=== PATIENT | male | born 1950 | race Caucasian/White ===

== ENCOUNTER 2020-01-25 18:42 | Emergency (ER) | payer OTHER, SELFPAY ==
[2020-01-25 19:36] VITALS: BP 157/83; PULSE 98; RESP 16; TEMP 36.7; O2SAT 99; BMI 30.3
[2020-01-25 19:56] VITALS: BP 164/88; PULSE 90; RESP 16; O2SAT 99
--- NOTE | 2020-01-25 19:59 | ECG_ITS ---
Test Reason : HYPERTENSION Blood Pressure : / mmHG Vent. Rate : 088 BPM Atrial Rate : 088 BPM P-R Int : 170 ms QRS Dur : 088 ms QT Int : 344 ms P-R-T Axes : 039 -18 039 degrees QTc Int : 416 ms Normal sinus rhythm Moderate voltage criteria for LVH, may be normal variant Borderline ECG When compared with ECG of 29-AUG-2017 18:04, No significant change was found Referred By: Kaitlin Anthony Electronically Signed By:ADDIS MADRIGAL MD
--- NOTE | 2020-01-25 20:15 | ED_ITS ---
HPI - General Adult General Chief complaint: General Medical Stated complaint: high BP Time Seen by Provider: 01/25/20 19:54 Source: patient Mode of arrival: ambulatory Limitations: no limitations History of Present Illness HPI narrative: patient comes to emergency room complaining of high blood pressure. Patient states he initially had a headache, neck pain and bilateral chest pain, all symptoms started approximately 3 hours ago. Patient states by the time he got to the emergency room, all his symptoms were still present but very mild. At this moment patient denies chest pain. Related Data Allergies Allergy/AdvReac Type Severity Reaction Status Date / Time Penicillins Allergy Mild RASH Verified 01/25/20 19:35 penicillin V Allergy Unknown rash Verified 09/11/19 00:00 Review of Systems Review of Systems: Yes all other systems are reviewed and are negative Cardiovascular: Comments: mild chest pressure Neurologic: Comments: mild headache PMFSH Past Medical History Medical History Hypertension Social History Social History Advance Directives: No Physical Exam Vital Signs: Vital Signs: Vital Signs Temp Pulse Resp BP Pulse Ox 01/25/20 20:21 98.2 F 89 20 156/91 H 97 01/25/20 19:56 90 16 164/88 H 99 01/25/20 19:36 98.0 F 98 16 157/83 H 99 Body Mass Index 30.3 Const: General: cooperative, healthy appearing and comfortable Orientation/consciousness: patient oriented x3 HENMT: Head: Yes normal to inspection Ears: external ears normal General nose exam: Normal external nose present Eyes: General: appearance normal, both eyes and all related structures Neck: Other: no pain to palpation bilaterally Neck: Yes normal visual insp ection Chest: Chest palpation & inspection: normal inspection of the chest Resp: Effort & Inspection: normal respiratory effort Cardio: Jugular venous distension: no JVD Rhythm: regular rhythm Heart sounds: S1 normal heart sound present and S2 normal heart sound present GI: Inspection: Yes normal to inspection : General: Yes no CVA tenderness Back/Spine/Pelvis: Back: no CVA tenderness Skin: General skin exam: no rashes or lesions noted Neuro: General: patient oriented x3 Extrem: General: Yes normal to inspection Psych: Appearance: grossly normal and well kempt Course Reevaluation(s) Reevaluation #1: patient no longer having neck pain or chest pressure, only having mild headache Medical Decision Making MDM Narrative Medical decision making narrative: I discussed the labs and EKG with the patient, troponin and EKG within normal limits. Patient will follow-up with his primary care physician. EKG: Normal sinus rhythm, heart rate 88, QTC 416, no ST segment depression or elevations, normal T-waves Lab Data Result diagrams: 01/25/20 20:31 01/25/20 21:09 Labs: Lab Results 01/25/20 01/25/20 01/25/20 Range/Units 20:31 20:31 20:31 WBC 5.8 (4.8-10.8) X10*3/uL RBC 4.91 (4.60-5.80) X10*6/uL Hgb 15.2 (14.0-18.0) g/dl Hct 43.6 (42-52) % MCV 88.8 (80-98) fL MCH 31.0 (27.0-33.0) pg MCHC 34.9 (31.0-36.0) g/dl RDW 13.1 (11.0-16.0) % Plt Count 237 (160-400) X10*3/uL MPV 9.8 (9.4-12.4) fL Immature Gran % (Auto) 0.2 (0.0-0.4) % Neut % (Auto) 62.9 (45-73) % Lymph % (Auto) 23.7 (20-40) % [place] % (Auto) 10.3 (2-11) % Eos % (Auto) 2.6 (0-4) % Baso % (Auto) 0.3 (0-2) % Lymph # (Auto) 1.4 (1.2-4.9) X10*3/uL [place] # (Auto) 0.6 (0.1-1.2) X10*3/uL Eos # (Auto) 0.2 (0.0-0.4) X10*3/uL Baso # (Auto) 0.0 (0.0-0.2) X10*3/uL Abs Immat Gran (auto) 0.01 (0.00-0.03) X10*3/uL Absolute Neuts (auto) 3.6 (2.0-8.3) X10*3/uL Absolute Nucleated RBC 0.000 (0.0-0.012) X10*3/uL Nucleated RBC % (auto) 0.0 (0.0-0.2) /100WBC Sodium Cancelled Potassium Cancelled Chloride Cancelled Carbon Dioxide Cancelled Anion Gap Cancelled BUN Cancelled Creatinine Cancelled Estim Creat Clear Calc Cancelled Estimated GFR Cancelled Random Glucose Cancelled Calcium Cancelled Troponin I High Sens < 3.5 (<3.5-35.0) ng/L 01/25/20 Range/Units 21:09 WBC (4.8-10.8) X10*3/uL RBC (4.60-5.80) X10*6/uL Hgb (14.0-18.0) g/dl Hct (42-52) % MCV (80-98) fL MCH (27.0-33.0) pg MCHC (31.0-36.0) g/dl RDW (11.0-16.0) % Plt Count (160-400) X10*3/uL MPV (9.4-12.4) fL Immature Gran % (Auto) (0.0-0.4) % Neut % (Auto) (45-73) % Lymph % (Auto) (20-40) % [place] % (Auto) (2-11) % Eos % (Auto) (0-4) % Baso % (Auto) (0-2) % Lymph # (Auto) (1.2-4.9) X10*3/uL [place] # (Auto) (0.1-1.2) X10*3/uL Eos # (Auto) (0.0-0.4) X10*3/uL Baso # (Auto) (0.0-0.2) X10*3/uL Abs Immat Gran (auto) (0.00-0.03) X10*3/uL Absolute Neuts (auto) (2.0-8.3) X10*3/uL Absolute Nucleated RBC (0.0-0.012) X10*3/uL Nucleated RBC % (auto) (0.0-0.2) /100WBC Sodium 140 Potassium 3.5 Chloride 104 Carbon Dioxide 27 Anion Gap 13 BUN 5 L Creatinine 0.81 Estim Creat Clear Calc 88.1 Estimated GFR > 60 Random Glucose 153 H Calcium 9.2 Troponin I High Sens (<3.5-35.0) ng/L Discharge Plan Discharge Clinical Impression: Hypertension, Chest pressure, Headache Patient Disposition: Home, Self-Care Instructions: Chest Pain (ED) Additional Instructions: if you have any recurrent symptoms or any new chest pain shortness of breath or new symptoms, please return to the emergency room or call 911 Interventions: ED Discharge Assessment Last Done: 01/25/20 21:55 Discharge Date/Time: 01/25/20 21:55
[2020-01-25 20:21] VITALS: BP 156/91; PULSE 89; RESP 20; TEMP 36.8; O2SAT 97
[2020-01-25] MEDS: Aspirin Enteric Coated 325 MG TABLET.DR PO (20:30)
[2020-01-25 20:35] LABS: MANUAL DIFF FLAG NO
[2020-01-25 20:37] LABS: Basophils Percent Auto 0.3 % (0-2); Eosinophils Absolute Auto 0.2 X10*3/uL (0.0-0.4); Eosinophils Percent Auto 2.6 % (0-4); Hematocrit 43.6 % (42-52); Hemoglobin 15.2 g/dl (14.0-18.0); Imm Gran Abs Auto 0.01 X10*3/uL (0.00-0.03); Imm Gran Pct Auto 0.2 % (0.0-0.4); Lymphocytes Absolute Auto 1.4 X10*3/uL (1.2-4.9); Lymphocytes Percent Auto 23.7 % (20-40); Mean Corpuscular HGB Conc 34.9 g/dl (31.0-36.0); Mean Corpuscular Volume 88.8 fL (80-98); Mean Platelet Volume 9.8 fL (9.4-12.4); Monocytes Absolute Auto 0.6 X10*3/uL (0.1-1.2); Monocytes Percent Auto 10.3 % (2-11); Neutrophils Absolute Auto 3.6 X10*3/uL (2.0-8.3); Neutrophils Percent Auto 62.9 % (45-73); Platelet Count 237 X10*3/uL (160-400); Red Blood Count 4.91 X10*6/uL (4.60-5.80); Red Cell Distribution Width 13.1 % (11.0-16.0); White Blood Count 5.8 X10*3/uL (4.8-10.8)
[2020-01-25 21:04] LABS: Troponin-I High Sensitivity < 3.5 ng/L (<3.5-35.0)
[2020-01-25 21:35] LABS: Anion Gap 13 (12-20); Blood Urea Nitrogen 5 mg/dL (9-16); Calcium 9.2 mg/dL (8.4-10.2); Carbon Dioxide 27 mmol/L (22-29); Chloride 104 mmol/L (96-108); Creatinine Clr Calc Pharmacy 88.1; Estimated Glomerular Filt Rate > 60; Glucose Random 153 mg/dL (60-115); Potassium 3.5 mmol/l (3.3-5.1); Sodium 140 mmol/L (135-145)
[2020-01-25] MEDS: Acetaminophen 325 MG TABLET 650 MG PO (21:52)
== END 2020-01-25 21:55 | disposition home or self-care (01) ==
PROVIDERS: Emergency Provider Emergency Medicine; PCP Family Medicine
DX: R07.9 Chest pain, unspecified (principal); I10 Essential (primary) hypertension; R51.9 Headache, unspecified
CPT/HCPCS: 36415; 80048; 84484; 85025; 93005; 99283; 99284

== ENCOUNTER 2020-01-30 09:37 | Outpatient (REF) | payer OTHER, SELFPAY | END 2020-01-30 09:38 | disposition home or self-care (01) | LOC: HO.LAB 09:37 | PROVIDERS: Visit Provider Internal Medicine | DX: Z20.828 Contact with and (suspected) exposure to other viral communicable diseases (principal) | CPT/HCPCS: 87635 ==

== ENCOUNTER 2020-02-14 02:21 | Emergency (ER) | payer OTHER, SELFPAY ==
[2020-02-14 03:43] VITALS: BP 157/90; PULSE 81; RESP 16; TEMP 36.6; O2SAT 98; BMI 26.2
--- NOTE | 2020-02-14 04:16 | XR_ITS ---
EXAMINATION: CHEST 1 VIEW CLINICAL INFORMATION: Shortness of breath. COMPARISON: 01/04/2020. TECHNIQUE: An AP view of the chest is provided. FINDINGS: The cardiac silhouette is not enlarged. The mediastinal and hilar contours are unremarkable. There are neither pleural effusions nor pneumothoraces. There are no consolidations. The osseous structures are stable. XR/XR chest 1V IMPRESSION: No evidence for acute disease.
[2020-02-14 04:17] VITALS: BP 165/81; PULSE 80; RESP 17; TEMP 37.1; O2SAT 97
--- NOTE | 2020-02-14 04:22 | ED.URI ---
HPI - URI/Sore Throat General Chief Complaint: Upper Respiratory Symptoms Stated Complaint: SOB/COUGH Time Seen by Provider: 02/14/20 04:16 Related Data Allergies Allergy/AdvReac Type Severity Reaction Status Date / Time Penicillins Allergy Mild RASH Verified 01/25/20 19:35 penicillin V Allergy Unknown rash Verified 09/11/19 00:00 PMFSH Past Medical History Medical History Hypertension Social History Social History Advance Directives: No Advance Directives Information Provided: No Physical Exam Vital Signs: Vital Signs: Last Vital Signs Temp 98.7 F 02/14/20 04:17 Pulse 80 02/14/20 04:17 Resp 17 02/14/20 04:17 BP 165/81 H 02/14/20 04:17 Pulse Ox 97 02/14/20 04:17 Body Mass Index 26.2 MDM - URI/Sore Throat MDM Narrative Medical decision making narrative: Chest x-ray negative for infiltrate. Lungs clear. Patient said O2 sat greater than 95% on room air. Will discharge patient home. Coronavirus test was sent. Patient told to follow strict home quarantine. Differential Diagnosis Differential diagnosis: Likely upper respiratory infection Discharge Plan Discharge Clinical Impression: Upper respiratory infection, COVID-19 Instructions: Upper Respiratory Infection (ED), COVID-19 (Coronavirus Disease 2019) (ED) Referrals: Lidia Mendoza MD [Primary Care Provider] - 2 days
== END 2020-02-14 06:27 | disposition home or self-care (01) ==
PROVIDERS: Emergency Provider Emergency Medicine Emergency Medical Services; PCP Family Medicine
DX: U07.1 COVID-19 (principal); J06.9 Acute upper respiratory infection, unspecified; R05 Cough; I10 Essential (primary) hypertension; Z79.899 Other long term (current) drug therapy
CPT/HCPCS: 71045; 99283; U0003

== ENCOUNTER 2020-02-28 15:43 | Inpatient (IN) | payer OTHER, SELFPAY ==
[2020-02-28] VITALS (7 sets, daily range): BP systolic 124–171; BP diastolic 70–88; PULSE 77–90; RESP 14–18; TEMP 37.3–37.9; O2SAT 96–100; BMI 28.1
--- NOTE | 2020-02-28 16:32 | ED_ITS ---
HPI - General Adult General Chief complaint: General Medical Stated complaint: covid + w/symptoms Time Seen by Provider: 02/28/20 16:32 Source: patient Mode of arrival: ambulatory Limitations: no limitations History of Present Illness HPI narrative: Primarily Romansh speaking with past medical history significant for type 2 diabetes, hypertension, hyperlipidemia who presents today with chest pain and worsening shortness of breath for the past 2 days he had a COVID test that was positive and since then he reports that he has had some shortness of breath, GI symptoms of nausea and diarrhea since yesterday. Onset (ago): day(s) Radiation: non-radiation Severity: moderate Pain Consistency: constant Exacerbating factors: none Associated symptoms: chest pain, cough and other (Diarrhea) Treatments prior to arrival: none Related Data Home Medications Medication Instructions Recorded Confirmed amlodipine 5 mg tablet 5 mg PO DAILY 02/19/20 02/28/20 aspirin 81 mg tablet,delayed 81 mg PO DAILY 02/19/20 02/28/20 release atorvastatin 40 mg tablet 40 mg PO DAILY 02/19/20 02/28/20 cholecalciferol (vitamin D3) 50 50 mcg PO DAILY 02/19/20 02/28/20 mcg (2,000 unit) capsule empagliflozin 25 mg tablet 25 mg PO QAM 02/19/20 02/28/20 hydrochlorothiazide 25 mg tablet 25 mg PO DAILY 02/19/20 02/28/20 ibuprofen 600 mg tablet 600 mg PO TID PRN 02/19/20 02/28/20 loratadine 10 mg tablet 10 mg PO DAILY 02/19/20 02/28/20 losartan 100 mg tablet 100 mg PO DAILY 02/19/20 02/28/20 metformin 500 mg tablet 0 mg PO BID 02/19/20 02/28/20 mirtazapine 15 mg disintegrating 15 mg PO BEDTIME 02/19/20 02/28/20 tablet potassium chloride 1 cap PO DAILY 02/28/20 02/28/20 Allergies Allergy/AdvReac Type Severity Reaction Status Date / Time Penicillins Allergy Mild RASH Verified 02/28/20 16:14 penicillin V Allergy Unknown rash Verified 02/28/20 16:14 acetaminophen [From Percocet] Allergy Anxiety Verified 02/28/20 16:14 oxycodone [From Percocet] Allergy Anxiety Verified 02/28/20 16:14 Review of Systems Review of Systems: Constitutional: No Weight loss, No Fever, No Chills, No Night Sweats, No Fatigue, No Malaise ENT/Mouth: No Hearing loss, No Ear Pain, + Nasal Congestion, No Sinus Pain, No Hoarseness, No sore throat, + Rhinorrhea, No Swallowing Difficulty Eyes: No Eye Pain, No Swelling, No Redness, No Foreign Body, No Discharge, No Vision Changes Cardiovascular: + Chest Pain, + SOB, No Dyspnea on Exertion, No Orthopnea, No E roland, No Palpitations Respiratory: + Cough, No Sputum, No Wheezing, No Smoke Exposure, No Dyspnea Gastrointestinal: + Nausea, No Vomiting, + Diarrhea, No Constipation, no abdominal Pain, No Hematochezia, No Melena Genitourinary: no irregular bleeding, No Dysuria, No Urinary Frequency, No Hematuria, No Urinary Incontinence, No Urgency, No Flank Pain, No Urinary Flow Changes, No Hesitancy Musculoskeletal: No joint pain, No Myalgias, No Joint Swelling Skin: No Skin Lesions, No rash Neuro: No Weakness, No Numbness, No Paresthesias, No Loss of Consciousness Psych: No Anxiety/Panic, No Depression, No SI/HI/AH/VH, No Social Issues Heme/Lymph: No Bruising, No Bleeding,No Lymphadenopathy Endocrine: No Polyuria, No Polydipsia, No Temperature Intolerance Yes all other systems are reviewed and are negative FOR[facility]LY [facility] Past Medical History Attestation statement: The following information was validated with the patient. Medical History HLD (hyperlipidemia) HTN (hypertension) Hypertension T2DM (type 2 diabetes mellitus) Surgical History History of prostate surgery Hx of removal of cyst Family History Family History Father Cancer Mother Cancer Diabetes Social History Social History Housing: Apartment Alcohol intake: never Smoking Status: Never smoker Tobacco Type: Cigarette Packs Per Day: 1 Cigarettes Per Day: 20.0 Years Smoked: 20 Advance Directives: No Advance Directives Information Provided: Yes service: No Current occupational status: retired Physical Exam Vital Signs: Vital Signs: Last Vital Signs Temp 97.2 F 03/01/20 07:18 Pulse 78 03/01/20 09:24 Resp 18 03/01/20 07:18 BP 128/76 03/01/20 09:24 Pulse Ox 95 03/01/20 07:18 Body Mass Index 28.1 Reviewed Const: General: cooperative and healthy appearing; No acute distress or intoxicated appearing Nutritional Appearance: average body habitus Orientation/consciousness: patient oriented x3 HENMT: Head: Yes normal to inspection Ears: hearing grossly normal bilaterally Eyes: General: appearance normal, both eyes and all related structures Visual Conroy: normal visual conroy by confrontation Neck: Neck: Yes normal visual inspection, No positive Brudzinski's sign, No positive Kernig's sign and No tender Thyroid: Thyroid normal Chest: Chest palpation & inspection: normal inspection of the chest Resp: Other: Slight dry bronchial cough Effort & Inspection: normal respiratory effort Auscultation: clear to auscultation bilaterally Cardio: Jugular venous distension: no JVD Rate: regular rate Rhythm: regular rhythm GI: Inspection: Yes normal to inspection Percussion: Yes normal to percussion Auscultation: normal bowel sounds : General: Yes no CVA tenderness Back/Spine/Pelvis: Back: no CVA tenderness Skin: General skin exam: no rashes or lesions noted Neuro: General: patient oriented x3 Extrem: General: Yes normal to inspection Course Course Course Narrative: Nontoxic appearing. Will need labs, EKG chest x-ray. Will treat with gradual IV fluids nebs/steroids p.r.n.. Abdominal exam benign. He has not had any episodes here in emergency room he is made aware to inform us if he does have diarrhea here. He denies any abdominal pain. Abdominal exam is benign. Reevaluation(s) Reevaluation #1: Labs shows hyponatremia when compared to previous with the 140s this time is 01:20 a given IV fluids and also slight hyper K given IV potassium with repeat labs no improvement. Case discussed with hospitalist for admission. Patient resting comfortably no acute distress. Medical Decision Making Lab Data Result diagrams: 02/29/20 05:31 02/29/20 05:31 Labs: Lab Results 02/28/20 02/28/20 02/28/20 Range/Units 17:26 17:32 17:32 WBC 4.7 L (4.8-10.8) X10*3/uL RBC 4.45 L (4.60-5.80) X10*6/uL Hgb 13.6 L (14.0-18.0) g/dl Hct 38.5 L (42-52) % MCV 86.5 (80-98) fL MCH 30.6 (27.0-33.0) pg MCHC 35.3 (31.0-36.0) g/dl RDW 12.7 (11.0-16.0) % Plt Count 370 D (160-400) X10*3/uL MPV 8.8 L (9.4-12.4) fL Immature Gran % (Auto) 0.2 (0.0-0.4) % Neut % (Auto) 70.1 (45-73) % Lymph % (Auto) 18.6 L (20-40) % [place] % (Auto) 9.0 (2-11) % Eos % (Auto) 2.1 (0-4) % Baso % (Auto) 0.0 (0-2) % Lymph # (Auto) 0.9 L (1.2-4.9) X10*3/uL [place] # (Auto) 0.4 (0.1-1.2) X10*3/uL Eos # (Auto) 0.1 (0.0-0.4) X10*3/uL Baso # (Auto) 0.0 (0.0-0.2) X10*3/uL Abs Immat Gran (auto) 0.01 (0.00-0.03) X10*3/uL Absolute Neuts (auto) 3.3 (2.0-8.3) X10*3/uL Absolute Nucleated RBC 0.000 (0.0-0.012) X10*3/uL Nucleated RBC % (auto) 0.0 (0.0-0.2) /100WBC PT 11.6 (10.8-13.0) SEC INR 1.0 (0.9-1.1) APTT 28.0 (24.1-38.0) SEC D-Dimer < 200 NG/ML Sodium (135-145) mmol/L Potassium (3.3-5.1) mmol/l Chloride (96-108) mmol/L Carbon Dioxide (22-29) mmol/L Anion Gap (12-20) BUN (9-16) mg/dL Creatinine (0.5-1.4) mg/dL Estim Creat Clear Calc Estimated GFR Random Glucose (60-115) mg/dL Lactic Acid (0.5-2.0) mmol/L Calcium (8.4-10.2) mg/dL Total Bilirubin (0.0-1.0) mg/dL AST (5-37) U/L ALT (0-40) U/L Alkaline Phosphatase (39-117) U/L Troponin I High Sens (<3.5-35.0) ng/L Total Protein (6.5-8.0) g/dL Albumin (3.5-5.0) g/dL Urine Color STRAW Urine Appearance CLEAR Urine pH 7.0 (5.0-8.0) Ur Specific [place] <= 1.005 (1.005-1.025) Urine Protein NEG (NEG-TRACE) MG/DL Urine Glucose (UA) >=1000 H (NEG) MG/DL Urine Ketones NEG (NEG) MG/DL Urine Blood NEG (NEG) Urine Nitrite NEG (NEG) Ur Leukocyte Esterase NEG (NEG) Urine RBC 0 (0) /HPF Urine WBC 0 (0-4) /HPF Ur Squamous Epith Cells TRACE /LPF Urine Bacteria NONE /LPF 02/28/20 02/28/20 02/28/20 Range/Units 17:32 17:32 17:32 WBC (4.8-10.8) X10*3/uL RBC (4.60-5.80) X10*6/uL Hgb (14.0-18.0) g/dl Hct (42-52) % MCV (80-98) fL MCH (27.0-33.0) pg MCHC (31.0-36.0) g/dl RDW (11.0-16.0) % Plt Count (160-400) X10*3/uL MPV (9.4-12.4) fL Immature Gran % (Auto) (0.0-0.4) % Neut % (Auto) (45-73) % Lymph % (Auto) (20-40) % [place] % (Auto) (2-11) % Eos % (Auto) (0-4) % Baso % (Auto) (0-2) % Lymph # (Auto) (1.2-4.9) X10*3/uL [place] # (Auto) (0.1-1.2) X10*3/uL Eos # (Auto) (0.0-0.4) X10*3/uL Baso # (Auto) (0.0-0.2) X10*3/uL Abs Immat Gran (auto) (0.00-0.03) X10*3/uL Absolute Neuts (auto) (2.0-8.3) X10*3/uL Absolute Nucleated RBC (0.0-0.012) X10*3/uL Nucleated RBC % (auto) (0.0-0.2) /100WBC PT (10.8-13.0) SEC INR (0.9-1.1) APTT (24.1-38.0) SEC D-Dimer NG/ML Sodium 128 L (135-145) mmol/L Potassium 3.2 L (3.3-5.1) mmol/l Chloride 89 L (96-108) mmol/L Carbon Dioxide 27 (22-29) mmol/L Anion Gap 15 (12-20) BUN 7 L (9-16) mg/dL Creatinine 0.79 (0.5-1.4) mg/dL Estim Creat Clear Calc 93.1 Estimated GFR > 60 Random Glucose 223 H D (60-115) mg/dL Lactic Acid 1.2 (0.5-2.0) mmol/L Calcium 8.8 (8.4-10.2) mg/dL Total Bilirubin 0.4 (0.0-1.0) mg/dL AST 24 (5-37) U/L ALT 28 (0-40) U/L Alkaline Phosphatase 79 (39-117) U/L Troponin I High Sens 5.4 D (<3.5-35.0) ng/L Total Protein 7.2 (6.5-8.0) g/dL Albumin 4.3 (3.5-5.0) g/dL Urine Color Urine Appearance Urine pH (5.0-8.0) Ur Specific [place] (1.005-1.025) Urine Protein (NEG-TRACE) MG/DL Urine Glucose (UA) (NEG) MG/DL Urine Ketones (NEG) MG/DL Urine Blood (NEG) Urine Nitrite (NEG) Ur Leukocyte Esterase (NEG) Urine RBC (0) /HPF Urine WBC (0-4) /HPF Ur Squamous Epith Cells /LPF Urine Bacteria /LPF 02/28/20 Range/Units 20:05 WBC (4.8-10.8) X10*3/uL RBC (4.60-5.80) X10*6/uL Hgb (14.0-18.0) g/dl Hct (42-52) % MCV (80-98) fL MCH (27.0-33.0) pg MCHC (31.0-36.0) g/dl RDW (11.0-16.0) % Plt Count (160-400) X10*3/uL MPV (9.4-12.4) fL Immature Gran % (Auto) (0.0-0.4) % Neut % (Auto) (45-73) % Lymph % (Auto) (20-40) % [place] % (Auto) (2-11) % Eos % (Auto) (0-4) % Baso % (Auto) (0-2) % Lymph # (Auto) (1.2-4.9) X10*3/uL [place] # (Auto) (0.1-1.2) X10*3/uL Eos # (Auto) (0.0-0.4) X10*3/uL Baso # (Auto) (0.0-0.2) X10*3/uL Abs Immat Gran (auto) (0.00-0.03) X10*3/uL Absolute Neuts (auto) (2.0-8.3) X10*3/uL Absolute Nucleated RBC (0.0-0.012) X10*3/uL Nucleated RBC % (auto) (0.0-0.2) /100WBC PT (10.8-13.0) SEC INR (0.9-1.1) APTT (24.1-38.0) SEC D-Dimer NG/ML Sodium 129 L (135-145) mmol/L Potassium 2.7 L (3.3-5.1) mmol/l Chloride 95 L (96-108) mmol/L Carbon Dioxide 26 (22-29) mmol/L Anion Gap 11 L (12-20) BUN 6 L (9-16) mg/dL Creatinine 0.68 (0.5-1.4) mg/dL Estim Creat Clear Calc 108.1 Estimated GFR > 60 Random Glucose 159 H (60-115) mg/dL Lactic Acid (0.5-2.0) mmol/L Calcium 7.5 L D (8.4-10.2) mg/dL Total Bilirubin 0.4 (0.0-1.0) mg/dL AST 17 (5-37) U/L ALT 23 (0-40) U/L Alkaline Phosphatase 62 D (39-117) U/L Troponin I High Sens (<3.5-35.0) ng/L Total Protein 5.8 L (6.5-8.0) g/dL Albumin 3.6 (3.5-5.0) g/dL Urine Color Urine Appearance Urine pH (5.0-8.0) Ur Specific [place] (1.005-1.025) Urine Protein (NEG-TRACE) MG/DL Urine Glucose (UA) (NEG) MG/DL Urine Ketones (NEG) MG/DL Urine Blood (NEG) Urine Nitrite (NEG) Ur Leukocyte Esterase (NEG) Urine RBC (0) /HPF Urine WBC (0-4) /HPF Ur Squamous Epith Cells /LPF Urine Bacteria /LPF Discharge Plan Discharge Clinical Impression: COVID-19, Acute hyponatremia, Acute hypokalemia Patient Disposition: Admitted As Inpatient Interventions: Admission Worksheet (ED) Last Done: 02/29/20 05:44 Discharge Date/Time: 02/28/20 23:10
--- NOTE | 2020-02-28 16:41 | ECG_ITS ---
Test Reason : FLU LIKE SYMPTOMS Blood Pressure : / mmHG Vent. Rate : 082 BPM Atrial Rate : 082 BPM P-R Int : 166 ms QRS Dur : 084 ms QT Int : 378 ms P-R-T Axes : 033 -17 005 degrees QTc Int : 441 ms Normal sinus rhythm Moderate voltage criteria for LVH, may be normal variant Borderline ECG When compared with ECG of 25-JAN-2020 20:20, No significant change was found Referred By: Elver Ayers Electronically Signed By:ADDIS MADRIGAL MD
--- NOTE | 2020-02-28 17:02 | XR_ITS ---
EXAMINATION: XR CHEST CLINICAL INFORMATION: Shortness of breath COMPARISON: 02/14/2020 TECHNIQUE: Frontal view of the chest was obtained. FINDINGS: The cardiomediastinal silhouette is within normal limits. Hilar is stable in appearance. Slightly low lung volumes.. There is no focal consolidation, edema, or effusion. No pneumothorax. No acute osseous abnormality. XR/XR chest 1V IMPRESSION: No significant interval change. No evidence of acute pulmonary process.
[2020-02-28] MEDS: 0.9 % Sodium Chloride 500 ML 1000 ML IV ×2 (17:38→21:23)
[2020-02-28 17:42] LABS: Eosinophils Absolute Auto 0.1 X10*3/uL (0.0-0.4); Eosinophils Percent Auto 2.1 % (0-4); Hematocrit 38.5 % (42-52); Hemoglobin 13.6 g/dl (14.0-18.0); Imm Gran Abs Auto 0.01 X10*3/uL (0.00-0.03); Imm Gran Pct Auto 0.2 % (0.0-0.4); Lymphocytes Absolute Auto 0.9 X10*3/uL (1.2-4.9); Lymphocytes Percent Auto 18.6 % (20-40); Mean Corpuscular HGB Conc 35.3 g/dl (31.0-36.0); Mean Corpuscular Hemoglobin 30.6 pg (27.0-33.0); Mean Corpuscular Volume 86.5 fL (80-98); Mean Platelet Volume 8.8 fL (9.4-12.4); Monocytes Absolute Auto 0.4 X10*3/uL (0.1-1.2); Neutrophils Absolute Auto 3.3 X10*3/uL (2.0-8.3); Neutrophils Percent Auto 70.1 % (45-73); Platelet Count 370 X10*3/uL (160-400); Red Blood Count 4.45 X10*6/uL (4.60-5.80); Red Cell Distribution Width 12.7 % (11.0-16.0); White Blood Count 4.7 X10*3/uL (4.8-10.8)
[2020-02-28 17:44] LABS: MANUAL DIFF FLAG NO
[2020-02-28 17:50] LABS: Prothrombin Time 11.6 SEC (10.8-13.0)
--- NOTE | 2020-02-28 17:59 | CT_ITS ---
EXAMINATION: CT ANGIOGRAM OF THE CHEST WITH AND WITHOUT CONTRAST (CT PULMONARY ANGIOGRAM FOR PE) CLINICAL INFORMATION: Reason for Exam sob COMPARISON: CT chest 02/08/2011 TECHNIQUE: Prior to contrast administration, noncontrast localization images were obtained. Subsequently, multidetector volumetric imaging was performed from the thoracic inlet to below the diaphragms following the administration of 65 mL Omnipaque 350 intravenous contrast. No contrast reaction reported Sagittal, coronal, and MIP oblique sagittal reformatted images were obtained on the CT workstation, uploaded to PACS, and reviewed. This CT examination was performed using dose optimization techniques as appropriate, variously including the following: *Automated exposure control *Adjustment of mA and/or kV according to patient size (this includes techniques or standardized protocols for targeted exams where dose is matched to indication/reason for exam; i.e. extremities or head) *Use of iterative reconstruction technique Total exam dose-length product 308 mGy-cm FINDINGS: QUALITY OF STUDY/CONTRAST BOLUS: Satisfactory. PULMONARY ARTERIES: No central or segmental pulmonary emboli. THORACIC AORTA: No aneurysm or dissection. LUNG: Again seen is a stable 5 mm pulmonary nodule in the right middle lobe with a few other scattered tiny micronodules. There are some small scattered ill-defined areas of increased opacity present (see berg imaging) some with [id number]-type formation indicative of inflammatory disease. PLEURA: No pleural effusion or pneumothorax. MEDIASTINUM: Normal heart size. No pericardial effusion. No hilar or mediastinal lymphadenopathy. No evidence of septal bowing or right heart strain. CHEST WALL/AXILLA: No axillary or internal mammary lymphadenopathy. OSSEOUS STRUCTURES: No acute or suspicious osseous abnormality. UPPER ABDOMEN: The liver is enlarged. The entire liver is not included on this scan. No focal mass or bile duct dilatation is seen. No reflux of contrast into the hepatic veins to suggest elevated right heart pressures. CT/CT angio chest PE protocol IMPRESSION: 1. No evidence of pulmonary emboli. 2. Multiple ill-defined small patchy areas in the lower lung zones indicative of inflammatory disease. VTE: negative
[2020-02-28 18:00] LABS: D Dimer < 200 NG/ML
[2020-02-28 18:01] LABS: Lactic Acid 1.2 mmol/L (0.5-2.0)
[2020-02-28 18:06] LABS: Alanine Aminotransferase 28 U/L (0-40); Albumin Level 4.3 g/dL (3.5-5.0); Alkaline Phosphatase 79 U/L (39-117); Anion Gap 15 (12-20); Aspartate Amino Transferase 24 U/L (5-37); Bilirubin Total 0.4 mg/dL (0.0-1.0); Blood Urea Nitrogen 7 mg/dL (9-16); Calcium 8.8 mg/dL (8.4-10.2); Carbon Dioxide 27 mmol/L (22-29); Chloride 89 mmol/L (96-108); Creatinine Clr Calc Pharmacy 93.1; Estimated Glomerular Filt Rate > 60; Glucose Random 223 mg/dL (60-115); Potassium 3.2 mmol/l (3.3-5.1); Sodium 128 mmol/L (135-145); Total Protein 7.2 g/dL (6.5-8.0)
[2020-02-28 18:07] LABS: Glucose Urine UA >=1000 MG/DL (NEG); Leukocyte Esterase Urine NEG (NEG); Nitrite Urine NEG (NEG); Specific Gravity - Urine <= 1.005 (1.005-1.025); Urine Blood NEG (NEG); Urine Ketones NEG (NEG); Urine Protein NEG (NEG-TRACE)
[2020-02-28 18:09] LABS: Appearance Urine CLEAR; Color Urine STRAW
--- NOTE | 2020-02-28 18:11 | ECG_ITS ---
Test Reason : SOB Blood Pressure : / mmHG Vent. Rate : 085 BPM Atrial Rate : 085 BPM P-R Int : 166 ms QRS Dur : 086 ms QT Int : 374 ms P-R-T Axes : 058 -13 027 degrees QTc Int : 445 ms Normal sinus rhythm Normal ECG When compared with ECG of 28-FEB-2020 17:21, No significant change was found Referred By: Elver Ayers Electronically Signed By:ADDIS MADRIGAL MD
[2020-02-28 18:12] LABS: Troponin-I High Sensitivity 5.4 ng/L (<3.5-35.0)
--- NOTE | 2020-02-28 18:12 | PC.NURSE ---
this rn responded to call bridges aprox 1850. pt complained of sob and cp repeating i can't get enough air skin was pwd, pt alert, holding mask away from face, nsr in 90's on monitor. ls cta. pt improved after attention from this rn and provider. additional iv was started and patient aware of new order for cta. family was on the phone with patient during interventions.
[2020-02-28 18:24] LABS: RBC Urine 0 /HPF (0); Squamous Epithelial Cell Urine TRACE /LPF; WBC Urine 0 /HPF (0-4)
[2020-02-28] MEDS: iohexoL 350 MG/ML 100 ML INFUS..BTL IV (19:23)
[2020-02-28] MEDS: Potassium Chloride ER 20 MEQ TAB.ER.PRT PO (19:35)
[2020-02-28 20:57] LABS: Alanine Aminotransferase 23 U/L (0-40); Albumin Level 3.6 g/dL (3.5-5.0); Alkaline Phosphatase 62 U/L (39-117); Anion Gap 11 (12-20); Aspartate Amino Transferase 17 U/L (5-37); Bilirubin Total 0.4 mg/dL (0.0-1.0); Blood Urea Nitrogen 6 mg/dL (9-16); Calcium 7.5 mg/dL (8.4-10.2); Carbon Dioxide 26 mmol/L (22-29); Chloride 95 mmol/L (96-108); Creatinine Clr Calc Pharmacy 108.1; Estimated Glomerular Filt Rate > 60; Glucose Random 159 mg/dL (60-115); Potassium 2.7 mmol/l (3.3-5.1); Sodium 129 mmol/L (135-145); Total Protein 5.8 g/dL (6.5-8.0)
[2020-02-28] MEDS: Potassium Chloride/H20 10 MEQ/100 ML PIGGYBACK 100 MEQ IV (21:23)
--- NOTE | 2020-02-28 21:25 | PC.NURSE ---
patient medicated per order -float nurse
--- NOTE | 2020-02-28 22:01 | PC.NURSE ---
PTS HAS BEEN UPDATED RE: PLAN OF CARE. IV POTASSIUM NOW- RECHECK LABS. DEPENDING ON LABS PT WILL EITHER BE ADMITTED OR D/C HOME.
[2020-02-28] MEDS: 0.9 % Sodium Chloride 1,000 ML 100 ML IVCONT (23:54)
[2020-02-28] MEDS: Enoxaparin Sodium 40 MG/0.4 ML SYRINGE SUBCUT (23:54)
[2020-02-28] MEDS: Potassium Chloride Packet 20 MEQ PACKET 40 MEQ PO (23:54)
[2020-02-29] VITALS (9 sets, daily range): BP systolic 132–165; BP diastolic 75–90; PULSE 69–91; RESP 18–20; TEMP 35.7–36.8; O2SAT 95–99; BMI 28.0; BMI 28.1
--- NOTE | 2020-02-29 04:03 | P.HPHOSP_ITS ---
History of Present Illness Date of Service: 02/28/20 Chief Complaint: Diarrhea and chest pain This is a 69-year-old male with positive COVID results from outpatient setting, with past medical history of diabetes, hyperlipidemia, hypertension who presents to the hospital with complaints of diarrhea and chest pain. Diarrhea side yesterday, he has had nonbloody 1-3 episodes of watery diarrhea, he is also complaining of diffuse abdominal pain, 5/10, nonradiating, describing it as discomfort, he has nausea with no vomiting, no appetite, loss of smell and taste, he also describing the abdominal pain when he is moving his bowels. The chest pain started yesterday , localized on the right chest, radiating to the back, mild , intermittent, feels like tightness, does not change with breathing, he has no cough shortness of breath. He once again has no shortness of breath, No cough,and no palpitations. he otherwise denies any headache, change in vision, no urinary symptoms and no lower extremity edema. No numbness or tingling. patient also reports that he has been trying to stay hydrated has been drinking a lot of water more than usual for himself. On arrival to the ED hemodynamically stable with no significant abnormal vitals. labs are significant for WBC count of 4.7, sodium of 128 ( 140 on 01/25/2020 ), troponin of 5.4 EKG shows normal sinus rhythm with no acute changes CT angiogram shows no evidence of pulmonary emboli, multiple ill-defined small patchy areas in the lower lung zones indicative of inflammatory disease past medical history: Hypertension, diabetes, hyperlipidemia, BPH Surgical history: Prostatectomy Family history colon cancer patient is not sure what type Social history: Comes from home, ambulates independently, denies tobacco alcohol or illicit drugs Review of Systems Review of Systems: Yes all other systems are reviewed and are negative [facility] Medical History HLD (hyperlipidemia) HTN (hypertension) Hypertension T2DM (type 2 diabetes mellitus) Family History Father Cancer Mother Cancer Diabetes Surgical History History of prostate surgery Hx of removal of cyst Social History (Updated 02/19/20 @ 15:55 by Rosaline Tucker DO) Housing: Apartment Alcohol intake: never Smoking Status: Never smoker Tobacco Type: Cigarette Packs Per Day: 1 Cigarettes Per Day: 20.0 Years Smoked: 20 Smoked in Last 30 Days: No Use of substances other than those prescribed or required for medical reasons: No Have you been hit, kicked, punched, or otherwise hurt by someone within the past year? If so, by whom?: No Do you feel safe in your current relationship?: Yes Is there a partner from a previous relationship who is making you feel unsafe now?: No Are you made to feel afraid or neglected: No Advance Directives: No Advance Directives Information Provided: Yes Do you have thoughts of harming others: None Do you have a plan to hurt others: No Plan Recently lost weight without trying: No Meds Allergies Allergy/AdvReac Type Severity Reaction Status Date / Time Penicillins Allergy Mild RASH Verified 02/28/20 16:14 penicillin V Allergy Unknown rash Verified 02/28/20 16:14 acetaminophen [From Percocet] Allergy Anxiety Verified 02/28/20 16:14 oxycodone [From Percocet] Allergy Anxiety Verified 02/28/20 16:14 Home Medications Medication Instructions Recorded Confirmed Type amlodipine 5 mg tablet 5 mg PO DAILY 02/19/20 02/28/20 History aspirin 81 mg tablet,delayed 81 mg PO DAILY 02/19/20 02/28/20 History release atorvastatin 40 mg tablet 40 mg PO DAILY 02/19/20 02/28/20 History cholecalciferol (vitamin D3) 50 50 mcg PO DAILY 02/19/20 02/28/20 History mcg (2,000 unit) capsule empagliflozin 25 mg tablet 25 mg PO QAM 02/19/20 02/28/20 History hydrochlorothiazide 25 mg tablet 25 mg PO DAILY 02/19/20 02/28/20 History ibuprofen 600 mg tablet 600 mg PO TID PRN 02/19/20 02/28/20 History loratadine 10 mg tablet 10 mg PO DAILY 02/19/20 02/28/20 History losartan 100 mg tablet 100 mg PO DAILY 02/19/20 02/28/20 History metformin 500 mg tablet 0 mg PO BID 02/19/20 02/28/20 History mirtazapine 15 mg disintegrating 15 mg PO BEDTIME 02/19/20 02/28/20 History tablet potassium chloride 1 cap PO DAILY 02/28/20 02/28/20 History Physical Exam Vital Signs and Narrative: Vital Signs: Last Vital Signs Temp 96.8 F 02/29/20 03:10 Pulse 69 02/29/20 03:10 Resp 19 02/29/20 03:10 BP 165/75 H 02/29/20 03:10 Pulse Ox 95 02/29/20 03:10 Body Mass Index 28.0 Const: General: cooperative and no acute distress Orientation/consciousness: patient oriented x3 Eyes: General: appearance normal, both eyes and all related structures Pupils: Equal, round and reactive pupils present Chest: Other: reproducible chest tenderness on the right side Resp: Effort & Inspection: normal respiratory effort and able to speak in complete sentences Auscultation: clear to auscultation bilaterally Cardio: Rate: regular rate Rhythm: regular rhythm GI: Other: Diffuse abdominal tenderness on deep palpation, no guarding, no rebound Palpation (GI): Soft to palpation Auscultation: normal bowel sounds Skin: General skin exam: no rashes or lesions noted Neuro: General: patient oriented x3 Cranial nerves: Yes Equal, round and reactive pupils present Cognition (Neuro): normal cognition Extrem: General: Yes normal to inspection and Yes no pedal edema Results Labs CBC and Chem 7: 02/28/20 17:32 02/28/20 20:05 Labs: Laboratory Results - last 24 hr 02/28/20 02/28/20 02/28/20 17:26 17:32 17:32 MCV 86.5 MCH 30.6 MCHC 35.3 RDW 12.7 Plt Count 370 D MPV 8.8 L Immature Gran % (Auto) 0.2 Neut % (Auto) 70.1 Lymph % (Auto) 18.6 L [place] % (Auto) 9.0 Eos % (Auto) 2.1 Baso % (Auto) 0.0 Lymph # (Auto) 0.9 L [place] # (Auto) 0.4 Eos # (Auto) 0.1 Baso # (Auto) 0.0 Abs Immat Gran (auto) 0.01 Absolute Neuts (auto) 3.3 Absolute Nucleated RBC 0.000 Nucleated RBC % (auto) 0.0 PT 11.6 INR 1.0 APTT 28.0 D-Dimer < 200 Anion Gap Estim Creat Clear Calc Estimated GFR Random Glucose Lactic Acid Calcium Total Bilirubin AST ALT Alkaline Phosphatase Troponin I High Sens Total Protein Albumin Urine Color STRAW Urine Appearance CLEAR Urine pH 7.0 Ur Specific [place] <= 1.005 Urine Protein NEG Urine Glucose (UA) >=1000 H Urine Ketones NEG Urine Blood NEG Urine Nitrite NEG Ur Leukocyte Esterase NEG Urine RBC 0 Urine WBC 0 Ur Squamous Epith Cells TRACE Urine Bacteria NONE 02/28/20 02/28/20 02/28/20 17:32 17:32 17:32 MCV MCH MCHC RDW Plt Count MPV Immature Gran % (Auto) Neut % (Auto) Lymph % (Auto) [place] % (Auto) Eos % (Auto) Baso % (Auto) Lymph # (Auto) [place] # (Auto) Eos # (Auto) Baso # (Auto) Abs Immat Gran (auto) Absolute Neuts (auto) Absolute Nucleated RBC Nucleated RBC % (auto) PT INR APTT D-Dimer Anion Gap 15 Estim Creat Clear Calc 93.1 Estimated GFR > 60 Random Glucose 223 H D Lactic Acid 1.2 Calcium 8.8 Total Bilirubin 0.4 AST 24 ALT 28 Alkaline Phosphatase 79 Troponin I High Sens 5.4 D Total Protein 7.2 Albumin 4.3 Urine Color Urine Appearance Urine pH Ur Specific [place] Urine Protein Urine Glucose (UA) Urine Ketones Urine Blood Urine Nitrite Ur Leukocyte Esterase Urine RBC Urine WBC Ur Squamous Epith Cells Urine Bacteria 02/28/20 20:05 MCV MCH MCHC RDW Plt Count MPV Immature Gran % (Auto) Neut % (Auto) Lymph % (Auto) [place] % (Auto) Eos % (Auto) Baso % (Auto) Lymph # (Auto) [place] # (Auto) Eos # (Auto) Baso # (Auto) Abs Immat Gran (auto) Absolute Neuts (auto) Absolute Nucleated RBC Nucleated RBC % (auto) PT INR APTT D-Dimer Anion Gap 11 L Estim Creat Clear Calc 108.1 Estimated GFR > 60 Random Glucose 159 H Lactic Acid Calcium 7.5 L D Total Bilirubin 0.4 AST 17 ALT 23 Alkaline Phosphatase 62 D Troponin I High Sens Total Protein 5.8 L Albumin 3.6 Urine Color Urine Appearance Urine pH Ur Specific [place] Urine Protein Urine Glucose (UA) Urine Ketones Urine Blood Urine Nitrite Ur Leukocyte Esterase Urine RBC Urine WBC Ur Squamous Epith Cells Urine Bacteria Imaging Radiologist's Impressions: Impressions Chest X-Ray 02/28/20 17:02 IMPRESSION: No significant interval change. No evidence of acute pulmonary process. Chest CTA 02/28/20 17:59 IMPRESSION: 1. No evidence of pulmonary emboli. 2. Multiple ill-defined small patchy areas in the lower lung zones indicative of inflammatory disease. 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 Patient is COVID-19 positive prior to presentation to the ED # Diarrhea/abdominal pain - most likely in the setting of COVID-19 infection - patient has 1-3 episodes of diarrhea for the past 2 days along with diffuse abdominal pain which is most likely related to the diarrhea itself Plan: -supportive measures with IV fluids, - patient has no hypoxia, and has no respiratory distress therefore will not benefit from dexamethasone or any other COVID-19 medications at this time line # hyponatremia - most likely secondary to the diarrhea and increased water intake in combination with hydrochlorothiazide - 140 in January, presents with a sodium of 129, with no symptoms Plan: - Will start him on NS - BMP q.6 hours - nephrology consult - will hold hydrochlorothiazide at this time # hypokalemia - secondary to diarrhea as well as chronically hypokalemic as patient is on potassium supplement - repleted - recheck BMP # COVID-19 pneumonia - has no hypoxia, no cough, no respiratory distress - will monitor at this time # Chest pain - noncardiac, most likely musculoskeletal - troponin of 5.4, no EKG changes Plan: - Tylenol - monitor on telemetry # hypertension - elevated - will continue amlodipine and losartan, hold hydrochlorothiazide in the setting of hypokalemia and hyponatremia # diabetes type 2 - hold gemfibrozil as well as metformin - low-dose sliding scale insulin DVT prophylaxis: Lovenox
[2020-02-29 05:46] LABS: MANUAL DIFF FLAG NO
[2020-02-29 05:50] LABS: Basophils Percent Auto 0.2 % (0-2); Eosinophils Absolute Auto 0.1 X10*3/uL (0.0-0.4); Eosinophils Percent Auto 2.4 % (0-4); Hematocrit 35.8 % (42-52); Hemoglobin 12.8 g/dl (14.0-18.0); Imm Gran Abs Auto 0.01 X10*3/uL (0.00-0.03); Imm Gran Pct Auto 0.2 % (0.0-0.4); Lymphocytes Absolute Auto 1.6 X10*3/uL (1.2-4.9); Lymphocytes Percent Auto 27.4 % (20-40); Mean Corpuscular HGB Conc 35.8 g/dl (31.0-36.0); Mean Corpuscular Hemoglobin 30.9 pg (27.0-33.0); Mean Corpuscular Volume 86.5 fL (80-98); Mean Platelet Volume 8.8 fL (9.4-12.4); Monocytes Absolute Auto 0.5 X10*3/uL (0.1-1.2); Monocytes Percent Auto 9.4 % (2-11); Neutrophils Absolute Auto 3.5 X10*3/uL (2.0-8.3); Neutrophils Percent Auto 60.4 % (45-73); Platelet Count 393 X10*3/uL (160-400); Red Blood Count 4.14 X10*6/uL (4.60-5.80); Red Cell Distribution Width 12.8 % (11.0-16.0); White Blood Count 5.8 X10*3/uL (4.8-10.8)
[2020-02-29 06:14] LABS: Blood Urea Nitrogen 6 mg/dL (9-16); Calcium 8.2 mg/dL (8.4-10.2); Creatinine Clr Calc Pharmacy 108.1; Estimated Glomerular Filt Rate > 60; Glucose Random 142 mg/dL (60-115)
[2020-02-29 06:19] LABS: Troponin-I High Sensitivity 7.4 ng/L (<3.5-35.0)
[2020-02-29 06:24] LABS: Anion Gap 17 (12-20); Carbon Dioxide 22 mmol/L (22-29); Chloride 99 mmol/L (96-108); Potassium 3.7 mmol/l (3.3-5.1); Sodium 134 mmol/L (135-145)
[2020-02-29] MEDS: Insulin Lispro 100 UNIT/ML 3 ML VIAL SUBCUT ×4 (08:32→20:54)
[2020-02-29] MEDS: Cholecalciferol (Vitamin D3) 25 MCG TABLET 50 MCG PO (08:32)
[2020-02-29] MEDS: 0.9 % Sodium Chloride Flush 3 ML SYRINGE IVFLUSH ×2 (08:32→16:27)
[2020-02-29] MEDS: Loratadine 10 MG TABLET PO (08:33)
[2020-02-29] MEDS: amLODIPine Besylate 5 MG TABLET PO (08:33)
[2020-02-29] MEDS: Atorvastatin Calcium 40 MG TABLET PO (08:34)
[2020-02-29] MEDS: Aspirin Enteric Coated 81 MG TABLET.DR PO (08:34)
[2020-02-29] MEDS: Losartan Potassium 50 MG TABLET 100 MG PO (08:34)
[2020-02-29] MEDS: 0.9 % Sodium Chloride 1,000 ML 100 ML IVCONT (08:36)
[2020-02-29 10:39] LABS: COVID-19 Test Positive (Negative)
[2020-02-29 11:41] LABS: Glucose, Whole Blood 174 mg/dL (60-115)
[2020-02-29 11:41] LABS: Glucose, Whole Blood 151 mg/dL (60-115)
--- NOTE | 2020-02-29 14:34 | PM.CNNEP ---
History of Present Illness Reason for Consult Consult date: 02/29/20 Reason for consult: Hyponatremia, hypokalemia Requesting physician: Robson Aragon Chief Complaint Chief complaint: covid +, Hyponatremia History of Present Illness Narrative: Most of the history is obtained by reviewing H and P This eduardo 69 yo man with a history of DM and HTN for which he has been taking losartan and hctz. He presents now with diarrhea for several days and abdominal pain with a positive COVID 19 test as an outpatient. His sodium is 129 and K is 2.9; Creat remains normal. He has not been taking NSAIDS. His appetite has been down due to his GI issues and he has had poor po intake. Review of Systems Review of Systems fever, malaise, dyspnea, abdominal pain, diarrhea, nausea , anoroxia Yes all other systems are reviewed and are negative PMFSH Past Medical History Medical History HLD (hyperlipidemia) HTN (hypertension) Hypertension T2DM (type 2 diabetes mellitus) Family History Family History Father Cancer Mother Cancer Diabetes Surgical History Surgical History History of prostate surgery Hx of removal of cyst Social History Social History Housing: Apartment Alcohol intake: never Smoking Status: Never smoker Tobacco Type: Cigarette Packs Per Day: 1 Cigarettes Per Day: 20.0 Years Smoked: 20 Smoked in Last 30 Days: No Use of substances other than those prescribed or required for medical reasons: No Currently Displaying Signs/Symptoms of Drug Intoxication Withdrawal: No Have you been hit, kicked, punched, or otherwise hurt by someone within the past year? If so, by whom?: No Do you feel safe in your current relationship?: Yes Is there a partner from a previous relationship who is making you feel unsafe now?: No Are you made to feel afraid or neglected: No Advance Directives: No Advance Directives Information Provided: Yes Do you have thoughts of harming others: None Do you have a plan to hurt others: No Plan Recently lost weight without trying: No Meds Allergies Allergy/AdvReac Type Severity Reaction Status Date / Time Penicillins Allergy Mild RASH Verified 02/28/20 16:14 penicillin V Allergy Unknown rash Verified 02/28/20 16:14 acetaminophen [From Percocet] Allergy Anxiety Verified 02/28/20 16:14 oxycodone [From Percocet] Allergy Anxiety Verified 02/28/20 16:14 Home Medications Medication Instructions Recorded Confirmed Type amlodipine 5 mg tablet 5 mg PO DAILY 02/19/20 02/28/20 History aspirin 81 mg tablet,delayed 81 mg PO DAILY 02/19/20 02/28/20 History release atorvastatin 40 mg tablet 40 mg PO DAILY 02/19/20 02/28/20 History cholecalciferol (vitamin D3) 50 50 mcg PO DAILY 02/19/20 02/28/20 History mcg (2,000 unit) capsule empagliflozin 25 mg tablet 25 mg PO QAM 02/19/20 02/28/20 History hydrochlorothiazide 25 mg tablet 25 mg PO DAILY 02/19/20 02/28/20 History ibuprofen 600 mg tablet 600 mg PO TID PRN 02/19/20 02/28/20 History loratadine 10 mg tablet 10 mg PO DAILY 02/19/20 02/28/20 History losartan 100 mg tablet 100 mg PO DAILY 02/19/20 02/28/20 History metformin 500 mg tablet 0 mg PO BID 02/19/20 02/28/20 History mirtazapine 15 mg disintegrating 15 mg PO BEDTIME 02/19/20 02/28/20 History tablet potassium chloride 1 cap PO DAILY 02/28/20 02/28/20 History Physical Exam Vital Signs: Last Vital Signs Temp 98.0 F 02/29/20 12:00 Pulse 82 02/29/20 12:00 Resp 18 02/29/20 12:00 BP 151/83 H 02/29/20 12:00 Pulse Ox 98 02/29/20 12:00 Body Mass Index 28.1 Const Other: I reviewed the exam performed by hospital medicine Results Lab Results Result Diagrams: 02/29/20 05:31 02/29/20 05:31 Lab results: Chemistry 02/28/20 02/28/20 02/29/20 17:32 20:05 05:31 Sodium 128 L 129 L 134 L Potassium 3.2 L 2.7 L 3.7 D Carbon Dioxide 27 26 22 BUN 7 L 6 L 6 L Creatinine 0.79 0.68 0.68 Calcium 8.8 7.5 L D 8.2 L D Hematology 02/28/20 02/29/20 17:32 05:31 WBC 4.7 L 5.8 Hgb 13.6 L 12.8 L Plt Count 370 D 393 Urinalysis 02/28/20 17:26 Urine Color STRAW Urine Appearance CLEAR Urine pH 7.0 Ur Specific [place] <= 1.005 Urine Protein NEG Urine Glucose (UA) >=1000 H Urine Ketones NEG Urine Blood NEG Urine Nitrite NEG Ur Leukocyte Esterase NEG Urine RBC 0 Urine WBC 0 Ur Squamous Epith Cells TRACE Assessment and Plan (1) COVID-19: Status: Acute (2) Acute hyponatremia: Status: Acute (3) HTN (hypertension): Qualifiers: Hypertension type: unspecified Qualified Code(s): I10 - Essential (primary) hypertension Status: Acute this 69 yo man presented with GI symptoms including diarrhea and poor po intake; he has been on HCTZ as part of his hypertensive regimen. He had hypovolemic hyponatremia which is already normalizing and hypokalemia due to both GI and renal losses (hctz). His K is better with repletion. His BP is elevated. I would continue his ARB and consider adding amlodipine but hold off for now on HCTZ Procedures Abscess I/D Date of Service: 02/29/20
--- NOTE | 2020-02-29 14:52 | P.PNIM_ITS ---
Subjective Subjective Date of Service: 02/29/20 Interval History: patient seen and examined at bedside patient denies any shortness of breath reported weakness Review of Systems fever, malaise, dyspnea, abdominal pain, diarrhea, nausea , anoroxia Physical Exam Vital Signs: Vital Signs: Last Vital Signs Temp 98.0 F 02/29/20 12:00 Pulse 82 02/29/20 12:00 Resp 18 02/29/20 12:00 BP 151/83 H 02/29/20 12:00 Pulse Ox 98 02/29/20 12:00 Body Mass Index 28.1 Const: General: cooperative and no acute distress Orientation/consciousness: patient oriented x3 Eyes: General: appearance normal, both eyes and all related structures Pupils: Equal, round and reactive pupils present Chest: Other: reproducible chest tenderness on the right side Resp: Effort & Inspection: normal respiratory effort and able to speak in complete sentences Auscultation: clear to auscultation bilaterally Cardio: Rate: regular rate Rhythm: regular rhythm GI: Other: Diffuse abdominal tenderness on deep palpation, no guarding, no rebound Palpation (GI): Soft to palpation Auscultation: normal bowel sounds Skin: General skin exam: no rashes or lesions noted Neuro: General: patient oriented x3 Cranial nerves: Yes Equal, round and reactive pupils present Cognition (Neuro): normal cognition Extrem: General: Yes normal to inspection and Yes no pedal edema Objective Data Current Medications Generic Name Dose Route Start Last Admin Trade Name Freq PRN Reason Stop Dose Admin Acetaminophen 650 mg 02/28/20 23:18 Acetaminophen 325 Mg Tablet PO Q6H PRN Pain, Mild (Pain Scale 1-3) Amlodipine Besylate 5 mg 02/29/20 09:00 02/29/20 08:33 Amlodipine Besylate 5 Mg Tablet PO 5 mg DAILY ALONZO Administration Protocol Aspirin 81 mg 02/29/20 09:00 02/29/20 08:34 Aspirin Enteric Coated 81 Mg Tablet.Dr PO 81 mg DAILY ALONZO Administration Atorvastatin Calcium 40 mg 02/29/20 09:00 02/29/20 08:34 Atorvastatin Calcium 40 Mg Tablet PO 40 mg DAILY ALONZO Administration Enoxaparin Sodium 40 mg 02/28/20 23:30 02/28/20 23:54 Enoxaparin Sodium 40 Mg/0.4 Ml Syringe SUBCUT 40 mg Q24H ALONZO Administration Sodium Chloride 1,000 mls @ 100 mls/hr 02/28/20 23:18 02/29/20 08:36 Ns IVCONT 100 mls/hr .Q10H ALONZO Administration Insulin Human Lispro 0 unit 02/29/20 07:30 02/29/20 12:43 Insulin Lispro 100 Unit/Ml 3 Ml Vial SUBCUT 2 unit QIDACHS ALONZO Administration Protocol Loratadine 10 mg 02/29/20 09:00 02/29/20 08:33 Loratadine 10 Mg Tablet PO 10 mg DAILY ALONZO Administration Losartan Potassium 100 mg 02/29/20 09:00 02/29/20 08:34 Losartan Potassium 50 Mg Tablet PO 100 mg DAILY ALONZO Administration Protocol Mirtazapine 15 mg 02/29/20 21:00 Mirtazapine 15 Mg Tablet PO BEDTIME [facility] Consult 1 each 02/28/20 21:06 Consult Rx Perform Med Rec MISCELLANE ONCE PRN Consult order Sodium Chloride 3 ml 02/29/20 00:00 02/29/20 08:32 0.9 % Sodium Chloride Flush 3 Ml Syringe IVFLUSH 3 ml QSHIFT ALONZO Administration Vitamin D 50 mcg 02/29/20 09:00 02/29/20 08:32 Cholecalciferol (Vitamin D3) 25 Mcg Tablet PO 50 mcg DAILY ALONZO Administration Labs CBC & Chem 7: 02/29/20 05:31 02/29/20 05:31 Assessment and Plan (1) Acute hyponatremia: Status: Acute (2) Acute hypokalemia: Status: Acute (3) HTN (hypertension): Status: Acute (4) T2DM (type 2 diabetes mellitus): Status: Acute (5) Pneumonia due to COVID-19 virus: Status: Acute (6) Abdominal pain: Status: Acute (7) Chest pain: Status: Acute Assessment and Plan: this is a 69-year-old male with past medical history as above who presents to the hospital with complaints of chest pain and diarrhea. Patient is COVID-19 positive prior to presentation to the ED Diarrhea/abdominal pain most likely in the setting of COVID-19 infection continue supportive management Hyponatremia improving monitor sodium level Hypokalemia replaced monitor potassium hold hydrochlorothiazide COVID-19 pneumonia no hypoxia, no cough, no respiratory distress - will monitor at this time Chest pain likely musculoskeletal or likely from COVID pneumonia high sensitivity troponin negative, EKG shows no change ACS less likely Hypertension continue amlodipine and losartan Hold hydrochlorothiazide in the setting of hypokalemia and hyponatremia Diabetes type 2 continue sliding scale insulin monitor blood glucose DVT prophylaxis: Lovenox can be discharged tomorrow if no hypoxia
[2020-02-29 15:52] LABS: Glucose, Whole Blood 216 mg/dL (60-115)
[2020-02-29 20:33] LABS: Glucose, Whole Blood 169 mg/dL (60-115)
[2020-02-29] MEDS: Mirtazapine 15 MG TABLET PO (20:55)
[2020-03-01] MEDS: 0.9 % Sodium Chloride Flush 3 ML SYRINGE IVFLUSH ×2 (00:01→09:23)
[2020-03-01] MEDS: Enoxaparin Sodium 40 MG/0.4 ML SYRINGE SUBCUT (00:01)
[2020-03-01] MEDS: diphenhydrAMINE HCL 50 MG/ML VIAL 25 MG IVPUSH (00:41)
[2020-03-01] MEDS: Acetaminophen 325 MG TABLET 650 MG PO (02:32)
[2020-03-01 03:51] VITALS: BP 139/83; PULSE 72; RESP 16; TEMP 35.8; O2SAT 97
[2020-03-01 06:00] VITALS: BMI 28.4
[2020-03-01 07:18] VITALS: BP 128/76; PULSE 78; RESP 18; TEMP 36.2; O2SAT 95
[2020-03-01 07:32] LABS: Glucose, Whole Blood 157 mg/dL (60-115)
[2020-03-01 09:23] VITALS: BP 128/76; PULSE 78
[2020-03-01] MEDS: Insulin Lispro 100 UNIT/ML 3 ML VIAL SUBCUT (09:23)
[2020-03-01] MEDS: Aspirin Enteric Coated 81 MG TABLET.DR PO (09:23)
[2020-03-01] MEDS: Losartan Potassium 50 MG TABLET 100 MG PO (09:23)
[2020-03-01 09:24] VITALS: BP 128/76; PULSE 78
[2020-03-01] MEDS: amLODIPine Besylate 5 MG TABLET PO (09:24)
[2020-03-01] MEDS: Loratadine 10 MG TABLET PO (09:24)
[2020-03-01] MEDS: Atorvastatin Calcium 40 MG TABLET PO (09:24)
[2020-03-01] MEDS: Cholecalciferol (Vitamin D3) 25 MCG TABLET 50 MCG PO (09:24)
--- NOTE | 2020-03-01 09:42 | MHC.CM.PN ---
IMM 03/01/20 Male 69DX COVID+, Hyponatremia. He is Maltese speaking. Lives with Family. Independent all functional mobility. DP Home with [facility], family transport. CM will follow.
--- NOTE | 2020-03-01 11:17 | PM.DS ---
DS: Providers Provider Date of admission: 02/28/20 22:38 Primary care physician: Lidia Mendoza MD Consults: 02/28/20 23:18 Consult to Nephrology Routine Consulting Provider: [facility] Reason for consultation: Hyponatremia Has provider been notified: No DS: Diagnosis Discharge Diagnosis (1) Acute hyponatremia: Status: Acute (2) Acute hypokalemia: Status: Acute (3) HTN (hypertension): Status: Acute (4) T2DM (type 2 diabetes mellitus): Status: Acute (5) Abdominal pain: Status: Acute (6) Chest pain: Status: Acute (7) COVID-19: Status: Acute DS: Medications Discharge Medications Home Medications: Home Medications Medication Instructions Recorded Confirmed amlodipine 5 mg tablet 5 mg PO DAILY 02/19/20 02/28/20 aspirin 81 mg tablet,delayed 81 mg PO DAILY 02/19/20 02/28/20 release atorvastatin 40 mg tablet 40 mg PO DAILY 02/19/20 02/28/20 cholecalciferol (vitamin D3) 50 50 mcg PO DAILY 02/19/20 02/28/20 mcg (2,000 unit) capsule empagliflozin 25 mg tablet 25 mg PO QAM 02/19/20 02/28/20 hydrochlorothiazide 25 mg tablet 25 mg PO DAILY 02/19/20 02/28/20 ibuprofen 600 mg tablet 600 mg PO TID PRN 02/19/20 02/28/20 loratadine 10 mg tablet 10 mg PO DAILY 02/19/20 02/28/20 losartan 100 mg tablet 100 mg PO DAILY 02/19/20 02/28/20 metformin 500 mg tablet 0 mg PO BID 02/19/20 02/28/20 mirtazapine 15 mg disintegrating 15 mg PO BEDTIME 02/19/20 02/28/20 tablet potassium chloride 1 cap PO DAILY 02/28/20 02/28/20 DS: Summary Hospital Course Hospital Course: Admission note HPI This is a 69-year-old male with positive COVID results from outpatient setting, with past medical history of diabetes, hyperlipidemia, hypertension who presents to the hospital with complaints of diarrhea and chest pain. Diarrhea side yesterday, he has had nonbloody 1-3 episodes of watery diarrhea, he is also complaining of diffuse abdominal pain, 5/10, nonradiating, describing it as discomfort, he has nausea with no vomiting, no appetite, loss of smell and taste, he also describing the abdominal pain when he is moving his bowels. The chest pain started yesterday , localized on the right chest, radiating to the back, mild , intermittent, feels like tightness, does not change with breathing, he has no cough shortness of breath. He once again has no shortness of breath, No cough,and no palpitations. he otherwise denies any headache, change in vision, no urinary symptoms and no lower extremity edema. No numbness or tingling. patient also reports that he has been trying to stay hydrated has been drinking a lot of water more than usual for himself. On arrival to the ED hemodynamically stable with no significant abnormal vitals. labs are significant for WBC count of 4.7, sodium of 128 ( 140 on 01/25/2020 ), troponin of 5.4 EKG shows normal sinus rhythm with no acute changes CT angiogram shows no evidence of pulmonary emboli, multiple ill-defined small patchy areas in the lower lung zones indicative of inflammatory disease Hospital course The patient presented to the hospital complaining of diarrhea and associated abdominal and chest pain. He was tested COVID positive before the admission and was admitted for symptomatic measures as his blood work and evaluation did not show any signs of acute infection or sepsis. He was treated with IV fluid, sodium and potassium replacement with good response as his diarrhea resolved and his potassium and sodium level improved back to baseline. His chest pain is likely musculoskeletal in origin as no EKG changes, troponin remained negative and telemetry did not show any abnormal rhythm. He was discharged home to continue his current medications. To repeat chemistry after discharge next [place] to follow-up with PCP To keep himself isolated at home. Time Spent with Patient Time attestation: Total time spent providing and/or coordinating discharge services: Physical Exam Vital Signs: Vital Signs: Last Vital Signs Temp 97.2 F 03/01/20 07:18 Pulse 78 03/01/20 09:24 Resp 18 03/01/20 07:18 BP 128/76 03/01/20 09:24 Pulse Ox 95 03/01/20 07:18 Body Mass Index 28.4 Constitutional : Alert, oriented, not in distress Neck : Normal inspection, Supple Cardiovascular : RRR, S1 S2, no lower extremity edema Respiratory : Fair bilateral air entry, no crackles, wheezes or rhonchi Gastrointestinal: soft, lax, Normal bowel sounds, Non tender Skin : Warm/Dry, No rash Neurological : Alert & oriented x3, No focal deficit DS: Data Data Completed and Pending Labs on day of discharge: 02/28/20 16:41 ECG 12 lead EKG Stat EKG Documentation DIRECTED 0.9 % Sodium Chloride [Ns] 500 ml IV 1,000 mls/hr 02/28/20 17:02 XR chest 1V Stat 02/28/20 17:32 Complete Blood Count Auto Diff Stat Comprehensive Met. Panel Stat D Dimer Stat Lactic Acid Stat Partial Thromboplastin Time Stat Prothrombin Time INR Stat Troponin-I High Sensitivity Stat 02/28/20 17:59 CT angio chest PE protocol Stat 02/28/20 18:11 ECG 12 lead EKG Stat EKG Documentation DIRECTED 02/28/20 18:17 Potassium Chloride ER [Klor-con] 20 meq PO ONCE ONE 02/28/20 19:23 iohexoL 350 MG/ML [Omnipaque 350 MG/ML] 100 ml IV ONCE ONE 02/28/20 20:05 Comprehensive Met. Panel Stat 02/28/20 21:06 0.9 % Sodium Chloride [Ns] 500 ml IV 1,000 mls/hr Potassium Chloride/H20 10 meq in 100 ml IV Q1H 02/28/20 22:29 Transfer Order Routine 02/28/20 23:18 0.9 % Sodium Chloride [Ns] 1,000 ml IVCONT 100 mls/hr Potassium Chloride Packet [Klor-Con Packet] 40 meq PO ONCE ONE 02/28/20 23:18 IV insert/maintain Q4HR Intake and Output Q8HR Vital Signs Q4HR 02/29/20 05:31 Basic Metabolic Panel Stat Complete Blood Count Auto Diff Routine Troponin-I High Sensitivity Stat 02/29/20 07:59 Glucose, Whole Blood Routine 02/29/20 09:50 COVID-19 ID NOW ([place]) Stat 02/29/20 11:29 Glucose, Whole Blood Routine 02/29/20 15:47 Glucose, Whole Blood Routine 02/29/20 20:25 Glucose, Whole Blood Routine 03/01/20 00:20 diphenhydrAMINE HCL [Benadryl] 25 mg IVPUSH ONCE ONE 03/01/20 07:26 Glucose, Whole Blood Routine Laboratory Last Values WBC 5.8 X10*3/uL (4.8-10.8) 02/29/20 05:31 RBC 4.14 X10*6/uL (4.60-5.80) L 02/29/20 05:31 Hgb 12.8 g/dl (14.0-18.0) L 02/29/20 05:31 Hct 35.8 % (42-52) L 02/29/20 05:31 MCV 86.5 fL (80-98) 02/29/20 05:31 MCH 30.9 pg (27.0-33.0) 02/29/20 05:31 MCHC 35.8 g/dl (31.0-36.0) 02/29/20 05:31 RDW 12.8 % (11.0-16.0) 02/29/20 05:31 Plt Count 393 X10*3/uL (160-400) 02/29/20 05:31 MPV 8.8 fL (9.4-12.4) L 02/29/20 05:31 Immature Gran % (Auto) 0.2 % (0.0-0.4) 02/29/20 05:31 Neut % (Auto) 60.4 % (45-73) 02/29/20 05:31 Lymph % (Auto) 27.4 % (20-40) 02/29/20 05:31 [place] % (Auto) 9.4 % (2-11) 02/29/20 05:31 Eos % (Auto) 2.4 % (0-4) 02/29/20 05:31 Baso % (Auto) 0.2 % (0-2) 02/29/20 05:31 Lymph # (Auto) 1.6 X10*3/uL (1.2-4.9) 02/29/20 05:31 [place] # (Auto) 0.5 X10*3/uL (0.1-1.2) 02/29/20 05:31 Eos # (Auto) 0.1 X10*3/uL (0.0-0.4) 02/29/20 05:31 Baso # (Auto) 0.0 X10*3/uL (0.0-0.2) 02/29/20 05:31 Abs Immat Gran (auto) 0.01 X10*3/uL (0.00-0.03) 02/29/20 05:31 Absolute Neuts (auto) 3.5 X10*3/uL (2.0-8.3) 02/29/20 05:31 Absolute Nucleated RBC 0.000 X10*3/uL (0.0-0.012) 02/29/20 05:31 Nucleated RBC % (auto) 0.0 /100WBC (0.0-0.2) 02/29/20 05:31 PT 11.6 SEC (10.8-13.0) 02/28/20 17:32 INR 1.0 (0.9-1.1) 02/28/20 17:32 APTT 28.0 SEC (24.1-38.0) 02/28/20 17:32 D-Dimer < 200 NG/ML 02/28/20 17:32 Sodium 134 mmol/L (135-145) L 02/29/20 05:31 Potassium 3.7 mmol/l (3.3-5.1) D 02/29/20 05:31 Chloride 99 mmol/L (96-108) 02/29/20 05:31 Carbon Dioxide 22 mmol/L (22-29) 02/29/20 05:31 Anion Gap 17 (12-20) 02/29/20 05:31 BUN 6 mg/dL (9-16) L 02/29/20 05:31 Creatinine 0.68 mg/dL (0.5-1.4) 02/29/20 05:31 Estim Creat Clear Calc 108.1 02/29/20 05:31 Estimated GFR > 60 02/29/20 05:31 POC Glucose 157 mg/dL (60-115) H 03/01/20 07:26 Random Glucose 142 mg/dL (60-115) H 02/29/20 05:31 Lactic Acid 1.2 mmol/L (0.5-2.0) 02/28/20 17:32 Calcium 8.2 mg/dL (8.4-10.2) L D 02/29/20 05:31 Total Bilirubin 0.4 mg/dL (0.0-1.0) 02/28/20 20:05 AST 17 U/L (5-37) 02/28/20 20:05 ALT 23 U/L (0-40) 02/28/20 20:05 Alkaline Phosphatase 62 U/L (39-117) D 02/28/20 20:05 Troponin I High Sens 7.4 ng/L (<3.5-35.0) 02/29/20 05:31 Total Protein 5.8 g/dL (6.5-8.0) L 02/28/20 20:05 Albumin 3.6 g/dL (3.5-5.0) 02/28/20 20:05 Urine Color STRAW 02/28/20 17:26 Urine Appearance CLEAR 02/28/20 17:26 Urine pH 7.0 (5.0-8.0) 02/28/20 17:26 Ur Specific [place] <= 1.005 (1.005-1.025) 02/28/20 17:26 Urine Protein NEG MG/DL (NEG-TRACE) 02/28/20 17:26 Urine Glucose (UA) >=1000 MG/DL (NEG) H 02/28/20 17:26 Urine Ketones NEG MG/DL (NEG) 02/28/20 17:26 Urine Blood NEG (NEG) 02/28/20 17:26 Urine Nitrite NEG (NEG) 02/28/20 17:26 Ur Leukocyte Esterase NEG (NEG) 02/28/20 17:26 Urine RBC 0 /HPF (0) 02/28/20 17:26 Urine WBC 0 /HPF (0-4) 02/28/20 17:26 Ur Squamous Epith Cells TRACE /LPF 02/28/20 17:26 Urine Bacteria NONE /LPF 02/28/20 17:26 COVID-19 ([facility]) Positive (Negative) A 02/29/20 09:50 COVID-19 Clin Com See Note 02/29/20 09:50 Preliminary micro results at discharge 02/28/20 17:40 Blood Culture - Preliminary Blood - Venous No growth after 24 hours. 02/28/20 17:32 Blood Culture - Preliminary Blood - Venous No growth after 24 hours. Discharge Plan Discharge Patient Disposition: Home, Self-Care Referrals: Lidia Mendoza MD [Primary Care Provider] - Discharge Medications: Continued potassium chloride 10 mEq capsule, extended release 1 cap PO DAILY RF: 0 amlodipine 5 mg tablet 5 mg PO DAILY RF: 0 aspirin 81 mg tablet,delayed release (DR/EC) 81 mg PO DAILY RF: 0 mirtazapine 15 mg tablet,disintegrating 15 mg PO BEDTIME RF: 0 metformin 500 mg tablet 0 mg PO BID RF: 0 hydrochlorothiazide 25 mg tablet 25 mg PO DAILY RF: 0 losartan 100 mg tablet 100 mg PO DAILY RF: 0 ibuprofen 600 mg tablet 600 mg PO TID PRN (Reason: moderate pain) RF: 0 loratadine 10 mg tablet 10 mg PO DAILY RF: 0 cholecalciferol (vitamin D3) 50 mcg (2,000 unit) capsule 50 mcg PO DAILY RF: 0 atorvastatin 40 mg tablet 40 mg PO DAILY RF: 0 empagliflozin 25 mg tablet 25 mg PO QAM RF: 0 Discharge Orders: Discharge Order (Routine); Ordered 03/01/20 Ordered By: Su Klein Activity on Discharge: As tolerated Other Ambulatory Orders: Basic Metabolic Panel (Routine) Timeframe: 1 Week Facility: [facility] - Location: Laboratory Ordered By: Su Klein Visit Report Forms: Patient Portal Discharge page Care Plan Goals: read below Health Concerns: read below Plan of Treatment: you were admitted to the hospital and for evaluation of abdominal pain and diarrhea. we believe it was a result of COVID-19 infection treated with supportive measures with good response. Your sodium level and potassium were low as a result of dehydration and diarrhea which was replaced. You did not require any active treatment for the COVID-19 infection as you had no difficulty breathing or coughing. Advance your diet as tolerated Continue to take your medications as prescribed To repeat blood test next week To follow up with PCP next week Keep yourself quarantine for the next week.
--- NOTE | 2020-03-01 12:42 | MHC.CM.PN ---
MALE 69 DX Covid + DC to home no services family transport.
--- NOTE | 2020-03-01 13:49 | MHC.CM.PN ---
DC HOME TODAY PATIENT ARRANGED FOR TRANSPORTATION
== END 2020-03-01 14:00 | disposition home or self-care (01) | DRG 177 ==
LOC: HO.ED 21:10 → HO.IMC 22:55
PROVIDERS: Internal Medicine; Nurse Practitioner Primary Care; Admitting Provider Internal Medicine; Emergency Provider Internal Medicine; PCP Family Medicine; Visit Provider Student in an Organized Health Care Education/Training Program
DX: U07.1 COVID-19 (principal); J12.89 Other viral pneumonia; E87.1 Hypo-osmolality and hyponatremia; E87.6 Hypokalemia; E11.65 Type 2 diabetes mellitus with hyperglycemia; E78.5 Hyperlipidemia, unspecified; Z88.0 Allergy status to penicillin; Z88.5 Allergy status to narcotic agent; Z79.82 Long term (current) use of aspirin; Z79.1 Long term (current) use of non-steroidal anti-inflammatories (NSAID); Z79.84 Long term (current) use of oral hypoglycemic drugs; Z79.899 Other long term (current) drug therapy
CPT/HCPCS: 36415; 71045; 71275; 80048; 80053; 81001; 82947; 83605; 84484; 85025; 85379; 85610; 85730; 87040; 87635; 93005; 96365; 99284; 99285; J1200; J1650; Q9967

== ENCOUNTER 2020-03-03 04:15 | Emergency (ER) | payer OTHER, SELFPAY ==
[2020-03-03 04:40] VITALS: BP 170/89; PULSE 91; RESP 20; TEMP 36.9; O2SAT 100; BMI 30.4
--- NOTE | 2020-03-03 04:52 | ECG_ITS ---
Test Reason : SOB Blood Pressure : / mmHG Vent. Rate : 079 BPM Atrial Rate : 079 BPM P-R Int : 170 ms QRS Dur : 084 ms QT Int : 390 ms P-R-T Axes : 057 -11 022 degrees QTc Int : 447 ms Normal sinus rhythm Left axis deviation Nonspecific ST abnormality Borderline ECG When compared with ECG of 28-FEB-2020 18:05, No significant change was found Referred By: Refugio Garduno Electronically Signed By:ADDIS MADRIGAL MD
--- NOTE | 2020-03-03 04:53 | CT_ITS ---
EXAMINATION: CT ABDOMEN AND PELVIS WITHOUT CONTRAST CLINICAL INFORMATION: Pain. Constipated. COMPARISON: Chest CT 02/28/2020. TECHNIQUE: Multidetector volumetric imaging was performed from the superior aspect of the liver through the pubic symphysis. Sagittal and coronal reformatted images were obtained on the technologist's workstation. This CT examination was performed using dose optimization techniques as appropriate, variously including the following: *Automated exposure control *Adjustment of mA and/or kV according to patient size (this includes techniques or standardized protocols for targeted exams where dose is matched to indication/reason for exam; i.e. extremities or head) *Use of iterative reconstruction technique DLP: 599 mGy-cm FINDINGS: LUNG BASES: Right middle lobe 0.5 cm nodule is unchanged. The lung bases are clear otherwise. Coronary artery calcifications noted. LIVER, GALLBLADDER, AND BILIARY TREE: The liver is normal in size, shape, and attenuation. No focal hepatic lesion or biliary ductal dilatation is present. The gallbladder is unremarkable with no evidence of radiopaque gallstones, gallbladder wall thickening, or obvious pericholecystic inflammatory changes. PANCREAS: Unremarkable. SPLEEN: Unremarkable. ADRENAL GLANDS: Unremarkable. KIDNEYS AND URETERS: Low positioning of the right kidney with rotated appearance. Normal size kidneys. Vascular calcifications noted. No hydronephrosis. No nephrolithiasis.. No perinephric stranding. BLADDER: Unremarkable. GASTROINTESTINAL TRACT: The stomach is unremarkable. Normal caliber small bowel. There is no obstruction. Normal appendix. No colonic wall thickening or acute inflammatory change. Mild stool burden of the right hemicolon. No free air or free fluid. ABDOMINAL WALL: No significant hernia is appreciated. LYMPH NODES: Normal. VASCULAR: Normal caliber aorta with moderate atherosclerotic calcification. PELVIC VISCERA: The prostate and seminal vesicles are unremarkable. OSSEOUS STRUCTURES: No acute or suspicious osseous abnormality. Mild degenerative changes in the spine. Vacuum disc phenomenon of L5-S1. CT/CT abdomen pelvis wo con IMPRESSION: Mild colonic stool burden. No inflammatory changes in the abdomen or pelvis.
--- NOTE | 2020-03-03 05:04 | ED_ITS ---
HPI - Abdominal Pain General Chief Complaint: Abdominal Pain Stated Complaint: TROUBLE URINATING/BOWEL MOVEMENT Time Seen by Provider: 03/03/20 04:36 Source: patient Mode of arrival: ambulatory History of Present Illness HPI narrative: 69-year-old male states coming in for abdominal pain and unable to urinate. Patient states he has been constipated for the past 1 or 2 days as well as has not been able to urinate. Patient recently discharged from here secondary to hyponatremia and COVID positive. Patient states of mild shortness of breath with exertion however no current shortness of breath while lying in the bed. Denies chest pain denies fevers or chills. Denies nausea vomiting diarrhea MD elicited complaint: abdominal pain Pertinent past history: constipation Onset (ago): day(s) (1) Severity: moderate Related Data Home Medications Medication Instructions Recorded Confirmed amlodipine 5 mg tablet 5 mg PO DAILY 02/19/20 02/28/20 aspirin 81 mg tablet,delayed 81 mg PO DAILY 02/19/20 02/28/20 release atorvastatin 40 mg tablet 40 mg PO DAILY 02/19/20 02/28/20 cholecalciferol (vitamin D3) 50 50 mcg PO DAILY 02/19/20 02/28/20 mcg (2,000 unit) capsule empagliflozin 25 mg tablet 25 mg PO QAM 02/19/20 02/28/20 hydrochlorothiazide 25 mg tablet 25 mg PO DAILY 02/19/20 02/28/20 ibuprofen 600 mg tablet 600 mg PO TID PRN 02/19/20 02/28/20 loratadine 10 mg tablet 10 mg PO DAILY 02/19/20 02/28/20 losartan 100 mg tablet 100 mg PO DAILY 02/19/20 02/28/20 metformin 500 mg tablet 0 mg PO BID 02/19/20 02/28/20 mirtazapine 15 mg disintegrating 15 mg PO BEDTIME 02/19/20 02/28/20 tablet potassium chloride 1 cap PO DAILY 02/28/20 02/28/20 Allergies Allergy/AdvReac Type Severity Reaction Status Date / Time Penicillins Allergy Mild RASH Verified 02/28/20 16:14 penicillin V Allergy Unknown rash Verified 02/28/20 16:14 acetaminophen [From Percocet] Allergy Anxiety Verified 02/28/20 16:14 oxycodone [From Percocet] Allergy Anxiety Verified 02/28/20 16:14 Review of Systems Review of Systems Constitutional : No Weight loss, No Fever, No Chills, No Night Sweats, No Fatigue, No Malaise ENT/Mouth : No Hearing loss, No Ear Pain, No Nasal Congestion, No Sinus Pain, No Hoarseness, No sore throat, No Rhinorrhea, No Swallowing Difficulty Eyes: No Eye Pain, No Swelling, No Redness, No Foreign Body, No Discharge, No Vision Changes Cardiovascular : No Chest Pain, No SOB, No Dyspnea on Exertion, No Orthopnea, No Edema, No Palpitations Respiratory : No Cough, No Sputum, No Wheezing, No Smoke Exposure, No Dyspnea Gastrointestinal : No Nausea, No Vomiting, No Diarrhea, No Constipation, mild abdominal Pain, No Hematochezia, No Melena Genitourinary : no irregular bleeding, No Dysuria, No Urinary Frequency, No Hematuria, No Urinary Incontinence, No Urgency, No Flank Pain, No Urinary Flow Changes, No Hesitancy Musculoskeletal : No joint pain, No Myalgias, No Joint Swelling Skin : No Skin Lesions, No rash Neuro : No Weakness, No Numbness, No Paresthesias, No Loss of Consciousness, No Dizziness, No Headache Psych : No Anxiety/Panic, No Depression, No SI/HI/AH/VH, No Social Issues, Heme/Lymph: No Bruising, No Bleeding,No Lymphadenopathy Endocrine : No Polyuria, No Polydipsia, No Temperature Intolerance Physical Exam Vital Signs: Vital Signs: Last Vital Signs Temp 98.4 F 03/03/20 04:40 Pulse 91 03/03/20 04:40 Resp 20 03/03/20 04:40 BP 170/89 H 03/03/20 04:40 Pulse Ox 100 03/03/20 04:40 Body Mass Index 30.4 Vital signs reviewed Pulse ox interpretation by me at 100% room air normal Appearance: Alert. Oriented X3. No acute distress. Eyes: Pupils equal, round and reactive to light. ENT: Pharynx normal. Neck: Normal inspection. Neck supple. No lymph nodes noted. No crepitus CVS: Normal heart rate and rhythm. Pulses normal. Normal S1 and S2 Respiratory: No respiratory distress. Breath sounds normal. No Wheezing. No rales Abdomen: Soft and mild mid lower tender. No rigidity. No distention. good BS x4 Skin: Skin warm and dry. Normal skin color. Normal skin turgor. Extremities: No lower extremity edema. Neurovascular intact to all extremities. No Lacerations. No Rash Neuro: Oriented X 3. No motor deficit. No sensory deficit. Moving all extermities. No slurred speech. Course Course Course Narrative: Patient approximately 550 cc on bladder scan straight catheter Quezada was placed patient afterwards stated feeling slightly better will get a CT scan abdomen pelvis rule out obstruction, diverticulitis MDM - Abdominal Pain MDM Narrative Medical decision making narrative: 69-year-old male presents with lower abd ominal pain, after recent discharge with positive COVID and hyponatremia. Patient was diagnosed with urinary retention. CT scan abdomen pelvis shows no acute abnormality. No white count. Urinalysis negative. At this point I doubt patient has prostatitis or UTI. Will discharge home feeling much better after straight cath Medical Records Attestation: I reviewed the patient's medical records. Medical records narrative: Recent discharge from here for hyponatremia COVID positive Lab Data Attestation: I reviewed the patient's lab results. Result diagrams: 03/03/20 05:19 03/03/20 05:19 Labs: Lab Results 03/03/20 03/03/20 03/03/20 Range/Units 05:19 05:19 05:19 WBC 7.8 (4.8-10.8) X10*3/uL RBC 4.28 L (4.60-5.80) X10*6/uL Hgb 13.2 L (14.0-18.0) g/dl Hct 37.1 L (42-52) % MCV 86.7 (80-98) fL MCH 30.8 (27.0-33.0) pg MCHC 35.6 (31.0-36.0) g/dl RDW 13.0 (11.0-16.0) % Plt Count 545 H D (160-400) X10*3/uL MPV 8.6 L (9.4-12.4) fL Immature Gran % (Auto) 0.5 H (0.0-0.4) % Neut % (Auto) 67.9 (45-73) % Lymph % (Auto) 18.9 L (20-40) % [place] % (Auto) 10.0 (2-11) % Eos % (Auto) 2.6 (0-4) % Baso % (Auto) 0.1 (0-2) % Lymph # (Auto) 1.5 (1.2-4.9) X10*3/uL [place] # (Auto) 0.8 (0.1-1.2) X10*3/uL Eos # (Auto) 0.2 (0.0-0.4) X10*3/uL Baso # (Auto) 0.0 (0.0-0.2) X10*3/uL Abs Immat Gran (auto) 0.04 H (0.00-0.03) X10*3/uL Absolute Neuts (auto) 5.3 (2.0-8.3) X10*3/uL Absolute Nucleated RBC 0.000 (0.0-0.012) X10*3/uL Nucleated RBC % (auto) 0.0 (0.0-0.2) /100WBC Sodium 130 L (135-145) mmol/L Potassium 3.7 (3.3-5.1) mmol/l Chloride 94 L (96-108) mmol/L Carbon Dioxide 22 (22-29) mmol/L Anion Gap 18 (12-20) BUN 5 L (9-16) mg/dL Creatinine 0.77 (0.5-1.4) mg/dL Estim Creat Clear Calc 92.8 Estimated GFR > 60 Random Glucose 174 H (60-115) mg/dL Calcium 8.9 D (8.4-10.2) mg/dL Total Bilirubin 0.4 (0.0-1.0) mg/dL Direct Bilirubin 0.2 (0.0-0.5) mg/dL AST 38 H D (5-37) U/L ALT 44 H (0-40) U/L Alkaline Phosphatase 70 (39-117) U/L Troponin I High Sens 5.7 (<3.5-35.0) ng/L Total Protein 7.0 D (6.5-8.0) g/dL Albumin 4.1 (3.5-5.0) g/dL Lipase 26 (8-78) U/L Urine Color Urine Appearance Urine pH (5.0-8.0) Ur Specific [place] (1.005-1.025) Urine Protein (NEG-TRACE) MG/DL Urine Glucose (UA) (NEG) MG/DL Urine Ketones (NEG) MG/DL Urine Blood (NEG) Urine Nitrite (NEG) Ur Leukocyte Esterase (NEG) Urine RBC (0) /HPF Urine WBC (0-4) /HPF Ur Squamous Epith Cells /LPF Urine Bacteria /LPF 03/03/20 Range/Units 05:19 WBC (4.8-10.8) X10*3/uL RBC (4.60-5.80) X10*6/uL Hgb (14.0-18.0) g/dl Hct (42-52) % MCV (80-98) fL MCH (27.0-33.0) pg MCHC (31.0-36.0) g/dl RDW (11.0-16.0) % Plt Count (160-400) X10*3/uL MPV (9.4-12.4) fL Immature Gran % (Auto) (0.0-0.4) % Neut % (Auto) (45-73) % Lymph % (Auto) (20-40) % [place] % (Auto) (2-11) % Eos % (Auto) (0-4) % Baso % (Auto) (0-2) % Lymph # (Auto) (1.2-4.9) X10*3/uL [place] # (Auto) (0.1-1.2) X10*3/uL Eos # (Auto) (0.0-0.4) X10*3/uL Baso # (Auto) (0.0-0.2) X10*3/uL Abs Immat Gran (auto) (0.00-0.03) X10*3/uL Absolute Neuts (auto) (2.0-8.3) X10*3/uL Absolute Nucleated RBC (0.0-0.012) X10*3/uL Nucleated RBC % (auto) (0.0-0.2) /100WBC Sodium (135-145) mmol/L Potassium (3.3-5.1) mmol/l Chloride (96-108) mmol/L Carbon Dioxide (22-29) mmol/L Anion Gap (12-20) BUN (9-16) mg/dL Creatinine (0.5-1.4) mg/dL Estim Creat Clear Calc Estimated GFR Random Glucose (60-115) mg/dL Calcium (8.4-10.2) mg/dL Total Bilirubin (0.0-1.0) mg/dL Direct Bilirubin (0.0-0.5) mg/dL AST (5-37) U/L ALT (0-40) U/L Alkaline Phosphatase (39-117) U/L Troponin I High Sens (<3.5-35.0) ng/L Total Protein (6.5-8.0) g/dL Albumin (3.5-5.0) g/dL Lipase (8-78) U/L Urine Color STRAW Urine Appearance CLEAR Urine pH 6.5 (5.0-8.0) Ur Specific [place] <= 1.005 (1.005-1.025) Urine Protein NEG (NEG-TRACE) MG/DL Urine Glucose (UA) >=1000 H (NEG) MG/DL Urine Ketones NEG (NEG) MG/DL Urine Blood NEG (NEG) Urine Nitrite NEG (NEG) Ur Leukocyte Esterase NEG (NEG) Urine RBC 0 (0) /HPF Urine WBC 0 (0-4) /HPF Ur Squamous Epith Cells NONE /LPF Urine Bacteria NONE /LPF ECG Data Attestation: I personally reviewed and interpreted this ECG as follows: Interpretation: 79 beats per minute. Normal sinus rhythm. Rightward axis. No ST-T changes Discharge Plan Discharge Clinical Impression: Acute urinary retention Abdominal pain Qualifiers: Abdominal location: generalized Qualified Code(s): R10.84 - Generalized abdominal pain Patient Disposition: Home, Self-Care Instructions: Urinary Retention in Men (ED), Abdominal Pain (ED) Additional Instructions: Thank you for visiting the emergency department today. If your symptoms worsen or do not resolve completely please return to the emergency department immediately or call 911. If you have any questions please call your primary care physician Prescriptions: No Action potassium chloride 10 mEq capsule, extended release 1 cap PO DAILY RF: 0 amlodipine 5 mg tablet 5 mg PO DAILY RF: 0 aspirin 81 mg tablet,delayed release (DR/EC) 81 mg PO DAILY RF: 0 mirtazapine 15 mg tablet,disintegrating 15 mg PO BEDTIME RF: 0 metformin 500 mg tablet 0 mg PO BID RF: 0 hydrochlorothiazide 25 mg tablet 25 mg PO DAILY RF: 0 losartan 100 mg tablet 100 mg PO DAILY RF: 0 ibuprofen 600 mg tablet 600 mg PO TID PRN (Reason: moderate pain) RF: 0 loratadine 10 mg tablet 10 mg PO DAILY RF: 0 cholecalciferol (vitamin D3) 50 mcg (2,000 unit) capsule 50 mcg PO DAILY RF: 0 atorvastatin 40 mg tablet 40 mg PO DAILY RF: 0 empagliflozin 25 mg tablet 25 mg PO QAM RF: 0 Referrals: Adonis Ribeiro III, MD [Physician] - 2 days [facility] Past Medical History Attestation statement: The following information was validated with the patient. Medical History HLD (hyperlipidemia) HTN (hypertension) Hypertension T2DM (type 2 diabetes mellitus) Surgical History History of prostate surgery Hx of removal of cyst Family History Family History Father Cancer Mother Cancer Diabetes Social History Social History Housing: Apartment Alcohol intake: never Smoking Status: Never smoker Tobacco Type: Cigarette Packs Per Day: 1 Cigarettes Per Day: 20.0 Years Smoked: 20 Use of substances other than those prescribed or required for medical reasons: No Advance Directives: No Advance Directives Information Provided: No service: No Current occupational status: retired
[2020-03-03 05:25] LABS: Basophils Percent Auto 0.1 % (0-2); Eosinophils Absolute Auto 0.2 X10*3/uL (0.0-0.4); Eosinophils Percent Auto 2.6 % (0-4); Hematocrit 37.1 % (42-52); Hemoglobin 13.2 g/dl (14.0-18.0); Imm Gran Abs Auto 0.04 X10*3/uL (0.00-0.03); Imm Gran Pct Auto 0.5 % (0.0-0.4); Lymphocytes Absolute Auto 1.5 X10*3/uL (1.2-4.9); Lymphocytes Percent Auto 18.9 % (20-40); MANUAL DIFF FLAG NO; Mean Corpuscular HGB Conc 35.6 g/dl (31.0-36.0); Mean Corpuscular Hemoglobin 30.8 pg (27.0-33.0); Mean Corpuscular Volume 86.7 fL (80-98); Mean Platelet Volume 8.6 fL (9.4-12.4); Monocytes Absolute Auto 0.8 X10*3/uL (0.1-1.2); Neutrophils Absolute Auto 5.3 X10*3/uL (2.0-8.3); Neutrophils Percent Auto 67.9 % (45-73); Platelet Count 545 X10*3/uL (160-400); Red Blood Count 4.28 X10*6/uL (4.60-5.80); White Blood Count 7.8 X10*3/uL (4.8-10.8)
[2020-03-03 05:30] LABS: Appearance Urine CLEAR; Color Urine STRAW; Glucose Urine UA >=1000 MG/DL (NEG); Leukocyte Esterase Urine NEG (NEG); Nitrite Urine NEG (NEG); PH 6.5 (5.0-8.0); Specific Gravity - Urine <= 1.005 (1.005-1.025); Urine Blood NEG (NEG); Urine Ketones NEG (NEG); Urine Protein NEG (NEG-TRACE)
[2020-03-03 05:36] LABS: RBC Urine 0 /HPF (0); WBC Urine 0 /HPF (0-4)
[2020-03-03 05:55] LABS: Alanine Aminotransferase 44 U/L (0-40); Albumin Level 4.1 g/dL (3.5-5.0); Alkaline Phosphatase 70 U/L (39-117); Anion Gap 18 (12-20); Aspartate Amino Transferase 38 U/L (5-37); Bilirubin Direct 0.2 mg/dL (0.0-0.5); Bilirubin Total 0.4 mg/dL (0.0-1.0); Blood Urea Nitrogen 5 mg/dL (9-16); Calcium 8.9 mg/dL (8.4-10.2); Carbon Dioxide 22 mmol/L (22-29); Chloride 94 mmol/L (96-108); Creatinine Clr Calc Pharmacy 92.8; Estimated Glomerular Filt Rate > 60; Glucose Random 174 mg/dL (60-115); Lipase 26 U/L (8-78); Potassium 3.7 mmol/l (3.3-5.1); Sodium 130 mmol/L (135-145)
[2020-03-03 05:59] LABS: Troponin-I High Sensitivity 5.7 ng/L (<3.5-35.0)
[2020-03-03 06:00] VITALS: BP 141/92; PULSE 94; RESP 18; TEMP 36.7; O2SAT 100
== END 2020-03-03 06:53 | disposition home or self-care (01) ==
PROVIDERS: Emergency Provider Emergency Medicine
DX: R33.9 Retention of urine, unspecified (principal); R10.84 Generalized abdominal pain; I10 Essential (primary) hypertension; F17.210 Nicotine dependence, cigarettes, uncomplicated; Z71.6 Tobacco abuse counseling; Z79.899 Other long term (current) drug therapy
CPT/HCPCS: 36415; 51798; 74176; 80048; 80076; 81001; 83690; 84484; 85025; 93005; 99284

== ENCOUNTER 2020-03-03 13:42 | Emergency (ER) | payer OTHER, SELFPAY ==
--- NOTE | 2020-03-03 14:01 | ED_ITS ---
HPI - Male Genitourinary General Chief complaint: Urogenital-Male Stated complaint: URINARY RETENTION Time Seen by Provider: 03/03/20 14:01 Source: patient Mode of arrival: ambulatory Limitations: no limitations History of Present Illness HPI Narrative: 69-year-old male with past medical history significant for diab etes, hyperlipidemia, hypertension who presents today ambulatory for complaint of urine retention. Early in the day in the morning for urine retention/unable to void he had labs including abdominal CT which showed no acute abnormality labs were overall stable UA was negative he was subsequently straight cath felt better able to void and discharged home with Urology follow-up however states since he has not been able to void and is having urine retention again. Denies any fever or chills. No back pain. Off note patient was admitted earlier this month for hyponatremia and COVID-19 in relation to that he has been doing well. Related Data Home Medications Medication Instructions Recorded Confirmed amlodipine 5 mg tablet 5 mg PO DAILY 02/19/20 02/28/20 aspirin 81 mg tablet,delayed 81 mg PO DAILY 02/19/20 02/28/20 release atorvastatin 40 mg tablet 40 mg PO DAILY 02/19/20 02/28/20 cholecalciferol (vitamin D3) 50 50 mcg PO DAILY 02/19/20 02/28/20 mcg (2,000 unit) capsule empagliflozin 25 mg tablet 25 mg PO QAM 02/19/20 02/28/20 hydrochlorothiazide 25 mg tablet 25 mg PO DAILY 02/19/20 02/28/20 ibuprofen 600 mg tablet 600 mg PO TID PRN 02/19/20 02/28/20 loratadine 10 mg tablet 10 mg PO DAILY 02/19/20 02/28/20 losartan 100 mg tablet 100 mg PO DAILY 02/19/20 02/28/20 metformin 500 mg tablet 0 mg PO BID 02/19/20 02/28/20 mirtazapine 15 mg disintegrating 15 mg PO BEDTIME 02/19/20 02/28/20 tablet potassium chloride 1 cap PO DAILY 02/28/20 02/28/20 Allergies Allergy/AdvReac Type Severity Reaction Status Date / Time Penicillins Allergy Mild RASH Verified 02/28/20 16:14 penicillin V Allergy Unknown rash Verified 02/28/20 16:14 acetaminophen [From Percocet] Allergy Anxiety Verified 02/28/20 16:14 oxycodone [From Percocet] Allergy Anxiety Verified 02/28/20 16:14 Review of Systems Review of Systems: Constitutional: No Weight loss, No Fever, No Chills, No Night Sweats, No Fatigue, No Malaise ENT/Mouth: No Hearing loss, No Ear Pain, No Nasal Congestion, No Sinus Pain, No Hoarseness, No sore throat, No Rhinorrhea, No Swallowing Difficulty Eyes: No Eye Pain, No Swelling, No Redness, No Foreign Body, No Discharge, No Vision Changes Cardiovascular: No Chest Pain, No SOB, No Dyspnea on Exertion, No Orthopnea, No Edema, No Palpitations Respiratory: No Cough, No Sputum, No Wheezing, No Smoke Exposure, No Dyspnea Gastrointestinal: No Nausea, No Vomiting, No Diarrhea, No Constipation, No abdominal Pain, No Hematochezia, No Melena Genitourinary: as noted in HPI, No Dysuria, No Urinary Frequency, No Hematuria, No Urinary Incontinence, No Urgency, No Flank Pain Musculoskeletal: No joint pain, No Myalgias, No Joint Swelling Skin: No Skin Lesions, No rash Neuro: No Weakness, No Numbness, No Paresthesias, No Loss of Consciousness, No Dizziness, No Headache Psych: No Anxiety/Panic, No Depression, No SI/HI/AH/VH, No Social Issues Heme/Lymph: No Bruising, No Bleeding,No Lymphadenopathy Endocrine: No Polyuria, No Polydipsia, No Temperature Intolerance Yes all other systems are reviewed and are negative [facility] Past Medical History Medical History HLD (hyperlipidemia) HTN (hypertension) Hypertension T2DM (type 2 diabetes mellitus) Surgical History History of prostate surgery Hx of removal of cyst Family History Family History Father Cancer Mother Cancer Diabetes Social History Social History Housing: Apartment Alcohol intake: never Smoking Status: Never smoker Tobacco Type: Cigarette Packs Per Day: 1 Cigarettes Per Day: 20.0 Years Smoked: 20 Advance Directives: No Advance Directives Information Provided: Yes service: No Current occupational status: retired Physical Exam Vital Signs: Vital Signs: Last Vital Signs Temp 98.1 F 03/03/20 15:55 Pulse 84 03/03/20 15:55 Resp 16 03/03/20 15:55 BP 142/84 H 03/03/20 15:55 Pulse Ox 98 03/03/20 15:55 Body Mass Index 28.0 Reviewed Const: General: cooperative and healthy appearing; No acute distress or intoxicated appearing Nutritional Appearance: average body habitus Orientation/consciousness: patient oriented x3 HENMT: Head: Yes normal to inspection Ears: hearing grossly normal bilaterally Eyes: General: appearance normal, both eyes and all related structures Visual Coronel: normal visual coronel by confrontation Neck: Neck: Yes normal visual inspection and No tender Thyroid: Thyroid normal Chest: Chest palpation & inspection: normal inspection of the chest Resp: Effort & Inspection: normal respiratory effort Cardio: Jugular venous distension: no JVD GI: Inspection: Yes normal to inspection Palpation (GI): Tenderness to palpation present (GI) (Slightly over the suprapubic area) Percussion: Yes normal to percussion Auscultation: normal bowel sounds : General: Yes no CVA tenderness Back/Spine/Pelvis: Back: no CVA tenderness Skin: General skin exam: no rashes or lesions noted Neuro: General: patient oriented x3 Extrem: General: Yes normal to inspection Course Course Course Narrative: Labs stable. Bladder scan shows over 400 in the bladder. Quezada catheter placed with leg bag will follow up with Urology. MDM - Male Genitourinary Lab Data Result diagrams: 03/03/20 14:53 03/03/20 14:53 Labs: Lab Results 03/03/20 03/03/20 03/03/20 Range/Units 14:53 14:53 15:30 WBC 7.5 (4.8-10.8) X10*3/uL RBC 4.54 L (4.60-5.80) X10*6/uL Hgb 14.0 (14.0-18.0) g/dl Hct 39.8 L (42-52) % MCV 87.7 (80-98) fL MCH 30.8 (27.0-33.0) pg MCHC 35.2 (31.0-36.0) g/dl RDW 13.2 (11.0-16.0) % Plt Count 632 H (160-400) X10*3/uL MPV 8.8 L (9.4-12.4) fL Immature Gran % (Auto) 0.5 H (0.0-0.4) % Neut % (Auto) 71.0 (45-73) % Lymph % (Auto) 15.9 L (20-40) % [place] % (Auto) 10.6 (2-11) % Eos % (Auto) 1.7 (0-4) % Baso % (Auto) 0.3 (0-2) % Lymph # (Auto) 1.2 (1.2-4.9) X10*3/uL [place] # (Auto) 0.8 (0.1-1.2) X10*3/uL Eos # (Auto) 0.1 (0.0-0.4) X10*3/uL Baso # (Auto) 0.0 (0.0-0.2) X10*3/uL Abs Immat Gran (auto) 0.04 H (0.00-0.03) X10*3/uL Absolute Neuts (auto) 5.3 (2.0-8.3) X10*3/uL Absolute Nucleated RBC 0.000 (0.0-0.012) X10*3/uL Nucleated RBC % (auto) 0.0 (0.0-0.2) /100WBC Sodium 134 L (135-145) mmol/L Potassium 4.0 (3.3-5.1) mmol/l Chloride 96 (96-108) mmol/L Carbon Dioxide 24 (22-29) mmol/L Anion Gap 18 (12-20) BUN 6 L (9-16) mg/dL Creatinine 0.79 (0.5-1.4) mg/dL Estim Creat Clear Calc 90.1 Estimated GFR > 60 Random Glucose 193 H (60-115) mg/dL Calcium 9.0 (8.4-10.2) mg/dL Total Bilirubin 0.4 (0.0-1.0) mg/dL AST 42 H (5-37) U/L ALT 52 H (0-40) U/L Alkaline Phosphatase 72 (39-117) U/L Total Protein 7.0 (6.5-8.0) g/dL Albumin 4.3 (3.5-5.0) g/dL Urine Color YELLOW Urine Appearance CLEAR Urine pH 7.5 (5.0-8.0) Ur Specific [place] 1.010 (1.005-1.025) Urine Protein NEG (NEG-TRACE) MG/DL Urine Glucose (UA) >=1000 H (NEG) MG/DL Urine Ketones NEG (NEG) MG/DL Urine Blood NEG (NEG) Urine Nitrite NEG (NEG) Ur Leukocyte Esterase NEG (NEG) Urine RBC 0-2 (0) /HPF Urine WBC 0-2 (0-4) /HPF Ur Squamous Epith Cells NONE /LPF Urine Bacteria NONE /LPF Discharge Plan Discharge Clinical Impression: Acute urinary retention Patient Disposition: Home, Self-Care Instructions: Enlarged Prostate (BPH) (ED), Quezada Catheter Placement and Care (ED), Urinary Retention in Men (ED) Additional Instructions: Please call tomorrow to follow up with Dr. Ivey in the office Drain your leg bag frequently, when it is 1/3 full. Return if any concerns or worsening symptoms Thank you Prescriptions: No Action potassium chloride 10 mEq capsule, extended release 1 cap PO DAILY RF: 0 amlodipine 5 mg tablet 5 mg PO DAILY RF: 0 aspirin 81 mg tablet,delayed release (DR/EC) 81 mg PO DAILY RF: 0 mirtazapine 15 mg tablet,disintegrating 15 mg PO BEDTIME RF: 0 metformin 500 mg tablet 0 mg PO BID RF: 0 hydrochlorothiazide 25 mg tablet 25 mg PO DAILY RF: 0 losartan 100 mg tablet 100 mg PO DAILY RF: 0 ibuprofen 600 mg tablet 600 mg PO TID PRN (Reason: moderate pain) RF: 0 loratadine 10 mg tablet 10 mg PO DAILY RF: 0 cholecalciferol (vitamin D3) 50 mcg (2,000 unit) capsule 50 mcg PO DAILY RF: 0 atorvastatin 40 mg tablet 40 mg PO DAILY RF: 0 empagliflozin 25 mg tablet 25 mg PO QAM RF: 0 Referrals: Dereje Ivey MD [Physician] - 3 days
[2020-03-03 14:12] VITALS: BP 115/85; PULSE 88; RESP 16; TEMP 36.8; O2SAT 99; BMI 28.0
[2020-03-03 15:31] LABS: Basophils Percent Auto 0.3 % (0-2); Eosinophils Absolute Auto 0.1 X10*3/uL (0.0-0.4); Eosinophils Percent Auto 1.7 % (0-4); Hematocrit 39.8 % (42-52); Imm Gran Abs Auto 0.04 X10*3/uL (0.00-0.03); Imm Gran Pct Auto 0.5 % (0.0-0.4); Lymphocytes Absolute Auto 1.2 X10*3/uL (1.2-4.9); Lymphocytes Percent Auto 15.9 % (20-40); MANUAL DIFF FLAG NO; Mean Corpuscular HGB Conc 35.2 g/dl (31.0-36.0); Mean Corpuscular Hemoglobin 30.8 pg (27.0-33.0); Mean Corpuscular Volume 87.7 fL (80-98); Mean Platelet Volume 8.8 fL (9.4-12.4); Monocytes Absolute Auto 0.8 X10*3/uL (0.1-1.2); Monocytes Percent Auto 10.6 % (2-11); Neutrophils Absolute Auto 5.3 X10*3/uL (2.0-8.3); Platelet Count 632 X10*3/uL (160-400); Red Blood Count 4.54 X10*6/uL (4.60-5.80); Red Cell Distribution Width 13.2 % (11.0-16.0); White Blood Count 7.5 X10*3/uL (4.8-10.8)
[2020-03-03 15:39] LABS: Glucose Urine UA >=1000 MG/DL (NEG); Leukocyte Esterase Urine NEG (NEG); Nitrite Urine NEG (NEG); PH 7.5 (5.0-8.0); Urine Blood NEG (NEG); Urine Ketones NEG (NEG); Urine Protein NEG (NEG-TRACE)
[2020-03-03 15:50] LABS: Appearance Urine CLEAR; Color Urine YELLOW
[2020-03-03 15:55] VITALS: BP 142/84; PULSE 84; RESP 16; TEMP 36.7; O2SAT 98
[2020-03-03 15:56] LABS: Alanine Aminotransferase 52 U/L (0-40); Albumin Level 4.3 g/dL (3.5-5.0); Alkaline Phosphatase 72 U/L (39-117); Anion Gap 18 (12-20); Aspartate Amino Transferase 42 U/L (5-37); Bilirubin Total 0.4 mg/dL (0.0-1.0); Blood Urea Nitrogen 6 mg/dL (9-16); Carbon Dioxide 24 mmol/L (22-29); Chloride 96 mmol/L (96-108); Creatinine Clr Calc Pharmacy 90.1; Estimated Glomerular Filt Rate > 60; Glucose Random 193 mg/dL (60-115); Sodium 134 mmol/L (135-145)
[2020-03-03 16:03] LABS: RBC Urine 0-2 /HPF (0); WBC Urine 0-2 /HPF (0-4)
== END 2020-03-03 17:37 | disposition home or self-care (01) ==
PROVIDERS: Nurse Practitioner Primary Care; Emergency Provider Internal Medicine; PCP Family Medicine
DX: R33.9 Retention of urine, unspecified (principal); I10 Essential (primary) hypertension; F17.210 Nicotine dependence, cigarettes, uncomplicated; Z71.6 Tobacco abuse counseling; Z79.899 Other long term (current) drug therapy; E11.9 Type 2 diabetes mellitus without complications; Z20.828 Contact with and (suspected) exposure to other viral communicable diseases
CPT/HCPCS: 36415; 80053; 81001; 85025; 99283

== ENCOUNTER 2020-03-07 10:26 | Emergency (ER) | payer OTHER, SELFPAY ==
[2020-03-07 10:35] VITALS: BP 149/77; PULSE 89; RESP 16; TEMP 36.9; O2SAT 98; BMI 28.1
--- NOTE | 2020-03-07 11:01 | ED.BACK ---
HPI - Back Pain/Injury General Chief Complaint: Back Pain/Injury Stated Complaint: flank pain Time Seen by Provider: 03/07/20 10:38 Source: patient Mode of arrival: ambulatory Limitations: language barrier History of Present Illness HPI Narrative: patient with Quezada catheter placed on 03/03 for acute urinary retention secondary to benign prostate hypertrophy comes here for pain in the left flank and lower back area for last 2 days pain going to the lower back. Patient denies any nausea/vomiting no fever no abdominal pain Related Data Home Medications Medication Instructions Recorded Confirmed amlodipine 5 mg tablet 5 mg PO DAILY 02/19/20 02/28/20 aspirin 81 mg tablet,delayed 81 mg PO DAILY 02/19/20 02/28/20 release atorvastatin 40 mg tablet 40 mg PO DAILY 02/19/20 02/28/20 cholecalciferol (vitamin D3) 50 50 mcg PO DAILY 02/19/20 02/28/20 mcg (2,000 unit) capsule empagliflozin 25 mg tablet 25 mg PO QAM 02/19/20 02/28/20 hydrochlorothiazide 25 mg tablet 25 mg PO DAILY 02/19/20 02/28/20 ibuprofen 600 mg tablet 600 mg PO TID PRN 02/19/20 02/28/20 loratadine 10 mg tablet 10 mg PO DAILY 02/19/20 02/28/20 losartan 100 mg tablet 100 mg PO DAILY 02/19/20 02/28/20 metformin 500 mg tablet 0 mg PO BID 02/19/20 02/28/20 mirtazapine 15 mg disintegrating 15 mg PO BEDTIME 02/19/20 02/28/20 tablet potassium chloride 1 cap PO DAILY 02/28/20 02/28/20 Allergies Allergy/AdvReac Type Severity Reaction Status Date / Time Penicillins Allergy Mild RASH Verified 02/28/20 16:14 penicillin V Allergy Unknown rash Verified 02/28/20 16:14 acetaminophen [From Percocet] Allergy Anxiety Verified 02/28/20 16:14 oxycodone [From Percocet] Allergy Anxiety Verified 02/28/20 16:14 Review of Systems Review of Systems: REVIEW OF SYSTEMS: Pertinent positives and negatives are stated above in the history. GEN: no fevers, chills, fatigue HEENT: no nasal congestion, sore throat, ear pain NEURO: no headache, dizziness, focal weakness PULM: no cough, shortness of breath CV: no chest pain, palpitations, LE edema ABD: no abdominal pain, nausea, vomiting, diarrhea : no dysuria, urgency, frequency SKIN: no rash ROS otherwise negative x 10 PMFSH Past Medical History Medical History HLD (hyperlipidemia) HTN (hypertension) Hypertension T2DM (type 2 diabetes mellitus) Surgical History History of prostate surgery Hx of removal of cyst Family History Family History Father Cancer Mother Cancer Diabetes Social History Social History Housing: Apartment Alcohol intake: never Smoking Status: Never smoker Tobacco Type: Cigarette Packs Per Day: 1 Cigarettes Per Day: 20.0 Years Smoked: 20 Smoked in Last 30 Days: No Use of substances other than those prescribed or required for medical reasons: No Advance Directives: No Advance Directives Information Provided: No service: No Current occupational status: retired Physical Exam Vital Signs: Vital Signs: Last Vital Signs Temp 98.5 F 03/07/20 10:35 Pulse 89 03/07/20 10:35 Resp 16 03/07/20 10:35 BP 149/77 H 03/07/20 10:35 Pulse Ox 98 03/07/20 10:35 Body Mass Index 28.1 Appearance: Alert. Oriented X3. No acute distress. Eyes: Pupils equal, round and reactive to light. ENT: Pharynx normal. Neck: Normal inspection. Neck supple. CVS: Normal heart rate and rhythm. Pulses normal. Respiratory: No respiratory distress. Breath sounds normal. Abdomen: Soft and nontender. bowel sounds normal no mass palpable Quezada catheter in place Skin: Skin warm and dry. Normal skin color. Normal skin turgor. Extremities: No lower extremity edema. Good range of movement Back: diffuse tenderness lower spine area no focal tenderness no mass palpable skin is normal no cva tenderness Neuro: Oriented X 3. No motor deficit. No sensory deficit. Course Course Course Narrative: Quezada catheter was removed per patient request. P.o. fluids were given and patient urinated in the bathroom ambulatory, feeling much better now will discharge him home MDM - Back Pain/Injury Lab Data Labs: Lab Results 03/07/20 Range/Units 11:06 Urine Color YELLOW Urine Appearance HAZY Urine pH 6.5 (5.0-8.0) Ur Specific [place] <= 1.005 (1.005-1.025) Urine Protein NEG (NEG-TRACE) MG/DL Urine Glucose (UA) >=1000 H (NEG) MG/DL Urine Ketones NEG (NEG) MG/DL Urine Blood 2+ H (NEG) Urine Nitrite NEG (NEG) Ur Leukocyte Esterase NEG (NEG) Urine RBC 15-29 H (0) /HPF Urine WBC 0 (0-4) /HPF Ur Squamous Epith Cells Not Reportable Urine Bacteria Not Reportable Discharge Plan Discharge Prescriptions: No Action potassium chloride 10 mEq capsule, extended release 1 cap PO DAILY RF: 0 amlodipine 5 mg tablet 5 mg PO DAILY RF: 0 aspirin 81 mg tablet,delayed release (DR/EC) 81 mg PO DAILY RF: 0 mirtazapine 15 mg tablet,disintegrating 15 mg PO BEDTIME RF: 0 metformin 500 mg tablet 0 mg PO BID RF: 0 hydrochlorothiazide 25 mg tablet 25 mg PO DAILY RF: 0 losartan 100 mg tablet 100 mg PO DAILY RF: 0 ibuprofen 600 mg tablet 600 mg PO TID PRN (Reason: moderate pain) RF: 0 loratadine 10 mg tablet 10 mg PO DAILY RF: 0 cholecalciferol (vitamin D3) 50 mcg (2,000 unit) capsule 50 mcg PO DAILY RF: 0 atorvastatin 40 mg tablet 40 mg PO DAILY RF: 0 empagliflozin 25 mg tablet 25 mg PO QAM RF: 0
[2020-03-07] MEDS: traMADoL HCL 50 MG TABLET PO (11:04)
[2020-03-07 11:12] LABS: Glucose Urine UA >=1000 MG/DL (NEG); Leukocyte Esterase Urine NEG (NEG); Nitrite Urine NEG (NEG); PH 6.5 (5.0-8.0); Specific Gravity - Urine <= 1.005 (1.005-1.025); Urine Blood 2+ (NEG); Urine Ketones NEG (NEG); Urine Protein NEG (NEG-TRACE)
[2020-03-07 11:24] LABS: Appearance Urine HAZY; Color Urine YELLOW
[2020-03-07 11:28] LABS: WBC Urine 0 /HPF (0-4)
--- NOTE | 2020-03-07 12:28 | PC.NURSE ---
spoke with . plan to dc covarrubias cath and have pt urinate.
[2020-03-07] MEDS: Milk of Magnesia 30 ML ORAL.SUSP PO (13:13)
[2020-03-07] MEDS: Tamsulosin HCL 0.4 MG CAPSULE PO (13:13)
== END 2020-03-07 13:19 | disposition home or self-care (01) ==
PROVIDERS: Emergency Provider Internal Medicine; PCP Family Medicine
DX: R10.9 Unspecified abdominal pain (principal); R33.9 Retention of urine, unspecified; M54.5 Low back pain; I10 Essential (primary) hypertension; Z79.899 Other long term (current) drug therapy; F17.210 Nicotine dependence, cigarettes, uncomplicated; Z71.6 Tobacco abuse counseling
CPT/HCPCS: 81001; 99283; 99284

== ENCOUNTER 2020-03-09 18:14 | Emergency (ER) | payer OTHER, SELFPAY ==
[2020-03-09 18:26] VITALS: BP 136/74; PULSE 112; RESP 14; TEMP 36.8; O2SAT 98; BMI 30.2
--- NOTE | 2020-03-09 20:14 | ECG_ITS ---
Test Reason : CHESTPAIN Blood Pressure : / mmHG Vent. Rate : 096 BPM Atrial Rate : 096 BPM P-R Int : 142 ms QRS Dur : 088 ms QT Int : 358 ms P-R-T Axes : 054 -12 043 degrees QTc Int : 452 ms Normal sinus rhythm Minimal voltage criteria for LVH, may be normal variant Borderline ECG When compared with ECG of 03-MAR-2020 05:13, No significant change was found Referred By: Seven Cannon Electronically Signed By:CHHAYA FREEMAN MD
--- NOTE | 2020-03-09 20:33 | ED_ITS ---
HPI - Chest Pain General Chief Complaint: Chest Pain Stated Complaint: CP/BACK PAIN Time Seen by Provider: 03/09/20 19:36 History of Present Illness HPI narrative: 69-year-old male who presents to the emergency department for evaluation of chest pain. The patient is Khmer-speaking only and a packaging operator was used. The patient states his [id number] approximately 1 week prior and his went out to make in origin. At around 4:00 p.m., now mild pain in his chest. He states the pain then got progressively worse. He states the pain started in his neck and then moved to his left chest and left back. Describes the pain as a constant, tightness which was 8/10. Had 1 episode of diarrhea and lightheadedness associated with the pain. He denied nausea, vomiting, shortness of breath or dyspnea on exertion. The patient states that he went outside and had someone: Ambulance for him. In route to the hospital the patient did receive nitroglycerin spray and 4 baby aspirin and by the time he got to the emergency department he states that this pain resolved. States that he may have had similar pain 1 year prior but does not usually get this type of chest pain. The patient was seen recently in the emergency department on March 07, 2020 for urinary retention. He states that he had a Quezada catheter was removed as an outpatient. Related Data Home Medications Medication Instructions Recorded Confirmed amlodipine 5 mg tablet 5 mg PO DAILY 02/19/20 02/28/20 aspirin 81 mg tablet,delayed 81 mg PO DAILY 02/19/20 02/28/20 release atorvastatin 40 mg tablet 40 mg PO DAILY 02/19/20 02/28/20 cholecalciferol (vitamin D3) 50 50 mcg PO DAILY 02/19/20 02/28/20 mcg (2,000 unit) capsule empagliflozin 25 mg tablet 25 mg PO QAM 02/19/20 02/28/20 hydrochlorothiazide 25 mg tablet 25 mg PO DAILY 02/19/20 02/28/20 ibuprofen 600 mg tablet 600 mg PO TID PRN 02/19/20 02/28/20 loratadine 10 mg tablet 10 mg PO DAILY 02/19/20 02/28/20 losartan 100 mg tablet 100 mg PO DAILY 02/19/20 02/28/20 metformin 500 mg tablet 0 mg PO BID 02/19/20 02/28/20 mirtazapine 15 mg disintegrating 15 mg PO BEDTIME 02/19/20 02/28/20 tablet potassium chloride 1 cap PO DAILY 02/28/20 02/28/20 Previous Rx's Medication Instructions Recorded polyethylene glycol 3350 [Miralax] 17 g PO DAILY PRN #510 g 03/07/20 tamsulosin [Flomax] 0.4 mg PO DAILY #30 cap 03/07/20 tramadol 50 mg PO Q8H PRN #20 tab 03/07/20 Allergies Allergy/AdvReac Type Severity Reaction Status Date / Time Penicillins Allergy Mild RASH Verified 03/09/20 18:26 penicillin V Allergy Unknown rash Verified 03/09/20 18:26 acetaminophen [From Percocet] Allergy Anxiety Verified 03/09/20 18:26 oxycodone [From Percocet] Allergy Anxiety Verified 03/09/20 18:26 Review of Systems Review of Systems: Yes all other systems are reviewed and are negative Constitutional: Constitutional: Reports as per HPI Eyes: Eyes: Reports as per HPI ENT: Reports as per HPI Cardiovascular: Cardiovascular: Reports as per HPI Respiratory: Respiratory: Reports as per HPI Gastrointestinal: Gastrointestinal: Reports as per HPI Genitourinary: Genitourinary: Reports as per HPI Musculoskeletal: Musculoskeletal: Reports as per HPI Integumentary/Breasts: Skin/Breast: Reports as per HPI Neurologic: Reports as per HPI and Reports Abnormal speech present Psychiatric: Psychiatric: Reports as per HPI Allergic/Immunologic: Allergic/Immunologic: Reports as per HPI PMFSH Past Medical History Medical History COVID-19 HLD (hyperlipidemia) HTN (hypertension) Hypertension T2DM (type 2 diabetes mellitus) Surgical History History of prostate surgery Hx of removal of cyst Family History Family History Father Cancer Mother Cancer Diabetes Social History Social History Housing: Apartment Alcohol intake: never Smoking Status: Never smoker Tobacco Type: Cigarette Packs Per Day: 1 Cigarettes Per Day: 20.0 Years Smoked: 20 Use of substances other than those prescribed or required for medical reasons: No Advance Directives: No Advance Directives Information Provided: No service: No Current occupational status: retired Physical Exam Vital Signs: Vital Signs: Last Vital Signs Temp 97.9 F 03/09/20 20:43 Pulse 92 03/09/20 23:44 Resp 22 H 03/09/20 23:44 BP 149/87 H 03/09/20 20:43 Pulse Ox 96 03/09/20 23:44 Body Mass Index 30.2 Const: General: cooperative, no acute distress, alert and awake Orientation/consciousness: oriented to person and oriented to place Limitations: no limitations HENMT: Head: Yes normal to inspection, Yes normocephalic and Yes atraumatic Ears: external ears normal Eyes: General: appearance normal, both eyes and all related structures Periorbital: periorbital findings normal Eyelids: Yes eyelids normal Conjunctivae: conjunctivae normal Sclerae: sclerae normal Corneas: corneas normal Pupils: Equal, round and reactive pupils present Direct Ophthalmoscopy: normal light reflex Neck: Neck: Yes normal visual inspection and Yes supple Lymphatic: no lymphadenopathy noted Chest: Chest palpation & inspection: normal inspection of the chest and normal palpation of entire chest wall Resp: Effort & Inspection: normal respiratory effort, abnormal respiratory pattern, no audible wheezes and no respiratory distress Auscultation: clear to auscultation bilaterally, no crackles, no rales, no rhonchi and no wheezes Cardio: Rate: regular rate Rhythm: regular rhythm Heart sounds: S1 normal heart sound present, S2 normal heart sound present and Murmur heart sound present GI: Inspection: No distended Palpation (GI): Soft to palpation, nontender, no guarding and No hepatosplenomegaly present Auscultation: normal bowel sounds : General: Yes no CVA tenderness Back/Spine/Pelvis: Back: no CVA tenderness Skin: General skin exam: no rashes or lesions noted Lesions: no lesions Rashes: no rashes Wounds: no wounds Neuro: General: oriented to person and oriented to place Cranial nerves: Yes CN's II-XII intact bilaterally and Yes Equal, round and reactive pupils present Cognition (Neuro): normal cognition Speech: Abnormal speech present Motor exam (neuro): 5/5 motor strength present throughout Extrem: General: Yes normal to inspection, Yes full ROM, Yes no pedal edema and Yes no calf tenderness Psych: Appearance: grossly normal Mental Status: mental status grossly no rmal Speech and movement: Clear speech present Affect: normal affect Thought process: Normal thought process present Course Course Course Narrative: 69-year-old male with history of diabetes, hypertension, high cholesterol who presents the emergency department for evaluation of chest pain which started in his neck, then radiated to his left chest and back. The patient was transported by ambulance and received nitroglycerin and aspirin EN route with relief of his pain. Patient's physical examination was unremarkable. Patient's initial EKG was revealed Q-waves in lead 3 and AVF but no acute ST segment elevation or depression. 0107: The patient's laboratory evaluation was unremarkable. His initial troponin was not elevated at 5.1 and his repeat 3 hour troponin was the not significantly changed at 5.6. The patient did have an episode of anxiety while he was waiting in the emergency department to complete his evaluation and was treated with Ativan 1 mg orally. The patient currently is feeling significantly better and denies any chest pain. The patient will be discharged to home. He was advised to follow up with his doctor in 2 days for re-evaluation. He is advised to return to the emergency department if the symptoms got worse or if you develop any symptoms that are concerning to him. MDM - Chest Pain Lab Data Result diagrams: 03/09/20 21:18 03/09/20 21:18 Labs: Lab Results 03/09/20 03/09/20 03/09/20 Range/Units 21:18 21:18 21:18 WBC 8.9 (4.8-10.8) X10*3/uL RBC 4.33 L (4.60-5.80) X10*6/uL Hgb 13.4 L (14.0-18.0) g/dl Hct 38.1 L (42-52) % MCV 88.0 (80-98) fL MCH 30.9 (27.0-33.0) pg MCHC 35.2 (31.0-36.0) g/dl RDW 13.2 (11.0-16.0) % Plt Count 589 H (160-400) X10*3/uL MPV 8.5 L (9.4-12.4) fL Immature Gran % (Auto) 0.3 (0.0-0.4) % Neut % (Auto) 70.5 (45-73) % Lymph % (Auto) 19.1 L (20-40) % [place] % (Auto) 8.6 (2-11) % Eos % (Auto) 1.2 (0-4) % Baso % (Auto) 0.3 (0-2) % Lymph # (Auto) 1.7 (1.2-4.9) X10*3/uL [place] # (Auto) 0.8 (0.1-1.2) X10*3/uL Eos # (Auto) 0.1 (0.0-0.4) X10*3/uL Baso # (Auto) 0.0 (0.0-0.2) X10*3/uL Abs Immat Gran (auto) 0.03 (0.00-0.03) X10*3/uL Absolute Neuts (auto) 6.3 (2.0-8.3) X10*3/uL Absolute Nucleated RBC 0.000 (0.0-0.012) X10*3/uL Nucleated RBC % (auto) 0.0 (0.0-0.2) /100WBC Hold Blue Top SEE NOTE Sodium 131 L (135-145) mmol/L Potassium 3.4 (3.3-5.1) mmol/l Chloride 91 L (96-108) mmol/L Carbon Dioxide 28 (22-29) mmol/L Anion Gap 15 (12-20) BUN 7 L (9-16) mg/dL Creatinine 0.75 (0.5-1.4) mg/dL Estim Creat Clear Calc 94.9 Estimated GFR > 60 Random Glucose 210 H (60-115) mg/dL Calcium 9.6 D (8.4-10.2) mg/dL Troponin I High Sens (<3.5-35.0) ng/L 03/09/20 03/10/20 Range/Units 21:18 00:09 WBC (4.8-10.8) X10*3/uL RBC (4.60-5.80) X10*6/uL Hgb (14.0-18.0) g/dl Hct (42-52) % MCV (80-98) fL MCH (27.0-33.0) pg MCHC (31.0-36.0) g/dl RDW (11.0-16.0) % Plt Count (160-400) X10*3/uL MPV (9.4-12.4) fL Immature Gran % (Auto) (0.0-0.4) % Neut % (Auto) (45-73) % Lymph % (Auto) (20-40) % [place] % (Auto) (2-11) % Eos % (Auto) (0-4) % Baso % (Auto) (0-2) % Lymph # (Auto) (1.2-4.9) X10*3/uL [place] # (Auto) (0.1-1.2) X10*3/uL Eos # (Auto) (0.0-0.4) X10*3/uL Baso # (Auto) (0.0-0.2) X10*3/uL Abs Immat Gran (auto) (0.00-0.03) X10*3/uL Absolute Neuts (auto) (2.0-8.3) X10*3/uL Absolute Nucleated RBC (0.0-0.012) X10*3/uL Nucleated RBC % (auto) (0.0-0.2) /100WBC Hold Blue Top Sodium (135-145) mmol/L Potassium (3.3-5.1) mmol/l Chloride (96-108) mmol/L Carbon Dioxide (22-29) mmol/L Anion Gap (12-20) BUN (9-16) mg/dL Creatinine (0.5-1.4) mg/dL Estim Creat Clear Calc Estimated GFR Random Glucose (60-115) mg/dL Calcium (8.4-10.2) mg/dL Troponin I High Sens 5.1 5.6 (<3.5-35.0) ng/L ECG Data ECG #1: Attestation: I personally reviewed and interpreted this ECG as follows: ECG interpretation date: 03/09/20 ECG interpretation time: 18:36 Prior ECG tracings: not available for review Interpretation: Normal sinus rhythm rate of 96, normal [place], QRS and QTC intervals, no ST segment elevation or depression, Q-wave in lead 3 and AVF, no old EKG for comparison Discharge Plan Discharge Prescriptions: No Action potassium chloride 10 mEq capsule, extended release 1 cap PO DAILY RF: 0 tamsulosin [Flomax] 0.4 mg capsule 0.4 mg PO DAILY Qty: 30 RF: 0 tramadol 50 mg tablet 50 mg PO Q8H PRN (Reason: pain) Qty: 20 RF: 0 polyethylene glycol 3350 [Miralax] 17 gram/dose powder 17 g PO DAILY PRN (Reason: constipation) Qty: 510 RF: 0 amlodipine 5 mg tablet 5 mg PO DAILY RF: 0 aspirin 81 mg tablet,delayed release (DR/EC) 81 mg PO DAILY RF: 0 mirtazapine 15 mg tablet,disintegrating 15 mg PO BEDTIME RF: 0 metformin 500 mg tablet 0 mg PO BID RF: 0 hydrochlorothiazide 25 mg tablet 25 mg PO DAILY RF: 0 losartan 100 mg tablet 100 mg PO DAILY RF: 0 ibuprofen 600 mg tablet 600 mg PO TID PRN (Reason: moderate pain) RF: 0 loratadine 10 mg tablet 10 mg PO DAILY RF: 0 cholecalciferol (vitamin D3) 50 mcg (2,000 unit) capsule 50 mcg PO DAILY RF: 0 atorvastatin 40 mg tablet 40 mg PO DAILY RF: 0 empagliflozin 25 mg tablet 25 mg PO QAM RF: 0
--- NOTE | 2020-03-09 20:34 | XR_ITS ---
EXAMINATION: XR CHEST CLINICAL INFORMATION: Chest pain. COMPARISON: 02/28/2020 portable chest. TECHNIQUE: Frontal view of the chest was obtained. FINDINGS: No significant abnormality is noted involving the heart, lungs, mediastinum, bony thorax or soft tissues. XR/XR chest 1V IMPRESSION: No acute cardiopulmonary process.
[2020-03-09 20:43] VITALS: BP 149/87; PULSE 96; RESP 18; TEMP 36.6; O2SAT 97
[2020-03-09 21:25] LABS: Basophils Percent Auto 0.3 % (0-2); Eosinophils Absolute Auto 0.1 X10*3/uL (0.0-0.4); Eosinophils Percent Auto 1.2 % (0-4); Hematocrit 38.1 % (42-52); Hemoglobin 13.4 g/dl (14.0-18.0); Imm Gran Abs Auto 0.03 X10*3/uL (0.00-0.03); Imm Gran Pct Auto 0.3 % (0.0-0.4); Lymphocytes Absolute Auto 1.7 X10*3/uL (1.2-4.9); Lymphocytes Percent Auto 19.1 % (20-40); Mean Corpuscular HGB Conc 35.2 g/dl (31.0-36.0); Mean Corpuscular Hemoglobin 30.9 pg (27.0-33.0); Mean Platelet Volume 8.5 fL (9.4-12.4); Monocytes Absolute Auto 0.8 X10*3/uL (0.1-1.2); Monocytes Percent Auto 8.6 % (2-11); Neutrophils Absolute Auto 6.3 X10*3/uL (2.0-8.3); Neutrophils Percent Auto 70.5 % (45-73); Platelet Count 589 X10*3/uL (160-400); Red Blood Count 4.33 X10*6/uL (4.60-5.80); Red Cell Distribution Width 13.2 % (11.0-16.0); White Blood Count 8.9 X10*3/uL (4.8-10.8)
[2020-03-09 21:27] LABS: MANUAL DIFF FLAG NO
[2020-03-09 21:45] LABS: Anion Gap 15 (12-20); Blood Urea Nitrogen 7 mg/dL (9-16); Calcium 9.6 mg/dL (8.4-10.2); Carbon Dioxide 28 mmol/L (22-29); Chloride 91 mmol/L (96-108); Creatinine Clr Calc Pharmacy 94.9; Estimated Glomerular Filt Rate > 60; Glucose Random 210 mg/dL (60-115); Potassium 3.4 mmol/l (3.3-5.1); Sodium 131 mmol/L (135-145)
[2020-03-09 21:51] LABS: Troponin-I High Sensitivity 5.1 ng/L (<3.5-35.0)
--- NOTE | 2020-03-09 22:08 | PC.NURSE ---
of patient Macarena. phone number [phone]
[2020-03-09 23:44] VITALS: PULSE 92; RESP 22; O2SAT 96
[2020-03-10] MEDS: LORazepam 1 MG TABLET PO (00:10)
[2020-03-10 00:50] LABS: Troponin-I High Sensitivity 5.6 ng/L (<3.5-35.0)
== END 2020-03-10 01:41 | disposition home or self-care (01) ==
PROVIDERS: Emergency Provider Emergency Medicine Emergency Medical Services; PCP Family Medicine
DX: R07.9 Chest pain, unspecified (principal); F41.9 Anxiety disorder, unspecified; E11.9 Type 2 diabetes mellitus without complications; I10 Essential (primary) hypertension; Z79.899 Other long term (current) drug therapy; Z79.82 Long term (current) use of aspirin
CPT/HCPCS: 36415; 71045; 80048; 84484; 85025; 93005; 99284

== ENCOUNTER 2020-03-12 05:03 | Emergency (ER) | payer OTHER, SELFPAY ==
[2020-03-12 05:14] VITALS: BP 137/96; PULSE 90; RESP 18; TEMP 36.3; O2SAT 99; BMI 28.4
--- NOTE | 2020-03-12 05:20 | PC.NURSE ---
PT ARRIVED TO ED, AMBULATORY. NO S/S OF OBVIOUS DISTRESS. C/O DIFFICULTY VOIDING. BLADDER SCANNED FOR >900. DR IGLESIAS AT THE BEDSIDE FOR EVALUATION ALONG WITH [employer]CIAL SERVICES OFFICER
--- NOTE | 2020-03-12 05:24 | ED_ITS ---
HPI - Male Genitourinary General Chief complaint: Urogenital-Male Stated complaint: UNABLE TO VOID Time Seen by Provider: 03/12/20 05:16 Source: patient and manager post Mode of arrival: ambulatory Limitations: no limitations History of Present Illness HPI Narrative: This is a 69-year-old male who presents with the inability to urinate but denies any associated fevers, chills, nausea, vomiting. The patient is noted to have significant BPH, however he requested the removal of his Quezada catheter on 03/07. Related Data Home Medications Medication Instructions Recorded Confirmed amlodipine 5 mg tablet 5 mg PO DAILY 02/19/20 02/28/20 aspirin 81 mg tablet,delayed 81 mg PO DAILY 02/19/20 02/28/20 release atorvastatin 40 mg tablet 40 mg PO DAILY 02/19/20 02/28/20 cholecalciferol (vitamin D3) 50 50 mcg PO DAILY 02/19/20 02/28/20 mcg (2,000 unit) capsule empagliflozin 25 mg tablet 25 mg PO QAM 02/19/20 02/28/20 hydrochlorothiazide 25 mg tablet 25 mg PO DAILY 02/19/20 02/28/20 ibuprofen 600 mg tablet 600 mg PO TID PRN 02/19/20 02/28/20 loratadine 10 mg tablet 10 mg PO DAILY 02/19/20 02/28/20 losartan 100 mg tablet 100 mg PO DAILY 02/19/20 02/28/20 metformin 500 mg tablet 0 mg PO BID 02/19/20 02/28/20 mirtazapine 15 mg disintegrating 15 mg PO BEDTIME 02/19/20 02/28/20 tablet potassium chloride 1 cap PO DAILY 02/28/20 02/28/20 Previous Rx's Medication Instructions Recorded polyethylene glycol 3350 [Miralax] 17 g PO DAILY PRN #510 g 03/07/20 tamsulosin [Flomax] 0.4 mg PO DAILY #30 cap 03/07/20 tramadol 50 mg PO Q8H PRN #20 tab 03/07/20 Allergies Allergy/AdvReac Type Severity Reaction Status Date / Time Penicillins Allergy Mild RASH Verified 03/09/20 18:26 penicillin V Allergy Unknown rash Verified 03/09/20 18:26 acetaminophen [From Percocet] Allergy Anxiety Verified 03/09/20 18:26 oxycodone [From Percocet] Allergy Anxiety Verified 03/09/20 18:26 Review of Systems Review of Systems: Pertinent positives and negatives as stated in HPI 10 point review of systems is otherwise negative. [facility] Past Medical History Source: nursing notes reviewed Medical History COVID-19 HLD (hyperlipidemia) HTN (hypertension) Hypertension T2DM (type 2 diabetes mellitus) Surgical History History of prostate surgery Hx of removal of cyst Family History Family History Father Cancer Mother Cancer Diabetes Social History Social History Housing: Apartment Alcohol intake: never Smoking Status: Never smoker Tobacco Type: Cigarette Packs Per Day: 1 Cigarettes Per Day: 20.0 Years Smoked: 20 Use of substances other than those prescribed or required for medical reasons: No Advance Directives: No Advance Directives Information Provided: No service: No Current occupational status: retired Physical Exam Vital Signs: Vital Signs: Last Vital Signs Temp 97.4 F 03/12/20 05:14 Pulse 90 03/12/20 05:14 Resp 18 03/12/20 05:14 BP 137/96 H 03/12/20 05:14 Pulse Ox 99 03/12/20 05:14 Body Mass Index 28.4 VITAL SIGNS: Reviewed. GENERAL: Well developed, well nourished, in no acute distress. HEAD: Normocephalic/atraumatic, EYES: PERRLA, EOMI intact without pain, no nystagmus/pallor/icterus noted EARS: Ext canals without abnormality, TMs non-bulging and non-erythematous NOSE: Nares patent bilateral OROPHARYNX: no oral lesions noted, posterior pharynx clear and non-erythematous without noted tonsillar enlargement/erythema/exudates NECK: Supple, no adenopathy LUNGS: Normal breath sounds. No adventitious sounds or accessory muscle use. SpO2<99> CARDIOVASCULAR: Regular rate and rhythm without noted murmurs, no JVD or lower extremity edema. ABDOMEN: Soft, non-tender, non-distended with bowel sounds. No rigidity. No guarding. No palpable masses or hernias noted MUSCULOSKELETAL: No tenderness, deformities, or effusions noted on gross inspection. EXTREMITIES: No cyanosis, clubbing or edema. SKIN: Inspection of the skin reveals no rashes, ulcerations, jaundice, pallor, or petechiae. NEUROLOGIC: Alert and oriented x 4. Strength and sensation to light touch were grossly intact x 4. Course Course Course Narrative: this is a 69-year-old male with history and clinical presentation consistent with urinary retention secondary to BPH with a bladder scan showing over 900 cc of urine. Patient was successfully catheterized and instructed to leave the catheter in place until he follows up with Urology. A urinalysis which was also obtained is negative for any evidence of acute infection. Patient was discharged to home in stable condition with a Quezada catheter in place and instructions to follow-up with urology by calling their office today. [facility] - Male Genitourinary Lab Data Labs: Lab Results 03/12/20 Range/Units 05:36 Urine Color COLORLESS Urine Appearance CLEAR Urine pH 7.0 (5.0-8.0) Ur Specific [place] 1.010 (1.005-1.025) Urine Protein NEG (NEG-TRACE) MG/DL Urine Glucose (UA) >=1000 H (NEG) MG/DL Urine Ketones NEG (NEG) MG/DL Urine Blood NEG (NEG) Urine Nitrite NEG (NEG) Ur Leukocyte Esterase NEG (NEG) Urine RBC 0 (0) /HPF Urine WBC 0 (0-4) /HPF Ur Squamous Epith Cells TRACE /LPF Urine Bacteria NONE /LPF Discharge Plan Discharge Clinical Impression: COVID-19, Acute urinary retention Patient Disposition: Home, Self-Care Instructions: Urinary Retention in Men (ED), Enlarged Prostate (BPH) (ED) Additional Instructions: seguimiento con fuentes proveedor de atenci?n primaria. Seguimiento con Urolog?a. Prescriptions: No Action potassium chloride 10 mEq capsule, extended release 1 cap PO DAILY RF: 0 tamsulosin [Flomax] 0.4 mg capsule 0.4 mg PO DAILY Qty: 30 RF: 0 tramadol 50 mg tablet 50 mg PO Q8H PRN (Reason: pain) Qty: 20 RF: 0 polyethylene glycol 3350 [Miralax] 17 gram/dose powder 17 g PO DAILY PRN (Reason: constipation) Qty: 510 RF: 0 amlodipine 5 mg tablet 5 mg PO DAILY RF: 0 aspirin 81 mg tablet,delayed release (DR/EC) 81 mg PO DAILY RF: 0 mirtazapine 15 mg tablet,disintegrating 15 mg PO BEDTIME RF: 0 metformin 500 mg tablet 0 mg PO BID RF: 0 hydrochlorothiazide 25 mg tablet 25 mg PO DAILY RF: 0 losartan 100 mg tablet 100 mg PO DAILY RF: 0 ibuprofen 600 mg tablet 600 mg PO TID PRN (Reason: moderate pain) RF: 0 loratadine 10 mg tablet 10 mg PO DAILY RF: 0 cholecalciferol (vitamin D3) 50 mcg (2,000 unit) capsule 50 mcg PO DAILY RF: 0 atorvastatin 40 mg tablet 40 mg PO DAILY RF: 0 empagliflozin 25 mg tablet 25 mg PO QAM RF: 0 Referrals: Dereje Ivey MD [Physician] - 2 days ( Patient with 2nd episode of urinary retention, urinary catheter was placed, patient is currently only on Flomax.) Discharge Date/Time: 03/12/20 06:19 Print Language: Kyrgyz
[2020-03-12 05:50] LABS: Glucose Urine UA >=1000 MG/DL (NEG); Leukocyte Esterase Urine NEG (NEG); Nitrite Urine NEG (NEG); Urine Blood NEG (NEG); Urine Ketones NEG (NEG); Urine Protein NEG (NEG-TRACE)
[2020-03-12 05:56] LABS: Appearance Urine CLEAR; Color Urine COLORLESS
[2020-03-12 06:04] LABS: RBC Urine 0 /HPF (0); WBC Urine 0 /HPF (0-4)
[2020-03-12 06:05] LABS: Squamous Epithelial Cell Urine TRACE /LPF
== END 2020-03-12 06:19 | disposition home or self-care (01) ==
PROVIDERS: Emergency Provider Student in an Organized Health Care Education/Training Program; PCP Family Medicine
DX: U07.1 COVID-19 (principal); R33.9 Retention of urine, unspecified; I10 Essential (primary) hypertension; Z79.899 Other long term (current) drug therapy
CPT/HCPCS: 51798; 81001; 99283; 99284

== ENCOUNTER 2020-03-13 10:50 | Emergency (ER) | payer OTHER, SELFPAY ==
[2020-03-13 11:17] VITALS: BP 147/86; PULSE 104; RESP 24; O2SAT 100; BMI 27.4
--- NOTE | 2020-03-13 12:28 | XR_ITS ---
EXAMINATION: XR CHEST CLINICAL INFORMATION: Cough and fever. COMPARISON: Chest done on 03/09/2020. TECHNIQUE: Frontal view of the chest was obtained. FINDINGS: No significant abnormality is noted involving the heart, lungs, mediastinum, bony thorax or soft tissues. XR/XR chest 1V IMPRESSION: Unremarkable examination. No significant change.
--- NOTE | 2020-03-13 12:28 | ECG_ITS ---
Test Reason : DIFFICULTY BREATHING Blood Pressure : / mmHG Vent. Rate : 098 BPM Atrial Rate : 098 BPM P-R Int : 160 ms QRS Dur : 082 ms QT Int : 336 ms P-R-T Axes : 035 -12 017 degrees QTc Int : 428 ms Normal sinus rhythm Moderate voltage criteria for LVH, may be normal variant Abnormal ECG When compared with ECG of 09-MAR-2020 18:36, No significant change was found Referred By: Saba Clarke Electronically Signed By:PAT SANTOYO
--- NOTE | 2020-03-13 12:51 | ED.SOB ---
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 Of note the patient was admitted 02/27-03/01 for COVID-19 infection ( also hyponatremia, hypokalemia, hypertension). Patient was seen subsequently in the ER for urinary retention and a Quezada catheter was placed. He returns today for several days of chest pain which is worsened with coughing and deep breathing. He also has shortness of breath which is worsened with exertion with an intermittent dry cough. Generalized weakness and fatigue not feeling himself. No abdominal pain, vomiting, diarrhea. No continued fevers or chills. MD elicited complaint: shortness of breath, cough, pain with inspiration and chest pain Onset (ago): day(s) Context: recent illness Timing: intermittent Severity: mild Exacerbating factors: exertion, coughing and inspiration Relieving factors: rest Associated symptoms: chest pain and pain with inspiration Treatment prior to arrival: none Related Data Home Medications Medication Instructions Recorded Confirmed amlodipine 5 mg tablet 5 mg PO DAILY 02/19/20 02/28/20 aspirin 81 mg tablet,delayed 81 mg PO DAILY 02/19/20 02/28/20 release atorvastatin 40 mg tablet 40 mg PO DAILY 02/19/20 02/28/20 cholecalciferol (vitamin D3) 50 50 mcg PO DAILY 02/19/20 02/28/20 mcg (2,000 unit) capsule empagliflozin 25 mg tablet 25 mg PO QAM 02/19/20 02/28/20 hydrochlorothiazide 25 mg tablet 25 mg PO DAILY 02/19/20 02/28/20 ibuprofen 600 mg tablet 600 mg PO TID PRN 02/19/20 02/28/20 loratadine 10 mg tablet 10 mg PO DAILY 02/19/20 02/28/20 losartan 100 mg tablet 100 mg PO DAILY 02/19/20 02/28/20 metformin 500 mg tablet 0 mg PO BID 02/19/20 02/28/20 mirtazapine 15 mg disintegrating 15 mg PO BEDTIME 02/19/20 02/28/20 tablet potassium chloride 1 cap PO DAILY 02/28/20 02/28/20 Previous Rx's Medication Instructions Recorded polyethylene glycol 3350 [Miralax] 17 g PO DAILY PRN #510 g 03/07/20 tamsulosin [Flomax] 0.4 mg PO DAILY #30 cap 03/07/20 tramadol 50 mg PO Q8H PRN #20 tab 03/07/20 Allergies Allergy/AdvReac Type Severity Reaction Status Date / Time Penicillins Allergy Mild RASH Verified 03/09/20 18:26 penicillin V Allergy Unknown rash Verified 03/09/20 18:26 acetaminophen [From Percocet] Allergy Anxiety Verified 03/09/20 18:26 oxycodone [From Percocet] Allergy Anxiety Verified 03/09/20 18:26 Review of Systems Review of Systems: Yes all other systems are reviewed and are negative Constitutional: Constitutional: Reports no additional constitutional complaints, Denies body ache(s), Denies chills, Reports fatigue, Denies fever(s), Denies headache(s) and Reports weakness Eyes: Eyes: Reports no additional eye complaints and Denies change in vision ENT: Reports system reviewed and no additional complaints, except as documented, Denies dizziness, Denies headache(s), Denies nasal congestion, Denies nasal discharge and Denies neck pain Cardiovascular: Cardiovascular: Reports no additional cardiovascular complaints, Reports chest pain, Denies leg edema and Reports dyspnea Respiratory: Respiratory: Reports no additional respiratory complaints, Reports cough and Reports dyspnea Gastrointestinal: Gastrointestinal: Reports no additional gastrointestinal complaints, Denies abdominal pain, Denies diarrhea, Denies nausea and Denies vomiting Genitourinary: Genitourinary: Denies urinary incontinence Musculoskeletal: Musculoskeletal: Reports no additional musculoskeletal complaints, Denies back pain, Denies arthralgias, Denies joint swelling, Denies neck pain, Denies numbness and Denies tingling Integumentary/Breasts: Skin/Breast: Reports system reviewed and no additional complaints, except as docu and Denies rash Neurologic: Reports system reviewed and no additional complaints, except as documented, Denies Abnormal speech present, Denies dizziness, Denies headache(s), Denies numbness, Denies tingling and Reports weakness Endocrine: Endocrine: Reports fatigue PMFSH Past Medical History Attestation statement: The following information was validated with the patient. Source: old records reviewed and nursing notes reviewed Medical History COVID-19 HLD (hyperlipidemia) HTN (hypertension) Hypertension T2DM (type 2 diabetes mellitus) Surgical History History of prostate surgery Hx of removal of cyst Family History Family History Father Cancer Mother Cancer Diabetes Social History Social History Housing: Apartment Alcohol intake: never Smoking Status: Never smoker Tobacco Type: Cigarette Packs Per Day: 1 Cigarettes Per Day: 20.0 Years Smoked: 20 Use of substances other than those prescribed or required for medical reasons: No Advance Directives: No Advance Directives Information Provided: No service: No Current occupational status: retired Physical Exam Vital Signs: Vital Signs: Last Vital Signs Temp 97.7 F 03/13/20 20:39 Pulse 94 03/13/20 20:39 Resp 18 03/13/20 20:39 BP 140/78 H 03/13/20 20:39 Pulse Ox 98 03/13/20 20:39 Body Mass Index 27.4 Const: General: cooperative, healthy appearing, comfortable and no acute distress Orientation/consciousness: patient oriented x3 Limitations: no limitations HENMT: Head: Yes normal to inspection Ears: hearing grossly normal bilaterally General nose exam: Normal external nose present Face and sinus: Yes normal facial exam Mouth: Normal oral and palatal mucosa present Throat: Yes posterior oropharynx normal Eyes: General: appearance normal, both eyes and all related structures Pupils: Equal, round and reactive pupils present Neck: Neck: Yes normal visual inspection Chest: Chest palpation & inspection: normal inspection of the chest Resp: Effort & Inspection: normal respiratory effort Auscultation: clear to auscultation bilaterally Cardio: Rate: regular rate Rhythm: regular rhythm Peripheral pulses: Peripheral pulses 2+ throughout GI: Inspection: Yes normal to inspection Palpation (GI): Soft to palpation and nontender Auscultation: normal bowel sounds Back/Spine/Pelvis: Thoracic/Lumbar Spine: thoracic and lumbar spine normal to inspection Skin: General skin exam: no rashes or lesions noted Neuro: General: patient oriented x3, no focal motor deficits and normal sensation to monofilament Cranial nerves: Yes Equal, round and reactive pupils present Cognition (Neuro): normal cognition Speech: No Abnormal speech present Gait exam (Neuro): Normal gait present Motor exam (neuro): 5/5 motor strength present throughout Extrem: General: Yes normal to inspection Course Course Course Narrative: 69-year-old male here with reproducible and pleuritic chest pain with associated shortness of breath and fatigue in the setting of a diagnosis of COVID-19 2 weeks ago. On arrival the patient is well-appearing, he has oxygen saturation of 100% and speaking full sentences. Will plan to check chest x-ray, labs, EKG. 1640- Labs show hyponatremia of 128. Of note, the patient was admitted here recently for COVID and hyponatremia. He was seen by Nephrology and was thought to be secondary to hypovolemia. It improved with hydration during his hospital stay. It was thought to be from GI losses And hydrochlorothiazide use. Will give 1 L fluid and reassess. Patient's chest x-ray is unremarkable. His labs otherwise are unremarkable. His EKG is unchanged. He has improved after a dose of lorazepam. He has no hypoxia or tachycardia. 2000-Repeat sodium improved. Patient feels much better, symptoms improved and tolerating PO. Ambulating with steady gait and saturation >97%. Reviewed wqorrisome signs/symptoms with patient and when to return to ED. Comfortable with discharge home. MDM - SOB/Dyspnea MDM Narrative Medical decision making narrative: ACS, pneumonia, PE, COVID-19 infection Less likely ACS with negative troponin, EKG and symptoms >24 hrs, Less likely PE with no clinical s/s of PE (no hypoxia or tachycardia) and negative CTA <2 weeks ago. Less likely pneumonia with negative CXR Medical Records Attestation: I reviewed the patient's medical records. Lab Data Attestation: I reviewed the patient's lab results. Result diagrams: 03/13/20 12:47 03/13/20 19:57 Labs: Lab Results 03/13/20 03/13/20 03/13/20 Range/Units 12:47 12:47 12:47 WBC 9.8 (4.8-10.8) X10*3/uL RBC 4.62 (4.60-5.80) X10*6/uL Hgb 14.3 (14.0-18.0) g/dl Hct 40.9 L (42-52) % MCV 88.5 (80-98) fL MCH 31.0 (27.0-33.0) pg MCHC 35.0 (31.0-36.0) g/dl RDW 13.3 (11.0-16.0) % Plt Count 517 H (160-400) X10*3/uL MPV 8.9 L (9.4-12.4) fL Immature Gran % (Auto) 0.3 (0.0-0.4) % Neut % (Auto) 72.2 (45-73) % Lymph % (Auto) 17.4 L (20-40) % [place] % (Auto) 8.6 (2-11) % Eos % (Auto) 1.2 (0-4) % Baso % (Auto) 0.3 (0-2) % Lymph # (Auto) 1.7 (1.2-4.9) X10*3/uL [place] # (Auto) 0.8 (0.1-1.2) X10*3/uL Eos # (Auto) 0.1 (0.0-0.4) X10*3/uL Baso # (Auto) 0.0 (0.0-0.2) X10*3/uL Abs Immat Gran (auto) 0.03 (0.00-0.03) X10*3/uL Absolute Neuts (auto) 7.1 (2.0-8.3) X10*3/uL Absolute Nucleated RBC 0.000 (0.0-0.012) X10*3/uL Nucleated RBC % (auto) 0.0 (0.0-0.2) /100WBC Hold Blue Top SEE NOTE Sodium Cancelled Potassium Cancelled Chloride Cancelled Carbon Dioxide Cancelled Anion Gap Cancelled BUN Cancelled Creatinine Cancelled Estim Creat Clear Calc Cancelled Estimated GFR Cancelled Random Glucose Cancelled Calcium Cancelled Magnesium Cancelled Total Bilirubin Cancelled Direct Bilirubin Cancelled AST Cancelled ALT Cancelled Alkaline Phosphatase Cancelled Troponin I High Sens (<3.5-35.0) ng/L Total Protein Cancelled Albumin Cancelled Urine Color Urine Appearance Urine pH (5.0-8.0) Ur Specific [place] (1.005-1.025) Urine Protein (NEG-TRACE) MG/DL Urine Glucose (UA) (NEG) MG/DL Urine Ketones (NEG) MG/DL Urine Blood (NEG) Urine Nitrite (NEG) Ur Leukocyte Esterase (NEG) Urine RBC (0) /HPF Urine WBC (0-4) /HPF Ur Squamous Epith Cells /LPF Urine Bacteria /LPF 03/13/20 03/13/20 03/13/20 Range/Units 12:47 12:51 15:59 WBC (4.8-10.8) X10*3/uL RBC (4.60-5.80) X10*6/uL Hgb (14.0-18.0) g/dl Hct (42-52) % MCV (80-98) fL MCH (27.0-33.0) pg MCHC (31.0-36.0) g/dl RDW (11.0-16.0) % Plt Count (160-400) X10*3/uL MPV (9.4-12.4) fL Immature Gran % (Auto) (0.0-0.4) % Neut % (Auto) (45-73) % Lymph % (Auto) (20-40) % [place] % (Auto) (2-11) % Eos % (Auto) (0-4) % Baso % (Auto) (0-2) % Lymph # (Auto) (1.2-4.9) X10*3/uL [place] # (Auto) (0.1-1.2) X10*3/uL Eos # (Auto) (0.0-0.4) X10*3/uL Baso # (Auto) (0.0-0.2) X10*3/uL Abs Immat Gran (auto) (0.00-0.03) X10*3/uL Absolute Neuts (auto) (2.0-8.3) X10*3/uL Absolute Nucleated RBC (0.0-0.012) X10*3/uL Nucleated RBC % (auto) (0.0-0.2) /100WBC Hold Blue Top Sodium 128 L Potassium 3.8 Chloride 91 L Carbon Dioxide 23 Anion Gap 18 BUN 8 L Creatinine 0.78 Estim Creat Clear Calc 86.4 Estimated GFR > 60 Random Glucose 213 H Calcium 9.4 Magnesium 2.1 Total Bilirubin 0.6 Direct Bilirubin 0.3 AST 22 D ALT 32 Alkaline Phosphatase 70 Troponin I High Sens 4.3 (<3.5-35.0) ng/L Total Protein 7.1 Albumin 4.5 Urine Color YELLOW Urine Appearance HAZY Urine pH 7.0 (5.0-8.0) Ur Specific [place] 1.015 (1.005-1.025) Urine Protein NEG (NEG-TRACE) MG/DL Urine Glucose (UA) >=1000 H (NEG) MG/DL Urine Ketones NEG (NEG) MG/DL Urine Blood 3+ H (NEG) Urine Nitrite NEG (NEG) Ur Leukocyte Esterase NEG (NEG) Urine RBC 76-150 H (0) /HPF Urine WBC 0 (0-4) /HPF Ur Squamous Epith Cells NONE /LPF Urine Bacteria NONE /LPF 03/13/20 Range/Units 19:57 WBC (4.8-10.8) X10*3/uL RBC (4.60-5.80) X10*6/uL Hgb (14.0-18.0) g/dl Hct (42-52) % MCV (80-98) fL MCH (27.0-33.0) pg MCHC (31.0-36.0) g/dl RDW (11.0-16.0) % Plt Count (160-400) X10*3/uL MPV (9.4-12.4) fL Immature Gran % (Auto) (0.0-0.4) % Neut % (Auto) (45-73) % Lymph % (Auto) (20-40) % [place] % (Auto) (2-11) % Eos % (Auto) (0-4) % Baso % (Auto) (0-2) % Lymph # (Auto) (1.2-4.9) X10*3/uL [place] # (Auto) (0.1-1.2) X10*3/uL Eos # (Auto) (0.0-0.4) X10*3/uL Baso # (Auto) (0.0-0.2) X10*3/uL Abs Immat Gran (auto) (0.00-0.03) X10*3/uL Absolute Neuts (auto) (2.0-8.3) X10*3/uL Absolute Nucleated RBC (0.0-0.012) X10*3/uL Nucleated RBC % (auto) (0.0-0.2) /100WBC Hold Blue Top Sodium 130 L Potassium 3.9 Chloride 93 L Carbon Dioxide 28 Anion Gap 13 BUN 7 L Creatinine 0.77 Estim Creat Clear Calc 87.5 Estimated GFR > 60 Random Glucose 167 H Calcium 8.9 Magnesium Total Bilirubin Direct Bilirubin AST ALT Alkaline Phosphatase Troponin I High Sens (<3.5-35.0) ng/L Total Protein Albumin Urine Color Urine Appearance Urine pH (5.0-8.0) Ur Specific [place] (1.005-1.025) Urine Protein (NEG-TRACE) MG/DL Urine Glucose (UA) (NEG) MG/DL Urine Ketones (NEG) MG/DL Urine Blood (NEG) Urine Nitrite (NEG) Ur Leukocyte Esterase (NEG) Urine RBC (0) /HPF Urine WBC (0-4) /HPF Ur Squamous Epith Cells /LPF Urine Bacteria /LPF Imaging Data Chest x-ray: Attestation: I personally reviewed and interpreted this imaging study as follows: Radiologist's impression: XAMINATION: XR CHEST CLINICAL INFORMATION: Cough and fever. COMPARISON: Chest done on 03/09/2020. TECHNIQUE: Frontal view of the chest was obtained. FINDINGS: No significant abnormality is noted involving the heart, lungs, mediastinum, bony thorax or soft tissues. XR/XR chest 1V IMPRESSION: Unremarkable examination. No significant change. ECG Data Attestation: I personally reviewed and interpreted this ECG as follows: ECG interpretation date: 03/13/20 ECG interpretation time: 13:12 Interpretation: Normal sinus rhythm, rate of 98, normal [place], normal QRS, normal QT Discharge Plan Discharge Clinical Impression: COVID-19, Anxiety, Acute hyponatremia, Acute dehydration Patient Disposition: Home, Self-Care Instructions: Dehydration (ED), COVID-19 (Coronavirus Disease 2019) (ED) Additional Instructions: You have covid 19 which is a viral infection. It can take weeks to months for your symptoms to resolve Stay well hydrated and get plenty of rest Prescriptions: No Action potassium chloride 10 mEq capsule, extended release 1 cap PO DAILY RF: 0 tamsulosin [Flomax] 0.4 mg capsule 0.4 mg PO DAILY Qty: 30 RF: 0 tramadol 50 mg tablet 50 mg PO Q8H PRN (Reason: pain) Qty: 20 RF: 0 polyethylene glycol 3350 [Miralax] 17 gram/dose powder 17 g PO DAILY PRN (Reason: constipation) Qty: 510 RF: 0 amlodipine 5 mg tablet 5 mg PO DAILY RF: 0 aspirin 81 mg tablet,delayed release (DR/EC) 81 mg PO DAILY RF: 0 mirtazapine 15 mg tablet,disintegrating 15 mg PO BEDTIME RF: 0 metformin 500 mg tablet 0 mg PO BID RF: 0 hydrochlorothiazide 25 mg tablet 25 mg PO DAILY RF: 0 losartan 100 mg tablet 100 mg PO DAILY RF: 0 ibuprofen 600 mg tablet 600 mg PO TID PRN (Reason: moderate pain) RF: 0 loratadine 10 mg tablet 10 mg PO DAILY RF: 0 cholecalciferol (vitamin D3) 50 mcg (2,000 unit) capsule 50 mcg PO DAILY RF: 0 atorvastatin 40 mg tablet 40 mg PO DAILY RF: 0 empagliflozin 25 mg tablet 25 mg PO QAM RF: 0 Referrals: Physician,Unknown [Primary Care Provider] - 2 days Print Language: Croatian
--- NOTE | 2020-03-13 13:00 | PC.NURSE ---
iv inserted, labs drawn, cardiac monitor technician sinus tach 100, will continue to monitor.
[2020-03-13 13:05] LABS: Basophils Percent Auto 0.3 % (0-2); Eosinophils Absolute Auto 0.1 X10*3/uL (0.0-0.4); Eosinophils Percent Auto 1.2 % (0-4); Hematocrit 40.9 % (42-52); Hemoglobin 14.3 g/dl (14.0-18.0); Imm Gran Abs Auto 0.03 X10*3/uL (0.00-0.03); Imm Gran Pct Auto 0.3 % (0.0-0.4); Lymphocytes Absolute Auto 1.7 X10*3/uL (1.2-4.9); Lymphocytes Percent Auto 17.4 % (20-40); Mean Corpuscular Volume 88.5 fL (80-98); Mean Platelet Volume 8.9 fL (9.4-12.4); Monocytes Absolute Auto 0.8 X10*3/uL (0.1-1.2); Monocytes Percent Auto 8.6 % (2-11); Neutrophils Absolute Auto 7.1 X10*3/uL (2.0-8.3); Neutrophils Percent Auto 72.2 % (45-73); Platelet Count 517 X10*3/uL (160-400); Red Blood Count 4.62 X10*6/uL (4.60-5.80); Red Cell Distribution Width 13.3 % (11.0-16.0); White Blood Count 9.8 X10*3/uL (4.8-10.8)
[2020-03-13 13:06] LABS: MANUAL DIFF FLAG NO
[2020-03-13 13:08] LABS: Glucose Urine UA >=1000 MG/DL (NEG); Leukocyte Esterase Urine NEG (NEG); Nitrite Urine NEG (NEG); Specific Gravity - Urine 1.015 (1.005-1.025); Urine Blood 3+ (NEG); Urine Ketones NEG (NEG); Urine Protein NEG (NEG-TRACE)
[2020-03-13 13:19] LABS: Appearance Urine HAZY; Color Urine YELLOW
[2020-03-13 13:20] LABS: WBC Urine 0 /HPF (0-4)
[2020-03-13 13:36] LABS: Troponin-I High Sensitivity 4.3 ng/L (<3.5-35.0)
[2020-03-13 13:53] VITALS: BP 165/98; PULSE 110; RESP 24; TEMP 36.4
[2020-03-13] MEDS: LORazepam 1 MG TABLET PO (14:28)
--- NOTE | 2020-03-13 14:28 | PC.NURSE ---
patient had c/o anxiety, provider notified, pt medicated per order, vss, will continue to monitor.
[2020-03-13 14:44] VITALS: BP 134/84; PULSE 105; RESP 18; TEMP 36.4; O2SAT 96
[2020-03-13 16:00] VITALS: BP 118/76; PULSE 97; RESP 18; TEMP 37.2; O2SAT 97
[2020-03-13 16:31] LABS: Alanine Aminotransferase 32 U/L (0-40); Albumin Level 4.5 g/dL (3.5-5.0); Alkaline Phosphatase 70 U/L (39-117); Anion Gap 18 (12-20); Aspartate Amino Transferase 22 U/L (5-37); Bilirubin Direct 0.3 mg/dL (0.0-0.5); Bilirubin Total 0.6 mg/dL (0.0-1.0); Blood Urea Nitrogen 8 mg/dL (9-16); Calcium 9.4 mg/dL (8.4-10.2); Carbon Dioxide 23 mmol/L (22-29); Chloride 91 mmol/L (96-108); Creatinine Clr Calc Pharmacy 86.4; Estimated Glomerular Filt Rate > 60; Glucose Random 213 mg/dL (60-115); Magnesium 2.1 mg/dL (1.6-2.6); Potassium 3.8 mmol/l (3.3-5.1); Sodium 128 mmol/L (135-145); Total Protein 7.1 g/dL (6.5-8.0)
[2020-03-13] MEDS: 0.9 % Sodium Chloride 1,000 ML 999 ML IVCONT (16:52)
--- NOTE | 2020-03-13 16:54 | PC.NURSE ---
patient a&ox3, vss, telemetry monitor nsr 90s, ivf running per order, patients covarrubias patient/draining, pt currently calm and quiet, will continue to monitor.
[2020-03-13 18:55] VITALS: BP 132/76; PULSE 91; RESP 18; TEMP 37.2; O2SAT 96
--- NOTE | 2020-03-13 18:56 | PC.NURSE ---
patient a&ox3, cardiac tech nsr 80s, vss, pt awaiting lab draw, will continue to monitor.
--- NOTE | 2020-03-13 19:52 | PC.NURSE ---
called phlebotomy x2 for lab draw, awaiting their arrival
[2020-03-13 20:25] LABS: Anion Gap 13 (12-20); Blood Urea Nitrogen 7 mg/dL (9-16); Calcium 8.9 mg/dL (8.4-10.2); Carbon Dioxide 28 mmol/L (22-29); Chloride 93 mmol/L (96-108); Creatinine Clr Calc Pharmacy 87.5; Estimated Glomerular Filt Rate > 60; Glucose Random 167 mg/dL (60-115); Potassium 3.9 mmol/l (3.3-5.1); Sodium 130 mmol/L (135-145)
[2020-03-13 20:39] VITALS: BP 140/78; PULSE 94; RESP 18; TEMP 36.5; O2SAT 98
--- NOTE | 2020-03-13 20:43 | PC.NURSE ---
patient a&ox3, calm/cooporative, kiss setter hand nsr 90s, vss, pt awaiting lab results, pt c/o being hungry, will ask provider if he can eat, will continue to monitor.
--- NOTE | 2020-03-13 20:49 | PC.NURSE ---
patient given sandwich and drink with ok of provider
== END 2020-03-13 21:22 | disposition home or self-care (01) ==
PROVIDERS: Nurse Practitioner Family; Emergency Provider Emergency Medicine Emergency Medical Services
DX: F41.9 Anxiety disorder, unspecified (principal); E87.1 Hypo-osmolality and hyponatremia; E86.0 Dehydration; Z86.19 Personal history of other infectious and parasitic diseases; E11.9 Type 2 diabetes mellitus without complications; I10 Essential (primary) hypertension; E78.5 Hyperlipidemia, unspecified
CPT/HCPCS: 36415; 71045; 80048; 80076; 81001; 83735; 84484; 85025; 93005; 96360; 99284

== ENCOUNTER 2020-03-16 09:51 | Outpatient (REF) | payer OTHER, SELFPAY | END 2020-03-16 09:52 | disposition home or self-care (01) | LOC: HO.LAB 09:51 | PROVIDERS: Visit Provider Internal Medicine | DX: Z20.828 Contact with and (suspected) exposure to other viral communicable diseases (principal) | CPT/HCPCS: C9803; U0003 ==

== ENCOUNTER → 2020-03-17 10:29 | Outpatient (BNVA) | payer OTHER, SELFPAY | PROVIDERS: Visit Provider Urology | DX: Z76.89 Persons encountering health services in other specified circumstances (principal) | CPT/HCPCS: 99202 ==

== ENCOUNTER 2020-03-17 17:09 | Emergency (ER) | payer OTHER, SELFPAY ==
[2020-03-17 17:14] VITALS: BP 134/82; PULSE 105; RESP 19; TEMP 36.8; O2SAT 98; BMI 30.2
--- NOTE | 2020-03-17 17:21 | XR_ITS ---
EXAMINATION: XR CHEST CLINICAL INFORMATION: resolved palpitations COMPARISON: 03/13/2020 TECHNIQUE: Frontal view of the chest was obtained. FINDINGS: EKG leads overlie the chest. No significant abnormality is noted involving the heart, lungs, mediastinum, bony thorax or soft tissues. XR/XR chest 1V IMPRESSION: Unremarkable examination. No significant change.
--- NOTE | 2020-03-17 17:28 | ED.ARRPALP ---
HPI - Arrhythmia/Palpitations General Chief Complaint: Arrhythmia/Palpitations Stated Complaint: CP Time Seen by Provider: 03/17/20 17:24 Source: patient Mode of arrival: EMS Limitations: no limitations History of Present Illness HPI narrative: Patient presents to ED for palpitation. patient states he had palpitations around 04:00 o'clock. patient describes palpitation and heart racing. Patient states he thought it was allergic reaction to new medication he was taking such as finasteride, Flomax, prazosin which he start taking today. Patient denies having any chest pain, shortness of breath, swelling of lower extremity, fever, or chills. Patient was diagnosed positive COVID 3 weeks ago and presently does not have any COVID like symptoms. Patient states presently he has no symptoms in the ED Related Data Home Medications Medication Instructions Recorded Confirmed amlodipine 5 mg tablet 5 mg PO DAILY 02/19/20 02/28/20 aspirin 81 mg tablet,delayed 81 mg PO DAILY 02/19/20 02/28/20 release atorvastatin 40 mg tablet 40 mg PO DAILY 02/19/20 02/28/20 cholecalciferol (vitamin D3) 50 50 mcg PO DAILY 02/19/20 02/28/20 mcg (2,000 unit) capsule empagliflozin 25 mg tablet 25 mg PO QAM 02/19/20 02/28/20 hydrochlorothiazide 25 mg tablet 25 mg PO DAILY 02/19/20 02/28/20 ibuprofen 600 mg tablet 600 mg PO TID PRN 02/19/20 02/28/20 loratadine 10 mg tablet 10 mg PO DAILY 02/19/20 02/28/20 losartan 100 mg tablet 100 mg PO DAILY 02/19/20 02/28/20 metformin 500 mg tablet 0 mg PO BID 02/19/20 02/28/20 mirtazapine 15 mg disintegrating 15 mg PO BEDTIME 02/19/20 02/28/20 tablet potassium chloride 1 cap PO DAILY 02/28/20 02/28/20 Previous Rx's Medication Instructions Recorded polyethylene glycol 3350 [Miralax] 17 g PO DAILY PRN #510 g 03/07/20 tamsulosin [Flomax] 0.4 mg PO DAILY #30 cap 03/07/20 tramadol 50 mg PO Q8H PRN #20 tab 03/07/20 finasteride 5 mg tablet 5 mg PO DAILY 90 Days #90 tab 03/17/20 terazosin 5 mg capsule 5 mg PO BEDTIME #90 cap 03/17/20 Allergies Allergy/AdvReac Type Severity Reaction Status Date / Time Penicillins Allergy Mild RASH Verified 03/09/20 18:26 penicillin V Allergy Unknown rash Verified 03/09/20 18:26 acetaminophen [From Percocet] Allergy Anxiety Verified 03/09/20 18:26 oxycodone [From Percocet] Allergy Anxiety Verified 03/09/20 18:26 Review of Systems Review of Systems: Yes all other systems are reviewed and are negative Constitutional: Constitutional: Reports as per HPI and Reports no additional constitutional complaints Eyes: Eyes: Reports as per HPI and Reports no additional eye complaints ENT: Reports system reviewed and no additional complaints, except as documented and Reports as per HPI Cardiovascular: Cardiovascular: Reports as per HPI, Reports no additional cardiovascular complaints, Denies chest pain, Denies chest pain at rest and Denies chest pain with activity Comments: palpitations Respiratory: Respiratory: Reports as per HPI and Reports no additional respiratory complaints Gastrointestinal: Gastrointestinal: Reports as per HPI and Reports no additional gastrointestinal complaints Genitourinary: Genitourinary: Reports no additional male genitourinary complaints and Reports as per HPI Musculoskeletal: Musculoskeletal: Reports no additional musculoskeletal complaints and Reports as per HPI Neurologic: Reports system reviewed and no additional complaints, except as documented and Reports as per HPI Psychiatric: Psychiatric: Reports no additional psychiatric complaints and Reports as per HPI [facility] Past Medical History Medical History (Updated 03/18/20 @ 00:25 by JW Millan) Anxiety COVID-19 HLD (hyperlipidemia) HTN (hypertension) Hypertension T2DM (type 2 diabetes mellitus) Surgical History History of prostate surgery Hx of removal of cyst Family History Family History Father Cancer Mother Cancer Diabetes Social History Social History Housing: Apartment Alcohol intake: never Smoking Status: Never smoker Tobacco Type: Cigarette Packs Per Day: 1 Cigarettes Per Day: 20.0 Years Smoked: 20 Smoked in Last 30 Days: No Use of substances other than those prescribed or required for medical reasons: No Advance Directives: No Advance Directives Information Provided: No service: No Current occupational status: retired Physical Exam Vital Signs: Vital Signs: Last Vital Signs Temp 98.4 F 03/17/20 17:50 Pulse 91 03/17/20 23:00 Resp 16 03/17/20 23:00 BP 141/80 H 03/17/20 23:00 Pulse Ox 98 03/17/20 19:29 Body Mass Index 30.2 Const: General: cooperative, healthy appearing, comfortable, no acute distress, well developed, alert, awake and Physically active Orientation/consciousness: patient oriented x3 HENMT: Head: Yes normal to inspection and Yes No palpable skull fracture present Eyes: General: appearance normal, both eyes and all related structures Neck: Neck: Yes normal visual inspection, Yes full ROM, Yes no lymphadenopathy, Yes no meningeal signs, Yes trachea midline, Yes supple and No tender Chest: Chest palpation & inspection: normal inspection of the chest, normal palpation of entire chest wall and no localized rib tenderness Resp: Effort & Inspection: normal respiratory effort and able to speak in complete sentences Auscultation: clear to auscultation bilaterally Cardio: Jugular venous distension: no JVD Heart sounds: S1 normal heart sound present and S2 normal heart sound present GI: Inspection: Yes normal to inspection and No abdominal wall ecchymosis Palpation (GI): Soft to palpation, not firm, nontender, no guarding and not rigid : General: No CVA tenderness and Yes no CVA tenderness Back/Spine/Pelvis: Back: no CVA tenderness, No CVA tenderness and No back tenderness Skin: General skin exam: no rashes or lesions noted Neuro: General: patient oriented x3, gait normal, no meningeal signs and CN's II-XI intact bilaterally Cranial nerves: Yes CN's II-XII intact bilaterally Extrem: General: Yes normal to inspection and Yes full ROM Psych: Appearance: grossly normal, well kempt and not disheveled Course Course Course Narrative: patient presently asymptomatic in the ED. Due to patient's age and risk factors such as diabetes and high blood pressure patient will have a cardiac evaluation and also due to complaint of palpitation will have a D-dimer sent. Presently patient denies any chest pain or symptoms. Lower extremities negative for any swelling or pitting edema to indicate DVT or CHF. Reevaluation(s) Reevaluation #1: patient's troponin negative for acute myocardial infarction. troponin did not increased by 50%. Troponin actually decreased. Patient never had chest pain during ED visit. Patient's TSH level is normal. Patient D-dimer is negative. Patient have a Wells score 1. patient's repeat troponin I am and potassium normalized And improved. Patient's calcium low due to volume of fluid. Patient does have history of anxiety on given Atarax. Palpitation most likely due to anxiety. Patient is safe for discharge. Time: 00:19 Reevaluation #2: Patient thought palpitation was due to new BPH medication such as finasteride, prazosin, and Flomax. Patient informed to call his urologist tomorrow make him aware to see if these medications other cause. Presently no ER emergency Time: 00:20 MDM - Arrhythmia/Palpitations MDM Narrative Medical decision making narrative: palpitation most likely due to anxiety. Lab Data Result diagrams: 03/17/20 17:33 03/17/20 23:00 Labs: Lab Results 03/17/20 03/17/20 03/17/20 Range/Units 17:33 17:33 17:33 WBC 7.7 (4.8-10.8) X10*3/uL RBC 4.29 L (4.60-5.80) X10*6/uL Hgb 13.5 L (14.0-18.0) g/dl Hct 37.8 L (42-52) % MCV 88.1 (80-98) fL MCH 31.5 (27.0-33.0) pg MCHC 35.7 (31.0-36.0) g/dl RDW 13.3 (11.0-16.0) % Plt Count 306 D (160-400) X10*3/uL MPV 9.1 L (9.4-12.4) fL Immature Gran % (Auto) 0.1 (0.0-0.4) % Neut % (Auto) 72.9 (45-73) % Lymph % (Auto) 16.3 L (20-40) % [place] % (Auto) 8.0 (2-11) % Eos % (Auto) 2.3 (0-4) % Baso % (Auto) 0.4 (0-2) % Lymph # (Auto) 1.3 (1.2-4.9) X10*3/uL [place] # (Auto) 0.6 (0.1-1.2) X10*3/uL Eos # (Auto) 0.2 (0.0-0.4) X10*3/uL Baso # (Auto) 0.0 (0.0-0.2) X10*3/uL Abs Immat Gran (auto) 0.01 (0.00-0.03) X10*3/uL Absolute Neuts (auto) 5.6 (2.0-8.3) X10*3/uL Absolute Nucleated RBC 0.000 (0.0-0.012) X10*3/uL Nucleated RBC % (auto) 0.0 (0.0-0.2) /100WBC PT 10.7 L (10.8-13.0) SEC INR 0.9 (0.9-1.1) APTT 26.6 (24.1-38.0) SEC D-Dimer < 200 NG/ML Sodium 129 L (135-145) mmol/L Potassium 3.1 L D (3.3-5.1) mmol/l Chloride 92 L (96-108) mmol/L Carbon Dioxide 26 (22-29) mmol/L Anion Gap 14 (12-20) BUN 8 L (9-16) mg/dL Creatinine 0.83 (0.5-1.4) mg/dL Estim Creat Clear Calc 85.7 Estimated GFR > 60 POC Glucose (60-115) mg/dL Random Glucose 350 H* (60-115) mg/dL Calcium 8.7 (8.4-10.2) mg/dL Magnesium (1.6-2.6) mg/dL Total Bilirubin 0.4 (0.0-1.0) mg/dL AST 16 (5-37) U/L ALT 28 (0-40) U/L Alkaline Phosphatase 76 (39-117) U/L Troponin I High Sens (<3.5-35.0) ng/L Total Protein 6.8 (6.5-8.0) g/dL Albumin 4.4 (3.5-5.0) g/dL TSH 0.82 (0.32-4.0) uIU/mL 12/09/20 12/09/20 12/09/20 Range/Units 17:33 19:26 20:29 WBC (4.8-10.8) X10*3/uL RBC (4.60-5.80) X10*6/uL Hgb (14.0-18.0) g/dl Hct (42-52) % MCV (80-98) fL MCH (27.0-33.0) pg MCHC (31.0-36.0) g/dl RDW (11.0-16.0) % Plt Count (160-400) X10*3/uL MPV (9.4-12.4) fL Immature Gran % (Auto) (0.0-0.4) % Neut % (Auto) (45-73) % Lymph % (Auto) (20-40) % [place] % (Auto) (2-11) % Eos % (Auto) (0-4) % Baso % (Auto) (0-2) % Lymph # (Auto) (1.2-4.9) X10*3/uL [place] # (Auto) (0.1-1.2) X10*3/uL Eos # (Auto) (0.0-0.4) X10*3/uL Baso # (Auto) (0.0-0.2) X10*3/uL Abs Immat Gran (auto) (0.00-0.03) X10*3/uL Absolute Neuts (auto) (2.0-8.3) X10*3/uL Absolute Nucleated RBC (0.0-0.012) X10*3/uL Nucleated RBC % (auto) (0.0-0.2) /100WBC PT (10.8-13.0) SEC INR (0.9-1.1) APTT (24.1-38.0) SEC D-Dimer NG/ML Sodium 128 L (135-145) mmol/L Potassium 4.2 D (3.3-5.1) mmol/l Chloride 100 (96-108) mmol/L Carbon Dioxide 17 L (22-29) mmol/L Anion Gap 15 (12-20) BUN 6 L (9-16) mg/dL Creatinine 0.78 (0.5-1.4) mg/dL Estim Creat Clear Calc 91.2 Estimated GFR > 60 POC Glucose 208 H (60-115) mg/dL Random Glucose 206 H D (60-115) mg/dL Calcium 8.1 L D (8.4-10.2) mg/dL Magnesium (1.6-2.6) mg/dL Total Bilirubin 0.5 (0.0-1.0) mg/dL AST 22 (5-37) U/L ALT 25 (0-40) U/L Alkaline Phosphatase 66 (39-117) U/L Troponin I High Sens 4.9 (<3.5-35.0) ng/L Total Protein 6.6 (6.5-8.0) g/dL Albumin 4.0 (3.5-5.0) g/dL TSH (0.32-4.0) uIU/mL 03/17/20 03/17/20 Range/Units 20:29 23:00 WBC (4.8-10.8) X10*3/uL RBC (4.60-5.80) X10*6/uL Hgb (14.0-18.0) g/dl Hct (42-52) % MCV (80-98) fL MCH (27.0-33.0) pg MCHC (31.0-36.0) g/dl RDW (11.0-16.0) % Plt Count (160-400) X10*3/uL MPV (9.4-12.4) fL Immature Gran % (Auto) (0.0-0.4) % Neut % (Auto) (45-73) % Lymph % (Auto) (20-40) % [place] % (Auto) (2-11) % Eos % (Auto) (0-4) % Baso % (Auto) (0-2) % Lymph # (Auto) (1.2-4.9) X10*3/uL [place] # (Auto) (0.1-1.2) X10*3/uL Eos # (Auto) (0.0-0.4) X10*3/uL Baso # (Auto) (0.0-0.2) X10*3/uL Abs Immat Gran (auto) (0.00-0.03) X10*3/uL Absolute Neuts (auto) (2.0-8.3) X10*3/uL Absolute Nucleated RBC (0.0-0.012) X10*3/uL Nucleated RBC % (auto) (0.0-0.2) /100WBC PT (10.8-13.0) SEC INR (0.9-1.1) APTT (24.1-38.0) SEC D-Dimer NG/ML Sodium 132 L (135-145) mmol/L Potassium 3.6 (3.3-5.1) mmol/l Chloride 100 (96-108) mmol/L Carbon Dioxide 23 (22-29) mmol/L Anion Gap 13 (12-20) BUN 6 L (9-16) mg/dL Creatinine 0.69 (0.5-1.4) mg/dL Estim Creat Clear Calc 103.1 Estimated GFR > 60 POC Glucose (60-115) mg/dL Random Glucose 172 H (60-115) mg/dL Calcium 7.8 L (8.4-10.2) mg/dL Magnesium 2.1 (1.6-2.6) mg/dL Total Bilirubin 0.5 (0.0-1.0) mg/dL AST 16 (5-37) U/L ALT 25 (0-40) U/L Alkaline Phosphatase 63 (39-117) U/L Troponin I High Sens 3.6 (<3.5-35.0) ng/L Total Protein 6.1 L (6.5-8.0) g/dL Albumin 4.0 (3.5-5.0) g/dL TSH (0.32-4.0) uIU/mL ECG Data Interpretation: sinus tachycardia. Pr interval 132. QRS duration 84. QTC 434. Negative STEMI Discharge Plan Discharge Clinical Impression: Palpitations, Anxiety Patient Disposition: Home, Self-Care Instructions: Heart Palpitations (ED), Anxiety (ED) Additional Instructions: return to the ED for shortness of breath, chest pain, swelling of lower extremities, calf pain, fever, chills, dizziness, headache, coughing up blood, or any other concerning symptoms. Please follow-up with your PCP. Prescriptions: No Action potassium chloride 10 mEq capsule, extended release 1 cap PO DAILY RF: 0 tamsulosin [Flomax] 0.4 mg capsule 0.4 mg PO DAILY Qty: 30 RF: 0 tramadol 50 mg tablet 50 mg PO Q8H PRN (Reason: pain) Qty: 20 RF: 0 polyethylene glycol 3350 [Miralax] 17 gram/dose powder 17 g PO DAILY PRN (Reason: constipation) Qty: 510 RF: 0 amlodipine 5 mg tablet 5 mg PO DAILY RF: 0 aspirin 81 mg tablet,delayed release (DR/EC) 81 mg PO DAILY RF: 0 mirtazapine 15 mg tablet,disintegrating 15 mg PO BEDTIME RF: 0 metformin 500 mg tablet 0 mg PO BID RF: 0 hydrochlorothiazide 25 mg tablet 25 mg PO DAILY RF: 0 losartan 100 mg tablet 100 mg PO DAILY RF: 0 ibuprofen 600 mg tablet 600 mg PO TID PRN (Reason: moderate pain) RF: 0 loratadine 10 mg tablet 10 mg PO DAILY RF: 0 cholecalciferol (vitamin D3) 50 mcg (2,000 unit) capsule 50 mcg PO DAILY RF: 0 atorvastatin 40 mg tablet 40 mg PO DAILY RF: 0 empagliflozin 25 mg tablet 25 mg PO QAM RF: 0 terazosin 5 mg capsule 5 mg PO BEDTIME Qty: 90 RF: 0 finasteride 5 mg tablet 5 mg PO DAILY 90 Days Qty: 90 RF: 1 Interventions: ED Discharge Assessment Last Done: 03/18/20 00:48 Discharge Date/Time: 03/18/20 00:50 Print Language: English
[2020-03-17 17:42] LABS: MANUAL DIFF FLAG NO
[2020-03-17 17:43] LABS: Basophils Percent Auto 0.4 % (0-2); Eosinophils Absolute Auto 0.2 X10*3/uL (0.0-0.4); Eosinophils Percent Auto 2.3 % (0-4); Hematocrit 37.8 % (42-52); Hemoglobin 13.5 g/dl (14.0-18.0); Imm Gran Abs Auto 0.01 X10*3/uL (0.00-0.03); Imm Gran Pct Auto 0.1 % (0.0-0.4); Lymphocytes Absolute Auto 1.3 X10*3/uL (1.2-4.9); Lymphocytes Percent Auto 16.3 % (20-40); Mean Corpuscular HGB Conc 35.7 g/dl (31.0-36.0); Mean Corpuscular Hemoglobin 31.5 pg (27.0-33.0); Mean Corpuscular Volume 88.1 fL (80-98); Mean Platelet Volume 9.1 fL (9.4-12.4); Monocytes Absolute Auto 0.6 X10*3/uL (0.1-1.2); Neutrophils Absolute Auto 5.6 X10*3/uL (2.0-8.3); Neutrophils Percent Auto 72.9 % (45-73); Platelet Count 306 X10*3/uL (160-400); Red Blood Count 4.29 X10*6/uL (4.60-5.80); Red Cell Distribution Width 13.3 % (11.0-16.0); White Blood Count 7.7 X10*3/uL (4.8-10.8)
[2020-03-17 17:46] LABS: INTERNATIONAL NORM RATIO 0.9 (0.9-1.1); Prothrombin Time 10.7 SEC (10.8-13.0)
[2020-03-17 17:49] LABS: Partial Thromboplastin Time 26.6 SEC (24.1-38.0)
[2020-03-17 17:50] VITALS: BP 120/80; PULSE 101; RESP 17; TEMP 36.9; O2SAT 98
[2020-03-17 17:52] LABS: D Dimer < 200 NG/ML
[2020-03-17 18:14] LABS: Troponin-I High Sensitivity 4.9 ng/L (<3.5-35.0)
[2020-03-17 18:24] LABS: Alanine Aminotransferase 28 U/L (0-40); Albumin Level 4.4 g/dL (3.5-5.0); Alkaline Phosphatase 76 U/L (39-117); Anion Gap 14 (12-20); Aspartate Amino Transferase 16 U/L (5-37); Bilirubin Total 0.4 mg/dL (0.0-1.0); Blood Urea Nitrogen 8 mg/dL (9-16); Calcium 8.7 mg/dL (8.4-10.2); Carbon Dioxide 26 mmol/L (22-29); Chloride 92 mmol/L (96-108); Creatinine Clr Calc Pharmacy 85.7; Estimated Glomerular Filt Rate > 60; Glucose Random 350 mg/dL (60-115); Potassium 3.1 mmol/l (3.3-5.1); Sodium 129 mmol/L (135-145); Total Protein 6.8 g/dL (6.5-8.0)
[2020-03-17] MEDS: 0.9 % Sodium Chloride 1,000 ML 999 ML IVCONT ×2 (18:24→21:50)
[2020-03-17] MEDS: Potassium Chloride Packet 20 MEQ PACKET 40 MEQ PO (19:27)
[2020-03-17 19:29] VITALS: BP 142/80; PULSE 96; RESP 16; O2SAT 98
[2020-03-17 19:33] LABS: Glucose, Whole Blood 208 mg/dL (60-115)
--- NOTE | 2020-03-17 19:42 | PC.NURSE ---
Report taken from Abdon, this RN resuming care. Pt found resting in bed, primarily Uz[place] speaking, requesting this RN call and update on plan of care. Pt is awake and alert, denies pain/discomfort, POC 208 MG/DL. Pt medicated with Potassium per EMAR, VSS. This RN discussing doing a possible rapid Covid swab on pt due to pending Covid test that was taken on Sunday, per Jarad, not necessary as pt is no longer symptomatic. This RN calling to update on plan of care for 2030 labwork and probable discharge. Continue to monitor.
--- NOTE | 2020-03-17 20:22 | PC.NURSE ---
technical designer at bedside obtaining 2030 labs.
[2020-03-17 20:26] LABS: Thyroid Stimulating Hormone 0.82 uIU/mL (0.32-4.0)
--- NOTE | 2020-03-17 20:48 | PC.NURSE ---
Pt ringing his call yuliana, sports management professor called for pt. Pt requesting something for nerves , states he is very anxious. Pt denies taking any medication at home for anxiety. PA aware, per PA plan to order Atarax.
[2020-03-17] MEDS: hydrOXYzine HCL 25 MG TABLET PO (21:04)
[2020-03-17 21:05] VITALS: BP 141/79; PULSE 84; RESP 16
[2020-03-17 21:05] LABS: Troponin-I High Sensitivity 3.6 ng/L (<3.5-35.0)
--- NOTE | 2020-03-17 21:05 | PC.NURSE ---
Pt medicated per EMAR with Atarax. VSS. Awaiting lab results. Continue to monitor.
[2020-03-17 21:07] LABS: Alanine Aminotransferase 25 U/L (0-40); Alkaline Phosphatase 66 U/L (39-117); Anion Gap 15 (12-20); Aspartate Amino Transferase 22 U/L (5-37); Bilirubin Total 0.5 mg/dL (0.0-1.0); Blood Urea Nitrogen 6 mg/dL (9-16); Calcium 8.1 mg/dL (8.4-10.2); Carbon Dioxide 17 mmol/L (22-29); Chloride 100 mmol/L (96-108); Creatinine Clr Calc Pharmacy 91.2; Estimated Glomerular Filt Rate > 60; Glucose Random 206 mg/dL (60-115); Potassium 4.2 mmol/l (3.3-5.1); Sodium 128 mmol/L (135-145); Total Protein 6.6 g/dL (6.5-8.0)
--- NOTE | 2020-03-17 21:51 | PC.NURSE ---
Per PA, plan for another liter of IVF and a repeat NA level. IVF infusing per EMAR. Pt resting in bed, reports relief of nerves after Atarax. Continue to monitor.
--- NOTE | 2020-03-17 21:55 | PC.NURSE ---
This RN updating on plan of care for IVF and repeat NA afterwards.
[2020-03-17 23:00] VITALS: BP 141/80; PULSE 91; RESP 16
--- NOTE | 2020-03-17 23:01 | PC.NURSE ---
Repeat CMP obtained and sent. VSS at this time. Per PA, if NA does not increase, plan to admit. Continue to monitor.
[2020-03-17 23:40] LABS: Alanine Aminotransferase 25 U/L (0-40); Alkaline Phosphatase 63 U/L (39-117); Anion Gap 13 (12-20); Aspartate Amino Transferase 16 U/L (5-37); Bilirubin Total 0.5 mg/dL (0.0-1.0); Blood Urea Nitrogen 6 mg/dL (9-16); Calcium 7.8 mg/dL (8.4-10.2); Carbon Dioxide 23 mmol/L (22-29); Chloride 100 mmol/L (96-108); Creatinine Clr Calc Pharmacy 103.1; Estimated Glomerular Filt Rate > 60; Glucose Random 172 mg/dL (60-115); Potassium 3.6 mmol/l (3.3-5.1); Sodium 132 mmol/L (135-145); Total Protein 6.1 g/dL (6.5-8.0)
--- NOTE | 2020-03-18 | ECG_ITS ---
Test Reason : HAKEEM PAIN Blood Pressure : / mmHG Vent. Rate : 103 BPM Atrial Rate : 103 BPM P-R Int : 132 ms QRS Dur : 084 ms QT Int : 332 ms P-R-T Axes : 029 -16 074 degrees QTc Int : 434 ms Sinus tachycardia Minimal voltage criteria for LVH, may be normal variant Inferior infarct (cited on or before 17-MAR-2020) Abnormal ECG When compared with ECG of 13-MAR-2020 13:12, No significant change was found Referred By: Kaitlin Anthony Electronically Signed By:PAT SANTOYO
[2020-03-18 00:10] LABS: Magnesium 2.1 mg/dL (1.6-2.6)
[2020-03-18 08:25] LABS: Glucose, Whole Blood 377 mg/dL (60-115)
== END 2020-03-18 00:50 | disposition home or self-care (01) ==
PROVIDERS: Physician Assistant; Emergency Provider Emergency Medicine
DX: R00.2 Palpitations (principal); F41.9 Anxiety disorder, unspecified; I10 Essential (primary) hypertension; E11.9 Type 2 diabetes mellitus without complications; Z86.19 Personal history of other infectious and parasitic diseases; F17.200 Nicotine dependence, unspecified, uncomplicated; Z79.82 Long term (current) use of aspirin; Z79.84 Long term (current) use of oral hypoglycemic drugs; Z79.899 Other long term (current) drug therapy
CPT/HCPCS: 36415; 71045; 80053; 82947; 83735; 84443; 84484; 85025; 85379; 85610; 85730; 93005; 96360; 96361; 99285

== ENCOUNTER 2020-03-19 11:44 | Emergency (ER) | payer OTHER, SELFPAY ==
[2020-03-19 11:57] VITALS: BP 136/81; PULSE 100; RESP 17; TEMP 36.6; O2SAT 97; BMI 29.6
--- NOTE | 2020-03-19 12:31 | US_ITS ---
EXAMINATION: US VENOUS ULTRASOUND WITH DOPPLER LOWER EXTREMITY, LEFT CLINICAL INFORMATION: Left leg pain COMPARISON: None TECHNIQUE: Ultrasound of the deep veins is performed from the hip to the calf with compression sonography and color and pulse Doppler assessment. Spectral analysis with color-flow imaging is performed. FINDINGS: There is normal venous compression and respiratory variation and augmented flow. The visualized common femoral vein, superficial femoral vein, profunda femoral vein, popliteal vein, and the trifurcation region shows no evidence of deep venous thrombosis. There is no significant popliteal fossa cyst. US/US venous duplex LE LT IMPRESSION: No DVT demonstrated in the left lower extremity.
[2020-03-19 13:06] LABS: Glucose Urine UA >=1000 MG/DL (NEG); Leukocyte Esterase Urine TRACE (NEG); Nitrite Urine POS (NEG); Urine Blood 2+ (NEG); Urine Ketones NEG (NEG); Urine Protein NEG (NEG-TRACE)
[2020-03-19 13:07] LABS: Appearance Urine CLEAR; Color Urine STRAW
[2020-03-19 13:20] LABS: Bacteria Urine TRACE /LPF; RBC Urine 30-49 /HPF (0)
[2020-03-19 13:21] LABS: WBC Clumps Urine NOTED
[2020-03-19 14:00] VITALS: BP 157/85; PULSE 84; RESP 16; TEMP 36.7; O2SAT 100
--- NOTE | 2020-03-19 14:30 | PC.NURSE ---
pt ambulatory to br and around tx rm ad colleen
--- NOTE | 2020-03-19 14:32 | ED_ITS ---
HPI - General Adult General Chief complaint: Extremity Injury, Lower Stated complaint: lt leg pain Time Seen by Provider: 03/19/20 12:31 Source: patient Mode of arrival: ambulatory Limitations: no limitations History of Present Illness HPI narrative: 69-year-old male history of hyperlipidemia, hypertension, type 2 diabetes, enlarged prostate, status post prostate surgery, urine retention secondary to enlarged prostate who had a indwelling catheter inserted for your attention on 03/07 prior to this admitted for chest pain and has since has had multiple ED visits for numerous things including abdominal pain, palpitation, chest pain who presents today with complaint of left leg pain as he has been sleeping on the left side more and he has a Quezada catheter that is indwelling with the leg bag on the right side he states that is having aching like pain in the posterior upper thighs shooting down to the leg sometimes. He otherwise denies any abdominal pain, chest pain, fever, back pain, chills. Denies any leg swelling, rash. Onset (ago): day(s) Location: left Severity: mild Associated symptoms: denies other symptoms Treatments prior to arrival: none Related Data Home Medications Medication Instructions Recorded Confirmed amlodipine 5 mg tablet 5 mg PO DAILY 02/19/20 02/28/20 aspirin 81 mg tablet,delayed 81 mg PO DAILY 02/19/20 02/28/20 release atorvastatin 40 mg tablet 40 mg PO DAILY 02/19/20 02/28/20 cholecalciferol (vitamin D3) 50 50 mcg PO DAILY 02/19/20 02/28/20 mcg (2,000 unit) capsule empagliflozin 25 mg tablet 25 mg PO QAM 02/19/20 02/28/20 hydrochlorothiazide 25 mg tablet 25 mg PO DAILY 02/19/20 02/28/20 ibuprofen 600 mg tablet 600 mg PO TID PRN 02/19/20 02/28/20 loratadine 10 mg tablet 10 mg PO DAILY 02/19/20 02/28/20 losartan 100 mg tablet 100 mg PO DAILY 02/19/20 02/28/20 metformin 500 mg tablet 0 mg PO BID 02/19/20 02/28/20 mirtazapine 15 mg disintegrating 15 mg PO BEDTIME 02/19/20 02/28/20 tablet potassium chloride 1 cap PO DAILY 02/28/20 02/28/20 Previous Rx's Medication Instructions Recorded polyethylene glycol 3350 [Miralax] 17 g PO DAILY PRN #510 g 03/07/20 tamsulosin [Flomax] 0.4 mg PO DAILY #30 cap 03/07/20 tramadol 50 mg PO Q8H PRN #20 tab 03/07/20 finasteride 5 mg tablet 5 mg PO DAILY 90 Days #90 tab 03/17/20 terazosin 5 mg capsule 5 mg PO BEDTIME #90 cap 03/17/20 ciprofloxacin HCl [Cipro] 500 mg PO Q12H 3 Days #6 tab 03/19/20 Allergies Allergy/AdvReac Type Severity Reaction Status Date / Time Penicillins Allergy Mild RASH Verified 03/09/20 18:26 penicillin V Allergy Unknown rash Verified 03/09/20 18:26 acetaminophen [From Percocet] Allergy Anxiety Verified 03/09/20 18:26 oxycodone [From Percocet] Allergy Anxiety Verified 03/09/20 18:26 Review of Systems Review of Systems: Constitutional: No Weight loss, No Fever, No Chills, No Night Sweats, No Fatigue, No Malaise ENT/Mouth: No Hearing loss, No Ear Pain, No Nasal Congestion, No Sinus Pain, No Hoarseness, No sore throat, No Rhinorrhea, No Swallowing Difficulty Eyes: No Eye Pain, No Swelling, No Redness, No Foreign Body, No Discharge, No Vision Changes Cardiovascular: No Chest Pain, No SOB, No Dyspnea on Exertion, No Orthopnea, No Edema, No Palpitations Respiratory: No Cough, No Sputum, No Wheezing, No Smoke Exposure, No Dyspnea Gastrointestinal: No Nausea, No Vomiting, No Diarrhea, No Constipation, No abdominal Pain, No Hematochezia, No Melena Genitourinary: No Dysuria, No Urinary Frequency, No Hematuria, No Urinary Incontinence, No Urgency, No Flank Pain, No Urinary Flow Changes, No Hesitancy Musculoskeletal: No joint pain, No Myalgias, No Joint Swelling, as noted in HPI Skin: No Skin Lesions, No rash Neuro: No Weakness, No Numbness, No Paresthesias, No Loss of Consciousness Psych: No Social Issues Heme/Lymph: No Bruising, No Bleeding,No Lymphadenopathy Endocrine: No Polyuria, No Polydipsia, No Temperature Intolerance Yes all other systems are reviewed and are negative PMFSH Past Medical History Medical History (Updated 03/19/20 @ 14:35 by Elver Ayers NP) Anxiety COVID-19 HLD (hyperlipidemia) HTN (hypertension) Hypertension T2DM (type 2 diabetes mellitus) Surgical History History of prostate surgery Hx of removal of cyst Family History Family History Father Cancer Mother Cancer Diabetes Social History Social History Housing: Apartment Alcohol intake: never Smoking Status: Never smoker Tobacco Type: Cigarette Packs Per Day: 1 Cigarettes Per Day: 20.0 Years Smoked: 20 Advance Directives: No Advance Directives Information Provided: No service: No Current occupational status: retired Physical Exam Vital Signs: Vital Signs: Last Vital Signs Temp 98.1 F 03/19/20 14:00 Pulse 84 03/19/20 14:00 Resp 16 03/19/20 14:00 BP 157/85 H 03/19/20 14:00 Pulse Ox 100 03/19/20 14:00 Body Mass Index 29.6 Reviewed Const: General: cooperative and healthy appearing; No acute distress or intoxicated appearing Nutritional Appearance: average body habitus Orientation/consciousness: patient oriented x3 HENMT: Head: Yes normal to inspection Ears: hearing grossly normal bilaterally Eyes: General: appearance normal, both eyes and all related structures Visual Coronel: normal visual coronel by confrontation Neck: Neck: Yes normal visual inspection and No tender Thyroid: Thyroid normal Chest: Chest palpation & inspection: normal inspection of the chest Resp: Effort & Inspection: normal respiratory effort Auscultation: clear to auscultation bilaterally Cardio: Jugular venous distension: no JVD Rhythm: regular rhythm Heart sounds: S1 normal heart sound present and S2 normal heart sound present GI: Inspection: Yes normal to inspection Percussion: Yes normal to percussion Auscultation: normal bowel sounds : Other: Quezada catheter leg bag right side. Draining clearish urine. General: Yes no CVA tenderness Back/Spine/Pelvis: Back: no CVA tenderness Skin: General skin exam: no rashes or lesions noted Neuro: General: patient oriented x3 Extrem: General: Yes normal to inspection Course Course Course Narrative: Urine equivocal with positive nitrate his got indwelling catheter previous cultures x2 with no colonization. Given that he has a newly indwelling catheter will go ahead and treat this with Cipro 500 mg b.i.d. for 3 days. No signs of symptoms of urosepsis/systemic infection. Hemodynamically stable. He has an appointment coming up on Sunday with Dr. Ivey for evaluation and removal. Will proceed with this. In relation to the left lower extremity pain posterior thigh area sometimes radiates down to the leg more positional secondary to the new indwelling catheter and leg bag/straps. Given the vague history ultrasound was done to rule out DVT this was negative. He is neurovascularly intact. Ambulatory status with cable discharge with clear precautions and follow-up instructions. Reevaluation(s) Reevaluation #1: [facility] downtime sheet given to me by Dr. Adriana Grace for the read of the left lower extremity ultrasound which is read as left leg negative for DVT. Down time she placed in the chart @ 1400 Medical Decision Making Lab Data Labs: Lab Results 03/19/20 Range/Units 12:57 Urine Color STRAW Urine Appearance CLEAR Urine pH 6.0 (5.0-8.0) Ur Specific [place] 1.010 (1.005-1.025) Urine Protein NEG (NEG-TRACE) MG/DL Urine Glucose (UA) >=1000 H (NEG) MG/DL Urine Ketones NEG (NEG) MG/DL Urine Blood 2+ H (NEG) Urine Nitrite POS H (NEG) Ur Leukocyte Esterase TRACE H (NEG) Urine RBC 30-49 H (0) /HPF Urine WBC 1-4 (0-4) /HPF Urine WBC Clumps NOTED Ur Squamous Epith Cells NONE /LPF Urine Bacteria TRACE /LPF Discharge Plan Discharge Clinical Impression: Acute UTI, Quezada catheter in place, Acute leg pain Patient Disposition: Home, Self-Care Instructions: Leg Pain (ED), Catheter-associated Urinary Tract Infection (ED) Additional Instructions: The pain in the left leg is likely position related and the fact that you have a indwelling Quezada catheter bag attached to the leg change positions twice daily. Urine sample showed a slight urinary tract infection You will be started on antibiotics for this for 3 days Follow-up with urologist as scheduled on Sunday for the removal Return if any concerns or worsening symptoms Thank you Prescriptions: New ciprofloxacin HCl [Cipro] 500 mg tablet 500 mg PO Q12H 3 Days Qty: 6 RF: 0 No Action potassium chloride 10 mEq capsule, extended release 1 cap PO DAILY RF: 0 tamsulosin [Flomax] 0.4 mg capsule 0.4 mg PO DAILY Qty: 30 RF: 0 tramadol 50 mg tablet 50 mg PO Q8H PRN (Reason: pain) Qty: 20 RF: 0 polyethylene glycol 3350 [Miralax] 17 gram/dose powder 17 g PO DAILY PRN (Reason: constipation) Qty: 510 RF: 0 amlodipine 5 mg tablet 5 mg PO DAILY RF: 0 aspirin 81 mg tablet,delayed release (DR/EC) 81 mg PO DAILY RF: 0 mirtazapine 15 mg tablet,disintegrating 15 mg PO BEDTIME RF: 0 metformin 500 mg tablet 0 mg PO BID RF: 0 hydrochlorothiazide 25 mg tablet 25 mg PO DAILY RF: 0 losartan 100 mg tablet 100 mg PO DAILY RF: 0 ibuprofen 600 mg tablet 600 mg PO TID PRN (Reason: moderate pain) RF: 0 loratadine 10 mg tablet 10 mg PO DAILY RF: 0 cholecalciferol (vitamin D3) 50 mcg (2,000 unit) capsule 50 mcg PO DAILY RF: 0 atorvastatin 40 mg tablet 40 mg PO DAILY RF: 0 empagliflozin 25 mg tablet 25 mg PO QAM RF: 0 terazosin 5 mg capsule 5 mg PO BEDTIME Qty: 90 RF: 0 finasteride 5 mg tablet 5 mg PO DAILY 90 Days Qty: 90 RF: 1 Referrals: Dereje Ivey MD [Physician] - 3 days (As scheduled on Sunday) Lidia Mendoza MD [Primary Care Provider] - 1 week
== END 2020-03-19 15:14 | disposition home or self-care (01) ==
PROVIDERS: Nurse Practitioner Primary Care; Emergency Provider Emergency Medicine; PCP Family Medicine
DX: N39.0 Urinary tract infection, site not specified (principal); R60.0 Localized edema; M79.605 Pain in left leg; Z79.899 Other long term (current) drug therapy
CPT/HCPCS: 81001; 87086; 87088; 87186; 93971; 99284

== ENCOUNTER 2020-03-21 09:21 | Emergency (ER) | payer OTHER, SELFPAY ==
[2020-03-21 09:46] VITALS: BP 140/86; PULSE 98; RESP 16; TEMP 36.8; O2SAT 98; BMI 26.6
--- NOTE | 2020-03-21 10:02 | ED_ITS ---
HPI - Male Genitourinary General Chief complaint: Urogenital-Male Stated complaint: urine infection Time Seen by Provider: 03/21/20 09:51 Source: patient Mode of arrival: ambulatory Limitations: language barrier ([place]ander-speaking) History of Present Illness HPI Narrative: 69yoM c PMHx of HTN, HLD, DM , enlarged prostate, s/p prostate surgery, urine retention secondary to enlarged prostate who had a indwelling catheter inserted for urinary retention on 03/07 prior to this admitted nd for chest pain and has since has had multiple ED visits for numerous things including abdominal pain, palpitation, chest pain who presents today c complaints of pain to the penis at the insertion site of the covarrubias catheter. Req uesting for Covarrubias Covarrubias catheter to be removed at this time. Also reports that he believes one of the medications that he was recently prescribed which includes Cipro, tamsulosin and finasteride are making his blood sugars elevated this morning was 230. Denies any fevers, chills, change in vision, dizziness, headaches, chest pain, shortness of breath, abdominal pain or dysuria or any other symptoms complaints or concerns at this time. Related Data Home Medications Medication Instructions Recorded Confirmed amlodipine 5 mg tablet 5 mg PO DAILY 02/19/20 02/28/20 aspirin 81 mg tablet,delayed 81 mg PO DAILY 02/19/20 02/28/20 release atorvastatin 40 mg tablet 40 mg PO DAILY 02/19/20 02/28/20 cholecalciferol (vitamin D3) 50 50 mcg PO DAILY 02/19/20 02/28/20 mcg (2,000 unit) capsule empagliflozin 25 mg tablet 25 mg PO QAM 02/19/20 02/28/20 hydrochlorothiazide 25 mg tablet 25 mg PO DAILY 02/19/20 02/28/20 ibuprofen 600 mg tablet 600 mg PO TID PRN 02/19/20 02/28/20 loratadine 10 mg tablet 10 mg PO DAILY 02/19/20 02/28/20 losartan 100 mg tablet 100 mg PO DAILY 02/19/20 02/28/20 metformin 500 mg tablet 0 mg PO BID 02/19/20 02/28/20 mirtazapine 15 mg disintegrating 15 mg PO BEDTIME 02/19/20 02/28/20 tablet potassium chloride 1 cap PO DAILY 02/28/20 02/28/20 Previous Rx's Medication Instructions Recorded polyethylene glycol 3350 [Miralax] 17 g PO DAILY PRN #510 g 03/07/20 tamsulosin [Flomax] 0.4 mg PO DAILY #30 cap 03/07/20 tramadol 50 mg PO Q8H PRN #20 tab 03/07/20 finasteride 5 mg tablet 5 mg PO DAILY 90 Days #90 tab 03/17/20 terazosin 5 mg capsule 5 mg PO BEDTIME #90 cap 03/17/20 ciprofloxacin HCl [Cipro] 500 mg PO Q12H 3 Days #6 tab 03/19/20 fluconazole [Diflucan] 150 mg PO Q3D #2 tab 03/21/20 hydrocortisone 1 appl TOPICAL BID PRN #28.35 g 03/21/20 miconazole nitrate 1 appl TOPICAL BID 21 Days #71 g 03/21/20 Allergies Allergy/AdvReac Type Severity Reaction Status Date / Time Penicillins Allergy Mild RASH Verified 03/09/20 18:26 penicillin V Allergy Unknown rash Verified 03/09/20 18:26 acetaminophen [From Percocet] Allergy Anxiety Verified 03/09/20 18:26 oxycodone [From Percocet] Allergy Anxiety Verified 03/09/20 18:26 Review of Systems Review of Systems: Constitutional :No Fever, No Chills Eyes: No Eye Pain, No Vision Changes Cardiovascular : No Chest Pain, No SOB Respiratory : No Cough, No Sputum Gastrointestinal : No Nausea, No Vomiting, No Diarrhea, No Constipation, No abdominal Pain Genitourinary : no irregular bleeding, No Dysuria, No Urinary Frequency, No Hematuria, No Urinary Incontinence, No Urgency, No Flank Pain, No Urinary Flow Changes, No Hesitancy, + Pain to site of covarrubias cath Musculoskeletal : No joint pain, No Myalgias, No Joint Swelling Skin : No Skin Lesions, No rash Neuro : No Weakness, No Numbness, No Paresthesias, No Loss of Consciousness, No Dizziness, No Headache Heme/Lymph: No Lymphadenopathy Endocrine : No Polyuria, No Polydipsia Yes all other systems are reviewed and are negative [facility] Past Medical History Attestation statement: The following information was validated with the patient. Medical History Anxiety COVID-19 HLD (hyperlipidemia) HTN (hypertension) Hypertension T2DM (type 2 diabetes mellitus) Surgical History History of prostate surgery Hx of removal of cyst Family History Family History Father Cancer Mother Cancer Diabetes Social History Social History Housing: Apartment Alcohol intake: unknown Smoking Status: Unknown if ever smoked Tobacco Type: Cigarette Packs Per Day: 1 Cigarettes Per Day: 20.0 Years Smoked: 20 Use of substances other than those prescribed or required for medical reasons: No Advance Directives: No Advance Directives Information Provided: No service: No Current occupational status: retired Physical Exam Vital Signs: Vital Signs: Last Vital Signs Temp 98.3 F 03/21/20 09:46 Pulse 98 03/21/20 09:46 Resp 16 03/21/20 09:46 BP 140/86 H 03/21/20 09:46 Pulse Ox 98 03/21/20 09:46 Body Mass Index 26.6 vital signs have been reviewed as normal and appeared to be correct. Blood pressure normal. Heart rate normal. Respiration rate normal. Temperature normal. Oxygen saturation normal. Appearance: Alert. Oriented X3. No acute distress. Head: Normal external exam. Normocephalic. Eyes: PERRLA. EOMI. Conjunctiva and sclera normal. Eyelids normal. ENT: Pharynx normal. Uvula midline. Moist mucous membranes. Neck: Normal inspection. Neck supple. FROM. No adenopathy. No meningeal signs. CVS: Normal heart rate and rhythm. Heart sound normal. No murmurs noted. Pulses normal throughout. Respiratory: No respiratory distress. Painless inspiration. Breath sounds normal. No wheezes/rales/rhonchi noted. Chest nontender. No accessory muscle usage noted or decreased air movement noted. Abdomen: Soft and no nontender. No guarding/rigidity. Negative Huber sign. Bowel sounds normal in all 4 quadrants. No distention noted. No organomegaly noted. No visible injury noted. No rebound tenderness. Negative Rovsing sign. Negative obturator's sign. Negative psoas sign. : Mild tender to palpation and pruritus noted to glans and foreskin with erythema and purulent exudate no ulcerations consistent with balanitis. Not consistent with paraphimosis or phimosis at this time. Urine in the Covarrubias c atheter bag appears a good yellow color no sediment noted. Back: No CVA tenderness. Full range of motion noted. Skin: Skin warm and dry. Normal skin color. Normal skin turgor. No rashes/lesions/lacerations noted. Extremities: Extremities exhibit normal range of motion. Extremities nontender. Neuro: Oriented X 3. No motor deficit. No sensory deficit. Reflexes normal. Course Course Course Narrative: 10:20am - 69yoM c PMHx of HTN, HLD, DM , enlarged prostate, s/p prostate surgery, urine retention secondary to enlarged prostate who had a indwelling catheter inserted for urinary retention on 03/07 who presents today c complaints of pain to the penis at the insertion site of the covarrubias catheter. Requesting for Covarrubias catheter to be removed at this time. Also concern of elevated blood sugars after he was prescribed Cipro, tamsulosin and finasteride. - on exam patient is alert and oriented x3. No acute distress. Patient noted to have a balanitis not consistent with paraphimosis or phimosis at this time. - I consulted with Dr. Ivey who instructed me to not remove the Covarrubias catheter that he will remove it in the office on Sunday with his follow-up appointment and that he does not believe any of the medications that were prescribed above will be increasing his blood sugars. I did a POC was 270 therefore will get basic labs, provide IV fluids and re-evaluate the patient's POC as patient reports he took his metformin this morning prior to arrival. Will also clean the patient's site of the penis and apply topical treatment for balanitis. Reevaluation(s) Reevaluation #1: - patient's sodium at 131 although patient on 03/17/2020 was at 132 and patient received 1 L of IV fluids therefore this should increase the patient's sodium. Potassium 2.8 patient was given p.o. 40 mEq of potassium. UA has improved when compared to prior negative for nitrates therefore will instruct the patient to continue the Cipro floxacillin. If repeat POC is under 200 will DC home with instructions to follow-up with primary care provider for repeat glucose testing and DC home with antifungal such and instructions to follow-up with Dr. Ivey as scheduled. Patient understands agrees the plan. Time: 13:00 MDM - Male Genitourinary Medical Records Attestation: I reviewed the patient's medical records. Lab Data Attestation: I reviewed the patient's lab results. Result diagrams: 03/21/20 10:38 03/21/20 11:05 Labs: Lab Results 03/21/20 03/21/20 03/21/20 Range/Units 10:20 10:38 10:38 WBC 7.1 (4.8-10.8) X10*3/uL RBC 4.46 L (4.60-5.80) X10*6/uL Hgb 13.9 L (14.0-18.0) g/dl Hct 39.4 L (42-52) % MCV 88.3 (80-98) fL MCH 31.2 (27.0-33.0) pg MCHC 35.3 (31.0-36.0) g/dl RDW 13.6 (11.0-16.0) % Plt Count 252 (160-400) X10*3/uL MPV 9.2 L (9.4-12.4) fL Immature Gran % (Auto) 0.1 (0.0-0.4) % Neut % (Auto) 70.0 (45-73) % Lymph % (Auto) 16.6 L (20-40) % Piatt % (Auto) 10.4 (2-11) % Eos % (Auto) 2.5 (0-4) % Baso % (Auto) 0.4 (0-2) % Lymph # (Auto) 1.2 (1.2-4.9) X10*3/uL Piatt # (Auto) 0.7 (0.1-1.2) X10*3/uL Eos # (Auto) 0.2 (0.0-0.4) X10*3/uL Baso # (Auto) 0.0 (0.0-0.2) X10*3/uL Abs Immat Gran (auto) 0.01 (0.00-0.03) X10*3/uL Absolute Neuts (auto) 5.0 (2.0-8.3) X10*3/uL Absolute Nucleated RBC 0.000 (0.0-0.012) X10*3/uL Nucleated RBC % (auto) 0.0 (0.0-0.2) /100WBC Hold Purple Top SEE NOTE Sodium Potassium Chloride Carbon Dioxide Anion Gap BUN Creatinine Estim Creat Clear Calc Estimated GFR POC Glucose 270 H (60-115) mg/dL Random Glucose Calcium Magnesium Total Bilirubin Direct Bilirubin AST ALT Alkaline Phosphatase Total Protein Albumin Urine Color Urine Appearance Urine pH (5.0-8.0) Ur Specific [place] (1.005-1.025) Urine Protein (NEG-TRACE) MG/DL Urine Glucose (UA) (NEG) MG/DL Urine Ketones (NEG) MG/DL Urine Blood (NEG) Urine Nitrite (NEG) Ur Leukocyte Esterase (NEG) Urine RBC (0) /HPF Urine WBC (0-4) /HPF Ur Squamous Epith Cells /LPF Urine Bacteria /LPF Acetone, Qual 03/21/20 03/21/20 03/21/20 Range/Units 10:38 11:05 11:50 WBC (4.8-10.8) X10*3/uL RBC (4.60-5.80) X10*6/uL Hgb (14.0-18.0) g/dl Hct (42-52) % MCV (80-98) fL MCH (27.0-33.0) pg MCHC (31.0-36.0) g/dl RDW (11.0-16.0) % Plt Count (160-400) X10*3/uL MPV (9.4-12.4) fL Immature Gran % (Auto) (0.0-0.4) % Neut % (Auto) (45-73) % Lymph % (Auto) (20-40) % Piatt % (Auto) (2-11) % Eos % (Auto) (0-4) % Baso % (Auto) (0-2) % Lymph # (Auto) (1.2-4.9) X10*3/uL [place] # (Auto) (0.1-1.2) X10*3/uL Eos # (Auto) (0.0-0.4) X10*3/uL Baso # (Auto) (0.0-0.2) X10*3/uL Abs Immat Gran (auto) (0.00-0.03) X10*3/uL Absolute Neuts (auto) (2.0-8.3) X10*3/uL Absolute Nucleated RBC (0.0-0.012) X10*3/uL Nucleated RBC % (auto) (0.0-0.2) /100WBC Hold Purple Top Sodium Cancelled 131 L Potassium Cancelled 2.8 L D Chloride Cancelled 98 Carbon Dioxide Cancelled 24 Anion Gap Cancelled 12 BUN Cancelled 7 L Creatinine Cancelled 0.78 Estim Creat Clear Calc Cancelled 83.5 Estimated GFR Cancelled > 60 POC Glucose (60-115) mg/dL Random Glucose Cancelled 222 H Calcium Cancelled 8.7 D Magnesium Cancelled 1.8 Total Bilirubin Cancelled 0.4 Direct Bilirubin Cancelled 0.2 AST Cancelled 22 ALT Cancelled 27 Alkaline Phosphatase Cancelled 57 Total Protein Cancelled 6.0 L Albumin Cancelled 3.9 Urine Color YELLOW Urine Appearance CLEAR Urine pH 6.0 (5.0-8.0) Ur Specific [place] 1.010 (1.005-1.025) Urine Protein NEG (NEG-TRACE) MG/DL Urine Glucose (UA) >=1000 H (NEG) MG/DL Urine Ketones NEG (NEG) MG/DL Urine Blood 2+ H (NEG) Urine Nitrite NEG (NEG) Ur Leukocyte Esterase NEG (NEG) Urine RBC 30-49 H (0) /HPF Urine WBC 0-2 (0-4) /HPF Ur Squamous Epith Cells NONE /LPF Urine Bacteria TRACE /LPF Acetone, Qual Cancelled Negative Discharge Plan Discharge Clinical Impression: Balanitis, Indwelling Covarrubias catheter present, Acute hypokalemia, Hyponatremia Patient Disposition: Home, Self-Care Instructions: Covarrubias Catheter Placement and Care (ED), Balanitis (ED) Prescriptions: New miconazole nitrate 2 % ointment 1 appl topical BID 21 Days Qty: 71 RF: 0 fluconazole [Diflucan] 150 mg tablet 150 mg PO Q3D Qty: 2 RF: 0 hydrocortisone 2.5 % ointment 1 appl topical BID PRN (Reason: Balanitis) Qty: 28.35 RF: 0 No Action potassium chloride 10 mEq capsule, extended release 1 cap PO DAILY RF: 0 tamsulosin [Flomax] 0.4 mg capsule 0.4 mg PO DAILY Qty: 30 RF: 0 tramadol 50 mg tablet 50 mg PO Q8H PRN (Reason: pain) Qty: 20 RF: 0 polyethylene glycol 3350 [Miralax] 17 gram/dose powder 17 g PO DAILY PRN (Reason: constipation) Qty: 510 RF: 0 ciprofloxacin HCl [Cipro] 500 mg tablet 500 mg PO Q12H 3 Days Qty: 6 RF: 0 amlodipine 5 mg tablet 5 mg PO DAILY RF: 0 aspirin 81 mg tablet,delayed release (DR/EC) 81 mg PO DAILY RF: 0 mirtazapine 15 mg tablet,disintegrating 15 mg PO BEDTIME RF: 0 metformin 500 mg tablet 0 mg PO BID RF: 0 hydrochlorothiazide 25 mg tablet 25 mg PO DAILY RF: 0 losartan 100 mg tablet 100 mg PO DAILY RF: 0 ibuprofen 600 mg tablet 600 mg PO TID PRN (Reason: moderate pain) RF: 0 loratadine 10 mg tablet 10 mg PO DAILY RF: 0 cholecalciferol (vitamin D3) 50 mcg (2,000 unit) capsule 50 mcg PO DAILY RF: 0 atorvastatin 40 mg tablet 40 mg PO DAILY RF: 0 empagliflozin 25 mg tablet 25 mg PO QAM RF: 0 terazosin 5 mg capsule 5 mg PO BEDTIME Qty: 90 RF: 0 finasteride 5 mg tablet 5 mg PO DAILY 90 Days Qty: 90 RF: 1 Referrals: Dereje Ivey MD [Physician] - 2 days Print Language: [place]
[2020-03-21 10:23] LABS: Glucose, Whole Blood 270 mg/dL (60-115)
[2020-03-21 10:45] LABS: Basophils Percent Auto 0.4 % (0-2); Eosinophils Absolute Auto 0.2 X10*3/uL (0.0-0.4); Eosinophils Percent Auto 2.5 % (0-4); Hematocrit 39.4 % (42-52); Hemoglobin 13.9 g/dl (14.0-18.0); Imm Gran Abs Auto 0.01 X10*3/uL (0.00-0.03); Imm Gran Pct Auto 0.1 % (0.0-0.4); Lymphocytes Absolute Auto 1.2 X10*3/uL (1.2-4.9); Lymphocytes Percent Auto 16.6 % (20-40); MANUAL DIFF FLAG NO; Mean Corpuscular HGB Conc 35.3 g/dl (31.0-36.0); Mean Corpuscular Hemoglobin 31.2 pg (27.0-33.0); Mean Corpuscular Volume 88.3 fL (80-98); Mean Platelet Volume 9.2 fL (9.4-12.4); Monocytes Absolute Auto 0.7 X10*3/uL (0.1-1.2); Monocytes Percent Auto 10.4 % (2-11); Platelet Count 252 X10*3/uL (160-400); Red Blood Count 4.46 X10*6/uL (4.60-5.80); Red Cell Distribution Width 13.6 % (11.0-16.0); White Blood Count 7.1 X10*3/uL (4.8-10.8)
[2020-03-21] MEDS: Miconazole 2 % Extra Thick Cr 56.7 Gm Tube 1 APPL TOPICAL (11:30)
[2020-03-21 11:49] LABS: Alanine Aminotransferase 27 U/L (0-40); Albumin Level 3.9 g/dL (3.5-5.0); Alkaline Phosphatase 57 U/L (39-117); Aspartate Amino Transferase 22 U/L (5-37); Bilirubin Direct 0.2 mg/dL (0.0-0.5); Bilirubin Total 0.4 mg/dL (0.0-1.0); Blood Urea Nitrogen 7 mg/dL (9-16); Calcium 8.7 mg/dL (8.4-10.2); Creatinine Clr Calc Pharmacy 83.5; Estimated Glomerular Filt Rate > 60; Glucose Random 222 mg/dL (60-115); Magnesium 1.8 mg/dL (1.6-2.6)
--- NOTE | 2020-03-21 11:51 | PC.NURSE ---
creams in patient's MAR arrived from pharmacy, applied to patient. Pt verbalizes understanding of current plan of care.
[2020-03-21 11:55] LABS: Glucose Urine UA >=1000 MG/DL (NEG); Leukocyte Esterase Urine NEG (NEG); Nitrite Urine NEG (NEG); Urine Blood 2+ (NEG); Urine Ketones NEG (NEG); Urine Protein NEG (NEG-TRACE)
[2020-03-21 11:57] LABS: Appearance Urine CLEAR; Color Urine YELLOW
[2020-03-21 12:03] LABS: Potassium 2.8 mmol/l (3.3-5.1)
[2020-03-21 12:03] LABS: Bacteria Urine TRACE /LPF; RBC Urine 30-49 /HPF (0); WBC Urine 0-2 /HPF (0-4)
[2020-03-21 12:05] LABS: Acetone, serum QL Negative (Negative); Anion Gap 12 (12-20); Carbon Dioxide 24 mmol/L (22-29); Chloride 98 mmol/L (96-108); Sodium 131 mmol/L (135-145)
[2020-03-21] MEDS: Hydrocortisone 1 % Ointment 28.35 GM TUBE 1 APPL TOPICAL (12:23)
[2020-03-21] MEDS: Potassium Chloride Packet 20 MEQ PACKET 40 MEQ PO (12:26)
[2020-03-21 13:27] LABS: Glucose, Whole Blood 153 mg/dL (60-115)
== END 2020-03-21 13:28 | disposition home or self-care (01) ==
PROVIDERS: Physician Assistant Medical; Emergency Provider Emergency Medicine; PCP Family Medicine
DX: N48.1 Balanitis (principal); E87.6 Hypokalemia; E87.1 Hypo-osmolality and hyponatremia; R30.0 Dysuria; F17.210 Nicotine dependence, cigarettes, uncomplicated; Z71.6 Tobacco abuse counseling; Z79.899 Other long term (current) drug therapy
CPT/HCPCS: 36415; 80048; 80076; 81001; 82009; 82947; 83735; 85025; 99284

== ENCOUNTER → 2020-03-24 10:14 | Outpatient (BNVA) | payer OTHER, SELFPAY | PROVIDERS: PCP Family Medicine; Visit Provider Urology | DX: N40.1 Benign prostatic hyperplasia with lower urinary tract symptoms (principal); R35.1 Nocturia; N39.0 Urinary tract infection, site not specified; R33.9 Retention of urine, unspecified; A49.9 Bacterial infection, unspecified | CPT/HCPCS: 99212 ==

== ENCOUNTER 2020-03-24 17:45 | Emergency (ER) | payer OTHER, SELFPAY ==
[2020-03-24 18:00] VITALS: BP 161/81; PULSE 100; RESP 18; TEMP 36.4; O2SAT 100; BMI 29.6
--- NOTE | 2020-03-24 18:47 | ED_ITS ---
HPI - Male Genitourinary General Chief complaint: Urogenital-Male Stated complaint: Unable to void Time Seen by Provider: 03/24/20 18:46 Source: patient Mode of arrival: ambulatory Limitations: no limitations History of Present Illness HPI Narrative: Patient comes to the emergency room complaining urinary retention. Patient states he was seen earlier this morning at Dr. Ivey office, his Quezada catheter was removed. Patient was sent home, patient states he was able to urinate twice, however he tried to urinate a 3rd time, could not pass any urine. Patient complaining of increasing suprapubic pressure. Also, patient has daughter states that the patient was seen by the PCP, and informed them that his potassium is low. Patient is asymptomatic otherwise. Related Data Home Medications Medication Instructions Recorded Confirmed amlodipine 5 mg tablet 5 mg PO DAILY 02/19/20 02/28/20 aspirin 81 mg tablet,delayed 81 mg PO DAILY 02/19/20 02/28/20 release atorvastatin 40 mg tablet 40 mg PO DAILY 02/19/20 02/28/20 cholecalciferol (vitamin D3) 50 50 mcg PO DAILY 02/19/20 02/28/20 mcg (2,000 unit) capsule empagliflozin 25 mg tablet 25 mg PO QAM 02/19/20 02/28/20 hydrochlorothiazide 25 mg tablet 25 mg PO DAILY 02/19/20 02/28/20 ibuprofen 600 mg tablet 600 mg PO TID PRN 02/19/20 02/28/20 loratadine 10 mg tablet 10 mg PO DAILY 02/19/20 02/28/20 losartan 100 mg tablet 100 mg PO DAILY 02/19/20 02/28/20 metformin 500 mg tablet 0 mg PO BID 02/19/20 02/28/20 mirtazapine 15 mg disintegrating 15 mg PO BEDTIME 02/19/20 02/28/20 tablet potassium chloride 1 cap PO DAILY 02/28/20 02/28/20 Previous Rx's Medication Instructions Recorded polyethylene glycol 3350 [Miralax] 17 g PO DAILY PRN #510 g 03/07/20 tamsulosin [Flomax] 0.4 mg PO DAILY #30 cap 03/07/20 tramadol 50 mg PO Q8H PRN #20 tab 03/07/20 finasteride 5 mg tablet 5 mg PO DAILY 90 Days #90 tab 03/17/20 terazosin 5 mg capsule 5 mg PO BEDTIME #90 cap 03/17/20 ciprofloxacin HCl [Cipro] 500 mg PO Q12H 3 Days #6 tab 03/19/20 fluconazole [Diflucan] 150 mg PO Q3D #2 tab 03/21/20 hydrocortisone 1 appl TOPICAL BID PRN #28.35 g 03/21/20 miconazole nitrate 1 appl TOPICAL BID 21 Days #71 g 03/21/20 Allergies Allergy/AdvReac Type Severity Reaction Status Date / Time Penicillins Allergy Mild RASH Verified 03/09/20 18:26 penicillin V Allergy Unknown rash Verified 03/09/20 18:26 acetaminophen [From Percocet] Allergy Anxiety Verified 03/09/20 18:26 oxycodone [From Percocet] Allergy Anxiety Verified 03/09/20 18:26 Review of Systems Review of Systems: Constitutional : No Weight loss, No Fever, No Chills, No Night Sweats, No Fatigue, No Malaise ENT/Mouth : No Hearing loss, No Ear Pain, No Nasal Congestion, No Sinus Pain, No Hoarseness, No sore throat, No Rhinorrhea, No Swallowing Difficulty Eyes: No Eye Pain, No Swelling, No Redness, No Foreign Body, No Discharge, No Vision Changes Cardiovascular : No Chest Pain, No SOB, No Dyspnea on Exertion, No Orthopnea, No Edema, No Palpitations Respiratory : No Cough, No Sputum, No Wheezing, No Smoke Exposure, No Dyspnea Gastrointestinal : No Nausea, No Vomiting, No Diarrhea, No Constipation, No abdominal Pain, No Hematochezia, No Melena Genitourinary : Complaining of urinary retention, No Dysuria, No Urinary Frequency, No Hematuria, No Urinary Incontinence, No Urgency, No Flank Pain Musculoskeletal : No joint pain, No Myalgias, No Joint Swelling Skin : No Skin Lesions, No rash Neuro : No Weakness, No Numbness, No Paresthesias, No Loss of Consciousness, No Dizziness, No Headache Psych : No Anxiety/Panic, No Depression, No SI/HI/AH/VH, No Social Issues, Heme/Lymph: No Bruising, No Bleeding,No Lymphadenopathy Endocrine : No Polyuria, No Polydipsia, No Temperature Intolerance PMFSH Past Medical History Medical History Anxiety COVID-19 HLD (hyperlipidemia) HTN (hypertension) Hypertension T2DM (type 2 diabetes mellitus) Surgical History History of prostate surgery Hx of removal of cyst Family History Family History Father Cancer Mother Cancer Diabetes Social History Social History Housing: Apartment Alcohol intake: unknown Smoking Status: Unknown if ever smoked Tobacco Type: Cigarette Packs Per Day: 1 Cigarettes Per Day: 20.0 Years Smoked: 20 Advance Directives: No Advance Directives Information Provided: Yes service: No Current occupational status: retired Physical Exam Vital Signs: Vital Signs: Last Vital Signs Temp 97.6 F 03/24/20 18:00 Pulse 78 03/24/20 19:20 Resp 16 03/24/20 19:20 BP 139/73 03/24/20 19:20 Pulse Ox 99 03/24/20 19:20 Body Mass Index 29.6 Appearance: Alert. Oriented X3. No acute distress. Eyes: Pupils equal, round and reactive to light. ENT: Pharynx normal. Neck: Normal inspection. Neck supple. No lymph nodes noted. No crepitus CVS: Normal heart rate and rhythm. Pulses normal. Normal S1 and S2 Respiratory: No respiratory distress. Breath sounds normal. No Wheezing. No rales Abdomen: Before the Quezada was inserted, patient had suprapubic tenderness. After the Quezada catheter was inserted, Soft and nontender. No rigidity. No distention. good BS x4 Skin: Skin warm and dry. Normal skin color. Normal skin turgor. Extremities: No lower extremity edema. No lower extremity edema. No Lacerations. No Rash Neuro: Oriented X 3. No motor deficit. No sensory deficit. Moving all extermities. No slurred speech. Course Course Course Narrative: Quezada catheter was inserted, 1 L of urine was obtained. Patient's labs were checked, patient's potassium is within normal limits. Patient instructed to follow-up with urology, patient's Quezada catheter will remain in place until he is seen by Dr. Ivey again. MDM - Male Genitourinary Lab Data Result diagrams: 03/24/20 19:17 03/24/20 19:17 Labs: Lab Results 03/24/20 03/24/20 03/24/20 Range/Units 19:17 19:17 19:17 WBC 7.9 (4.8-10.8) X10*3/uL RBC 4.08 L (4.60-5.80) X10*6/uL Hgb 12.9 L (14.0-18.0) g/dl Hct 37.1 L (42-52) % MCV 90.9 (80-98) fL MCH 31.6 (27.0-33.0) pg MCHC 34.8 (31.0-36.0) g/dl RDW 13.7 (11.0-16.0) % Plt Count 229 (160-400) X10*3/uL MPV 9.4 (9.4-12.4) fL Immature Gran % (Auto) 0.1 (0.0-0.4) % Neut % (Auto) 72.9 (45-73) % Lymph % (Auto) 18.1 L (20-40) % [place] % (Auto) 6.6 (2-11) % Eos % (Auto) 2.0 (0-4) % Baso % (Auto) 0.3 (0-2) % Lymph # (Auto) 1.4 (1.2-4.9) X10*3/uL [place] # (Auto) 0.5 (0.1-1.2) X10*3/uL Eos # (Auto) 0.2 (0.0-0.4) X10*3/uL Baso # (Auto) 0.0 (0.0-0.2) X10*3/uL Abs Immat Gran (auto) 0.01 (0.00-0.03) X10*3/uL Absolute Neuts (auto) 5.8 (2.0-8.3) X10*3/uL Absolute Nucleated RBC 0.000 (0.0-0.012) X10*3/uL Nucleated RBC % (auto) 0.0 (0.0-0.2) /100WBC Sodium 133 L (135-145) mmol/L Potassium 4.1 D (3.3-5.1) mmol/l Chloride 100 (96-108) mmol/L Carbon Dioxide 23 (22-29) mmol/L Anion Gap 14 (12-20) BUN 8 L (9-16) mg/dL Creatinine 0.86 (0.5-1.4) mg/dL Estim Creat Clear Calc 84.7 Estimated GFR > 60 Random Glucose 319 H D (60-115) mg/dL Calcium 8.5 (8.4-10.2) mg/dL Urine Color YELLOW Urine Appearance CLEAR Urine pH 7.5 (5.0-8.0) Ur Specific [place] 1.010 (1.005-1.025) Urine Protein NEG (NEG-TRACE) MG/DL Urine Glucose (UA) >=1000 H (NEG) MG/DL Urine Ketones NEG (NEG) MG/DL Urine Blood TRACE (NEG) Urine Nitrite NEG (NEG) Ur Leukocyte Esterase NEG (NEG) Urine RBC 1-4 (0) /HPF Urine WBC 0 (0-4) /HPF Ur Squamous Epith Cells NONE /LPF Urine Bacteria NONE /LPF Discharge Plan Discharge Clinical Impression: Urinary retention with incomplete bladder emptying Patient Disposition: Home, Self-Care Instructions: Urinary Retention in Men (ED) Additional Instructions: Please follow-up with urology in 1 to 2 days. Please follow-up with your primary care physician tomorrow. If you have any worsening or new symptoms, please return to the emergency room or call 911 Prescriptions: No Action potassium chloride 10 mEq capsule, extended release 1 cap PO DAILY RF: 0 tamsulosin [Flomax] 0.4 mg capsule 0.4 mg PO DAILY Qty: 30 RF: 0 tramadol 50 mg tablet 50 mg PO Q8H PRN (Reason: pain) Qty: 20 RF: 0 polyethylene glycol 3350 [Miralax] 17 gram/dose powder 17 g PO DAILY PRN (Reason: constipation) Qty: 510 RF: 0 ciprofloxacin HCl [Cipro] 500 mg tablet 500 mg PO Q12H 3 Days Qty: 6 RF: 0 miconazole nitrate 2 % ointment 1 appl topical BID 21 Days Qty: 71 RF: 0 fluconazole [Diflucan] 150 mg tablet 150 mg PO Q3D Qty: 2 RF: 0 hydrocortisone 2.5 % ointment 1 appl topical BID PRN (Reason: Balanitis) Qty: 28.35 RF: 0 amlodipine 5 mg tablet 5 mg PO DAILY RF: 0 aspirin 81 mg tablet,delayed release (DR/EC) 81 mg PO DAILY RF: 0 mirtazapine 15 mg tablet,disintegrating 15 mg PO BEDTIME RF: 0 metformin 500 mg tablet 0 mg PO BID RF: 0 hydrochlorothiazide 25 mg tablet 25 mg PO DAILY RF: 0 losartan 100 mg tablet 100 mg PO DAILY RF: 0 ibuprofen 600 mg tablet 600 mg PO TID PRN (Reason: moderate pain) RF: 0 loratadine 10 mg tablet 10 mg PO DAILY RF: 0 cholecalciferol (vitamin D3) 50 mcg (2,000 unit) capsule 50 mcg PO DAILY RF: 0 atorvastatin 40 mg tablet 40 mg PO DAILY RF: 0 empagliflozin 25 mg tablet 25 mg PO QAM RF: 0 terazosin 5 mg capsule 5 mg PO BEDTIME Qty: 90 RF: 0 finasteride 5 mg tablet 5 mg PO DAILY 90 Days Qty: 90 RF: 1 Referrals: Dereje Ivey MD [Physician] - 2 days
[2020-03-24 19:20] VITALS: BP 139/73; PULSE 78; RESP 16; O2SAT 99
[2020-03-24 19:28] LABS: Basophils Percent Auto 0.3 % (0-2); Eosinophils Absolute Auto 0.2 X10*3/uL (0.0-0.4); Hematocrit 37.1 % (42-52); Hemoglobin 12.9 g/dl (14.0-18.0); Imm Gran Abs Auto 0.01 X10*3/uL (0.00-0.03); Imm Gran Pct Auto 0.1 % (0.0-0.4); Lymphocytes Absolute Auto 1.4 X10*3/uL (1.2-4.9); Lymphocytes Percent Auto 18.1 % (20-40); Mean Corpuscular HGB Conc 34.8 g/dl (31.0-36.0); Mean Corpuscular Hemoglobin 31.6 pg (27.0-33.0); Mean Corpuscular Volume 90.9 fL (80-98); Mean Platelet Volume 9.4 fL (9.4-12.4); Monocytes Absolute Auto 0.5 X10*3/uL (0.1-1.2); Monocytes Percent Auto 6.6 % (2-11); Neutrophils Absolute Auto 5.8 X10*3/uL (2.0-8.3); Neutrophils Percent Auto 72.9 % (45-73); Platelet Count 229 X10*3/uL (160-400); Red Blood Count 4.08 X10*6/uL (4.60-5.80); Red Cell Distribution Width 13.7 % (11.0-16.0); White Blood Count 7.9 X10*3/uL (4.8-10.8)
[2020-03-24 19:30] LABS: MANUAL DIFF FLAG NO
[2020-03-24 19:35] LABS: Glucose Urine UA >=1000 MG/DL (NEG); Leukocyte Esterase Urine NEG (NEG); Nitrite Urine NEG (NEG); PH 7.5 (5.0-8.0); Urine Blood TRACE (NEG); Urine Ketones NEG (NEG); Urine Protein NEG (NEG-TRACE)
[2020-03-24 19:39] LABS: Appearance Urine CLEAR; Color Urine YELLOW
[2020-03-24 19:49] LABS: Anion Gap 14 (12-20); Blood Urea Nitrogen 8 mg/dL (9-16); Calcium 8.5 mg/dL (8.4-10.2); Carbon Dioxide 23 mmol/L (22-29); Chloride 100 mmol/L (96-108); Creatinine Clr Calc Pharmacy 84.7; Estimated Glomerular Filt Rate > 60; Glucose Random 319 mg/dL (60-115); Potassium 4.1 mmol/l (3.3-5.1); Sodium 133 mmol/L (135-145)
--- NOTE | 2020-03-24 19:53 | PC.NURSE ---
PT HAD CATHETER PLACED BY ABBY CLAY AFTER BADDER SCANNED BY ABBY CLAY SHOWED OVER 1000CC. PT LAB DRAWN AND URINE SENT BY PCT.
[2020-03-24 19:56] LABS: WBC Urine 0 /HPF (0-4)
--- NOTE | 2020-03-24 21:06 | PC.NURSE ---
LEG BAG PLACED BY PCT AND ATTACHMENT SENT HOME WITH PT WITH INSTRUCTION PER WITH STAFF INTENERATER.
== END 2020-03-24 21:11 | disposition home or self-care (01) ==
PROVIDERS: Emergency Provider Emergency Medicine; PCP Family Medicine
DX: N40.1 Benign prostatic hyperplasia with lower urinary tract symptoms (principal); R33.8 Other retention of urine; Z86.19 Personal history of other infectious and parasitic diseases; I10 Essential (primary) hypertension; E11.9 Type 2 diabetes mellitus without complications
CPT/HCPCS: 36415; 51702; 80048; 81001; 85025; 99283; 99284

== ENCOUNTER 2020-03-28 11:29 | Emergency (ER) | payer OTHER, SELFPAY ==
[2020-03-28 11:47] VITALS: BP 139/87; PULSE 105; RESP 18; TEMP 36.6; O2SAT 99; BMI 29.6
--- NOTE | 2020-03-28 12:28 | ED_ITS ---
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 Mode of arrival: ambulatory Limitations: no limitations History of Present Illness HPI Narrative: hx of covarrubias cath placed 03/24 now c/o lower abdominal pain and nausea, notes he has been draining clear yellow urine, no fevers, states lower abdominal pain is new, admitted in february for abdominal pain low Na and low K associated with excessive drinking of water MD Complaint: dysuria Onset (ago): day(s) (last night) Duration: constant Location: abdomen (suprapubic and LLQ) Severity: moderate Quality: aching and dull Relieving factors: none Exacerbating factors: none Context: indwelling catheter Associated symptoms: Reports denies other symptoms Related Data Home Medications Medication Instructions Recorded Confirmed amlodipine 5 mg tablet 5 mg PO DAILY 02/19/20 02/28/20 aspirin 81 mg tablet,delayed 81 mg PO DAILY 02/19/20 02/28/20 release atorvastatin 40 mg tablet 40 mg PO DAILY 02/19/20 02/28/20 cholecalciferol (vitamin D3) 50 50 mcg PO DAILY 02/19/20 02/28/20 mcg (2,000 unit) capsule empagliflozin 25 mg tablet 25 mg PO QAM 02/19/20 02/28/20 hydrochlorothiazide 25 mg tablet 25 mg PO DAILY 02/19/20 02/28/20 ibuprofen 600 mg tablet 600 mg PO TID PRN 02/19/20 02/28/20 loratadine 10 mg tablet 10 mg PO DAILY 02/19/20 02/28/20 losartan 100 mg tablet 100 mg PO DAILY 02/19/20 02/28/20 metformin 500 mg tablet 0 mg PO BID 02/19/20 02/28/20 mirtazapine 15 mg disintegrating 15 mg PO BEDTIME 02/19/20 02/28/20 tablet potassium chloride 1 cap PO DAILY 02/28/20 02/28/20 Previous Rx's Medication Instructions Recorded polyethylene glycol 3350 [Miralax] 17 g PO DAILY PRN #510 g 03/07/20 tamsulosin [Flomax] 0.4 mg PO DAILY #30 cap 03/07/20 tramadol 50 mg PO Q8H PRN #20 tab 03/07/20 finasteride 5 mg tablet 5 mg PO DAILY 90 Days #90 tab 03/17/20 terazosin 5 mg capsule 5 mg PO BEDTIME #90 cap 03/17/20 ciprofloxacin HCl [Cipro] 500 mg PO Q12H 3 Days #6 tab 03/19/20 fluconazole [Diflucan] 150 mg PO Q3D #2 tab 03/21/20 hydrocortisone 1 appl TOPICAL BID PRN #28.35 g 03/21/20 miconazole nitrate 1 appl TOPICAL BID 21 Days #71 g 03/21/20 dicyclomine 20 mg PO TID PRN #30 tab 03/28/20 polyethylene glycol 3350 [Miralax] 17 g PO DAILY PRN #119 g 03/28/20 sennosides [senna] 8.6 mg PO BEDTIME PRN #30 cap 03/28/20 Allergies Allergy/AdvReac Type Severity Reaction Status Date / Time Penicillins Allergy Mild RASH Verified 03/09/20 18:26 penicillin V Allergy Unknown rash Verified 03/09/20 18:26 acetaminophen [From Percocet] Allergy Anxiety Verified 03/09/20 18:26 oxycodone [From Percocet] Allergy Anxiety Verified 03/09/20 18:26 Review of Systems Review of Systems: Constitutional : No Weight loss, No Fever, No Chills ENT/Mouth : No sore throat, No Rhinorrhea Eyes: No Swelling, No Redness Cardiovascular : No Chest Pain, No SOB, NoEdema Respiratory : No Cough, No Sputum, No Wheezing Gastrointestinal : no Nausea, no Vomiting, no Diarrhea, positive abdominal Pain, No Hematochezia, No Melena Genitourinary : pos Dysuria, No Urinary Frequency, No Hematuria, No Urgency Musculoskeletal : No joint pain, No Myalgias, No Joint Swelling Skin : No Skin Lesions, No rash Neuro : No Weakness, No Numbness, No Dizziness, No Headache Psych : No Anxiety/Panic, No Depression Heme/Lymph: No Bruising, No Lymphadenopathy Endocrine : No Polyuria, No Polydipsia All other systems reviewed and are negative. [facility] Past Medical History Attestation statement: The following information was validated with the patient. Medical History Anxiety COVID-19 HLD (hyperlipidemia) HTN (hypertension) Hypertension T2DM (type 2 diabetes mellitus) Surgical History History of prostate surgery Hx of removal of cyst Family History Family History Father Cancer Mother Cancer Diabetes Social History Social History Housing: Apartment Alcohol intake: never Smoking Status: Never smoker Tobacco Type: Cigarette Packs Per Day: 1 Cigarettes Per Day: 20.0 Years Smoked: 20 Use of substances other than those prescribed or required for medical reasons: No Advance Directives: No Advance Directives Information Provided: Yes service: No Current occupational status: retired Physical Exam Vital Signs: Vital Signs: Last Vital Signs Temp 97.9 F 03/28/20 11:47 Pulse 83 03/28/20 14:33 Resp 16 03/28/20 14:04 BP 135/76 03/28/20 14:33 Pulse Ox 99 03/28/20 14:33 Body Mass Index 29.6 Appearance: Alert. Oriented X3. No acute distress. Eyes: Pupils equal, round and reactive to light. ENT: Pharynx normal. Neck: Normal inspection. Neck supple. CVS: Normal heart rate and rhythm. Pulses normal. Respiratory: No respiratory distress. Breath sounds normal. Abdomen: Soft and moderate ttp in suprapubic no rebound or guarding, covarrubias is clear yellow urine Skin: Skin warm and dry. Normal skin color. Normal skin turgor. Extremities: No lower extremity edema. No calf ttp Neuro: Oriented X 3. No motor deficit. No sensory deficit. Course Course Course Narrative: other than constipation no other acute findings, labs, VS stable, UA negative, no obstruction urine in bag MDM - Male Genitourinary MDM Narrative Medical decision making narrative: 69 yo male with indwelling catheter c/o lower abdominal pain hx of BPH - here with dysuria and c/o suprapubic pain no fevers or vomiting will need labs, CT scan for obstruction, diverticulitis, IV morphine for pain, dispo per results and findings. Lab Data Result diagrams: 03/28/20 13:03 03/28/20 13:03 Labs: Lab Results 03/28/20 03/28/20 03/28/20 Range/Units 13:03 13:03 13:03 WBC 6.7 (4.8-10.8) X10*3/uL RBC 4.25 L (4.60-5.80) X10*6/uL Hgb 13.2 L (14.0-18.0) g/dl Hct 38.2 L (42-52) % MCV 89.9 (80-98) fL MCH 31.1 (27.0-33.0) pg MCHC 34.6 (31.0-36.0) g/dl RDW 13.7 (11.0-16.0) % Plt Count 213 (160-400) X10*3/uL MPV 9.1 L (9.4-12.4) fL Immature Gran % (Auto) 0.1 (0.0-0.4) % Neut % (Auto) 75.9 H (45-73) % Lymph % (Auto) 14.8 L (20-40) % Vance % (Auto) 6.7 (2-11) % Eos % (Auto) 2.2 (0-4) % Baso % (Auto) 0.3 (0-2) % Lymph # (Auto) 1.0 L (1.2-4.9) X10*3/uL Vance # (Auto) 0.5 (0.1-1.2) X10*3/uL Eos # (Auto) 0.2 (0.0-0.4) X10*3/uL Baso # (Auto) 0.0 (0.0-0.2) X10*3/uL Abs Immat Gran (auto) 0.01 (0.00-0.03) X10*3/uL Absolute Neuts (auto) 5.1 (2.0-8.3) X10*3/uL Absolute Nucleated RBC 0.000 (0.0-0.012) X10*3/uL Nucleated RBC % (auto) 0.0 (0.0-0.2) /100WBC Hold Blue Top SEE NOTE Sodium 136 (135-145) mmol/L Potassium 3.3 (3.3-5.1) mmol/l Chloride 102 (96-108) mmol/L Carbon Dioxide 24 (22-29) mmol/L Anion Gap 13 (12-20) BUN 5 L (9-16) mg/dL Creatinine 0.78 (0.5-1.4) mg/dL Estim Creat Clear Calc 93.4 Estimated GFR > 60 Random Glucose 238 H (60-115) mg/dL Calcium 9.3 D (8.4-10.2) mg/dL Total Bilirubin (0.0-1.0) mg/dL Direct Bilirubin (0.0-0.5) mg/dL AST (5-37) U/L ALT (0-40) U/L Alkaline Phosphatase (39-117) U/L Total Protein (6.5-8.0) g/dL Albumin (3.5-5.0) g/dL Lipase (8-78) U/L Urine Color Urine Appearance Urine pH (5.0-8.0) Ur Specific [place] (1.005-1.025) Urine Protein (NEG-TRACE) MG/DL Urine Glucose (UA) (NEG) MG/DL Urine Ketones (NEG) MG/DL Urine Blood (NEG) Urine Nitrite (NEG) Ur Leukocyte Esterase (NEG) Urine RBC (0) /HPF Urine WBC (0-4) /HPF Ur Squamous Epith Cells /LPF Amorphous Sediment /LPF Urine Bacteria /LPF Granular Casts /LPF 03/28/20 03/28/20 Range/Units 13:03 13:03 WBC (4.8-10.8) X10*3/uL RBC (4.60-5.80) X10*6/uL Hgb (14.0-18.0) g/dl Hct (42-52) % MCV (80-98) fL MCH (27.0-33.0) pg MCHC (31.0-36.0) g/dl RDW (11.0-16.0) % Plt Count (160-400) X10*3/uL MPV (9.4-12.4) fL Immature Gran % (Auto) (0.0-0.4) % Neut % (Auto) (45-73) % Lymph % (Auto) (20-40) % Vance % (Auto) (2-11) % Eos % (Auto) (0-4) % Baso % (Auto) (0-2) % Lymph # (Auto) (1.2-4.9) X10*3/uL [place]ance # (Auto) (0.1-1.2) X10*3/uL Eos # (Auto) (0.0-0.4) X10*3/uL Baso # (Auto) (0.0-0.2) X10*3/uL Abs Immat Gran (auto) (0.00-0.03) X10*3/uL Absolute Neuts (auto) (2.0-8.3) X10*3/uL Absolute Nucleated RBC (0.0-0.012) X10*3/uL Nucleated RBC % (auto) (0.0-0.2) /100WBC Hold Blue Top Sodium (135-145) mmol/L Potassium (3.3-5.1) mmol/l Chloride (96-108) mmol/L Carbon Dioxide (22-29) mmol/L Anion Gap (12-20) BUN (9-16) mg/dL Creatinine (0.5-1.4) mg/dL Estim Creat Clear Calc Estimated GFR Random Glucose (60-115) mg/dL Calcium (8.4-10.2) mg/dL Total Bilirubin 0.5 (0.0-1.0) mg/dL Direct Bilirubin 0.2 (0.0-0.5) mg/dL AST 28 (5-37) U/L ALT 34 (0-40) U/L Alkaline Phosphatase 60 (39-117) U/L Total Protein 6.5 (6.5-8.0) g/dL Albumin 4.2 (3.5-5.0) g/dL Lipase 26 (8-78) U/L Urine Color YELLOW Urine Appearance HAZY Urine pH 5.5 (5.0-8.0) Ur Specific [place] 1.025 (1.005-1.025) Urine Protein 1+ H (NEG-TRACE) MG/DL Urine Glucose (UA) >=1000 H (NEG) MG/DL Urine Ketones NEG (NEG) MG/DL Urine Blood 2+ H (NEG) Urine Nitrite NEG (NEG) Ur Leukocyte Esterase NEG (NEG) Urine RBC 10-14 H (0) /HPF Urine WBC 0-2 (0-4) /HPF Ur Squamous Epith Cells TRACE /LPF Amorphous Sediment 2+ /LPF Urine Bacteria 1+ /LPF Granular Casts 0-2 /LPF Discharge Plan Discharge Clinical Impression: Abdominal pain, Constipation Patient Disposition: Home, Self-Care Instructions: Constipation (ED), Abdominal Pain (ED) Additional Instructions: return to ED for any worsening symptoms or concerns Prescriptions: New senna 8.6 mg capsule 8.6 mg PO BEDTIME PRN (Reason: constipation) Qty: 30 RF: 0 polyethylene glycol 3350 [Miralax] 17 gram/dose powder 17 g PO DAILY PRN (Reason: constipation) Qty: 119 RF: 0 dicyclomine 20 mg tablet 20 mg PO TID PRN (Reason: abdominal discomfort) Qty: 30 RF: 0 No Action potassium chloride 10 mEq capsule, extended release 1 cap PO DAILY RF: 0 tamsulosin [Flomax] 0.4 mg capsule 0.4 mg PO DAILY Qty: 30 RF: 0 tramadol 50 mg tablet 50 mg PO Q8H PRN (Reason: pain) Qty: 20 RF: 0 polyethylene glycol 3350 [Miralax] 17 gram/dose powder 17 g PO DAILY PRN (Reason: constipation) Qty: 510 RF: 0 ciprofloxacin HCl [Cipro] 500 mg tablet 500 mg PO Q12H 3 Days Qty: 6 RF: 0 miconazole nitrate 2 % ointment 1 appl topical BID 21 Days Qty: 71 RF: 0 fluconazole [Diflucan] 150 mg tablet 150 mg PO Q3D Qty: 2 RF: 0 hydrocortisone 2.5 % ointment 1 appl topical BID PRN (Reason: Balanitis) Qty: 28.35 RF: 0 amlodipine 5 mg tablet 5 mg PO DAILY RF: 0 aspirin 81 mg tablet,delayed release (DR/EC) 81 mg PO DAILY RF: 0 mirtazapine 15 mg tablet,disintegrating 15 mg PO BEDTIME RF: 0 metformin 500 mg tablet 0 mg PO BID RF: 0 hydrochlorothiazide 25 mg tablet 25 mg PO DAILY RF: 0 losartan 100 mg tablet 100 mg PO DAILY RF: 0 ibuprofen 600 mg tablet 600 mg PO TID PRN (Reason: moderate pain) RF: 0 loratadine 10 mg tablet 10 mg PO DAILY RF: 0 cholecalciferol (vitamin D3) 50 mcg (2,000 unit) capsule 50 mcg PO DAILY RF: 0 atorvastatin 40 mg tablet 40 mg PO DAILY RF: 0 empagliflozin 25 mg tablet 25 mg PO QAM RF: 0 terazosin 5 mg capsule 5 mg PO BEDTIME Qty: 90 RF: 0 finasteride 5 mg tablet 5 mg PO DAILY 90 Days Qty: 90 RF: 1 Referrals: Lidia Mendoza MD [Primary Care Provider] - 2 days (if not better) Print Language: Uzbek
--- NOTE | 2020-03-28 12:39 | CT_ITS ---
EXAMINATION: CT ABDOMEN AND PELVIS WITHOUT CONTRAST CLINICAL INFORMATION: Left lower quadrant pain, dysuria. COMPARISON: 03/03/2020 CT scan of the abdomen and pelvis. TECHNIQUE: Multidetector volumetric imaging was performed from the superior aspect of the liver through the pubic symphysis. Sagittal and coronal reformatted images were obtained on the technologist's workstation. Lack of intravenous and oral contrast limits visceral evaluation. This CT examination was performed using dose optimization techniques as appropriate, variously including the following: *Automated exposure control *Adjustment of mA and/or kV according to patient size (this includes techniques or standardized protocols for targeted exams where dose is matched to indication/reason for exam; i.e. extremities or head) *Use of iterative reconstruction technique DLP: 547.03 mGy-cm FINDINGS: LUNG BASES: 0.5 cm right middle lobe nodule without interval change. LIVER, GALLBLADDER, AND BILIARY TREE: Unremarkable. PANCREAS: Unremarkable. SPLEEN: Unremarkable. ADRENAL GLANDS: Unremarkable. 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 There is mild pelvicaliectasis without obstructing abnormality. The left kidney and ureter are unremarkable. No nephrolithiasis. BLADDER: A ureteral catheter is seen in place. No significant abnormality. GASTROINTESTINAL TRACT: The stomach, small bowel and appendix are unremarkable. Mild to moderate colonic stool is seen distally to the rectum without surrounding abnormality. ABDOMINAL WALL: Very small fat-containing umbilical hernia. LYMPH NODES: No lymphadenopathy. VASCULAR: Moderate to severe atherosclerosis without aneurysmal dilatation. PELVIC VISCERA: Mild prostatic enlargement with an approximate volume of 30 cc. OSSEOUS STRUCTURES: Mild to moderate multilevel degenerative changes are seen in the thoracolumbar spine most pronounced at L5-S1. CT/CT abdomen pelvis wo con IMPRESSION: 1. Stable right middle lobe pulmonary nodule is nonspecific. Following Fleischner Society guidelines, imaging follow-up is recommended as clinically indicated. 2. 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 No nephrolithiasis. 3. Mild to moderate colonic stool burden without acute abnormality.
[2020-03-28 12:44] VITALS: BP 109/80; PULSE 89; RESP 18
[2020-03-28] MEDS: 0.9 % Sodium Chloride 500 ML IV (12:50)
[2020-03-28 13:11] LABS: Basophils Percent Auto 0.3 % (0-2); Eosinophils Absolute Auto 0.2 X10*3/uL (0.0-0.4); Eosinophils Percent Auto 2.2 % (0-4); Hematocrit 38.2 % (42-52); Hemoglobin 13.2 g/dl (14.0-18.0); Imm Gran Abs Auto 0.01 X10*3/uL (0.00-0.03); Imm Gran Pct Auto 0.1 % (0.0-0.4); Lymphocytes Percent Auto 14.8 % (20-40); MANUAL DIFF FLAG NO; Mean Corpuscular HGB Conc 34.6 g/dl (31.0-36.0); Mean Corpuscular Hemoglobin 31.1 pg (27.0-33.0); Mean Corpuscular Volume 89.9 fL (80-98); Mean Platelet Volume 9.1 fL (9.4-12.4); Monocytes Absolute Auto 0.5 X10*3/uL (0.1-1.2); Monocytes Percent Auto 6.7 % (2-11); Neutrophils Absolute Auto 5.1 X10*3/uL (2.0-8.3); Neutrophils Percent Auto 75.9 % (45-73); Platelet Count 213 X10*3/uL (160-400); Red Blood Count 4.25 X10*6/uL (4.60-5.80); Red Cell Distribution Width 13.7 % (11.0-16.0); White Blood Count 6.7 X10*3/uL (4.8-10.8)
[2020-03-28 13:14] LABS: Glucose Urine UA >=1000 MG/DL (NEG); Leukocyte Esterase Urine NEG (NEG); Nitrite Urine NEG (NEG); PH 5.5 (5.0-8.0); Specific Gravity - Urine 1.025 (1.005-1.025); Urine Blood 2+ (NEG); Urine Ketones NEG (NEG); Urine Protein 1+ MG/DL (NEG-TRACE)
[2020-03-28 13:19] VITALS: RESP 16
[2020-03-28 13:19] LABS: Appearance Urine HAZY; Color Urine YELLOW
[2020-03-28] MEDS: Morphine Sulfate 4 MG/ML CARTRIDGE IVPUSH (13:19)
[2020-03-28] MEDS: ondansetron HCL 4 MG/2 ML VIAL IVPUSH (13:19)
[2020-03-28 13:35] LABS: Amorphous Sediment Urine 2+ /LPF; Anion Gap 13 (12-20); Bacteria Urine 1+ /LPF; Blood Urea Nitrogen 5 mg/dL (9-16); Calcium 9.3 mg/dL (8.4-10.2); Carbon Dioxide 24 mmol/L (22-29); Chloride 102 mmol/L (96-108); Creatinine Clr Calc Pharmacy 93.4; Estimated Glomerular Filt Rate > 60; Glucose Random 238 mg/dL (60-115); Granular Casts Urine 0-2 /LPF; Potassium 3.3 mmol/l (3.3-5.1); Sodium 136 mmol/L (135-145); Squamous Epithelial Cell Urine TRACE /LPF; WBC Urine 0-2 /HPF (0-4)
[2020-03-28 13:38] LABS: Alanine Aminotransferase 34 U/L (0-40); Albumin Level 4.2 g/dL (3.5-5.0); Alkaline Phosphatase 60 U/L (39-117); Aspartate Amino Transferase 28 U/L (5-37); Bilirubin Direct 0.2 mg/dL (0.0-0.5); Bilirubin Total 0.5 mg/dL (0.0-1.0); Lipase 26 U/L (8-78); Total Protein 6.5 g/dL (6.5-8.0)
[2020-03-28 14:04] VITALS: BP 140/68; PULSE 83; RESP 16
--- NOTE | 2020-03-28 14:24 | PC.NURSE ---
PT HAD TORRES PLACED THIS WK FOR URINARY RETENTION D/T ENLARGED PROSTATE. C/O PELVIC PAIN SINCE LAST NIGHT, DENIES FEVERS, CHILLS. MEDICATED FOR PAIN PER EMR. AWAITING CT RESULTS.
[2020-03-28 14:33] VITALS: BP 135/76; PULSE 83; O2SAT 99
== END 2020-03-28 16:17 | disposition home or self-care (01) ==
PROVIDERS: Emergency Provider Emergency Medicine; PCP Family Medicine
DX: K59.00 Constipation, unspecified (principal); R10.32 Left lower quadrant pain; Z96.0 Presence of urogenital implants; E11.9 Type 2 diabetes mellitus without complications; I10 Essential (primary) hypertension; F17.210 Nicotine dependence, cigarettes, uncomplicated
CPT/HCPCS: 36415; 74176; 80048; 80076; 81001; 83690; 85025; 96361; 96374; 96375; 99284; 99285; J2270; J2405

== ENCOUNTER → 2020-03-30 09:50 | Outpatient (BNVA) | payer OTHER, SELFPAY | PROVIDERS: PCP Family Medicine; Visit Provider Urology | DX: N40.1 Benign prostatic hyperplasia with lower urinary tract symptoms (principal); R33.8 Other retention of urine; N39.0 Urinary tract infection, site not specified; B96.1 Klebsiella pneumoniae [K. pneumoniae] as the cause of diseases classified elsewhere; Z46.6 Encounter for fitting and adjustment of urinary device | CPT/HCPCS: 51700; 99212 ==

== ENCOUNTER 2020-04-03 09:00 | Emergency (ER) | payer OTHER, SELFPAY ==
[2020-04-03 09:23] VITALS: BP 150/75; PULSE 92; RESP 18; TEMP 36.9; O2SAT 98; BMI 30.2
--- NOTE | 2020-04-03 10:25 | ECG_ITS ---
Test Reason : WEAKNESS Blood Pressure : / mmHG Vent. Rate : 078 BPM Atrial Rate : 078 BPM P-R Int : 166 ms QRS Dur : 082 ms QT Int : 342 ms P-R-T Axes : 053 -16 -01 degrees QTc Int : 389 ms Normal sinus rhythm Minimal voltage criteria for LVH, may be normal variant Borderline ECG When compared with ECG of 17-MAR-2020 17:14, T wave inversion now evident in Inferior leads QT has shortened Referred By: Alisha dEdy Electronically Signed By:CHHAYA FREEMAN MD
--- NOTE | 2020-04-03 10:25 | US_ITS ---
EXAMINATION: BILATERAL LOWER EXTREMITY VENOUS ULTRASOUND CLINICAL INFORMATION: Bilateral lower extremity pain and weakness. COMPARISON: Left lower extremity venous Doppler ultrasound dated 03/19/2020. TECHNIQUE: Doppler spectral analysis and color flow Doppler imaging was performed of the lower extremities. Compression and augmentation maneuvers were performed. FINDINGS: The right and left common femoral vein, greater saphenous vein takeoff, femoral vein, and popliteal vein are normally compressible with normal phasic changes seen with Doppler imaging. The midcalf peroneal and posterior tibial veins are patent as well. No popliteal cyst is seen. US/US venous duplex LE BI IMPRESSION: No evidence of deep venous thrombosis in the right or left lower extremity.
--- NOTE | 2020-04-03 10:26 | ED_ITS ---
HPI - Extremity Problem General Chief complaint: Extremity Problem Stated complaint: pain in legs Time Seen by Provider: 04/03/20 09:49 Source: patient Mode of arrival: ambulatory History of Present Illness HPI Narrative: 69-year-old male with a past medical history BPH, COVID-19, urinary retention, HLD, presenting to the ED complaining of bilateral lower extremity pain and weakness. Reports recently had a [place] in, removed 4 days ago and states was lying in bed more than normal, feels symptoms are due to lack of exercise. Denies injury/trauma, swelling, fever, chills, numbness/tingling, SOB/CP MD Complaint: extremity pain Related Data Home Medications Medication Instructions Recorded Confirmed amlodipine 5 mg tablet 5 mg PO DAILY 02/19/20 02/28/20 aspirin 81 mg tablet,delayed 81 mg PO DAILY 02/19/20 02/28/20 release atorvastatin 40 mg tablet 40 mg PO DAILY 02/19/20 02/28/20 cholecalciferol (vitamin D3) 50 50 mcg PO DAILY 02/19/20 02/28/20 mcg (2,000 unit) capsule empagliflozin 25 mg tablet 25 mg PO QAM 02/19/20 02/28/20 hydrochlorothiazide 25 mg tablet 25 mg PO DAILY 02/19/20 02/28/20 ibuprofen 600 mg tablet 600 mg PO TID PRN 02/19/20 02/28/20 loratadine 10 mg tablet 10 mg PO DAILY 02/19/20 02/28/20 losartan 100 mg tablet 100 mg PO DAILY 02/19/20 02/28/20 metformin 500 mg tablet 0 mg PO BID 02/19/20 02/28/20 mirtazapine 15 mg disintegrating 15 mg PO BEDTIME 02/19/20 02/28/20 tablet potassium chloride 1 cap PO DAILY 02/28/20 02/28/20 Previous Rx's Medication Instructions Recorded polyethylene glycol 3350 [Miralax] 17 g PO DAILY PRN #510 g 03/07/20 tamsulosin [Flomax] 0.4 mg PO DAILY #30 cap 03/07/20 tramadol 50 mg PO Q8H PRN #20 tab 03/07/20 finasteride 5 mg tablet 5 mg PO DAILY 90 Days #90 tab 03/17/20 terazosin 5 mg capsule 5 mg PO BEDTIME #90 cap 03/17/20 ciprofloxacin HCl [Cipro] 500 mg PO Q12H 3 Days #6 tab 03/19/20 fluconazole [Diflucan] 150 mg PO Q3D #2 tab 03/21/20 hydrocortisone 1 appl TOPICAL BID PRN #28.35 g 03/21/20 miconazole nitrate 1 appl TOPICAL BID 21 Days #71 g 03/21/20 dicyclomine 20 mg PO TID PRN #30 tab 03/28/20 polyethylene glycol 3350 [Miralax] 17 g PO DAILY PRN #119 g 03/28/20 sennosides [senna] 8.6 mg PO BEDTIME PRN #30 cap 03/28/20 tamsulosin 0.4 mg capsule 0.4 mg PO BEDTIME 90 Days #90 cap 03/30/20 Allergies Allergy/AdvReac Type Severity Reaction Status Date / Time Penicillins Allergy Mild RASH Verified 03/30/20 10:02 penicillin V Allergy Unknown rash Verified 03/30/20 10:02 acetaminophen [From Percocet] Allergy Anxiety Verified 03/30/20 10:02 oxycodone [From Percocet] Allergy Anxiety Verified 03/30/20 10:02 Review of Systems Review of Systems: Constitutional: No Weight loss, No Fever, No Chills, No Night Sweats, No Fatigue, No Malaise Cardiovascular: No Chest Pain, No SOB, No Dyspnea on Exertion, No Orthopnea, No Edema, No Palpitations Respiratory: No Cough, No Sputum, No Dyspnea Gastrointestinal: No Nausea, No Vomiting, No Diarrhea, No Constipation, No Abdominal pain No Urinary Incontinence, No Urgency, No Flank Pain, No Urinary Flow Changes, No Hesitancy Musculoskeletal: + joint pain, + Myalgias, No Joint Swelling Skin: No Skin Lesions, No rash Neuro: + Weakness, No Numbness, No Paresthesias, No Dizziness, No Headache Yes all other systems are reviewed and are negative [facility] Past Medical History Attestation statement: The following information was validated with the patient. Medical History Anxiety COVID-19 HLD (hyperlipidemia) HTN (hypertension) Hypertension T2DM (type 2 diabetes mellitus) Surgical History History of prostate surgery Hx of removal of cyst Family History Family History Father Cancer Mother Cancer Diabetes Social History Social History Housing: Apartment Alcohol intake: never Smoking Status: Never smoker Tobacco Type: Cigarette Packs Per Day: 1 Cigarettes Per Day: 20.0 Years Smoked: 20 Advance Directives: No Advance Directives Information Provided: Yes service: No Current occupational status: retired Physical Exam Vital Signs: Vital Signs: Last Vital Signs Temp 98.4 F 04/03/20 09:23 Pulse 78 04/03/20 11:44 Resp 14 04/03/20 11:44 BP 157/81 H 04/03/20 11:44 Pulse Ox 96 04/03/20 11:44 Body Mass Index 30.2 Const: General: cooperative and healthy appearing Orientation/consciousness: patient oriented x3 Limitations: no limitations HENMT: Head: Yes normal to inspection Ears: hearing grossly normal bilaterally General nose exam: Normal external nose present Face and sinus: Yes normal facial exam Eyes: General: appearance normal, both eyes and all related structures EOM: EOMs intact bilaterally Neck: Neck: Yes normal visual inspection Resp: Effort & Inspection: normal respiratory effort Cardio: Rate: regular rate Peripheral pulses: dorsalis pedis present GI: Inspection: Yes normal to inspection Palpation (GI): Soft to palpation, nontender, no guarding and not rigid Skin: Rashes: no rashes Wounds: no wounds Neuro: General: patient oriented x3, tone normal, moves all extremities and no focal motor deficits Gait exam (Neuro): Normal gait present Motor exam (neuro): 5/5 motor strength present throughout Extrem: Other: No LE edema or calf tenderness. No appreciable deformity. No appreciable weakness. Neurovascularly intact. Sensation intact to light touch General: Yes normal to inspection Course Course Course Narrative: * Glucose elevated at 373, no anion gap > will give of 5 of subcu insulin > unlikely DKA * Venous duplex negative for DVT * 1315-repeat POC 263 after subcu insulin, patient has been ambulating in the ED without any difficulty Results discussed with patient including worrisome signs and symptoms and strict return precautions. Is to follow up with his PCP. MDM - Extremity (Nontraumatic) MDM Narrative Medical decision making narrative: 69-year-old male with a past medical history BPH, COVID-19, urinary retention, HLD, presenting to the ED complaining of bilateral lower extremity pain/weakness. On exam VSS, NAD/well-appearing, no LE edema or calf tenderness. Neurovascular intact. Concern for generalized LE deconditioning vs DVT vs electrolyte abnormalities. No appreciable neurovascular compromise, low concern for fracture or compartment syndrome. Low concern for CVA Plan: EKG, labs, venous duplex, reassess Lab Data Result diagrams: 04/03/20 11:00 04/03/20 11:00 Labs: Lab Results 04/03/20 04/03/20 04/03/20 Range/Units 11:00 11:00 11:00 WBC 6.4 (4.8-10.8) X10*3/uL RBC 4.14 L (4.60-5.80) X10*6/uL Hgb 12.8 L (14.0-18.0) g/dl Hct 38.1 L (42-52) % MCV 92.0 (80-98) fL MCH 30.9 (27.0-33.0) pg MCHC 33.6 (31.0-36.0) g/dl RDW 13.4 (11.0-16.0) % Plt Count 223 (160-400) X10*3/uL MPV 9.3 L (9.4-12.4) fL Immature Gran % (Auto) 0.2 (0.0-0.4) % Neut % (Auto) 73.5 H (45-73) % Lymph % (Auto) 17.0 L (20-40) % [place] % (Auto) 7.1 (2-11) % Eos % (Auto) 1.7 (0-4) % Baso % (Auto) 0.5 (0-2) % Lymph # (Auto) 1.1 L (1.2-4.9) X10*3/uL [place] # (Auto) 0.5 (0.1-1.2) X10*3/uL Eos # (Auto) 0.1 (0.0-0.4) X10*3/uL Baso # (Auto) 0.0 (0.0-0.2) X10*3/uL Abs Immat Gran (auto) 0.01 (0.00-0.03) X10*3/uL Absolute Neuts (auto) 4.7 (2.0-8.3) X10*3/uL Absolute Nucleated RBC 0.000 (0.0-0.012) X10*3/uL Nucleated RBC % (auto) 0.0 (0.0-0.2) /100WBC Hold Blue Top SEE NOTE Sodium 133 L (135-145) mmol/L Potassium 4.1 D (3.3-5.1) mmol/l Chloride 103 (96-108) mmol/L Carbon Dioxide 21 L (22-29) mmol/L Anion Gap 13 (12-20) BUN 5 L (9-16) mg/dL Creatinine 0.83 (0.5-1.4) mg/dL Estim Creat Clear Calc 85.7 Estimated GFR > 60 POC Glucose (60-115) mg/dL Random Glucose 373 H* (60-115) mg/dL Calcium 8.8 (8.4-10.2) mg/dL Magnesium 1.8 (1.6-2.6) mg/dL Total Bilirubin 0.4 (0.0-1.0) mg/dL Direct Bilirubin 0.2 (0.0-0.5) mg/dL AST 24 (5-37) U/L ALT 33 (0-40) U/L Alkaline Phosphatase 69 (39-117) U/L B-Natriuretic Peptide (<100) pg/mL Total Protein 6.4 L (6.5-8.0) g/dL Albumin 4.1 (3.5-5.0) g/dL 04/03/20 04/03/20 Range/Units 11:00 13:11 WBC (4.8-10.8) X10*3/uL RBC (4.60-5.80) X10*6/uL Hgb (14.0-18.0) g/dl Hct (42-52) % MCV (80-98) fL MCH (27.0-33.0) pg MCHC (31.0-36.0) g/dl RDW (11.0-16.0) % Plt Count (160-400) X10*3/uL MPV (9.4-12.4) fL Immature Gran % (Auto) (0.0-0.4) % Neut % (Auto) (45-73) % Lymph % (Auto) (20-40) % [place] % (Auto) (2-11) % Eos % (Auto) (0-4) % Baso % (Auto) (0-2) % Lymph # (Auto) (1.2-4.9) X10*3/uL [place] # (Auto) (0.1-1.2) X10*3/uL Eos # (Auto) (0.0-0.4) X10*3/uL Baso # (Auto) (0.0-0.2) X10*3/uL Abs Immat Gran (auto) (0.00-0.03) X10*3/uL Absolute Neuts (auto) (2.0-8.3) X10*3/uL Absolute Nucleated RBC (0.0-0.012) X10*3/uL Nucleated RBC % (auto) (0.0-0.2) /100WBC Hold Blue Top Sodium (135-145) mmol/L Potassium (3.3-5.1) mmol/l Chloride (96-108) mmol/L Carbon Dioxide (22-29) mmol/L Anion Gap (12-20) BUN (9-16) mg/dL Creatinine (0.5-1.4) mg/dL Estim Creat Clear Calc Estimated GFR POC Glucose 263 H (60-115) mg/dL Random Glucose (60-115) mg/dL Calcium (8.4-10.2) mg/dL Magnesium (1.6-2.6) mg/dL Total Bilirubin (0.0-1.0) mg/dL Direct Bilirubin (0.0-0.5) mg/dL AST (5-37) U/L ALT (0-40) U/L Alkaline Phosphatase (39-117) U/L B-Natriuretic Peptide 64 (<100) pg/mL Total Protein (6.5-8.0) g/dL Albumin (3.5-5.0) g/dL Discharge Plan Discharge Clinical Impression: Lower extremity pain, bilateral Patient Disposition: Home, Self-Care Instructions: Musculoskeletal Pain (ED) Additional Instructions: Your glucose was elevated today in the ED, your given insulin, make sure your monitoring them closely at home. Ultrasound was unremarkable, as well as her other blood work. You need to follow-up with her primary care doctor. Make sure getting enough exercise at home Jameson glucosa se elev? hoy en el servicio de urgencias, jameson insulina administrada, aseg?rese de controlarlos de cerca en casa. La ecograf?a no tuvo complicaciones, al igual que nicola otros an?lisis de mirna. Debe hacer un seguimiento con jameson m?dico de atenci?n primaria. Aseg?rese de hacer suficiente ejercicio en casa Prescriptions: No Action potassium chloride 10 mEq capsule, extended release 1 cap PO DAILY RF: 0 tamsulosin [Flomax] 0.4 mg capsule 0.4 mg PO DAILY Qty: 30 RF: 0 tramadol 50 mg tablet 50 mg PO Q8H PRN (Reason: pain) Qty: 20 RF: 0 polyethylene glycol 3350 [Miralax] 17 gram/dose powder 17 g PO DAILY PRN (Reason: constipation) Qty: 510 RF: 0 ciprofloxacin HCl [Cipro] 500 mg tablet 500 mg PO Q12H 3 Days Qty: 6 RF: 0 senna 8.6 mg capsule 8.6 mg PO BEDTIME PRN (Reason: constipation) Qty: 30 RF: 0 polyethylene glycol 3350 [Miralax] 17 gram/dose powder 17 g PO DAILY PRN (Reason: constipation) Qty: 119 RF: 0 dicyclomine 20 mg tablet 20 mg PO TID PRN (Reason: abdominal discomfort) Qty: 30 RF: 0 miconazole nitrate 2 % ointment 1 appl topical BID 21 Days Qty: 71 RF: 0 fluconazole [Diflucan] 150 mg tablet 150 mg PO Q3D Qty: 2 RF: 0 hydrocortisone 2.5 % ointment 1 appl topical BID PRN (Reason: Balanitis) Qty: 28.35 RF: 0 amlodipine 5 mg tablet 5 mg PO DAILY RF: 0 aspirin 81 mg tablet,delayed release (DR/EC) 81 mg PO DAILY RF: 0 mirtazapine 15 mg tablet,disintegrating 15 mg PO BEDTIME RF: 0 metformin 500 mg tablet 0 mg PO BID RF: 0 hydrochlorothiazide 25 mg tablet 25 mg PO DAILY RF: 0 losartan 100 mg tablet 100 mg PO DAILY RF: 0 ibuprofen 600 mg tablet 600 mg PO TID PRN (Reason: moderate pain) RF: 0 loratadine 10 mg tablet 10 mg PO DAILY RF: 0 cholecalciferol (vitamin D3) 50 mcg (2,000 unit) capsule 50 mcg PO DAILY RF: 0 atorvastatin 40 mg tablet 40 mg PO DAILY RF: 0 empagliflozin 25 mg tablet 25 mg PO QAM RF: 0 terazosin 5 mg capsule 5 mg PO BEDTIME Qty: 90 RF: 0 finasteride 5 mg tablet 5 mg PO DAILY 90 Days Qty: 90 RF: 1 tamsulosin [Flomax] 0.4 mg capsule 0.4 mg PO BEDTIME 90 Days Qty: 90 RF: 1 Referrals: Lidia Mendoza MD [Primary Care Provider] - 2 days
[2020-04-03 11:04] LABS: MANUAL DIFF FLAG NO
[2020-04-03 11:06] LABS: Basophils Percent Auto 0.5 % (0-2); Eosinophils Absolute Auto 0.1 X10*3/uL (0.0-0.4); Eosinophils Percent Auto 1.7 % (0-4); Hematocrit 38.1 % (42-52); Hemoglobin 12.8 g/dl (14.0-18.0); Imm Gran Abs Auto 0.01 X10*3/uL (0.00-0.03); Imm Gran Pct Auto 0.2 % (0.0-0.4); Lymphocytes Absolute Auto 1.1 X10*3/uL (1.2-4.9); Mean Corpuscular HGB Conc 33.6 g/dl (31.0-36.0); Mean Corpuscular Hemoglobin 30.9 pg (27.0-33.0); Mean Platelet Volume 9.3 fL (9.4-12.4); Monocytes Absolute Auto 0.5 X10*3/uL (0.1-1.2); Monocytes Percent Auto 7.1 % (2-11); Neutrophils Absolute Auto 4.7 X10*3/uL (2.0-8.3); Neutrophils Percent Auto 73.5 % (45-73); Platelet Count 223 X10*3/uL (160-400); Red Blood Count 4.14 X10*6/uL (4.60-5.80); Red Cell Distribution Width 13.4 % (11.0-16.0); White Blood Count 6.4 X10*3/uL (4.8-10.8)
[2020-04-03 11:44] VITALS: BP 157/81; PULSE 78; RESP 14; O2SAT 96
[2020-04-03 11:50] LABS: B Type Natriuretic Peptide 64 pg/mL (<100)
[2020-04-03 11:53] LABS: Alanine Aminotransferase 33 U/L (0-40); Albumin Level 4.1 g/dL (3.5-5.0); Alkaline Phosphatase 69 U/L (39-117); Anion Gap 13 (12-20); Aspartate Amino Transferase 24 U/L (5-37); Bilirubin Direct 0.2 mg/dL (0.0-0.5); Bilirubin Total 0.4 mg/dL (0.0-1.0); Blood Urea Nitrogen 5 mg/dL (9-16); Calcium 8.8 mg/dL (8.4-10.2); Carbon Dioxide 21 mmol/L (22-29); Chloride 103 mmol/L (96-108); Creatinine Clr Calc Pharmacy 85.7; Estimated Glomerular Filt Rate > 60; Glucose Random 373 mg/dL (60-115); Magnesium 1.8 mg/dL (1.6-2.6); Potassium 4.1 mmol/l (3.3-5.1); Sodium 133 mmol/L (135-145); Total Protein 6.4 g/dL (6.5-8.0)
[2020-04-03] MEDS: Insulin Regular, Human 100 UNIT/ML 3 ML VIAL SUBCUT (12:51)
[2020-04-03 13:14] LABS: Glucose, Whole Blood 263 mg/dL (60-115)
== END 2020-04-03 13:28 | disposition home or self-care (01) ==
PROVIDERS: Physician Assistant; Emergency Provider Emergency Medicine Emergency Medical Services; PCP Family Medicine
DX: M79.662 Pain in left lower leg (principal); M79.661 Pain in right lower leg; E11.9 Type 2 diabetes mellitus without complications; I10 Essential (primary) hypertension; F17.210 Nicotine dependence, cigarettes, uncomplicated; Z86.19 Personal history of other infectious and parasitic diseases; Z79.4 Long term (current) use of insulin
CPT/HCPCS: 36415; 80048; 80076; 82947; 83735; 83880; 85025; 93005; 93970; 99284

== ENCOUNTER → 2020-04-08 10:36 | Outpatient (BNVA) | payer OTHER, SELFPAY | PROVIDERS: PCP Family Medicine; Visit Provider Internal Medicine | DX: Z13.89 Encounter for screening for other disorder (principal) | CPT/HCPCS: Q3014 ==

== ENCOUNTER 2020-04-08 11:19 | Outpatient (REF) | payer OTHER, SELFPAY | END 2020-04-08 11:20 | disposition home or self-care (01) | LOC: HO.LAB 11:19 | PROVIDERS: Visit Provider Internal Medicine | DX: Z20.828 Contact with and (suspected) exposure to other viral communicable diseases (principal) | CPT/HCPCS: C9803; U0003 ==

== ENCOUNTER 2020-04-10 15:20 | Emergency (ER) | payer OTHER, SELFPAY | END 2020-04-10 16:32 | disposition left against medical advice (07) | PROVIDERS: Emergency Provider Emergency Medicine; PCP Family Medicine | DX: E11.65 Type 2 diabetes mellitus with hyperglycemia (principal); I10 Essential (primary) hypertension; Z86.16 Personal history of COVID-19; F17.210 Nicotine dependence, cigarettes, uncomplicated | CPT/HCPCS: 99281 ==

== ENCOUNTER 2020-04-15 10:10 | Emergency (ER) | payer OTHER, SELFPAY ==
[2020-04-15 10:20] VITALS: BP 129/77; BP 130/82; PULSE 100; RESP 20; TEMP 36.6; O2SAT 100; O2SAT 98; BMI 30.2
--- NOTE | 2020-04-15 11:11 | ECG_ITS ---
Test Reason : ANXIETY Blood Pressure : / mmHG Vent. Rate : 082 BPM Atrial Rate : 082 BPM P-R Int : 142 ms QRS Dur : 078 ms QT Int : 348 ms P-R-T Axes : -04 -16 -13 degrees QTc Int : 406 ms Normal sinus rhythm Minimal voltage criteria for LVH, may be normal variant Borderline ECG When compared with ECG of 03-APR-2020 10:51, No significant change was found Referred By: Seven Cannon Electronically Signed By:Julián Nayak
--- NOTE | 2020-04-15 11:13 | ED.GENADULT ---
HPI - General Adult General Chief complaint: Anxiety Stated complaint: ANXIETY Time Seen by Provider: 04/15/20 10:36 Source: patient Mode of arrival: EMS Limitations: language barrier (principal developer used to obtain information) History of Present Illness HPI narrative: 69-year-old male who presents emergency department for evaluation of an ?I am having an anxiety attack ?. The patient states that he is feeling very anxious. He states he has had similar symptoms in the past. States that over the past 3 days has been having intermittent chest pain. He points to his mid sternal area when asked to localize the pain. He cannot describe the sensation of the pain. He states the pain is brief and intermittent. He states that he feels short of breath when he gets the chest pain. States that he feels very anxious when he experiences chest pain. He denied shortness of breath or dyspnea on exertion. He denied fever, chills, cough, abdominal pain, nausea, vomiting, pain radiating to his neck, jaw or arms, diaphoresis or lightheadedness. He states that the COVID pandemic has made him very anxious. States he has a history of anxiety but has never been treated for it. Patient also has a history of diabetes mellitus, hypertension, hyperlipidemia, he has been COVID positive in the past. The patient is a former smoker, he stopped smoking 13 years prior but smoked for greater than 20 years. Related Data Home Medications Medication Instructions Recorded Confirmed amlodipine 5 mg tablet 5 mg PO DAILY 02/19/20 04/08/20 aspirin 81 mg tablet,delayed 81 mg PO DAILY 02/19/20 04/08/20 release atorvastatin 40 mg tablet 40 mg PO DAILY 02/19/20 04/08/20 cholecalciferol (vitamin D3) 50 50 mcg PO DAILY 02/19/20 04/08/20 mcg (2,000 unit) capsule hydrochlorothiazide 25 mg tablet 25 mg PO DAILY 02/19/20 04/08/20 ibuprofen 600 mg tablet 600 mg PO TID PRN 02/19/20 04/08/20 loratadine 10 mg tablet 10 mg PO DAILY 02/19/20 04/08/20 losartan 100 mg tablet 100 mg PO DAILY 02/19/20 04/08/20 mirtazapine 15 mg disintegrating 15 mg PO BEDTIME 02/19/20 04/08/20 tablet potassium chloride 1 cap PO DAILY 02/28/20 04/08/20 metformin 500 mg tablet 1,000 mg PO BID tab 04/08/20 04/08/20 Previous Rx's Medication Instructions Recorded polyethylene glycol 3350 [Miralax] 17 g PO DAILY PRN #510 g 03/07/20 tamsulosin [Flomax] 0.4 mg PO DAILY #30 cap 03/07/20 tramadol 50 mg PO Q8H PRN #20 tab 03/07/20 finasteride 5 mg tablet 5 mg PO DAILY 90 Days #90 tab 03/17/20 terazosin 5 mg capsule 5 mg PO BEDTIME #90 cap 03/17/20 ciprofloxacin HCl [Cipro] 500 mg PO Q12H 3 Days #6 tab 03/19/20 fluconazole [Diflucan] 150 mg PO Q3D #2 tab 03/21/20 hydrocortisone 1 appl TOPICAL BID PRN #28.35 g 03/21/20 miconazole nitrate 1 appl TOPICAL BID 21 Days #71 g 03/21/20 dicyclomine 20 mg PO TID PRN #30 tab 03/28/20 polyethylene glycol 3350 [Miralax] 17 g PO DAILY PRN #119 g 03/28/20 sennosides [senna] 8.6 mg PO BEDTIME PRN #30 cap 03/28/20 tamsulosin 0.4 mg capsule 0.4 mg PO BEDTIME 90 Days #90 cap 03/30/20 dulaglutide 0.75 mg/0.5 mL 0.75 mg SUBCUT QWEEK 30 Days #2.5 04/11/20 subcutaneous pen injector ml lorazepam [Ativan] 0.5 mg PO TID PRN #10 tab 04/15/20 Allergies Allergy/AdvReac Type Severity Reaction Status Date / Time Penicillins Allergy Mild RASH Verified 03/30/20 10:02 penicillin V Allergy Unknown rash Verified 03/30/20 10:02 acetaminophen [From Percocet] Allergy Anxiety Verified 03/30/20 10:02 oxycodone [From Percocet] Allergy Anxiety Verified 03/30/20 10:02 PMFSH Past Medical History Medical History (Updated 04/15/20 @ 16:26 by Seven Cannon MD) Anxiety COVID-19 HLD (hyperlipidemia) HTN (hypertension) Hypertension T2DM (type 2 diabetes mellitus) Vitamin D deficiency Surgical History History of prostate surgery Hx of removal of cyst Family History Family History Father Cancer Mother Cancer Diabetes Social History Social History Housing: Apartment Alcohol intake: former Smoking Status: Former smoker Tobacco Type: Cigarette Packs Per Day: 1 Cigarettes Per Day: 20.0 Years Smoked: 20 Use of substances other than those prescribed or required for medical reasons: No Advance Directives: No Advance Directives Information Provided: Yes service: No Current occupational status: retired Physical Exam Vital Signs: Vital Signs: Last Vital Signs Temp 97.8 F 04/15/20 11:51 Pulse 81 04/15/20 12:40 Resp 18 04/15/20 12:40 BP 129/83 04/15/20 12:40 Pulse Ox 97 04/15/20 12:40 Body Mass Index 30.2 Course Course Course Narrative: 69-year-old male who presents emergency department for evaluation of possible anxiety attack with symptoms included shortness of breath and chest pain. The patient's physical examination was unremarkable and he was treated with Ativan 1 mg orally. The patient's laboratory evaluation revealed a detectable but not elevated troponin of 5.5. His repeat 3 hour troponin was 6.4 which did not represent a significant elevation suggested he does not have myocardial injury is the cause of his symptoms. I did discuss this with the patient. The patient was given a limited prescription for Ativan 0.5 mg tablets every 8 hours as needed for anxiety. He was advised to follow-up with his doctor to discuss further management of his anxiety disorder. He was given printed instructions on anxiety and chest pain and discharged home. Medical Decision Making Lab Data Result diagrams: 04/15/20 11:50 04/15/20 11:50 Labs: Lab Results 04/15/20 04/15/20 04/15/20 Range/Units 11:50 11:50 11:50 WBC 6.3 (4.8-10.8) X10*3/uL RBC 4.32 L (4.60-5.80) X10*6/uL Hgb 13.4 L (14.0-18.0) g/dl Hct 39.7 L (42-52) % MCV 91.9 (80-98) fL MCH 31.0 (27.0-33.0) pg MCHC 33.8 (31.0-36.0) g/dl RDW 12.9 (11.0-16.0) % Plt Count 298 D (160-400) X10*3/uL MPV 9.4 (9.4-12.4) fL Immature Gran % (Auto) 0.3 (0.0-0.4) % Neut % (Auto) 73.3 H (45-73) % Lymph % (Auto) 17.0 L (20-40) % [place] % (Auto) 7.4 (2-11) % Eos % (Auto) 1.8 (0-4) % Baso % (Auto) 0.2 (0-2) % Lymph # (Auto) 1.1 L (1.2-4.9) X10*3/uL [place] # (Auto) 0.5 (0.1-1.2) X10*3/uL Eos # (Auto) 0.1 (0.0-0.4) X10*3/uL Baso # (Auto) 0.0 (0.0-0.2) X10*3/uL Abs Immat Gran (auto) 0.02 (0.00-0.03) X10*3/uL Absolute Neuts (auto) 4.6 (2.0-8.3) X10*3/uL Absolute Nucleated RBC 0.000 (0.0-0.012) X10*3/uL Nucleated RBC % (auto) 0.0 (0.0-0.2) /100WBC Sodium 138 (135-145) mmol/L Potassium 3.9 (3.3-5.1) mmol/l Chloride 105 (96-108) mmol/L Carbon Dioxide 24 (22-29) mmol/L Anion Gap 13 (12-20) BUN 4 L (9-16) mg/dL Creatinine 0.78 (0.5-1.4) mg/dL Estim Creat Clear Calc 91.2 Estimated GFR > 60 Random Glucose 181 H D (60-115) mg/dL Calcium 9.3 (8.4-10.2) mg/dL Total Bilirubin 0.4 (0.0-1.0) mg/dL AST 24 (5-37) U/L ALT 34 (0-40) U/L Alkaline Phosphatase 60 (39-117) U/L Troponin I High Sens 5.5 D (<3.5-35.0) ng/L Total Protein 6.4 L (6.5-8.0) g/dL Albumin 4.1 (3.5-5.0) g/dL 04/15/20 Range/Units 15:00 WBC (4.8-10.8) X10*3/uL RBC (4.60-5.80) X10*6/uL Hgb (14.0-18.0) g/dl Hct (42-52) % MCV (80-98) fL MCH (27.0-33.0) pg MCHC (31.0-36.0) g/dl RDW (11.0-16.0) % Plt Count (160-400) X10*3/uL MPV (9.4-12.4) fL Immature Gran % (Auto) (0.0-0.4) % Neut % (Auto) (45-73) % Lymph % (Auto) (20-40) % [place] % (Auto) (2-11) % Eos % (Auto) (0-4) % Baso % (Auto) (0-2) % Lymph # (Auto) (1.2-4.9) X10*3/uL [place] # (Auto) (0.1-1.2) X10*3/uL Eos # (Auto) (0.0-0.4) X10*3/uL Baso # (Auto) (0.0-0.2) X10*3/uL Abs Immat Gran (auto) (0.00-0.03) X10*3/uL Absolute Neuts (auto) (2.0-8.3) X10*3/uL Absolute Nucleated RBC (0.0-0.012) X10*3/uL Nucleated RBC % (auto) (0.0-0.2) /100WBC Sodium (135-145) mmol/L Potassium (3.3-5.1) mmol/l Chloride (96-108) mmol/L Carbon Dioxide (22-29) mmol/L Anion Gap (12-20) BUN (9-16) mg/dL Creatinine (0.5-1.4) mg/dL Estim Creat Clear Calc Estimated GFR Random Glucose (60-115) mg/dL Calcium (8.4-10.2) mg/dL Total Bilirubin (0.0-1.0) mg/dL AST (5-37) U/L ALT (0-40) U/L Alkaline Phosphatase (39-117) U/L Troponin I High Sens 4.0 (<3.5-35.0) ng/L Total Protein (6.5-8.0) g/dL Albumin (3.5-5.0) g/dL Discharge Plan Discharge Clinical Impression: Anxiety Chest pain Qualifiers: Chest pain type: unspecified Qualified Code(s): R07.9 - Chest pain, unspecified Patient Disposition: Home, Self-Care Instructions: Chest Pain (ED), Anxiety (ED) Additional Instructions: Your laboratory evaluation was unremarkable. Your presentation is consistent with anxiety. Take Ativan 0.5 mg pills, 1 pill every 8 hours as needed for anxiety. This medication will make you sleepy. This medication can be addicting, do not get the prescription filled or ask for less pills of your concerned about addiction. Follow-up with your doctor in 2 days. Please return to the emergency department if your symptoms get worse or if you develop any symptoms that are concerning to you. Prescriptions: New lorazepam [Ativan] 0.5 mg tablet 0.5 mg PO TID PRN (Reason: anxiety) Qty: 10 RF: 0 No Action potassium chloride 10 mEq capsule, extended release 1 cap PO DAILY RF: 0 tamsulosin [Flomax] 0.4 mg capsule 0.4 mg PO DAILY Qty: 30 RF: 0 tramadol 50 mg tablet 50 mg PO Q8H PRN (Reason: pain) Qty: 20 RF: 0 polyethylene glycol 3350 [Miralax] 17 gram/dose powder 17 g PO DAILY PRN (Reason: constipation) Qty: 510 RF: 0 ciprofloxacin HCl [Cipro] 500 mg tablet 500 mg PO Q12H 3 Days Qty: 6 RF: 0 senna 8.6 mg capsule 8.6 mg PO BEDTIME PRN (Reason: constipation) Qty: 30 RF: 0 polyethylene glycol 3350 [Miralax] 17 gram/dose powder 17 g PO DAILY PRN (Reason: constipation) Qty: 119 RF: 0 dicyclomine 20 mg tablet 20 mg PO TID PRN (Reason: abdominal discomfort) Qty: 30 RF: 0 miconazole nitrate 2 % ointment 1 appl topical BID 21 Days Qty: 71 RF: 0 fluconazole [Diflucan] 150 mg tablet 150 mg PO Q3D Qty: 2 RF: 0 hydrocortisone 2.5 % ointment 1 appl topical BID PRN (Reason: Balanitis) Qty: 28.35 RF: 0 amlodipine 5 mg tablet 5 mg PO DAILY RF: 0 aspirin 81 mg tablet,delayed release (DR/EC) 81 mg PO DAILY RF: 0 mirtazapine 15 mg tablet,disintegrating 15 mg PO BEDTIME RF: 0 hydrochlorothiazide 25 mg tablet 25 mg PO DAILY RF: 0 losartan 100 mg tablet 100 mg PO DAILY RF: 0 ibuprofen 600 mg tablet 600 mg PO TID PRN (Reason: moderate pain) RF: 0 loratadine 10 mg tablet 10 mg PO DAILY RF: 0 cholecalciferol (vitamin D3) 50 mcg (2,000 unit) capsule 50 mcg PO DAILY RF: 0 atorvastatin 40 mg tablet 40 mg PO DAILY RF: 0 metformin 500 mg tablet 1,000 mg PO BID RF: 0 Trulicity 0.75 mg/0.5 mL pen injector 0.75 mg subcut QWEEK 30 Days Qty: 2.5 RF: 11 terazosin 5 mg capsule 5 mg PO BEDTIME Qty: 90 RF: 0 finasteride 5 mg tablet 5 mg PO DAILY 90 Days Qty: 90 RF: 1 tamsulosin [Flomax] 0.4 mg capsule 0.4 mg PO BEDTIME 90 Days Qty: 90 RF: 1
[2020-04-15] MEDS: LORazepam 1 MG TABLET PO (11:26)
[2020-04-15 11:51] VITALS: BP 143/81; PULSE 78; RESP 12; TEMP 36.6; O2SAT 100
[2020-04-15 11:57] LABS: MANUAL DIFF FLAG NO
[2020-04-15 11:58] LABS: Basophils Percent Auto 0.2 % (0-2); Eosinophils Absolute Auto 0.1 X10*3/uL (0.0-0.4); Eosinophils Percent Auto 1.8 % (0-4); Hematocrit 39.7 % (42-52); Hemoglobin 13.4 g/dl (14.0-18.0); Imm Gran Abs Auto 0.02 X10*3/uL (0.00-0.03); Imm Gran Pct Auto 0.3 % (0.0-0.4); Lymphocytes Absolute Auto 1.1 X10*3/uL (1.2-4.9); Mean Corpuscular HGB Conc 33.8 g/dl (31.0-36.0); Mean Corpuscular Volume 91.9 fL (80-98); Mean Platelet Volume 9.4 fL (9.4-12.4); Monocytes Absolute Auto 0.5 X10*3/uL (0.1-1.2); Monocytes Percent Auto 7.4 % (2-11); Neutrophils Absolute Auto 4.6 X10*3/uL (2.0-8.3); Neutrophils Percent Auto 73.3 % (45-73); Platelet Count 298 X10*3/uL (160-400); Red Blood Count 4.32 X10*6/uL (4.60-5.80); Red Cell Distribution Width 12.9 % (11.0-16.0); White Blood Count 6.3 X10*3/uL (4.8-10.8)
[2020-04-15 12:25] LABS: Alanine Aminotransferase 34 U/L (0-40); Albumin Level 4.1 g/dL (3.5-5.0); Alkaline Phosphatase 60 U/L (39-117); Anion Gap 13 (12-20); Aspartate Amino Transferase 24 U/L (5-37); Bilirubin Total 0.4 mg/dL (0.0-1.0); Calcium 9.3 mg/dL (8.4-10.2); Carbon Dioxide 24 mmol/L (22-29); Chloride 105 mmol/L (96-108); Creatinine Clr Calc Pharmacy 91.2; Estimated Glomerular Filt Rate > 60; Glucose Random 181 mg/dL (60-115); Potassium 3.9 mmol/l (3.3-5.1); Sodium 138 mmol/L (135-145); Total Protein 6.4 g/dL (6.5-8.0)
[2020-04-15 12:29] LABS: Troponin-I High Sensitivity 5.5 ng/L (<3.5-35.0)
[2020-04-15 12:36] LABS: Blood Urea Nitrogen 4 mg/dL (9-16)
--- NOTE | 2020-04-15 12:39 | PC.NURSE ---
pt is currently asleep, respirations even and unlabored, ns on the monitor
[2020-04-15 12:40] VITALS: BP 129/83; PULSE 81; RESP 18; O2SAT 97
[2020-04-15 16:00] VITALS: BP 138/81; PULSE 75; RESP 15; TEMP 36.6; O2SAT 99
[2020-04-15 17:33] VITALS: BP 139/83; PULSE 80; RESP 14; TEMP 36.6; O2SAT 100
== END 2020-04-15 17:51 | disposition home or self-care (01) ==
PROVIDERS: Emergency Provider Emergency Medicine Emergency Medical Services; PCP Family Medicine
DX: R07.9 Chest pain, unspecified (principal); F41.9 Anxiety disorder, unspecified; I10 Essential (primary) hypertension; E11.9 Type 2 diabetes mellitus without complications; F17.210 Nicotine dependence, cigarettes, uncomplicated; Z86.16 Personal history of COVID-19
CPT/HCPCS: 36415; 80053; 84484; 85025; 93005; 99283; 99284

== ENCOUNTER 2020-04-17 14:26 | Emergency (ER) | payer OTHER, SELFPAY ==
[2020-04-17 15:12] VITALS: BP 115/70; PULSE 106; RESP 18; TEMP 36.7; O2SAT 99; BMI 30.2
--- NOTE | 2020-04-17 15:16 | PC.NURSE ---
Please call , jackie, at [phone] to discuss pt status.
[2020-04-17 15:55] LABS: Basophils Percent Auto 0.3 % (0-2); Eosinophils Absolute Auto 0.1 X10*3/uL (0.0-0.4); Eosinophils Percent Auto 1.6 % (0-4); Hematocrit 41.2 % (42-52); Hemoglobin 13.8 g/dl (14.0-18.0); Imm Gran Abs Auto 0.01 X10*3/uL (0.00-0.03); Imm Gran Pct Auto 0.1 % (0.0-0.4); Lymphocytes Absolute Auto 1.3 X10*3/uL (1.2-4.9); Lymphocytes Percent Auto 17.6 % (20-40); Mean Corpuscular HGB Conc 33.5 g/dl (31.0-36.0); Mean Corpuscular Hemoglobin 30.9 pg (27.0-33.0); Mean Corpuscular Volume 92.4 fL (80-98); Mean Platelet Volume 9.2 fL (9.4-12.4); Monocytes Absolute Auto 0.5 X10*3/uL (0.1-1.2); Monocytes Percent Auto 6.4 % (2-11); Neutrophils Absolute Auto 5.6 X10*3/uL (2.0-8.3); Platelet Count 318 X10*3/uL (160-400); Red Blood Count 4.46 X10*6/uL (4.60-5.80); Red Cell Distribution Width 12.9 % (11.0-16.0); White Blood Count 7.6 X10*3/uL (4.8-10.8)
[2020-04-17 15:59] LABS: MANUAL DIFF FLAG NO
[2020-04-17 16:24] LABS: Aspartate Amino Transferase 17 U/L (5-37)
[2020-04-17 16:25] LABS: Alanine Aminotransferase 30 U/L (0-40); Albumin Level 4.2 g/dL (3.5-5.0); Alkaline Phosphatase 59 U/L (39-117); Anion Gap 14 (12-20); Bilirubin Total 0.3 mg/dL (0.0-1.0); Blood Urea Nitrogen 4 mg/dL (9-16); Calcium 9.2 mg/dL (8.4-10.2); Carbon Dioxide 23 mmol/L (22-29); Chloride 103 mmol/L (96-108); Creatinine Clr Calc Pharmacy 92.4; Estimated Glomerular Filt Rate > 60; Glucose Random 239 mg/dL (60-115); Potassium 3.9 mmol/l (3.3-5.1); Sodium 136 mmol/L (135-145); Total Protein 6.6 g/dL (6.5-8.0)
[2020-04-17 20:03] VITALS: BP 139/86; PULSE 90; RESP 16; TEMP 36.8; O2SAT 98
--- NOTE | 2020-04-17 20:32 | ED.GENADULT ---
HPI - General Adult General Chief complaint: General Medical Stated complaint: BODYACHE,STUFFY NOSE,HEADACHE Time Seen by Provider: 04/17/20 17:00 Source: patient Mode of arrival: ambulatory History of Present Illness HPI narrative: 69-year-old male with a past medical history BPH, COVID-19, urinary retention, HLD, presenting to the ED complaining of increasing anxiety. Admits to similar symptoms in the past, and was recently evaluated in our ED on 04/15 for similar symptoms, reports taking prescribed Ativan with relief. Admits to taking Ativan this evening with resolution of symptoms. Denies symptoms at present. Denies chest pain, shortness of breath, abdominal pain, nausea/vomiting, fever, chills. Reports feels shaky/has some chest discomfort during attacks, but not now. Related Data Home Medications Medication Instructions Recorded Confirmed amlodipine 5 mg tablet 5 mg PO DAILY 02/19/20 04/08/20 aspirin 81 mg tablet,delayed 81 mg PO DAILY 02/19/20 04/08/20 release atorvastatin 40 mg tablet 40 mg PO DAILY 02/19/20 04/08/20 cholecalciferol (vitamin D3) 50 50 mcg PO DAILY 02/19/20 04/08/20 mcg (2,000 unit) capsule hydrochlorothiazide 25 mg tablet 25 mg PO DAILY 02/19/20 04/08/20 ibuprofen 600 mg tablet 600 mg PO TID PRN 02/19/20 04/08/20 loratadine 10 mg tablet 10 mg PO DAILY 02/19/20 04/08/20 losartan 100 mg tablet 100 mg PO DAILY 02/19/20 04/08/20 mirtazapine 15 mg disintegrating 15 mg PO BEDTIME 02/19/20 04/08/20 tablet potassium chloride 1 cap PO DAILY 02/28/20 04/08/20 metformin 500 mg tablet 1,000 mg PO BID tab 04/08/20 04/08/20 Previous Rx's Medication Instructions Recorded polyethylene glycol 3350 [Miralax] 17 g PO DAILY PRN #510 g 03/07/20 tamsulosin [Flomax] 0.4 mg PO DAILY #30 cap 03/07/20 tramadol 50 mg PO Q8H PRN #20 tab 03/07/20 finasteride 5 mg tablet 5 mg PO DAILY 90 Days #90 tab 12/09/20 terazosin 5 mg capsule 5 mg PO BEDTIME #90 cap 03/17/20 ciprofloxacin HCl [Cipro] 500 mg PO Q12H 3 Days #6 tab 03/19/20 fluconazole [Diflucan] 150 mg PO Q3D #2 tab 03/21/20 hydrocortisone 1 appl TOPICAL BID PRN #28.35 g 03/21/20 miconazole nitrate 1 appl TOPICAL BID 21 Days #71 g 03/21/20 dicyclomine 20 mg PO TID PRN #30 tab 03/28/20 polyethylene glycol 3350 [Miralax] 17 g PO DAILY PRN #119 g 03/28/20 sennosides [senna] 8.6 mg PO BEDTIME PRN #30 cap 03/28/20 tamsulosin 0.4 mg capsule 0.4 mg PO BEDTIME 90 Days #90 cap 03/30/20 dulaglutide 0.75 mg/0.5 mL 0.75 mg SUBCUT QWEEK 30 Days #2.5 04/11/20 subcutaneous pen injector ml lorazepam [Ativan] 0.5 mg PO TID PRN #10 tab 04/15/20 Allergies Allergy/AdvReac Type Severity Reaction Status Date / Time Penicillins Allergy Mild RASH Verified 03/30/20 10:02 penicillin V Allergy Unknown rash Verified 03/30/20 10:02 acetaminophen [From Percocet] Allergy Anxiety Verified 03/30/20 10:02 oxycodone [From Percocet] Allergy Anxiety Verified 03/30/20 10:02 Review of Systems Review of Systems: Constitutional: No Weight loss, No Fever, No Chills ENT/Mouth: No Hearing loss, No Ear Pain, No sore throat, No Rhinorrhea Cardiovascular: No Chest Pain, No SOB, No Edema, No Palpitations Respiratory: No Cough, No Sputum, No Dyspnea Gastrointestinal: No Nausea, No Vomiting, No Diarrhea, No Abdominal pain Musculoskeletal: No joint pain, No Myalgias, No Joint Swelling Skin: No Skin Lesions, No rash Psych: + Anxiety/Panic, Yes all other systems are reviewed and are negative [facility] Past Medical History Attestation statement: The following information was validated with the patient. Medical History (Updated 04/17/20 @ 20:43 by JW Arndt) Anxiety COVID-19 HLD (hyperlipidemia) HTN (hypertension) Hypertension T2DM (type 2 diabetes mellitus) Vitamin D deficiency Surgical History History of prostate surgery Hx of removal of cyst Family History Family History Father Cancer Mother Cancer Diabetes Social History Social History Housing: Apartment Alcohol intake: former Smoking Status: Former smoker Tobacco Type: Cigarette Packs Per Day: 1 Cigarettes Per Day: 20.0 Years Smoked: 20 Advance Directives: No Advance Directives Information Provided: No service: No Current occupational status: retired Physical Exam Vital Signs: Vital Signs: Last Vital Signs Temp 98.2 F 04/17/20 20:03 Pulse 90 04/17/20 20:03 Resp 16 04/17/20 20:03 BP 139/86 04/17/20 20:03 Pulse Ox 98 04/17/20 20:03 Body Mass Index 30.2 Const: General: cooperative, healthy appearing, comfortable, no acute distress, well developed, alert and awake Orientation/consciousness: patient oriented x3 Limitations: no limitations HENMT: Head: Yes normal to inspection Ears: hearing grossly normal bilaterally General nose exam: Normal external nose present Face and sinus: Yes normal facial exam Eyes: General: appearance normal, both eyes and all related structures EOM: EOMs intact bilaterally Neck: Neck: Yes normal visual inspection and Yes no meningeal signs Resp: Effort & Inspection: normal respiratory effort Cardio: Rate: regular rate GI: Inspection: Yes normal to inspection Skin: Rashes: no rashes Wounds: no wounds Neuro: General: patient oriented x3, tone normal and no meningeal signs Gait exam (Neuro): Normal gait present Extrem: General: Yes normal to inspection Psych: Appearance: grossly normal Speech and movement: Normal speech and movement present Affect: normal affect Attitude: cooperative Medical Decision Making [facility] [place] Narrative Medical decision making narrative: 69-year-old male with a past medical history BPH, COVID-19, urinary retention, HLD, presenting to the ED complaining of increasing anxiety. Admits to taking Ativan this evening with resolution of symptoms. On exam VSS, NAD/well-appearing, denies symptoms at present. Discussed with patient in decision unit rn is reassuring that symptoms resolved with Ativan. Repeat blood work today from waiting room unremarkable. Unlikely ACS/PE. Symptoms likely due to anxiety. Discussed with patient to continue taking Ativan as needed, however he needs to follow up with his primary care doctor for further evaluation/extended prescription as needed. Patient verbalized understanding and feels safe for discharge home Lab Data Result diagrams: 04/17/20 15:47 04/17/20 15:47 Labs: Lab Results 04/17/20 04/17/20 04/17/20 Range/Units 15:47 15:47 15:47 WBC 7.6 (4.8-10.8) X10*3/uL RBC 4.46 L (4.60-5.80) X10*6/uL Hgb 13.8 L (14.0-18.0) g/dl Hct 41.2 L (42-52) % MCV 92.4 (80-98) fL MCH 30.9 (27.0-33.0) pg MCHC 33.5 (31.0-36.0) g/dl RDW 12.9 (11.0-16.0) % Plt Count 318 (160-400) X10*3/uL MPV 9.2 L (9.4-12.4) fL Immature Gran % (Auto) 0.1 (0.0-0.4) % Neut % (Auto) 74.0 H (45-73) % Lymph % (Auto) 17.6 L (20-40) % Mclennan % (Auto) 6.4 (2-11) % Eos % (Auto) 1.6 (0-4) % Baso % (Auto) 0.3 (0-2) % Lymph # (Auto) 1.3 (1.2-4.9) X10*3/uL Mclennan # (Auto) 0.5 (0.1-1.2) X10*3/uL Eos # (Auto) 0.1 (0.0-0.4) X10*3/uL Baso # (Auto) 0.0 (0.0-0.2) X10*3/uL Abs Immat Gran (auto) 0.01 (0.00-0.03) X10*3/uL Absolute Neuts (auto) 5.6 (2.0-8.3) X10*3/uL Absolute Nucleated RBC 0.000 (0.0-0.012) X10*3/uL Nucleated RBC % (auto) 0.0 (0.0-0.2) /100WBC Hold Purple Top SEE NOTE Hold Blue Top SEE NOTE Sodium (135-145) mmol/L Potassium (3.3-5.1) mmol/l Chloride (96-108) mmol/L Carbon Dioxide (22-29) mmol/L Anion Gap (12-20) BUN (9-16) mg/dL Creatinine (0.5-1.4) mg/dL Estim Creat Clear Calc Estimated GFR Random Glucose (60-115) mg/dL Calcium (8.4-10.2) mg/dL Total Bilirubin (0.0-1.0) mg/dL AST (5-37) U/L ALT (0-40) U/L Alkaline Phosphatase (39-117) U/L Total Protein (6.5-8.0) g/dL Albumin (3.5-5.0) g/dL 04/17/20 Range/Units 15:47 WBC (4.8-10.8) X10*3/uL RBC (4.60-5.80) X10*6/uL Hgb (14.0-18.0) g/dl Hct (42-52) % MCV (80-98) fL MCH (27.0-33.0) pg MCHC (31.0-36.0) g/dl RDW (11.0-16.0) % Plt Count (160-400) X10*3/uL MPV (9.4-12.4) fL Immature Gran % (Auto) (0.0-0.4) % Neut % (Auto) (45-73) % Lymph % (Auto) (20-40) % Mclennan % (Auto) (2-11) % Eos % (Auto) (0-4) % Baso % (Auto) (0-2) % Lymph # (Auto) (1.2-4.9) X10*3/uL Mclennan # (Auto) (0.1-1.2) X10*3/uL Eos # (Auto) (0.0-0.4) X10*3/uL Baso # (Auto) (0.0-0.2) X10*3/uL Abs Immat Gran (auto) (0.00-0.03) X10*3/uL Absolute Neuts (auto) (2.0-8.3) X10*3/uL Absolute Nucleated RBC (0.0-0.012) X10*3/uL Nucleated RBC % (auto) (0.0-0.2) /100WBC Hold Purple Top Hold Blue Top Sodium 136 (135-145) mmol/L Potassium 3.9 (3.3-5.1) mmol/l Chloride 103 (96-108) mmol/L Carbon Dioxide 23 (22-29) mmol/L Anion Gap 14 (12-20) BUN 4 L (9-16) mg/dL Creatinine 0.77 (0.5-1.4) mg/dL Estim Creat Clear Calc 92.4 Estimated GFR > 60 Random Glucose 239 H (60-115) mg/dL Calcium 9.2 (8.4-10.2) mg/dL Total Bilirubin 0.3 (0.0-1.0) mg/dL AST 17 (5-37) U/L ALT 30 (0-40) U/L Alkaline Phosphatase 59 (39-117) U/L Total Protein 6.6 (6.5-8.0) g/dL Albumin 4.2 (3.5-5.0) g/dL Discharge Plan Discharge Clinical Impression: Anxiety Patient Disposition: Home, Self-Care Instructions: Anxiety (ED) Additional Instructions: Your blood work today was reassuring/unremarkable in the ED. Continue taking previously prescribed Ativan for your anxiety symptoms. You need to follow-up with her primary care doctor for follow-up. If her symptoms persist or worsen, become unbearable, your constant worsening chest pain or shortness of breath return to the ED Jameson an?lisis de mirna de hoy fue tranquilizador / sin complicaciones en el servicio de urgencias. Contin?e tomando Ativan previamente recetado para nicola s?ntomas de ansiedad. Debe hacer un seguimiento con jameson m?dico de atenci?n primaria para realizar un seguimiento. Si nicola s?ntomas persisten o empeoran, se vuelven insoportables, jamesno maria luisa empeoramiento del dolor en el pecho o la falta de aire regresan al servicio de urgencias. Prescriptions: No Action potassium chloride 10 mEq capsule, extended release 1 cap PO DAILY RF: 0 tamsulosin [Flomax] 0.4 mg capsule 0.4 mg PO DAILY Qty: 30 RF: 0 tramadol 50 mg tablet 50 mg PO Q8H PRN (Reason: pain) Qty: 20 RF: 0 polyethylene glycol 3350 [Miralax] 17 gram/dose powder 17 g PO DAILY PRN (Reason: constipation) Qty: 510 RF: 0 ciprofloxacin HCl [Cipro] 500 mg tablet 500 mg PO Q12H 3 Days Qty: 6 RF: 0 senna 8.6 mg capsule 8.6 mg PO BEDTIME PRN (Reason: constipation) Qty: 30 RF: 0 polyethylene glycol 3350 [Miralax] 17 gram/dose powder 17 g PO DAILY PRN (Reason: constipation) Qty: 119 RF: 0 dicyclomine 20 mg tablet 20 mg PO TID PRN (Reason: abdominal discomfort) Qty: 30 RF: 0 lorazepam [Ativan] 0.5 mg tablet 0.5 mg PO TID PRN (Reason: anxiety) Qty: 10 RF: 0 miconazole nitrate 2 % ointment 1 appl topical BID 21 Days Qty: 71 RF: 0 fluconazole [Diflucan] 150 mg tablet 150 mg PO Q3D Qty: 2 RF: 0 hydrocortisone 2.5 % ointment 1 appl topical BID PRN (Reason: Balanitis) Qty: 28.35 RF: 0 amlodipine 5 mg tablet 5 mg PO DAILY RF: 0 aspirin 81 mg tablet,delayed release (DR/EC) 81 mg PO DAILY RF: 0 mirtazapine 15 mg tablet,disintegrating 15 mg PO BEDTIME RF: 0 hydrochlorothiazide 25 mg tablet 25 mg PO DAILY RF: 0 losartan 100 mg tablet 100 mg PO DAILY RF: 0 ibuprofen 600 mg tablet 600 mg PO TID PRN (Reason: moderate pain) RF: 0 loratadine 10 mg tablet 10 mg PO DAILY RF: 0 cholecalciferol (vitamin D3) 50 mcg (2,000 unit) capsule 50 mcg PO DAILY RF: 0 atorvastatin 40 mg tablet 40 mg PO DAILY RF: 0 metformin 500 mg tablet 1,000 mg PO BID RF: 0 Trulicity 0.75 mg/0.5 mL pen injector 0.75 mg subcut QWEEK 30 Days Qty: 2.5 RF: 11 terazosin 5 mg capsule 5 mg PO BEDTIME Qty: 90 RF: 0 finasteride 5 mg tablet 5 mg PO DAILY 90 Days Qty: 90 RF: 1 tamsulosin [Flomax] 0.4 mg capsule 0.4 mg PO BEDTIME 90 Days Qty: 90 RF: 1 Referrals: Lidia Mendoza MD [Primary Care Provider] - 2 days Print Language: Lebanese
[2020-04-17 21:05] LABS: Influenza A PCR NEGATIVE (Negative); Influenza B PCR NEGATIVE (Negative); Resp Syncy Virus RNA Qual PCR NEGATIVE (Negative); SARS COV2 PCR INHOUSE NEGATIVE (Negative)
--- NOTE | 2020-04-17 21:27 | PC.NURSE ---
results called to [phone].
[2020-04-19 08:34] LABS: Glucose, Whole Blood 117 mg/dL (60-115)
== END 2020-04-17 21:08 | disposition home or self-care (01) ==
PROVIDERS: Physician Assistant Medical; Emergency Provider Emergency Medicine; PCP Family Medicine
DX: F41.9 Anxiety disorder, unspecified (principal); Z20.828 Contact with and (suspected) exposure to other viral communicable diseases; I10 Essential (primary) hypertension; E11.9 Type 2 diabetes mellitus without complications; Z79.899 Other long term (current) drug therapy
CPT/HCPCS: 0241U; 36415; 80053; 82947; 85025; 99283

== ENCOUNTER 2020-05-14 09:16 | Emergency (ER) | payer OTHER, SELFPAY ==
--- NOTE | ~2020-05-14 | CT_ITS ---
EXAMINATION: CT ABDOMEN AND PELVIS WITHOUT CONTRAST CLINICAL INFORMATION: Left-sided pain radiating to front. COMPARISON: CT abdomen and pelvis 03/28/2020. TECHNIQUE: Multidetector volumetric imaging was performed from the superior aspect of the liver through the pubic symphysis. Sagittal and coronal reformatted images were obtained on the technologist's workstation. This CT examination was performed using dose optimization techniques as appropriate, variously including the following: *Automated exposure control *Adjustment of mA and/or kV according to patient size (this includes techniques or standardized protocols for targeted exams where dose is matched to indication/reason for exam; i.e. extremities or head) *Use of iterative reconstruction technique DLP: 507 mGy-cm FINDINGS: LUNG BASES: The lung bases are clear. The heart size is normal. LIVER, GALLBLADDER, AND BILIARY TREE: The liver is enlarged in size measuring 18.5 cm. It has normal shape and attenuation. No focal hepatic lesion or biliary ductal dilatation is present. The gallbladder is unremarkable with no evidence of radiopaque gallstones, gallbladder wall thickening, or obvious pericholecystic inflammatory changes. PANCREAS: Unremarkable. SPLEEN: Unremarkable. ADRENAL GLANDS: Unremarkable. KIDNEYS AND URETERS: The right kidney is malrotated with no radiopaque calculi or hydronephrosis seen. The left kidney is normal size, shape and position. No radiopaque calculi seen. There is mild prominent left kidney pelvis and ureter. BLADDER: Unremarkable. GASTROINTESTINAL TRACT: There is scattered stool and gas seen throughout the colon without any significant distention. The small bowel loops are normal caliber. The appendix is normal caliber. ABDOMINAL WALL: No significant hernia is appreciated. LYMPH NODES: There are small shotty lymph nodes seen in the retroperitoneum. VASCULAR: There is atherosclerotic calcification of abdominal aorta and common iliac vessels without aneurysm. PELVIC VISCERA: No free air or free fluid seen. The prostate gland is normal size. No abnormal lymph nodes. OSSEOUS STRUCTURES: There are degenerative disc changes L3-L4, L4-L5 and L5-S1 disc levels with vacuum disc phenomena and mild posterior spondylosis. No lytic or sclerotic process seen. CT/CT abdomen pelvis wo con IMPRESSION: Mild hepatomegaly without any focal lesion. [id number] constipation without obstruction. Malrotated right kidney without hydronephrosis or radiopaque calculi. Prominent left kidney pelvis but no radiopaque calculi seen.
[2020-05-14 10:34] VITALS: BP 144/78; PULSE 86; RESP 18; TEMP 36; O2SAT 100; BMI 27.6
[2020-05-14 12:00] VITALS: BP 173/92; PULSE 85; RESP 18; TEMP 36.6; O2SAT 100
--- NOTE | 2020-05-14 12:32 | PC.NURSE ---
PT AMBULATORY INTO ROOM 20. SKIN WARM AND DRY. RESP UNLABORED. DENIES N/V PRESENTLY. C/O ABD PAIN AND RIGHT SIDED FLANK PAIN. AWAITING PRIMARY EVAL
--- NOTE | 2020-05-14 13:04 | ED.ABDPAIN ---
HPI - Abdominal Pain General Chief Complaint: Abdominal Pain Stated Complaint: abd pain Time Seen by Provider: 05/14/20 13:00 Source: patient Mode of arrival: ambulatory Limitations: language barrier History of Present Illness HPI narrative: Patient is a 69-year-old male with a past medical history HTN, DM2, HLD and BPH c/o 2 days of left-sided back pain that radiates to the front of his abdomen as well as generalized abdominal pain. He states his last bowel movement was 2 days ago and it was normal. He states he has been eating and drinking normally since then. Denies any urinary symptoms, denies fevers, nausea vomiting or diarrhea. Denies ever having a pain like this before but does state he sometimes has constipation but he can usually manage it at home. He states he did not try to take any medications to help the pain at home, he decided to just come to the emergency department. Patient does have a 20 pack-year history but denies any illicit drug use or alcohol use regularly. Lidia Simon PA-C interpreted Related Data Home Medications Medication Instructions Recorded Confirmed amlodipine 5 mg tablet 5 mg PO DAILY 02/19/20 04/08/20 aspirin 81 mg tablet,delayed 81 mg PO DAILY 02/19/20 04/08/20 release atorvastatin 40 mg tablet 40 mg PO DAILY 02/19/20 04/08/20 cholecalciferol (vitamin D3) 50 50 mcg PO DAILY 02/19/20 04/08/20 mcg (2,000 unit) capsule hydrochlorothiazide 25 mg tablet 25 mg PO DAILY 02/19/20 04/08/20 ibuprofen 600 mg tablet 600 mg PO TID PRN 02/19/20 04/08/20 loratadine 10 mg tablet 10 mg PO DAILY 02/19/20 04/08/20 losartan 100 mg tablet 100 mg PO DAILY 02/19/20 04/08/20 mirtazapine 15 mg disintegrating 15 mg PO BEDTIME 02/19/20 04/08/20 tablet potassium chloride 1 cap PO DAILY 02/28/20 04/08/20 metformin 500 mg tablet 1,000 mg PO BID tab 04/08/20 04/08/20 Previous Rx's Medication Instructions Recorded polyethylene glycol 3350 [Miralax] 17 g PO DAILY PRN #510 g 03/07/20 tamsulosin [Flomax] 0.4 mg PO DAILY #30 cap 03/07/20 tramadol 50 mg PO Q8H PRN #20 tab 03/07/20 finasteride 5 mg tablet 5 mg PO DAILY 90 Days #90 tab 03/17/20 terazosin 5 mg capsule 5 mg PO BEDTIME #90 cap 03/17/20 ciprofloxacin HCl [Cipro] 500 mg PO Q12H 3 Days #6 tab 03/19/20 fluconazole [Diflucan] 150 mg PO Q3D #2 tab 03/21/20 hydrocortisone 1 appl TOPICAL BID PRN #28.35 g 03/21/20 miconazole nitrate 1 appl TOPICAL BID 21 Days #71 g 03/21/20 dicyclomine 20 mg PO TID PRN #30 tab 03/28/20 polyethylene glycol 3350 [Miralax] 17 g PO DAILY PRN #119 g 03/28/20 sennosides [senna] 8.6 mg PO BEDTIME PRN #30 cap 03/28/20 tamsulosin 0.4 mg capsule 0.4 mg PO BEDTIME 90 Days #90 cap 03/30/20 dulaglutide 0.75 mg/0.5 mL 0.75 mg SUBCUT QWEEK 30 Days #2.5 04/11/20 subcutaneous pen injector ml lorazepam [Ativan] 0.5 mg PO TID PRN #10 tab 04/15/20 magnesium citrate 150 ml PO DAILY PRN #296 ml 05/14/20 mineral oil [Fleet Mineral Oil] 118 ml UT DAILY PRN #135 ml 05/14/20 Allergies Allergy/AdvReac Type Severity Reaction Status Date / Time Penicillins Allergy Mild RASH Verified 03/30/20 10:02 penicillin V Allergy Unknown rash Verified 03/30/20 10:02 acetaminophen [From Percocet] Allergy Anxiety Verified 03/30/20 10:02 oxycodone [From Percocet] Allergy Anxiety Verified 03/30/20 10:02 Review of Systems Review of Systems Yes all other systems are reviewed and are negative Physical Exam Vital Signs: Vital Signs: Last Vital Signs Temp 97.9 F 05/14/20 16:00 Pulse 76 05/14/20 16:00 Resp 16 05/14/20 16:00 BP 159/87 H 05/14/20 16:00 Pulse Ox 99 05/14/20 16:00 Body Mass Index 27.6 Const: General: cooperative, healthy appearing, comfortable, no acute distress and well developed Orientation/consciousness: patient oriented x3 Limitations: language barrier (Sami-speaking) HENMT: Head: Yes normal to inspection Eyes: General: appearance normal, both eyes and all related structures Neck: Neck: Yes normal visual inspection and Yes full ROM Resp: Effort & Inspection: normal respiratory effort and able to speak in complete sentences Auscultation: clear to auscultation bilaterally Cardio: Rate: regular rate Rhythm: regular rhythm Heart sounds: normal S1 and S2 GI: Inspection: Yes normal to inspection Palpation (GI): Soft to palpation and nontender Back/Spine/Pelvis: Back: no CVA tenderness Skin: General skin exam: no rashes or lesions noted Neuro: General: patient oriented x3 Extrem: General: Yes normal to inspection Course Course Course Narrative: Patient is a 69-year-old male with a past medical history of HTN, type 2 diabetes, BPH and HLD complaining of 2 days of abdominal pain that starts in his left mid back and radiates around the front and then is diffuse throughout his abdomen. He denies nausea vomiting diarrhea fevers or history of similar pain. Denies a history of kidney stones. Blood pressure slightly elevated at 173/90, other vital signs are stable. Physical exam revealed negative CVA and nontender abdomen. Will get labs and a CT scan with contrast a patient has a 20 pack-year smoking history, to rule out AAA then reassess. Most likely constipation or kidney stone. Reevaluation(s) Reevaluation #1: Patient complaining of anxiety to nurse, will give 0.5 mg lorazepam as patient takes his medication at home. Labs pending. Time: 14:03 MDM - Abdominal Pain Differential Diagnosis Differential diagnosis: Likely aortic dissection, calculus of kidney, constipation, diverticulitis and gastritis Lab Data Result diagrams: 05/14/20 13:25 05/14/20 13:25 Labs: Lab Results 05/14/20 05/14/20 05/14/20 Range/Units 13:25 13:25 13:25 WBC 6.8 (4.8-10.8) X10*3/uL RBC 4.39 L (4.60-5.80) X10*6/uL Hgb 13.5 L (14.0-18.0) g/dl Hct 39.4 L (42-52) % MCV 89.7 (80-98) fL MCH 30.8 (27.0-33.0) pg MCHC 34.3 (31.0-36.0) g/dl RDW 12.5 (11.0-16.0) % Plt Count 277 (160-400) X10*3/uL MPV 9.4 (9.4-12.4) fL Immature Gran % (Auto) 0.1 (0.0-0.4) % Neut % (Auto) 79.1 H (45-73) % Lymph % (Auto) 13.8 L (20-40) % Anson % (Auto) 5.4 (2-11) % Eos % (Auto) 1.3 (0-4) % Baso % (Auto) 0.3 (0-2) % Lymph # (Auto) 0.9 L (1.2-4.9) X10*3/uL Anson # (Auto) 0.4 (0.1-1.2) X10*3/uL Eos # (Auto) 0.1 (0.0-0.4) X10*3/uL Baso # (Auto) 0.0 (0.0-0.2) X10*3/uL Abs Immat Gran (auto) 0.01 (0.00-0.03) X10*3/uL Absolute Neuts (auto) 5.4 (2.0-8.3) X10*3/uL Absolute Nucleated RBC 0.000 (0.0-0.012) X10*3/uL Nucleated RBC % (auto) 0.0 (0.0-0.2) /100WBC Hold Blue Top SEE NOTE Sodium 134 L (135-145) mmol/L Potassium 3.8 (3.3-5.1) mmol/L Chloride 101 (96-108) mmol/L Carbon Dioxide 25 (22-29) mmol/L Anion Gap 12 (12-20) BUN 5 L (9-16) mg/dL Creatinine 0.79 (0.5-1.4) mg/dL Estim Creat Clear Calc 86.5 Estimated GFR > 60 Random Glucose 260 H (60-115) mg/dL Calcium 9.2 (8.4-10.2) mg/dL Phosphorus 3.6 (2.7-4.5) mg/dL Magnesium 1.9 (1.6-2.6) mg/dL Total Bilirubin 0.3 (0.0-1.0) mg/dL Direct Bilirubin 0.2 (0.0-0.5) mg/dL AST 15 (5-37) U/L ALT 26 (0-40) U/L Alkaline Phosphatase 68 (39-117) U/L Total Protein 6.6 (6.5-8.0) g/dL Albumin 4.3 (3.5-5.0) g/dL Lipase 20 (8-78) U/L Urine Color Urine Appearance Urine pH (5.0-8.0) Ur Specific [place] (1.005-1.025) Urine Protein (NEG-TRACE) MG/DL Urine Glucose (UA) (NEG) MG/DL Urine Ketones (NEG) MG/DL Urine Blood (NEG) Urine Nitrite (NEG) Ur Leukocyte Esterase (NEG) Urine RBC (0) /HPF Urine WBC (0-4) /HPF Ur Squamous Epith Cells /LPF Urine Bacteria /LPF 05/14/20 Range/Units 13:27 WBC (4.8-10.8) X10*3/uL RBC (4.60-5.80) X10*6/uL Hgb (14.0-18.0) g/dl Hct (42-52) % MCV (80-98) fL MCH (27.0-33.0) pg MCHC (31.0-36.0) g/dl RDW (11.0-16.0) % Plt Count (160-400) X10*3/uL MPV (9.4-12.4) fL Immature Gran % (Auto) (0.0-0.4) % Neut % (Auto) (45-73) % Lymph % (Auto) (20-40) % Anson % (Auto) (2-11) % Eos % (Auto) (0-4) % Baso % (Auto) (0-2) % Lymph # (Auto) (1.2-4.9) X10*3/uL Anson # (Auto) (0.1-1.2) X10*3/uL Eos # (Auto) (0.0-0.4) X10*3/uL Baso # (Auto) (0.0-0.2) X10*3/uL Abs Immat Gran (auto) (0.00-0.03) X10*3/uL Absolute Neuts (auto) (2.0-8.3) X10*3/uL Absolute Nucleated RBC (0.0-0.012) X10*3/uL Nucleated RBC % (auto) (0.0-0.2) /100WBC Hold Blue Top Sodium (135-145) mmol/L Potassium (3.3-5.1) mmol/L Chloride (96-108) mmol/L Carbon Dioxide (22-29) mmol/L Anion Gap (12-20) BUN (9-16) mg/dL Creatinine (0.5-1.4) mg/dL Estim Creat Clear Calc Estimated GFR Random Glucose (60-115) mg/dL Calcium (8.4-10.2) mg/dL Phosphorus (2.7-4.5) mg/dL Magnesium (1.6-2.6) mg/dL Total Bilirubin (0.0-1.0) mg/dL Direct Bilirubin (0.0-0.5) mg/dL AST (5-37) U/L ALT (0-40) U/L Alkaline Phosphatase (39-117) U/L Total Protein (6.5-8.0) g/dL Albumin (3.5-5.0) g/dL Lipase (8-78) U/L Urine Color YELLOW Urine Appearance CLEAR Urine pH 7.0 (5.0-8.0) Ur Specific [place] 1.010 (1.005-1.025) Urine Protein NEG (NEG-TRACE) MG/DL Urine Glucose (UA) >=1000 H (NEG) MG/DL Urine Ketones NEG (NEG) MG/DL Urine Blood NEG (NEG) Urine Nitrite NEG (NEG) Ur Leukocyte Esterase NEG (NEG) Urine RBC 0 (0) /HPF Urine WBC 0 (0-4) /HPF Ur Squamous Epith Cells NONE /LPF Urine Bacteria NONE /LPF Imaging Data CT scan - abdomen: Attestation: I personally reviewed and interpreted this imaging study as follows: Radiologist's impression: [address] [id number] Scan ReportSigned Patient: Abdirizak Soto [facility]#: [id number]: 1950cct:[id number]/Sex: 69 / MADM Date: 05/14/20Loc: [email or web address] Dr: Ordering Physician: DENNY ABURTO Date of Service: 05/14/20 Procedure(s): CT abdomen pelvis wo con Accession Number(s): [id number] cc: DENNY ABURTO~ EXAMINATION: CT ABDOMEN AND PELVIS WITHOUT CONTRAST CLINICAL INFORMATION: Left-sided pain radiating to front. COMPARISON: CT abdomen and pelvis 03/28/2020. TECHNIQUE: Multidetector volumetric imaging was performed from the superior aspect of the liver through the pubic symphysis. Sagittal and coronal reformatted images were obtained on the technologist's workstation. This CT examination was performed using dose optimization techniques as appropriate, variously including the following: *Automated exposure control *Adjustment of mA and/or kV according to patient size (this includes techniques or standardized protocols for targeted exams where dose is matched to indication/reason for exam; i.e. extremities or head) *Use of iterative reconstruction technique DLP: 507 mGy-cm FINDINGS: LUNG BASES: The lung bases are clear. The heart size is normal. LIVER, GALLBLADDER, AND BILIARY TREE: The liver is enlarged in size measuring 18.5 cm. It has normal shape and attenuation. No focal hepatic lesion or biliary ductal dilatation is present. The gallbladder is unremarkable with no evidence of radiopaque gallstones, gallbladder wall thickening, or obvious pericholecystic inflammatory changes. PANCREAS: Unremarkable. SPLEEN: Unremarkable. ADRENAL GLANDS: Unremarkable. KIDNEYS AND URETERS: The right kidney is malrotated with no radiopaque calculi or hydronephrosis seen. The left kidney is normal size, shape and position. No radiopaque calculi seen. There is mild prominent left kidney pelvis and ureter. BLADDER: Unremarkable. GASTROINTESTINAL TRACT: There is scattered stool and gas seen throughout the colon without any significant distention. The small bowel loops are normal caliber. The appendix is normal caliber. ABDOMINAL WALL: No significant hernia is appreciated. LYMPH NODES: There are small shotty lymph nodes seen in the retroperitoneum. VASCULAR: There is atherosclerotic calcification of abdominal aorta and common iliac vessels without aneurysm. PELVIC VISCERA: No free air or free fluid seen. The prostate gland is normal size. No abnormal lymph nodes. OSSEOUS STRUCTURES: There are degenerative disc changes L3-L4, L4-L5 and L5-S1 disc levels with vacuum disc phenomena and mild posterior spondylosis. No lytic or sclerotic process seen. CT/CT abdomen pelvis wo con IMPRESSION: Mild hepatomegaly without any focal lesion. [id number] constipation without obstruction. Malrotated right kidney without hydronephrosis or radiopaque calculi. Prominent left kidney pelvis but no radiopaque calculi seen. Dictated By:RASHAUN HAN MDSigned By:<Electronically signed by RASHAUN HAN MD in OV>05/14/20 1615 Discharge Plan Discharge Clinical Impression: Constipation Qualifiers: Constipation type: other constipation type Qualified Code(s): K59.09 - Other constipation Patient Disposition: Home, Self-Care Instructions: Constipation (ED) Prescriptions: New magnesium citrate Solution 150 ml PO DAILY PRN (Reason: constipation) Qty: 296 RF: 0 mineral oil [Fleet Mineral Oil] Enema 118 ml UT DAILY PRN (Reason: constipation) Qty: 135 RF: 0 No Action potassium chloride 10 mEq capsule, extended release 1 cap PO DAILY RF: 0 tamsulosin [Flomax] 0.4 mg capsule 0.4 mg PO DAILY Qty: 30 RF: 0 tramadol 50 mg tablet 50 mg PO Q8H PRN (Reason: pain) Qty: 20 RF: 0 polyethylene glycol 3350 [Miralax] 17 gram/dose powder 17 g PO DAILY PRN (Reason: constipation) Qty: 510 RF: 0 ciprofloxacin HCl [Cipro] 500 mg tablet 500 mg PO Q12H 3 Days Qty: 6 RF: 0 senna 8.6 mg capsule 8.6 mg PO BEDTIME PRN (Reason: constipation) Qty: 30 RF: 0 polyethylene glycol 3350 [Miralax] 17 gram/dose powder 17 g PO DAILY PRN (Reason: constipation) Qty: 119 RF: 0 dicyclomine 20 mg tablet 20 mg PO TID PRN (Reason: abdominal discomfort) Qty: 30 RF: 0 lorazepam [Ativan] 0.5 mg tablet 0.5 mg PO TID PRN (Reason: anxiety) Qty: 10 RF: 0 miconazole nitrate 2 % ointment 1 appl topical BID 21 Days Qty: 71 RF: 0 fluconazole [Diflucan] 150 mg tablet 150 mg PO Q3D Qty: 2 RF: 0 hydrocortisone 2.5 % ointment 1 appl topical BID PRN (Reason: Balanitis) Qty: 28.35 RF: 0 amlodipine 5 mg tablet 5 mg PO DAILY RF: 0 aspirin 81 mg tablet,delayed release (DR/EC) 81 mg PO DAILY RF: 0 mirtazapine 15 mg tablet,disintegrating 15 mg PO BEDTIME RF: 0 hydrochlorothiazide 25 mg tablet 25 mg PO DAILY RF: 0 losartan 100 mg tablet 100 mg PO DAILY RF: 0 ibuprofen 600 mg tablet 600 mg PO TID PRN (Reason: moderate pain) RF: 0 loratadine 10 mg tablet 10 mg PO DAILY RF: 0 cholecalciferol (vitamin D3) 50 mcg (2,000 unit) capsule 50 mcg PO DAILY RF: 0 atorvastatin 40 mg tablet 40 mg PO DAILY RF: 0 metformin 500 mg tablet 1,000 mg PO BID RF: 0 Trulicity 0.75 mg/0.5 mL pen injector 0.75 mg subcut QWEEK 30 Days Qty: 2.5 RF: 11 terazosin 5 mg capsule 5 mg PO BEDTIME Qty: 90 RF: 0 finasteride 5 mg tablet 5 mg PO DAILY 90 Days Qty: 90 RF: 1 tamsulosin [Flomax] 0.4 mg capsule 0.4 mg PO BEDTIME 90 Days Qty: 90 RF: 1 Print Language: Sami [facility] Past Medical History Medical History Anxiety COVID-19 HLD (hyperlipidemia) HTN (hypertension) Hypertension T2DM (type 2 diabetes mellitus) Vitamin D deficiency Surgical History History of prostate surgery Hx of removal of cyst Family History Family History Father Cancer Mother Cancer Diabetes Social History Social History Housing: Apartment Alcohol intake: former Smoking Status: Former smoker Tobacco Type: Cigarette Packs Per Day: 1 Cigarettes Per Day: 20.0 Years Smoked: 20 Advance Directives: No Advance Directives Information Provided: No service: No Current occupational status: retired
[2020-05-14 13:34] LABS: MANUAL DIFF FLAG NO
[2020-05-14 13:41] LABS: Glucose Urine UA >=1000 MG/DL (NEG); Leukocyte Esterase Urine NEG (NEG); Nitrite Urine NEG (NEG); Urine Blood NEG (NEG); Urine Ketones NEG (NEG); Urine Protein NEG (NEG-TRACE)
[2020-05-14 13:42] LABS: Basophils Percent Auto 0.3 % (0-2); Eosinophils Absolute Auto 0.1 X10*3/uL (0.0-0.4); Eosinophils Percent Auto 1.3 % (0-4); Hematocrit 39.4 % (42-52); Hemoglobin 13.5 g/dl (14.0-18.0); Imm Gran Abs Auto 0.01 X10*3/uL (0.00-0.03); Imm Gran Pct Auto 0.1 % (0.0-0.4); Lymphocytes Absolute Auto 0.9 X10*3/uL (1.2-4.9); Lymphocytes Percent Auto 13.8 % (20-40); Mean Corpuscular HGB Conc 34.3 g/dl (31.0-36.0); Mean Corpuscular Hemoglobin 30.8 pg (27.0-33.0); Mean Corpuscular Volume 89.7 fL (80-98); Mean Platelet Volume 9.4 fL (9.4-12.4); Monocytes Absolute Auto 0.4 X10*3/uL (0.1-1.2); Monocytes Percent Auto 5.4 % (2-11); Neutrophils Absolute Auto 5.4 X10*3/uL (2.0-8.3); Neutrophils Percent Auto 79.1 % (45-73); Platelet Count 277 X10*3/uL (160-400); Red Blood Count 4.39 X10*6/uL (4.60-5.80); Red Cell Distribution Width 12.5 % (11.0-16.0); White Blood Count 6.8 X10*3/uL (4.8-10.8)
[2020-05-14 13:44] LABS: Appearance Urine CLEAR; Color Urine YELLOW
[2020-05-14 13:54] LABS: RBC Urine 0 /HPF (0); WBC Urine 0 /HPF (0-4)
[2020-05-14 14:00] VITALS: BP 157/91; PULSE 80; RESP 18; O2SAT 99
[2020-05-14 14:11] LABS: Alanine Aminotransferase 26 U/L (0-40); Albumin Level 4.3 g/dL (3.5-5.0); Alkaline Phosphatase 68 U/L (39-117); Anion Gap 12 (12-20); Aspartate Amino Transferase 15 U/L (5-37); Bilirubin Direct 0.2 mg/dL (0.0-0.5); Bilirubin Total 0.3 mg/dL (0.0-1.0); Blood Urea Nitrogen 5 mg/dL (9-16); Calcium 9.2 mg/dL (8.4-10.2); Carbon Dioxide 25 mmol/L (22-29); Chloride 101 mmol/L (96-108); Creatinine Clr Calc Pharmacy 86.5; Estimated Glomerular Filt Rate > 60; Glucose Random 260 mg/dL (60-115); Lipase 20 U/L (8-78); Magnesium 1.9 mg/dL (1.6-2.6); Phosphorus 3.6 mg/dL (2.7-4.5); Potassium 3.8 mmol/L (3.3-5.1); Sodium 134 mmol/L (135-145); Total Protein 6.6 g/dL (6.5-8.0)
[2020-05-14] MEDS: LORazepam 2 MG/ML VIAL 0.5 MG IVPUSH (14:28)
--- NOTE | 2020-05-14 14:30 | PC.NURSE ---
Pt c/o feeling anxious. Requesting to be medicated with something to calm his nerves. Provider made aware and patient medicated with ATivan IV
[2020-05-14 16:00] VITALS: BP 159/87; PULSE 76; RESP 16; TEMP 36.6; O2SAT 99
== END 2020-05-14 17:34 | disposition home or self-care (01) ==
PROVIDERS: Physician Assistant; Emergency Provider Emergency Medicine Emergency Medical Services; PCP Family Medicine
DX: K59.09 Other constipation (principal); F41.9 Anxiety disorder, unspecified; E11.9 Type 2 diabetes mellitus without complications; I10 Essential (primary) hypertension; Z86.16 Personal history of COVID-19
CPT/HCPCS: 36415; 74176; 80053; 80076; 81001; 82248; 83690; 83735; 84100; 85025; 96374; 99284; J2060

== ENCOUNTER 2020-05-17 10:23 | Outpatient (REF) | payer MEDICARE, SELFPAY ==
[2020-05-17 14:46] LABS: PSA,Total (Free>4and<10) 0.67 ng/mL (0.00-4.00)
== END 2020-05-17 10:24 | disposition home or self-care (01) ==
LOC: HO.10HDL 10:23
PROVIDERS: Visit Provider Urology
DX: N40.1 Benign prostatic hyperplasia with lower urinary tract symptoms (principal); R35.1 Nocturia; Z12.5 Encounter for screening for malignant neoplasm of prostate
CPT/HCPCS: 36415; 84153

== ENCOUNTER 2020-05-18 08:59 | Outpatient (REF) | payer MEDICARE, SELFPAY ==
[2020-05-18 10:45] LABS: Estimated Average Glucose 189 mg/dL; Hemoglobin A1c % 8.2 %
[2020-05-18 11:02] LABS: Alanine Aminotransferase 23 U/L (0-40); Albumin Level 4.4 g/dL (3.5-5.0); Alkaline Phosphatase 71 U/L (39-117); Anion Gap 13 (12-20); Aspartate Amino Transferase 14 U/L (5-37); Bilirubin Total 0.4 mg/dL (0.0-1.0); Blood Urea Nitrogen 4 mg/dL (9-16); Calcium 8.9 mg/dL (8.4-10.2); Carbon Dioxide 25 mmol/L (22-29); Chloride 102 mmol/L (96-108); Cholesterol 125 mg/dL; Estimated Glomerular Filt Rate > 60; Glucose Random 196 mg/dL (60-115); HDL Cholesterol 45 mg/dL; LDL Cholesterol Calculated 55 mg/dl; Potassium 3.7 mmol/L (3.3-5.1); Sodium 136 mmol/L (135-145); Total Protein 6.8 g/dL (6.5-8.0); Triglycerides 127 mg/dL
[2020-05-18 11:06] LABS: Vitamin D 25-OH Total 32.8 ng/mL (>30)
[2020-05-18 11:16] LABS: Vitamin B12 213 pg/mL (200-900)
[2020-05-18 11:33] LABS: Creatinine Urine 26.66 mg/dL; Microalbum/Creatinine Ratio Ur 22.5 ug/mg cr
[2020-05-19 05:32] LABS: LDL Cholesterol Direct 59 mg/dL (<100)
== END 2020-05-18 09:00 | disposition home or self-care (01) ==
LOC: HO.10HDL 08:59
PROVIDERS: Student in an Organized Health Care Education/Training Program; Visit Provider Internal Medicine
DX: E11.65 Type 2 diabetes mellitus with hyperglycemia (principal); E55.9 Vitamin D deficiency, unspecified
CPT/HCPCS: 36415; 80053; 80061; 82043; 82306; 82607; 83036; 83721

== ENCOUNTER → 2020-05-19 12:43 | Outpatient (BNVA) | payer MEDICARE, SELFPAY | PROVIDERS: PCP Family Medicine; Visit Provider Internal Medicine | DX: Z76.89 Persons encountering health services in other specified circumstances (principal) | CPT/HCPCS: Q3014 ==

== ENCOUNTER 2020-05-25 09:09 | Emergency (ER) | payer MEDICARE, SELFPAY ==
--- NOTE | ~2020-05-25 | XR_ITS ---
EXAMINATION: XR ABDOMEN KUB CLINICAL INDICATION: Constipation COMPARISON: CT abdomen and pelvis noncontrast 05/14/2020 TECHNIQUE: AP x2 views of the abdomen. FINDINGS: There is scattered stool in the colon greatest on the right and proximal descending colon. There is no rectal fecal impaction. No excessive amount of stool. There is no gaseous dilatation of bowel or abnormal collections of gas. No pneumatosis. The lung bases are clear. There is no vascular atherosclerotic calcifications and degenerative changes lumbosacral spine again noted. XR/XR abdomen 1V IMPRESSION: Unremarkable examination.
[2020-05-25 09:25] VITALS: BP 161/93; PULSE 88; RESP 18; TEMP 36.4; O2SAT 96; BMI 27.6
--- NOTE | 2020-05-25 09:30 | ED_ITS ---
HPI - General Adult General Chief complaint: Abdominal Pain <Elver Ayers NP - Last Filed: 05/25/20 11:23> Stated complaint: constipated,back and stomach pain,diff urinating <Elver Ayers NP - Last Filed: 05/25/20 11:23> Time Seen by Provider: 05/25/20 09:17 <Elver Ayers NP - Last Filed: 05/25/20 11:23> Source: patient <Elver Ayers NP - Last Filed: 05/25/20 11:23> Mode of arrival: ambulatory <Elver Ayers NP - Last Filed: 05/25/20 11:23> Limitations: language barrier (All interactions conducted the presence of hardness inspector) <LINDA Rodríguez Last Filed: 05/25/20 11:23> History of Present Illness HPI narrative: 69-year-old male with no known past medical history presenting complaint of constipation states he has not had a bowel movement in 2 days today having diffuse abdominal pain secondary to no bowel movement. Also reports he continues to have urinary flow problems and awaiting appointment with his urologist. He denies any dysuria hematuria. No nausea vomiting diarrhea. No fever. <Elver Ayers NP - Last Filed: 05/25/20 11:23> Onset (ago): day(s) <Elver Ayers NP - Last Filed: 05/25/20 11:23> Location: abdomen <Elver Ayers NP - Last Filed: 05/25/20 11:23> Relieving factors: none <Elver Ayers NP - Last Filed: 05/25/20 11:23> Exacerbating factors: none <Elver Ayers NP - Last Filed: 05/25/20 11:23> Related Data Home medications: Home Medications Medication Instructions Recorded Confirmed amlodipine 5 mg tablet 5 mg PO DAILY 02/19/20 05/19/20 aspirin 81 mg tablet,delayed 81 mg PO DAILY 02/19/20 05/19/20 release atorvastatin 40 mg tablet 40 mg PO DAILY 02/19/20 05/19/20 cholecalciferol (vitamin D3) 50 50 mcg PO DAILY 02/19/20 05/19/20 mcg (2,000 unit) capsule ibuprofen 600 mg tablet 600 mg PO TID PRN 02/19/20 05/19/20 losartan 100 mg tablet 100 mg PO DAILY 02/19/20 05/19/20 potassium chloride 1 cap PO DAILY 02/28/20 05/19/20 metformin 500 mg tablet 1,000 mg PO BID tab 04/08/20 05/19/20 trazodone 50 mg tablet 50 mg PO BEDTIME 05/19/20 05/19/20 docusate sodium 100 mg capsule 100 mg PO BEDTIME PRN 05/28/20 sennosides 8.6 mg tablet 17.2 mg PO DAILY 05/28/20 valacyclovir 1 gram tablet 0 mg PO 05/28/20 Previous Rx's Medication Instructions Recorded finasteride 5 mg tablet 5 mg PO DAILY 90 Days #90 tab 03/17/20 terazosin 5 mg capsule 5 mg PO BEDTIME #90 cap 03/17/20 ciprofloxacin HCl [Cipro] 500 mg PO Q12H 3 Days #6 tab 03/19/20 fluconazole [Diflucan] 150 mg PO Q3D #2 tab 03/21/20 hydrocortisone 1 appl TOPICAL BID PRN #28.35 g 03/21/20 miconazole nitrate 1 appl TOPICAL BID 21 Days #71 g 03/21/20 dicyclomine 20 mg PO TID PRN #30 tab 03/28/20 polyethylene glycol 3350 [Miralax] 17 g PO DAILY PRN #119 g 03/28/20 tamsulosin 0.4 mg capsule 0.4 mg PO BEDTIME 90 Days #90 cap 03/30/20 sitagliptin 100 mg tablet 100 mg PO DAILY 30 Days #30 tab 05/19/20 polyethylene glycol 3350 [Miralax] 17 g PO DAILY PRN #238 g 05/25/20 <Elver Ayers NP - Last Filed: 05/25/20 11:23> Allergies/adverse reactions: Allergies Allergy/AdvReac Type Severity Reaction Status Date / Time Penicillins Allergy Mild RASH Verified 05/25/20 09:28 acetaminophen [From Percocet] Allergy Unknown Anxiety Verified 05/25/20 09:28 oxycodone [From Percocet] Allergy Unknown Anxiety Verified 05/25/20 09:28 penicillin V Allergy Unknown rash Verified 05/25/20 09:28 <Elver Ayers NP - Last Filed: 05/25/20 11:23> Review of Systems Review of Systems: Constitutional: No Weight loss, No Fever, No Chills, No Night Sweats, No Fatigue, No Malaise ENT/Mouth: No Hearing loss, No Ear Pain, No Nasal Congestion, No Sinus Pain, No Hoarseness, No sore throat, No Rhinorrhea, No Swallowing Difficulty Eyes: No Eye Pain, No Swelling, No Redness, No Foreign Body, No Discharge, No Vision Changes Cardiovascular: No Chest Pain, No SOB, No Dyspnea on Exertion, No Orthopnea, No Edema, No Palpitations Respiratory: No Cough, No Sputum, No Wheezing, No Dyspnea Gastrointestinal: No Nausea, No Vomiting, No Diarrhea, + Constipation, No Hematochezia, No Melena Genitourinary:No Dysuria, No Urinary Frequency, No Hematuria, No Urinary Incontinence, No Urgency, No Flank Pain, Musculoskeletal: No joint pain, No Myalgias, No Joint Swelling Skin: No Skin Lesions, No rash Neuro: No Weakness, No Numbness, No Paresthesias, No Loss of Consciousness, No Dizziness, No Headache Psych: No Social Issues Heme/Lymph: No Bruising, No Bleeding,No Lymphadenopathy Endocrine: No Polyuria, No Polydipsia, No Temperature Intolerance <Elver Ayers NP - Last Filed: 05/25/20 11:23> Yes all other systems are reviewed and are negative <Elver Ayers NP - Last Filed: 05/25/20 11:23> [facility] Past Medical History Medical History: Medical History Anxiety COVID-19 HLD (hyperlipidemia) HTN (hypertension) Hypertension T2DM (type 2 diabetes mellitus) Vitamin D deficiency <Elver Ayers NP - Last Filed: 05/25/20 11:23> Surgical History: Surgical History History of prostate surgery Hx of removal of cyst <Elver Ayers NP - Last Filed: 05/25/20 11:23> Family History Family History: Family History Father Cancer Mother Cancer Diabetes <Elver Ayers NP - Last Filed: 05/25/20 11:23> Social History Social History: Social History Housing: Apartment Alcohol intake: former Smoking Status: Former smoker Tobacco Type: Cigarette Packs Per Day: 1 Cigarettes Per Day: 20.0 Years Smoked: 20 service: No Current occupational status: retired <Elver Ayers NP - Last Filed: 05/25/20 11:23> Physical Exam Vital Signs: Vital Signs: Last Vital Signs Temp 97.5 F 05/25/20 09:25 Pulse 88 05/25/20 09:25 Resp 18 05/25/20 09:25 BP 161/93 H 05/25/20 09:25 Pulse Ox 96 05/25/20 09:25 Body Mass Index 27.6 Reviewed <Elver Ayers NP - Last Filed: 05/25/20 11:23> Vital Signs: Last Vital Signs Temp 97.5 F 05/25/20 09:25 Pulse 88 05/25/20 09:25 Resp 18 05/25/20 09:25 BP 161/93 H 05/25/20 09:25 Pulse Ox 96 05/25/20 09:25 Body Mass Index 27.6 <Giancarlo Rosas MD - Last Filed: 05/31/20 06:46> Const: General: cooperative and healthy appearing; No acute distress or intoxicated appearing <Elver Ayers NP - Last Filed: 05/25/20 11:23> Nutritional Appearance: average body habitus <Elver Ayers NP - Last Filed: 05/25/20 11:23> Orientation/consciousness: patient oriented x3 <Elver Ayers NP - Last Filed: 05/25/20 11:23> HENMT: Head: Yes normal to inspection <Elver Ayers NP - Last Filed: 05/25/20 11:23> Ears: hearing grossly normal bilaterally <Elver Ayers NP - Last Filed: 05/25/20 11:23> Eyes: General: appearance normal, both eyes and all related structures <Elver Ayers NP - Last Filed: 05/25/20 11:23> Visual Coronel: normal visual coronel by confrontation <Elver Ayers NP - Last Filed: 05/25/20 11:23> Neck: Neck: Yes normal visual inspection, No positive Brudzinski's sign, No positive Kernig's sign and No tender <[facility], - Last Filed: 05/25/20 11:23> Thyroid: Thyroid normal <[facility] - Last Filed: 05/25/20 11:23> Chest: Chest palpation & inspection: normal inspection of the chest <[facility] - Last Filed: 05/25/20 11:23> Resp: Effort & Inspection: normal respiratory effort [facility] - Last Filed: 05/25/20 11:23> Auscultation: clear to auscultation bilaterally <[facility] - Last Filed: 05/25/20 11:23> Cardio: Jugular venous distension: no JVD <[facility] Last Filed: 05/25/20 11:23> Rhythm: regular rhythm <[facility] Last Filed: 05/25/20 11:23> Heart sounds: S1 normal heart sound present and S2 normal heart sound present <[facility] - Last Filed: 05/25/20 11:23> GI: Inspection: Yes normal to inspection <[facility] - Last Filed: 05/25/20 11:23> Percussion: Yes normal to percussion <[facility] - Last Filed: 05/25/20 11:23> Auscultation: normal bowel sounds <[facility] - Last Filed: 05/25/20 11:23> : General: Yes no CVA tenderness <[facility] - Last Filed: 05/25/20 11:23> Back/Spine/Pelvis: Back: no CVA tenderness <[facility] - Last Filed: 05/25/20 11:23> Skin: General skin exam: no rashes or lesions noted <[facility] - Last Filed: 05/25/20 11:23> Neuro: General: patient oriented x3 <[facility] - Last Filed: 05/25/20 11:23> Extrem: General: Yes normal to inspection <[facility] - Last Filed: 05/25/20 11:23> Course Course Course Narrative: More anxious given 1 mg of Ativan feels more better no abdominal pain abdominal x-ray without significant stool burden, UA negative. Post void UA less than 100 cc. Will discharge home with course of MiraLax with outpatient follow-up. <Elver Ayers NP - Last Filed: 05/25/20 11:23> I have reviewed the chart <Giancarlo Rosas MD - Last Filed: 05/31/20 06:46> Medical Decision Making MDM Narrative Medical decision making narrative: This is a primarily Urdu-speaking 69-year-old male with past medical history significant for hyperlipidemia, hypertension, type 2 diabetes as well as enlarged prostate with chronic recurrent urinary problems as well as prostate surgery who presents for complaint of abdominal pain in the setting of feeling constipated for past 1-2 days upon arrival well nontoxic appearing. Abdominal exam benign. Normoactive bowel sounds in all 4 quadrants. He also reports continued urinary problems with flow awaiting urology appointment. Will get one view abdominal x-ray and UA rule out infectious versus obstructive pathology. <Elver Ayers NP - Last Filed: 05/25/20 11:23> Lab Data Labs: Lab Results 05/25/20 Range/Units 10:11 Urine Color STRAW Urine Appearance CLEAR Urine pH 6.5 (5.0-8.0) Ur Specific [place] 1.010 (1.005-1.025) Urine Protein NEG (NEG-TRACE) MG/DL Urine Glucose (UA) NEG (NEG) MG/DL Urine Ketones NEG (NEG) MG/DL Urine Blood NEG (NEG) Urine Nitrite NEG (NEG) Ur Leukocyte Esterase NEG (NEG) Urine RBC 0 (0) /HPF Urine WBC 0 (0-4) /HPF Ur Squamous Epith Cells NONE /LPF Urine Bacteria NONE /LPF <Elver Ayers NP - Last Filed: 05/25/20 11:23> Lab Results 05/25/20 Range/Units 10:11 Urine Color STRAW Urine Appearance CLEAR Urine pH 6.5 (5.0-8.0) Ur Specific [place] 1.010 (1.005-1.025) Urine Protein NEG (NEG-TRACE) MG/DL Urine Glucose (UA) NEG (NEG) MG/DL Urine Ketones NEG (NEG) MG/DL Urine Blood NEG (NEG) Urine Nitrite NEG (NEG) Ur Leukocyte Esterase NEG (NEG) Urine RBC 0 (0) /HPF Urine WBC 0 (0-4) /HPF Ur Squamous Epith Cells NONE /LPF Urine Bacteria NONE /LPF <Giancarlo Rosas MD - Last Filed: 05/31/20 06:46> Discharge Plan Discharge Clinical Impression: Constipation <Elver Ayers NP - Last Filed: 05/25/20 11:23> Patient Disposition: Home, Self-Care <Elver Ayers NP - Last Filed: 05/25/20 11:23> Instructions: Constipation (ED) <Elver Ayers NP - Last Filed: 05/25/20 11:23> Additional Instructions: Drink plenty fluids Take medication as prescribed Follow-up with her doctor as planned Return if any concerns or worsening symptoms Thank you <Elver Ayers NP - Last Filed: 05/25/20 11:23> Prescriptions: New polyethylene glycol 3350 [Miralax] 17 gram/dose powder 17 g PO DAILY PRN (Reason: constipation) Qty: 238 RF: 0 No Action potassium chloride 10 mEq capsule, extended release 1 cap PO DAILY RF: 0 ciprofloxacin HCl [Cipro] 500 mg tablet 500 mg PO Q12H 3 Days Qty: 6 RF: 0 polyethylene glycol 3350 [Miralax] 17 gram/dose powder 17 g PO DAILY PRN (Reason: constipation) Qty: 119 RF: 0 dicyclomine 20 mg tablet 20 mg PO TID PRN (Reason: abdominal discomfort) Qty: 30 RF: 0 miconazole nitrate 2 % ointment 1 appl topical BID 21 Days Qty: 71 RF: 0 fluconazole [Diflucan] 150 mg tablet 150 mg PO Q3D Qty: 2 RF: 0 hydrocortisone 2.5 % ointment 1 appl topical BID PRN (Reason: Balanitis) Qty: 28.35 RF: 0 amlodipine 5 mg tablet 5 mg PO DAILY RF: 0 aspirin 81 mg tablet,delayed release (DR/EC) 81 mg PO DAILY RF: 0 losartan 100 mg tablet 100 mg PO DAILY RF: 0 ibuprofen 600 mg tablet 600 mg PO TID PRN (Reason: moderate pain) RF: 0 cholecalciferol (vitamin D3) 50 mcg (2,000 unit) capsule 50 mcg PO DAILY RF: 0 atorvastatin 40 mg tablet 40 mg PO DAILY RF: 0 metformin 500 mg tablet 1,000 mg PO BID RF: 0 trazodone 50 mg tablet 50 mg PO BEDTIME RF: 0 Januvia 100 mg tablet 100 mg PO DAILY 30 Days Qty: 30 RF: 11 terazosin 5 mg capsule 5 mg PO BEDTIME Qty: 90 RF: 0 finasteride 5 mg tablet 5 mg PO DAILY 90 Days Qty: 90 RF: 1 tamsulosin [Flomax] 0.4 mg capsule 0.4 mg PO BEDTIME 90 Days Qty: 90 RF: 1 <Elver Ayers NP - Last Filed: 05/25/20 11:23> Referrals: Lidia Mendoza MD [Primary Care Provider] - 1 week <Elver Ayers NP - Last Filed: 05/25/20 11:23> Interventions: ED Discharge Assessment Last Done: 05/25/20 11:09 <Elver Ayers NP - Last Filed: 05/25/20 11:23> Discharge Date/Time: 05/25/20 11:09 <Elver Ayers NP - Last Filed: 05/25/20 11:23>
[2020-05-25] MEDS: LORazepam 1 MG TABLET PO (10:08)
[2020-05-25 10:21] LABS: Glucose Urine UA NEG (NEG); Leukocyte Esterase Urine NEG (NEG); Nitrite Urine NEG (NEG); PH 6.5 (5.0-8.0); Urine Blood NEG (NEG); Urine Ketones NEG (NEG); Urine Protein NEG (NEG-TRACE)
[2020-05-25 10:33] LABS: Appearance Urine CLEAR; Color Urine STRAW
[2020-05-25 10:43] LABS: RBC Urine 0 /HPF (0); WBC Urine 0 /HPF (0-4)
--- NOTE | 2020-05-25 10:55 | PC.NURSE ---
DURING TRIAGE PT WAS VERY NERVOUS/ANXIOUS AND PACING IN ROOM. PT WAS MEDICATED WITH ATIVAN PER EMAR AND NOW APPEARS CALM AND AWAITING DISPOSITION AND RE EVAL. NO N/V/D, NO GUARDING NOTED.
== END 2020-05-25 11:09 | disposition home or self-care (01) ==
PROVIDERS: Nurse Practitioner Primary Care; Emergency Provider Emergency Medicine; PCP Family Medicine
DX: K59.00 Constipation, unspecified (principal); I10 Essential (primary) hypertension; E11.9 Type 2 diabetes mellitus without complications; Z86.16 Personal history of COVID-19
CPT/HCPCS: 74018; 81001; 99283; 99284

== ENCOUNTER → 2020-05-28 13:32 | Outpatient (BNVA) | payer MEDICARE, SELFPAY | PROVIDERS: PCP Family Medicine; Visit Provider Urology | DX: R33.9 Retention of urine, unspecified (principal); Z13.9 Encounter for screening, unspecified; N40.1 Benign prostatic hyperplasia with lower urinary tract symptoms; R35.1 Nocturia | CPT/HCPCS: 52000; 81002; 99212 ==

== ENCOUNTER 2020-06-12 05:11 | Emergency (ER) | payer MEDICARE, SELFPAY ==
[2020-06-12 05:19] VITALS: BP 158/90; PULSE 74; RESP 15; TEMP 36.6; O2SAT 100; BMI 27.4
--- NOTE | 2020-06-12 05:44 | ED.GENADULT ---
HPI - General Adult General Chief complaint: General Medical Stated complaint: ?Nasal infection Time Seen by Provider: 06/12/20 05:21 Source: patient Mode of arrival: ambulatory Limitations: language barrier (Slovak speaking only, production superintendent hydro used to obtain information) History of Present Illness HPI narrative: 69-year-old male who presents emergency department for evaluation of possible nasal polyps. The patient states that over the past 2 weeks he noted some small balls in his nose. He states that they were slightly painful. He denied fever, chills, rhinorrhea, headache, nausea, vomiting, facial swelling or facial pain. He states that he has seen by his PCP and given a cream to put in his nose. He states that he has use this cream and he believes that he is not any better. The patient was referred to a specialist but he states that he could not see the specialist since the appointment was on the same day as is COVID-19 vaccine. He states that the appointment is rescheduled for 1 week from now. Related Data Home Medications Medication Instructions Recorded Confirmed amlodipine 5 mg tablet 5 mg PO DAILY 02/19/20 05/19/20 aspirin 81 mg tablet,delayed 81 mg PO DAILY 02/19/20 05/19/20 release atorvastatin 40 mg tablet 40 mg PO DAILY 02/19/20 05/19/20 cholecalciferol (vitamin D3) 50 50 mcg PO DAILY 02/19/20 05/19/20 mcg (2,000 unit) capsule ibuprofen 600 mg tablet 600 mg PO TID PRN 02/19/20 05/19/20 losartan 100 mg tablet 100 mg PO DAILY 02/19/20 05/19/20 potassium chloride 1 cap PO DAILY 02/28/20 05/19/20 metformin 500 mg tablet 1,000 mg PO BID tab 04/08/20 05/19/20 trazodone 50 mg tablet 50 mg PO BEDTIME 05/19/20 05/19/20 docusate sodium 100 mg capsule 100 mg PO BEDTIME PRN 05/28/20 sennosides 8.6 mg tablet 17.2 mg PO DAILY 05/28/20 valacyclovir 1 gram tablet 0 mg PO 05/28/20 Previous Rx's Medication Instructions Recorded finasteride 5 mg tablet 5 mg PO DAILY 90 Days #90 tab 03/17/20 ciprofloxacin HCl [Cipro] 500 mg PO Q12H 3 Days #6 tab 03/19/20 fluconazole [Diflucan] 150 mg PO Q3D #2 tab 03/21/20 hydrocortisone 1 appl TOPICAL BID PRN #28.35 g 03/21/20 miconazole nitrate 1 appl TOPICAL BID 21 Days #71 g 03/21/20 dicyclomine 20 mg PO TID PRN #30 tab 03/28/20 polyethylene glycol 3350 [Miralax] 17 g PO DAILY PRN #119 g 03/28/20 tamsulosin 0.4 mg capsule 0.4 mg PO BEDTIME 90 Days #90 cap 03/30/20 sitagliptin 100 mg tablet 100 mg PO DAILY 30 Days #30 tab 05/19/20 polyethylene glycol 3350 [Miralax] 17 g PO DAILY PRN #238 g 05/25/20 terazosin 5 mg capsule 5 mg PO BEDTIME #90 cap 06/07/20 Allergies Allergy/AdvReac Type Severity Reaction Status Date / Time Penicillins Allergy Mild RASH Verified 05/25/20 09:28 acetaminophen [From Percocet] Allergy Unknown Anxiety Verified 05/25/20 09:28 oxycodone [From Percocet] Allergy Unknown Anxiety Verified 05/25/20 09:28 penicillin V Allergy Unknown rash Verified 05/25/20 09:28 Review of Systems Review of Systems: Yes all other systems are reviewed and are negative [facility] Past Medical History [facility] Narrative: The patient states that he is a former smoker, he quit 10 years prior, he does not know how long he smokes cigarettes for. He denies alcohol use. He denies drug use. He is and lives with his . Medical History Anxiety COVID-19 HLD (hyperlipidemia) HTN (hypertension) Hypertension T2DM (type 2 diabetes mellitus) Vitamin D deficiency Surgical History History of prostate surgery Hx of removal of cyst Family History Family History Father Cancer Mother Cancer Diabetes Social History Social History Housing: Apartment Alcohol intake: former Smoking Status: Never smoker Tobacco Type: Cigarette Packs Per Day: 1 Cigarettes Per Day: 20.0 Years Smoked: 20 Use of substances other than those prescribed or required for medical reasons: No Advance Directives: No Advance Directives Information Provided: No service: No Current occupational status: retired Physical Exam Vital Signs: Vital Signs: Last Vital Signs Temp 97.9 F 06/12/20 05:19 Pulse 74 06/12/20 05:19 Resp 15 06/12/20 05:19 BP 158/90 H 06/12/20 05:19 Pulse Ox 100 06/12/20 05:19 Body Mass Index 27.4 Const: General: cooperative and healthy appearing; No in distress Nutritional Appearance: average body habitus Orientation/consciousness: oriented to person and oriented to place HENMT: Head: Yes normal to inspection and Yes No palpable skull fracture present Ears: hearing grossly normal bilaterally General nose exam: Normal external nose present and Nasal polyp present bilateral (Two small white areas noted in each naris on the nasal septum) Face and sinus: Yes normal facial exam Mouth: Normal oral and palatal mucosa present Throat: Yes posterior oropharynx normal Eyes: General: appearance normal, both eyes and all related structures Pupils: Equal, round and reactive pupils present Neuro: General: oriented to person and oriented to place Cranial nerves: Yes CN's II-XII intact bilaterally and Yes Equal, round and reactive pupils present Psych: Appearance: grossly normal Mental Status: mental status grossly normal Course Course Course Narrative: 69-year-old male who presents emergency department for evaluation of bilateral the nasal ?balls ?. The patient does not have any significant findings but he may have some very small bilateral nasal polyps. I did discuss this with him. He was advised to apply bacitracin 3 times a day to his anterior nare's and to follow-up with his specialist as instructed by his doctor. Discharge Plan Discharge Clinical Impression: Nasal polyp Patient Disposition: Home, Self-Care Instructions: Nasal Polyps (ED) Additional Instructions: Your examination revealed very small white areas on the inside of your nose which may be nasal polyps. These do not appear to be infected. Use Vaseline 3 times a day for the next week to keep your nasal passage moist. Follow-up with the specialist that your doctor referred you to. Return to emergency department if you develop fever, facial swelling or facial pain or any new symptoms that are concerning to you. Prescriptions: No Action terazosin 5 mg capsule 5 mg PO BEDTIME Qty: 90 RF: 2 potassium chloride 10 mEq capsule, extended release 1 cap PO DAILY RF: 0 ciprofloxacin HCl [Cipro] 500 mg tablet 500 mg PO Q12H 3 Days Qty: 6 RF: 0 polyethylene glycol 3350 [Miralax] 17 gram/dose powder 17 g PO DAILY PRN (Reason: constipation) Qty: 119 RF: 0 dicyclomine 20 mg tablet 20 mg PO TID PRN (Reason: abdominal discomfort) Qty: 30 RF: 0 polyethylene glycol 3350 [Miralax] 17 gram/dose powder 17 g PO DAILY PRN (Reason: constipation) Qty: 238 RF: 0 miconazole nitrate 2 % ointment 1 appl topical BID 21 Days Qty: 71 RF: 0 fluconazole [Diflucan] 150 mg tablet 150 mg PO Q3D Qty: 2 RF: 0 hydrocortisone 2.5 % ointment 1 appl topical BID PRN (Reason: Balanitis) Qty: 28.35 RF: 0 amlodipine 5 mg tablet 5 mg PO DAILY RF: 0 aspirin 81 mg tablet,delayed release (DR/EC) 81 mg PO DAILY RF: 0 losartan 100 mg tablet 100 mg PO DAILY RF: 0 ibuprofen 600 mg tablet 600 mg PO TID PRN (Reason: moderate pain) RF: 0 cholecalciferol (vitamin D3) 50 mcg (2,000 unit) capsule 50 mcg PO DAILY RF: 0 atorvastatin 40 mg tablet 40 mg PO DAILY RF: 0 metformin 500 mg tablet 1,000 mg PO BID RF: 0 trazodone 50 mg tablet 50 mg PO BEDTIME RF: 0 Januvia 100 mg tablet 100 mg PO DAILY 30 Days Qty: 30 RF: 11 finasteride 5 mg tablet 5 mg PO DAILY 90 Days Qty: 90 RF: 1 tamsulosin [Flomax] 0.4 mg capsule 0.4 mg PO BEDTIME 90 Days Qty: 90 RF: 1
== END 2020-06-12 05:55 | disposition home or self-care (01) ==
PROVIDERS: Emergency Provider Emergency Medicine Emergency Medical Services; PCP Family Medicine
DX: J33.9 Nasal polyp, unspecified (principal); I10 Essential (primary) hypertension; E11.9 Type 2 diabetes mellitus without complications; E78.5 Hyperlipidemia, unspecified; F17.210 Nicotine dependence, cigarettes, uncomplicated; Z86.16 Personal history of COVID-19; Z79.899 Other long term (current) drug therapy; Z79.82 Long term (current) use of aspirin; Z79.84 Long term (current) use of oral hypoglycemic drugs
CPT/HCPCS: 99282; 99284

== ENCOUNTER → 2020-07-21 12:11 | Outpatient (BNVA) | payer MEDICARE, SELFPAY | PROVIDERS: PCP Family Medicine; Visit Provider Internal Medicine | DX: E11.65 Type 2 diabetes mellitus with hyperglycemia (principal); E78.5 Hyperlipidemia, unspecified; I10 Essential (primary) hypertension; R21 Rash and other nonspecific skin eruption | CPT/HCPCS: 82947; 99212 ==

== ENCOUNTER → 2020-10-20 12:28 | Outpatient (BNVA) | payer MEDICARE, SELFPAY | PROVIDERS: PCP Family Medicine; Visit Provider Internal Medicine | DX: E11.65 Type 2 diabetes mellitus with hyperglycemia (principal); E78.5 Hyperlipidemia, unspecified; I10 Essential (primary) hypertension | CPT/HCPCS: 82947; 83036; 99212 ==

== ENCOUNTER → 2020-11-26 14:30 | Outpatient (BNVA) | payer MEDICARE, SELFPAY | PROVIDERS: PCP Family Medicine; Visit Provider Urology | DX: N40.1 Benign prostatic hyperplasia with lower urinary tract symptoms (principal); R35.1 Nocturia; R33.9 Retention of urine, unspecified | CPT/HCPCS: 51798; 99212 ==

== ENCOUNTER → 2021-05-31 14:13 | Outpatient (BNVA) | payer MEDICARE, SELFPAY | PROVIDERS: PCP Family Medicine; Visit Provider Urology | DX: N40.1 Benign prostatic hyperplasia with lower urinary tract symptoms (principal); R35.1 Nocturia; R33.9 Retention of urine, unspecified | CPT/HCPCS: 51798; 99212 ==

== ENCOUNTER 2021-11-30 07:48 | Outpatient (REF) | payer OTHER, SELFPAY ==
[2021-11-30 11:28] LABS: Prostate Specific Antigen 0.45 ng/mL (<0.05-4.0)
== END 2021-11-30 07:49 | disposition home or self-care (01) ==
LOC: HO.10HDL 07:48
PROVIDERS: Visit Provider Urology
DX: Z12.5 Encounter for screening for malignant neoplasm of prostate (principal); N40.1 Benign prostatic hyperplasia with lower urinary tract symptoms; R35.1 Nocturia
CPT/HCPCS: 36415; 84153

== ENCOUNTER → 2021-12-06 11:04 | Outpatient (BNVA) | payer OTHER, SELFPAY | PROVIDERS: PCP Family Medicine; Visit Provider Urology | DX: N40.1 Benign prostatic hyperplasia with lower urinary tract symptoms (principal); R33.9 Retention of urine, unspecified; R35.1 Nocturia; E11.9 Type 2 diabetes mellitus without complications; Z87.440 Personal history of urinary (tract) infections | CPT/HCPCS: 51798; 99212 ==

== ENCOUNTER 2022-05-17 08:37 | Day surgery (SDC) | payer OTHER, SELFPAY ==
[2022-05-17 06:48] VITALS: BMI 29.7
[2022-05-17 09:00] VITALS: BP 178/93; PULSE 83; RESP 18; TEMP 36.6; O2SAT 95
[2022-05-17 09:13] LABS: Glucose, Whole Blood 153 mg/dL (60-115)
[2022-05-17] MEDS: Lactated Ringers 1,000 ML 50 ML IVCONT (09:29)
--- NOTE | 2022-05-17 10:35 | HO.ANESPROP2 ---
HPI - Anesthesia Eval Consult details Narrative: colonoscopy PMFSH Active Problems Active Problems: All Active Problems (Updated 05/31/21 @ 11:34 by Abdirizak Ricketts) Rash (Acute) Vitamin D deficiency (Acute) HTN (hypertension) (Acute) Hypertension (Acute) T2DM (type 2 diabetes mellitus) (Acute) UTI (urinary tract infection), bacterial (Acute) BPH associated with nocturia (Acute) COVID-19 (Acute) Urinary retention with incomplete bladder emptying (Acute) HLD (hyperlipidemia) (Acute) Past Medical History Medical History Anxiety Bladder neck contracture COVID-19 Erectile dysfunction HLD (hyperlipidemia) HTN (hypertension) Hypertension Non-healing surgical wound Rash T2DM (type 2 diabetes mellitus) Vitamin D deficiency Family History Family History Father Cancer Mother Cancer Diabetes Family history of problems with anesthesia: No Surgical History Surgical History History of prostate surgery Hx of removal of cyst History of Problems with Anesthesia: No Social History Social History Housing: Apartment Alcohol intake: former Patient Tobacco Use Status: Former Tobacco user Cigarette Packs Per Day: 1 Cigarettes Per Day: 20.0 Years Smoked: 20 Are you DNR?: No Advance Directives: No Advance Directives Information Provided: Yes Recently lost weight without trying: No service: No Current occupational status: retired Meds Allergies Allergy/AdvReac Type Severity Reaction Status Date / Time Penicillins Allergy Mild RASH Verified 12/05/21 15:10 acetaminophen [From Percocet] Allergy Unknown Anxiety Verified 12/05/21 15:10 oxycodone [From Percocet] Allergy Unknown Anxiety Verified 12/05/21 15:10 penicillin V Allergy Unknown rash Verified 12/05/21 15:10 Active Medications: Current Medications Lactated Ringer's (Lr) 1,000 mls @ 50 mls/hr IVCONT .Q20H ALONZO Last Admin: 05/17/22 09:29 Dose: 50 mls/hr Sodium Biphosphate/Sodium Phosphate (Sodium Phosphate,[place]-Dibasic 133 Ml Enema) 133 ml AR ONCE PRN PRN Reason: Poor Colonoscopy Prep Results Home Medications Medication Instructions Recorded Confirmed Last Taken Type amlodipine 5 mg tablet 5 mg PO DAILY 02/19/20 10/20/20 05/17/22 History aspirin 81 mg tablet,delayed 81 mg PO DAILY 02/19/20 10/20/20 05/15/22 History release atorvastatin 40 mg tablet 40 mg PO DAILY 02/19/20 10/20/20 02/28/20 History ibuprofen 600 mg tablet 600 mg PO TID PRN moderate pain 02/19/20 10/20/20 05/15/22 History losartan 100 mg tablet 100 mg PO DAILY 02/19/20 10/20/20 02/28/20 History metformin 500 mg tablet 1,000 mg PO BID 04/08/20 10/20/20 Unknown History trazodone 50 mg tablet 50 mg PO BEDTIME 05/19/20 10/20/20 Unknown History docusate sodium 100 mg capsule 100 mg PO BEDTIME PRN constipation 05/28/20 10/20/20 Unknown History lancets 28 gauge #100 ea 07/21/20 10/20/20 Unknown History loratadine 10 mg tablet 10 mg PO DAILY 07/21/20 10/20/20 Unknown History sertraline 25 mg tablet 25 mg PO DAILY 07/21/20 10/20/20 Unknown History metformin 1,000 mg tablet 1,000 mg PO DAILY 05/31/21 Unknown History Exam Exam Date and Time: May 17, 2022 1035 Height,Weight and Vital Signs: Height 5 ft 7 in Weight 86.183 kg Last Vital Signs Temp 98 F 05/17/22 09:00 Pulse 83 05/17/22 09:00 Resp 18 05/17/22 09:00 BP 178/93 H 05/17/22 09:00 Pulse Ox 95 05/17/22 09:00 O2 Del Method 05/17/22 09:00 Pertinent Lab Results Pertinent Lab Results: Laboratory Tests 05/17/22 09:04 POC Glucose 153 H Airway Mallampati Class: II TM Dist: <=3cm Neck ROM: Full Denture: Upper and Lower Heart: ok Lungs: ok Assessment and Plan Assessment Anesthesia Assessment: Anesthesia Plan Discussed and Chart Reviewed Final Anesthetic Review Family History of Problems with Anesthesia: No History of Problems with Anesthesia: No NPO: Yes ASA Class: II Final Preanesthetic Review: No Changes in Pt Med Stat, Meds/Allgs Chart Reviewed, Consent Obtained/Reviewed and Anes Risks/Benef Reviewed Patient Risk: Low Procedure Risk: Low Anesthetic Plan Anesthetic Plan: MAC: and Agree w/ Assess. and Plan Disposition: Standard PACU
--- NOTE | 2022-05-17 11:35 | PM.OP ---
Brief Operative Note Date of Service: 05/17/22 Pre-op diagnosis: Heme + stool Post-op diagnosis: other (Colon polyp, Colon AVM's) Procedure: Colonoscopy to the cecum and TI with bx/removal of polyp Surgeon: Clifford Medina Anesthesia: MAC Was an Net Making Supervisor used for this Procedure?: No Estimated blood loss (mL): 2.0 Pathology: other (A. Transverse colon polyp) Condition: stable Disposition: PACU
[2022-05-17 11:37] VITALS: BP 119/82; PULSE 83; RESP 20; TEMP 36.5; O2SAT 92
[2022-05-17 11:53] VITALS: BP 176/96; PULSE 87; RESP 18; TEMP 36.5; O2SAT 96
--- NOTE | 2022-05-17 17:39 | OP_ITS ---
SURGEON: Clifford Medina MD INDICATIONS: The patient presents for evaluation of heme-positive stool. Full consent was obtained from him for this, including risks of bleeding and perforation. PREOPERATIVE DIAGNOSIS: Heme-positive stool. POSTOPERATIVE DIAGNOSIS: PROCEDURE PERFORMED: Colonoscopy to the cecum and terminal ileum with biopsy and removal of polyp. ESTIMATED BLOOD LOSS: COMPLICATIONS: ANESTHESIA: Monitor anesthesia care. ASSISTANTS: SPECIMENS: POSTOPERATIVE DIAGNOSES: Heme-positive stool, small colon polyp, colon angiodysplasias, diverticulosis, and internal hemorrhoids. DESCRIPTION OF PROCEDURE: The patient was placed in the left lateral decubitus position. The digital rectal exam revealed no abnormalities. The PLUQ video pediatric colonoscope was then entered into the rectum and advanced to the cecum with assistance of abdominal wall pressure. Once in the cecum, i did identify cecal pouch with appendiceal orifice and a normal-appearing ileocecal valve. The terminal ileum was cannulated and it appeared normal. The scope was withdrawn back in the colon. The entire cecum was well visualized. There were several non-bleeding angiodysplasias in the cecum, but otherwise the cecum appeared normal. The scope was then slowly withdrawn assessing all mucosal surfaces carefully. Preparation was excellent. There were also some non-bleeding angiodysplasias in the proximal ascending colon and transverse colon. In the transverse colon, there was an approximately 4 mm polyp, which was biopsied and completely removed with the cold biopsy forceps. I did not visualize any other polyps, other angiodysplasias, nor any colitis. There was a mild amount of sigmoid diverticulosis. In the rectum, the scope was retroflexed visualizing internal hemorrhoids, but no other pathology. The scope was straightened and withdrawn from the patient. He tolerated the procedure well and was returned to the recovery area in stable condition. IMPRESSION: 1. Heme-positive stool. 2. Colon polyp. 3. Non-bleeding angiodysplasias of colon. 4. Diverticulosis. 5. Internal hemorrhoids. PLAN: The results of the pathology will be checked. If this is a tubular adenoma, I would recommend a followup colonoscopy in 5 years. If it is only hyperplastic, then I do not think he would need any further screening colonoscopies given his age of 71. Clifford Medina MD RMW/MODL / [id number] [facility]ITAL[facility]
== END 2022-05-17 12:18 | disposition home or self-care (01) ==
PROVIDERS: PCP Family Medicine; Visit Provider Internal Medicine
PROC: 0DJD8ZZ Inspection of Lower Intestinal Tract, Via Natural or Artificial Opening Endoscopic (ICD-10-PCS; CPT 45378; principal; 2022-05-17 10:40)
DX: R19.5 Other fecal abnormalities (principal); K63.5 Polyp of colon; K57.30 Diverticulosis of large intestine without perforation or abscess without bleeding; K55.20 Angiodysplasia of colon without hemorrhage; K64.8 Other hemorrhoids; I10 Essential (primary) hypertension; E78.5 Hyperlipidemia, unspecified; E11.9 Type 2 diabetes mellitus without complications; Z79.899 Other long term (current) drug therapy; Z79.84 Long term (current) use of oral hypoglycemic drugs; Z86.16 Personal history of COVID-19; Z87.891 Personal history of nicotine dependence
CPT/HCPCS: 45380; 82947; 88305; J3010

== ENCOUNTER 2022-10-18 11:26 | Emergency (ER) | payer OTHER, SELFPAY ==
--- NOTE | ~2022-10-18 | XR_ITS ---
EXAMINATION: XR CHEST CLINICAL INFORMATION: Chest pain. COMPARISON: 03/17/2020 TECHNIQUE: Frontal view of the chest was obtained. FINDINGS: Low lung volumes. No focal consolidation. No pleural effusion. Cardiac silhouette is unchanged. XR/XR chest 1V IMPRESSION: Unremarkable examination.
--- NOTE | 2022-10-18 11:29 | ECG_ITS ---
Test Reason : CHEST PRESSURE Blood Pressure : / mmHG Vent. Rate : 082 BPM Atrial Rate : 082 BPM P-R Int : 130 ms QRS Dur : 078 ms QT Int : 358 ms P-R-T Axes : 030 -16 -11 degrees QTc Int : 418 ms Normal sinus rhythm Minimal voltage criteria for LVH, may be normal variant ( R in aVL ) Borderline ECG When compared with ECG of 15-APR-2020 11:32, No significant change was found Referred By: Generic ED Physician Electronically Signed By:CHHAYA FREEMAN MD
[2022-10-18 11:34] VITALS: BP 180/99; BP 185/95; PULSE 66; PULSE 90; RESP 18; TEMP 36.7; O2SAT 97; O2SAT 98; BMI 33.3
[2022-10-18 12:14] LABS: Anion Gap 14 (12-20); Blood Urea Nitrogen 6 mg/dL (9-16); Calcium 10.3 mg/dL (8.4-10.2); Carbon Dioxide 21 mmol/L (22-29); Chloride 102 mmol/L (96-108); Creatinine Clr Calc Pharmacy 65.3; Estimated Glomerular Filt Rate > 60; Glucose Random 257 mg/dL (60-115); Potassium 3.8 mmol/L (3.3-5.1); Sodium 133 mmol/L (135-145)
[2022-10-18 12:17] LABS: COVID-19 Test Negative (Negative); IDNOW Serial# 9DB6401D
[2022-10-18 12:26] LABS: Troponin-I High Sensitivity < 2.7 ng/L (<3.5-35.0)
--- NOTE | 2022-10-18 12:45 | ED.CHESTPAIN ---
HPI - Chest Pain General Chief Complaint: Chest Pain Stated Complaint: cp sincelast night, resolved per ems Time Seen by Provider: 10/18/22 12:36 Source: patient and family Mode of arrival: ambulatory Limitations: no limitations History of Present Illness HPI narrative: 72 yo male with hx of HTN, DM, UTI, BPH, HLD here with c/o 2 months of BP at home over 160 taking amlodipine 2.5mg daily, toprol 25mg daily, losartan 100mg daily - no changes per PCP. has been documenting pressures. Last night at rest he developed elevated blood pressures to 170 and 180 with central chest pressure but no associated symptoms while at rest. He has no pressure now. He has no hx of CAD and has never had a cardiac workup. He states he otherwise feels okay. He has not noted any increased CHAIREZ, fatigue or chest pain while exerting himself. MD complaint: chest pain Onset (ago): day(s) (last night) Timing of current episode: now resolved Prior episodes: No Onset: during rest Pain location: substernal Pain radiation: none Severity: mild Quality: other (pressure) Relieving factors: nothing Exacerbating factors: nothing Context: other (2 months or persistent elevated BP) Treatment prior to arrival: none Related Data Home Medications Medication Instructions Recorded Confirmed amlodipine 5 mg tablet 5 mg PO DAILY 02/19/20 10/20/20 aspirin 81 mg tablet,delayed 81 mg PO DAILY 02/19/20 10/20/20 release atorvastatin 40 mg tablet 40 mg PO DAILY 02/19/20 10/20/20 ibuprofen 600 mg tablet 600 mg PO TID PRN moderate pain 02/19/20 10/20/20 losartan 100 mg tablet 100 mg PO DAILY 02/19/20 10/20/20 metformin 500 mg tablet 1,000 mg PO BID 04/08/20 10/20/20 trazodone 50 mg tablet 50 mg PO BEDTIME 05/19/20 10/20/20 docusate sodium 100 mg capsule 100 mg PO BEDTIME PRN constipation 05/28/20 10/20/20 lancets 28 gauge #100 ea 07/21/20 10/20/20 loratadine 10 mg tablet 10 mg PO DAILY 07/21/20 10/20/20 sertraline 25 mg tablet 25 mg PO DAILY 07/21/20 10/20/20 metformin 1,000 mg tablet 1,000 mg PO DAILY 05/31/21 Previous Rx's Medication Instructions Recorded fluconazole 150 mg tablet 150 mg PO Q3D balanitis 2 doses #2 03/21/20 (Diflucan) tabs hydrocortisone 2.5 % topical 1 appl topical BID PRN Balanitis 03/21/20 ointment #28.35 grams miconazole nitrate 2 % topical 1 appl topical BID Balanitis 21 03/21/20 ointment days #71 grams dicyclomine 20 mg tablet 20 mg PO TID PRN abdominal 03/28/20 discomfort #30 tabs sitagliptin phosphate 100 mg 100 mg PO DAILY 30 days #30 tabs 05/19/20 tablet (Januvia) insulin glargine 100 unit/mL (3 6 unit (0.06 mL) subcut QPM 30 07/21/20 mL) subcutaneous pen (Lantus days #1.8 mL Solostar U-100 Insulin) pen needle, diabetic 32 gauge x #100 ea 07/21/20 14 (BD Ultra-Fine Micro Pen Needle) pen needle, diabetic 32 gauge x #100 ea 07/22/20 14 (BD Ultra-Fine Micro Pen Needle) cholecalciferol (vitamin D3) 50 50 mcg PO DAILY 30 days #30 caps 10/04/20 mcg (2,000 unit) capsule finasteride 5 mg tablet 5 mg PO DAILY 90 days #90 tabs 12/06/21 blood sugar diagnostic (FreeStyle #100 ea 02/09/22 Lite Strips) tamsulosin 0.4 mg capsule (Flomax) 0.4 mg PO BEDTIME 90 days #90 caps 05/25/22 Allergies Allergy/AdvReac Type Severity Reaction Status Date / Time Penicillins Allergy Mild RASH Verified 12/05/21 15:10 acetaminophen [From Percocet] Allergy Unknown Anxiety Verified 12/05/21 15:10 oxycodone [From Percocet] Allergy Unknown Anxiety Verified 12/05/21 15:10 penicillin V Allergy Unknown rash Verified 12/05/21 15:10 Review of Systems Review of Systems: Constitutional : No Weight loss, No Fever, No Chills ENT/Mouth : No sore throat, No Rhinorrhea Eyes: No Eye Pain, No Swelling Cardiovascular : pos Chest Pain, no SOB, no Dyspnea on Exertion, No Orthopnea, No Edema, No Palpitations Respiratory : No Cough, No Sputum Gastrointestinal : no Nausea, No Vomiting, No Diarrhea, No abdominal Pain, No Hematochezia, No Melena Genitourinary : No Dysuria, No Urinary Frequency Musculoskeletal : No joint pain, No Myalgias, No Joint Swelling Skin : No Skin Lesions, No rash Neuro : No Weakness, No Numbness, No Dizziness, No Headache All other systems reviewed and [facility] Past Medical History Attestation statement: The following information was validated with the patient. Source: old records reviewed Medical History Anxiety Bladder neck contracture COVID-19 Erectile dysfunction HLD (hyperlipidemia) HTN (hypertension) Hypertension Non-healing surgical wound Rash T2DM (type 2 diabetes mellitus) Vitamin D deficiency Surgical History History of prostate surgery Hx of removal of cyst Family History Family History Father Cancer Mother Cancer Diabetes Social History Social History Housing: Apartment Alcohol intake: former Patient Tobacco Use Status: Former Tobacco user Cigarette Packs Per Day: 1 Cigarettes Per Day: 20.0 Years Smoked: 20 Advance Directives: Yes Advance Directives Information Provided: No Advance Directives on File: No service: No Current occupational status: retired Physical Exam Vital Signs: Vital Signs: Last Vital Signs Temp 98.1 F 10/18/22 11:34 Pulse 77 10/18/22 13:06 Resp 14 10/18/22 13:06 BP 154/91 H 10/18/22 13:06 Pulse Ox 98 10/18/22 13:06 O2 Del Method Room Air 10/18/22 13:06 BMI result Body Mass Index 33.3 Appearance: Alert. Oriented X3. No acute distress. Eyes: Pupils equal, round and reactive to light. ENT: Pharynx normal. Neck: Normal inspection. Neck supple. CVS: Normal heart rate and rhythm. Pulses normal. Respiratory: No respiratory distress. Breath sounds normal. Abdomen: Soft and non-tender. Skin: Skin warm and dry. Normal skin color. Normal skin turgor. Extremities: No lower extremity edema. No calf ttp Neuro: Oriented X 3. No motor deficit. No sensory deficit. Course Course Course Narrative: trop flat x 2, BP 154/91 symptom free Medications Administered Discontinued Medications Generic Name Dose Route Start Last Admin Trade Name Star PRN Reason Stop Dose Admin Amlodipine Besylate 2.5 mg 10/18/22 12:58 10/18/22 13:05 Amlodipine Besylate 2.5 Mg Tablet PO 10/18/22 12:59 2.5 mg ONCE ONE Administration Protocol Medical Decision Making Medical Decision Making [facility] Narrative: 72 yo male with hx of HTN, DM, UTI, BPH, HLD here with c/o 2 months of BP at home over 160 taking amlodipine 2.5mg daily, toprol 25mg daily, losartan 100mg daily here with chest pressure that has resolved but no recent exertional pain or CHAIREZ. EKG nonischemic, no chest pain now. No pain radiating to the back and distal pulses intact doubt dissection. Patient has no hypoxia, signs of DVT or pleuritic component to suggest PE. Somewhat atypical pain but given HTN will obtain troponin x 2, EKG, CXR - given chronic elevated BP will increase amlodipine to 5mg daily. Differential Diagnosis Differential Diagnoses: The differential diagnosis associated with the presentation includes HTN, chest pain, doubt PE no signs of DVT, distal pulses intact doubt dissection - pain free Admission/Observation Consideration of admission/observation: Escalation of care including admission/observation considered does not need admission given negativbe heart enzymes x 2, BP down feels fine and has PCP appointment tomorrow, no known prior CAD Lab Data [facility] Lab Attestation statement: I reviewed the patient's lab results. 10/18/22 11:54 Labs: Lab Results 10/18/22 10/18/22 10/18/22 Range/Units 11:54 11:54 11:54 WBC (4.8-10.8) X10*3/uL RBC (4.60-5.80) X10*6/uL Hgb (14.0-18.0) g/dl Hct (42.0-52.0) % MCV (80.0-98.0) fL MCH (27.0-33.0) pg MCHC (31.0-36.0) g/dl RDW (11.0-16.0) % Plt Count (160-400) X10*3/uL MPV (9.4-12.4) fL Immature Gran % (Auto) (0.0-0.4) % Neut % (Auto) (45-73) % Lymph % (Auto) (20-40) % Roane % (Auto) (2-11) % Eos % (Auto) (0-4) % Baso % (Auto) (0-2) % Lymph # (Auto) (1.2-4.9) X10*3/uL Roane # (Auto) (0.1-1.2) X10*3/uL Eos # (Auto) (0.0-0.4) X10*3/uL Baso # (Auto) (0.0-0.2) X10*3/uL Abs Immat Gran (auto) (0.00-0.03) X10*3/uL Absolute Neuts (auto) (2.0-8.3) x10*3/uL Absolute Nucleated RBC (0.0-0.012) X10*3/uL Nucleated RBC % (auto) (0.0-0.2) /100WBC Sodium 133 L (135-145) mmol/L Potassium 3.8 (3.3-5.1) mmol/L Chloride 102 (96-108) mmol/L Carbon Dioxide 21 L (22-29) mmol/L Anion Gap 14 (12-20) BUN 6 L (9-16) mg/dL Creatinine 0.95 (0.5-1.4) mg/dL Estim Creat Clear Calc 65.3 Estimated GFR > 60 Random Glucose 257 H (60-115) mg/dL Calcium 10.3 H D (8.4-10.2) mg/dL Troponin I High Sens < 2.7 (<3.5-35.0) ng/L COVID-19 ([facility]AS[facility]) Negative (Negative) COVID-19 Clin Com See Note 10/18/22 Range/Units 13:03 WBC 9.3 (4.8-10.8) X10*3/uL RBC 4.80 (4.60-5.80) X10*6/uL Hgb 14.5 (14.0-18.0) g/dl Hct 40.8 L (42.0-52.0) % MCV 85.0 (80.0-98.0) fL MCH 30.2 (27.0-33.0) pg MCHC 35.5 (31.0-36.0) g/dl RDW 12.4 (11.0-16.0) % Plt Count 230 (160-400) X10*3/uL MPV 9.7 (9.4-12.4) fL Immature Gran % (Auto) 0.2 (0.0-0.4) % Neut % (Auto) 78.5 H (45-73) % Lymph % (Auto) 12.8 L (20-40) % Roane % (Auto) 6.2 (2-11) % Eos % (Auto) 1.9 (0-4) % Baso % (Auto) 0.4 (0-2) % Lymph # (Auto) 1.2 (1.2-4.9) X10*3/uL Roane # (Auto) 0.6 (0.1-1.2) X10*3/uL Eos # (Auto) 0.2 (0.0-0.4) X10*3/uL Baso # (Auto) 0.0 (0.0-0.2) X10*3/uL Abs Immat Gran (auto) 0.02 (0.00-0.03) X10*3/uL Absolute Neuts (auto) 7.3 (2.0-8.3) x10*3/uL Absolute Nucleated RBC 0.000 (0.0-0.012) X10*3/uL Nucleated RBC % (auto) 0.0 (0.0-0.2) /100WBC Sodium (135-145) mmol/L Potassium (3.3-5.1) mmol/L Chloride (96-108) mmol/L Carbon Dioxide (22-29) mmol/L Anion Gap (12-20) BUN (9-16) mg/dL Creatinine (0.5-1.4) mg/dL Estim Creat Clear Calc Estimated GFR Random Glucose (60-115) mg/dL Calcium (8.4-10.2) mg/dL Troponin I High Sens (<3.5-35.0) ng/L COVID-19 ([facility]AS[facility]) (Negative) COVID-19 Clin Com Independent Interpretation I performed an independent interpretation of an: EKG and Plain X-Ray (normal ) Interpretation: Rate: 82 Rhythm: NSR Kiana: left, LVH Normal P waves. Normal SOULEYMANE. Normal QRS complex. ST T wave : normal no VASYL qTC: normal prior studies: no acute ischemia The study has been interpreted contemporaneously by me. . Radiology Impression Discussion of test interpretation with radiology: I have reviewed the radiologist's reading. Independent Historian Clinical information obtained from an independent historian. History obtained from or confirmed by: Spouse External Record Review External record reviewed: Office record Prescription Management I considered prescription management with: Other (increase amlodipine to 5mg daily) Chronic Conditions Patient?s care impacted by: Hypertension Discharge Plan Discharge Clinical Impression: HTN (hypertension) Qualifiers: Hypertension type: unspecified Qualified Code(s): I10 - Essential (primary) hypertension Chest pain Qualifiers: Chest pain type: precordial pain Qualified Code(s): R07.2 - Precordial pain Patient Disposition: Home, Self-Care Instructions: Chest Pain (ED), Hypertension (ED) Additional Instructions: increase amlodipine to 5mg a day. return for dizziness, low blood pressure under 100, fainting, worsening pain, shortness of breath, confusion or any other concerns. see your doctor tomorrow as planned. aumente la amlodipina a 5 mg al d?a. regrese por mareos, presi?n arterial baja por debajo de 100, desmayo, empeoramiento del dolor, dificultad para respirar, confusi?n o cualquier otra inquietud. consulte a fuentes m?dico ma?love joie estaba previsto. Prescriptions: No Action (DME) pen needle, diabetic [BD Ultra-Fine Micro Pen Needle] 32 gauge x 1/4 needle See Rx Instructions .ROUTE .MEDSUPPLY Qty: 100 11RF Rx Instructions: once daily cholecalciferol (vitamin D3) 50 mcg (2,000 unit) capsule 50 mcg PO DAILY 30 Days Qty: 30 11RF finasteride 5 mg tablet 5 mg PO DAILY 90 Days Qty: 90 3RF (DME) FreeStyle Lite Strips Strip See Rx Instructions .ROUTE .MEDSUPPLY Qty: 100 11RF Rx Instructions: 4x daily tamsulosin [Flomax] 0.4 mg capsule 0.4 mg PO BEDTIME 90 Days Qty: 90 1RF dicyclomine 20 mg tablet 20 mg PO TID PRN (Reason: abdominal discomfort) Qty: 30 0RF miconazole nitrate 2 % ointment 1 appl topical BID 21 Days Qty: 71 0RF fluconazole [Diflucan] 150 mg tablet 150 mg PO Q3D Qty: 2 0RF Rx Instructions: Take 1 dose today if symptoms persist repeat in 2 days/72 hours. hydrocortisone 2.5 % ointment 1 appl topical BID PRN (Reason: Balanitis) Qty: 28.35 0RF amlodipine 5 mg tablet 5 mg PO DAILY aspirin 81 mg tablet,delayed release (DR/EC) 81 mg PO DAILY losartan 100 mg tablet 100 mg PO DAILY ibuprofen 600 mg tablet 600 mg PO TID PRN (Reason: moderate pain) atorvastatin 40 mg tablet 40 mg PO DAILY metformin 500 mg tablet 1,000 mg PO BID trazodone 50 mg tablet 50 mg PO BEDTIME Januvia 100 mg tablet 100 mg PO DAILY 30 Days Qty: 30 11RF docusate sodium 100 mg capsule 100 mg PO BEDTIME PRN (Reason: constipation) (DME) lancets 28 gauge misc See Rx Instructions topical DAILY Qty: 100 Rx Instructions: As directed loratadine 10 mg tablet 10 mg PO DAILY sertraline 25 mg tablet 25 mg PO DAILY Lantus Solostar U-100 Insulin 100 unit/mL (3 mL) insulin pen 6 unit subcut QPM 30 Days Qty: 1.8 11RF (DME) pen needle, diabetic [BD Ultra-Fine Micro Pen Needle] 32 gauge x 1/4 needle See Rx Instructions .ROUTE .MEDSUPPLY Qty: 100 11RF Rx Instructions: As directed metformin 1,000 mg tablet 1,000 mg PO DAILY Print Language: Djiboutian
[2022-10-18] MEDS: amLODIPine Besylate 2.5 MG TABLET PO (13:05)
[2022-10-18 13:06] VITALS: BP 154/91; PULSE 77; RESP 14; O2SAT 98
[2022-10-18 13:08] LABS: MANUAL DIFF FLAG NO
[2022-10-18 13:09] LABS: Basophils Percent Auto 0.4 % (0-2); Eosinophils Absolute Auto 0.2 X10*3/uL (0.0-0.4); Eosinophils Percent Auto 1.9 % (0-4); Hematocrit 40.8 % (42.0-52.0); Hemoglobin 14.5 g/dl (14.0-18.0); Imm Gran Abs Auto 0.02 X10*3/uL (0.00-0.03); Imm Gran Pct Auto 0.2 % (0.0-0.4); Lymphocytes Absolute Auto 1.2 X10*3/uL (1.2-4.9); Lymphocytes Percent Auto 12.8 % (20-40); Mean Corpuscular HGB Conc 35.5 g/dl (31.0-36.0); Mean Corpuscular Hemoglobin 30.2 pg (27.0-33.0); Mean Platelet Volume 9.7 fL (9.4-12.4); Monocytes Absolute Auto 0.6 X10*3/uL (0.1-1.2); Monocytes Percent Auto 6.2 % (2-11); Neutrophils Absolute Auto 7.3 x10*3/uL (2.0-8.3); Neutrophils Percent Auto 78.5 % (45-73); Platelet Count 230 X10*3/uL (160-400); Red Cell Distribution Width 12.4 % (11.0-16.0); White Blood Count 9.3 X10*3/uL (4.8-10.8)
[2022-10-18 13:35] LABS: Troponin-I High Sensitivity < 2.7 ng/L (<3.5-35.0)
[2022-10-18 13:58] VITALS: BP 157/89; PULSE 74; RESP 16; TEMP 36.8; O2SAT 98
== END 2022-10-18 14:21 | disposition home or self-care (01) ==
PROVIDERS: Emergency Provider Emergency Medicine; PCP Family Medicine
DX: R07.2 Precordial pain (principal); I10 Essential (primary) hypertension; Z20.822 Contact with and (suspected) exposure to COVID-19; E11.9 Type 2 diabetes mellitus without complications; E78.5 Hyperlipidemia, unspecified; Z79.82 Long term (current) use of aspirin; Z79.899 Other long term (current) drug therapy; Z79.4 Long term (current) use of insulin
CPT/HCPCS: 36415; 71045; 80048; 84484; 85025; 87635; 93005; 99284; 99285

== ENCOUNTER → 2022-10-18 11:29 | Outpatient (BNV) | payer OTHER, SELFPAY | PROVIDERS: Emergency Provider Emergency Medicine; PCP Family Medicine; Visit Provider Internal Medicine Cardiovascular Disease | DX: R07.9 Chest pain, unspecified (principal) | CPT/HCPCS: 93010 ==

== ENCOUNTER 2022-11-10 09:34 | Emergency (ER) | payer OTHER, SELFPAY ==
--- NOTE | ~2022-11-10 | US_ITS ---
EXAMINATION: US VENOUS ULTRASOUND WITH DOPPLER LOWER EXTREMITY, LEFT CLINICAL INFORMATION: Chronic left lower extremity pain with varicose veins. COMPARISON: None available. TECHNIQUE: Ultrasound of the deep veins is performed from the hip to the calf with compression sonography and color and pulse Doppler assessment. Spectral analysis with color-flow imaging is performed. FINDINGS: There is normal venous compression and respiratory variation and augmented flow. The visualized common femoral vein, superficial femoral vein, profunda femoral vein, popliteal vein, and the trifurcation region shows no evidence of deep venous thrombosis. No left popliteal cyst. The subcutaneous soft tissues are unremarkable. No varicocele is identified. US/US venous duplex LE IMPRESSION: No evidence for deep venous thrombosis in the visualized veins of the left lower extremity.
[2022-11-10 09:36] VITALS: BP 140/80; PULSE 98; RESP 16; TEMP 36.6; O2SAT 95; BMI 28.3
[2022-11-10 11:21] LABS: MANUAL DIFF FLAG NO
[2022-11-10 11:25] LABS: Basophils Percent Auto 0.4 % (0-2); Eosinophils Absolute Auto 0.2 X10*3/uL (0.0-0.4); Eosinophils Percent Auto 2.5 % (0-4); Hematocrit 39.4 % (42.0-52.0); Hemoglobin 13.9 g/dl (14.0-18.0); Imm Gran Abs Auto 0.02 X10*3/uL (0.00-0.03); Imm Gran Pct Auto 0.2 % (0.0-0.4); Lymphocytes Absolute Auto 1.1 X10*3/uL (1.2-4.9); Lymphocytes Percent Auto 12.9 % (20-40); Mean Corpuscular HGB Conc 35.3 g/dl (31.0-36.0); Mean Corpuscular Hemoglobin 30.9 pg (27.0-33.0); Mean Corpuscular Volume 87.6 fL (80.0-98.0); Mean Platelet Volume 9.2 fL (9.4-12.4); Monocytes Absolute Auto 0.6 X10*3/uL (0.1-1.2); Monocytes Percent Auto 6.8 % (2-11); Neutrophils Absolute Auto 6.5 x10*3/uL (2.0-8.3); Neutrophils Percent Auto 77.2 % (45-73); Platelet Count 294 X10*3/uL (160-400); Red Cell Distribution Width 12.4 % (11.0-16.0); White Blood Count 8.4 X10*3/uL (4.8-10.8)
--- OUTSIDE RECORDS SUMMARY | 2022-11-10 11:55 | XMS_ITS ---
Author Name Clifford Medina Address [address] [place] [address] Organization [facility] Address [address] [place] [address] Care Team Providers Care Employment Coach Name Role Phone Carol Clifford Unavailable [phone] PROBLEMS Type Condition ICD9-CM Code [id number] Code Onset Dates Condition Status SNOMED Code Problem Heme + stool R19.5 Active 254974646 Problem Diverticulosis of large intestine without perforation or abscess without bleeding K57.30 Active 844924063 Problem Aspirin long-term use Z79.82 Active [id number] Problem Encounter for screening for malignant neoplasm of colon Z12.11 Active 259467302 ALLERGIES Substance Reaction Event Type Date Status Percocet Unknown Drug Allergy Mar, Active Penicillin Unknown Drug Allergy Mar, Active ENCOUNTERS Encounter Location Date Diagnosis [facility] [address] [place] [id number] May, Colon polyps K63.5 ; Angiodysplasia K55.20 ; Internal hemorrhoids K64.8 ; Diverticulosis of large intestine without perforation or abscess without bleeding K57.30 and Heme positive stool R19.5 [facility] [address] [place] [phone] Mar, [facility] [address] [place] [phone] Mar, Heme + stool R19.5 [facility] [address] [place] [id number] May, [facility] [address] [place] [address] Apr, [facility] [address] [facility] [address] [place] [phone] Apr, Aspirin long-term use Z79.82 and Encounter for screening for malignant neoplasm of colon Z12.11 [facility] [address] [place], [place] [phone] Feb, [facility] [address] [place], [place] [phone] August, IMMUNIZATIONS Vaccine Route Administration Date Status Influenza Unknown Dec 08, 2021 Administered Influenza Unknown Dec 08, 2016 Administered SOCIAL HISTORY Qualifiers Date Former Smoker REASON FOR REFERRAL FUNCTIONAL STATUS PLAN OF CARE Activity Details VITAL SIGNS Weight 190 lbs 2022-03-21 Weight 196 lbs 2017-04-27 Height 67 in 2022-03-21 Height 67 in 2017-04-27 BMI 29.75 kg/m2 2022-03-21 BMI 30.69 kg/m2 2017-04-27 Heart Rate 68 /min 2017-04-27 Temperature 96.9 degrees Fahrenheit Blood pressure systolic 000 mm Hg Blood pressure diastolic 00 mm Hg 2022-03 MEDICATIONS Medication Instructions Dosage Frequency Start Date End Date Duration Status Ibuprofen 800 MG TAKE 1 TABLET BY MOUTH TWICE A DAY WITH FOOD NEEDED 15 Active Senna Lax 8.6 MG Orally Once a day 2 tablets at bedtime as needed 24h 30 day(s) Active traZODone HCl 50 MG 90 Active amLODIPine Besylate 5 MG Orally Once a day 1 tablet 24h Active Potassium Chloride Active metFORMIN HCl 1000 MG 90 Active Losartan Potassium 100 MG Orally Once a day 1 tablet 24h Active Colace 100 MG Orally Once a day 1 capsule as needed 24h 30 day(s) Active Dulcolax (colon prep) 5 MG Orally two tablets twice a day for one day take at 3:00 p.m and 7:00p.m. Mar, 1 day Active Loratadine 10 MG Orally Once a day 24h Active Atorvastatin Calcium 40 MG TOME NORMAN TABLETA POR V?A ORAL TODOS LOS D? AL ACOSTARSE 90 Active Januvia 100 MG TOME NORMAN TABLETA TODOS LOS D 90 Active Tamsulosin HCl 0.4 MG TAKE 1 CAPSULE BY MOUTH EVERYDAY AT BEDTIME 90 Active Flonase Allergy Relief 50 MCG/ACT Nasally Once a day 1 spray in each nostril 24h 30 day(s) Active MiraLax (colon prep) 17 GM/SCOOP Orally begin at 5:00 p.m. the day before the procedure One 238 Gm bottle mixed with Gatorade or Crystal Light Mar, 1 day Active Finasteride 5 MG 90 Active PROCEDURES Procedure Date Ordered Result Body Site DOC MEDS VERIFIED W/PT OR RE Apr 27, 2017 BMI >=30 CALCUATE W/FOLLOWUP Apr 27, 2017 PT W/DX PAST HX TOTAL COLECTOMY/CRC Mar 21, 2022 BP SCR NOT PRFRM REC REASON NOS Mar 21, 2022 TOBACCO NON-USER Mar 21, 2022 COLORECTAL CA SCREEN DOC REV Apr 27, 2017 FLU IMMUNIZE ORDER/ADMIN Apr 27, 2017 DOC MEDS VERIFIED W/PT OR RE Mar 21, 2022 BP SCR PRFRM RCMDD DEFIND SCR INTVL Apr 27, 2017 COLONOSCOPY AND BIOPSY May 17, 2022 TOBACCO NON-USER Apr 27, 2017 RESULTS Name Result Date Reference Range Glucose, Whole Blood 2022-05-17 Glucose, Whole Blood 153 60-115 REASON FOR VISIT heme + stool, bowel prep, Patient presents today for a positive stool cards, screening, Colon prep,PATIENT PRESENTS TODAY FOR screening colonoscopy Insurance Providers Health Insurance Type Health Plan Insurance Address Health Plan Insurance Phone Health Plan Insurance Name Health Plan Coverage Dates Member ID Patient Relationship to Subscriber Patient Address Patient Phone Patient Name Patient Date of Subscriber ID Subscriber Name Subscriber Date of Group No [employer] [address] [facility] [id number] [employer] elvis VALENTINE [id number] [facility] [address] [facility] [address] MEDICAID OF [facility] elvis VALENTINE [id number] [place]ARE OF [place] [address] [facility] [address] [place] elvis VALENTINE [id number]
--- NOTE | 2022-11-10 13:17 | ED_ITS ---
HPI - General Adult General Chief complaint: General Medical Stated complaint: Mary elder leg pain Time Seen by Provider: 11/10/22 12:09 Source: patient Mode of arrival: ambulatory Limitations: no limitations History of Present Illness HPI narrative: 72-year-old male presents with difficulty urinating. Symptoms started today. He describes it is bmtb-is-fanetfhd. There is no clear relieving or exacerbating features. He does feel like ESR strain and does have the urge to urinate. Denies any for dysuria or hematuria. He has had this in the past when has been his prostate. He denies any back pain, fevers, chills. He also describes some left leg pain. This has been going on for 2 years but has gotten worse over the past couple weeks where he has noted some varices. Pain is worse with ambulating or palpation. He denies any chest pain or shortness of breath. Related Data Home Medications Medication Instructions Recorded Confirmed amlodipine 5 mg tablet 5 mg PO DAILY 02/19/20 10/20/20 aspirin 81 mg tablet,delayed 81 mg PO DAILY 02/19/20 10/20/20 release atorvastatin 40 mg tablet 40 mg PO DAILY 02/19/20 10/20/20 ibuprofen 600 mg tablet 600 mg PO TID PRN moderate pain 02/19/20 10/20/20 losartan 100 mg tablet 100 mg PO DAILY 02/19/20 10/20/20 metformin 500 mg tablet 1,000 mg PO BID 04/08/20 10/20/20 trazodone 50 mg tablet 50 mg PO BEDTIME 05/19/20 10/20/20 docusate sodium 100 mg capsule 100 mg PO BEDTIME PRN constipation 05/28/20 10/20/20 lancets 28 gauge #100 ea 07/21/20 10/20/20 loratadine 10 mg tablet 10 mg PO DAILY 07/21/20 10/20/20 sertraline 25 mg tablet 25 mg PO DAILY 07/21/20 10/20/20 metformin 1,000 mg tablet 1,000 mg PO DAILY 05/31/21 Previous Rx's Medication Instructions Recorded fluconazole 150 mg tablet 150 mg PO Q3D balanitis 2 doses #2 03/21/20 (Diflucan) tabs hydrocortisone 2.5 % topical 1 appl topical BID PRN Balanitis 03/21/20 ointment #28.35 grams miconazole nitrate 2 % topical 1 appl topical BID Balanitis 21 03/21/20 ointment days #71 grams dicyclomine 20 mg tablet 20 mg PO TID PRN abdominal 03/28/20 discomfort #30 tabs sitagliptin phosphate 100 mg 100 mg PO DAILY 30 days #30 tabs 05/19/20 tablet (Januvia) insulin glargine 100 unit/mL (3 6 unit (0.06 mL) subcut QPM 30 07/21/20 mL) subcutaneous pen (Lantus days #1.8 mL Solostar U-100 Insulin) pen needle, diabetic 32 gauge x #100 ea 07/21/20 1 (BD Ultra-Fine Micro Pen Needle) pen needle, diabetic 32 gauge x #100 ea 07/22/2004/12 (BD Ultra-Fine Micro Pen Needle) cholecalciferol (vitamin D3) 50 50 mcg PO DAILY 30 days #30 caps 10/04/20 mcg (2,000 unit) capsule finasteride 5 mg tablet 5 mg PO DAILY 90 days #90 tabs 12/06/21 blood sugar diagnostic (FreeStyle #100 ea 02/09/22 Lite Strips) tamsulosin 0.4 mg capsule (Flomax) 0.4 mg PO BEDTIME 90 days #90 caps 11/02/22 gabapentin 300 mg capsule 300 mg PO BEDTIME #14 caps 11/10/22 Allergies Allergy/AdvReac Type Severity Reaction Status Date / Time Penicillins Allergy Mild RASH Verified 12/05/21 15:10 acetaminophen [From Percocet] Allergy Unknown Anxiety Verified 12/05/21 15:10 oxycodone [From Percocet] Allergy Unknown Anxiety Verified 12/05/21 15:10 penicillin V Allergy Unknown rash Verified 12/05/21 15:10 Review of Systems Review of Systems: CONSTITUTIONAL: Denies weight loss, fever and chills. HEENT: Denies changes in vision and hearing. RESPIRATORY: Denies SOB and cough. CV: Denies palpitations no CP. GI: Denies abdominal pain, nausea, vomiting and diarrhea. : Denies dysuria and urinary frequency. MSK: Denies myalgia and joint pain. SKIN: Denies rash and pruritus. NEUROLOGICAL: Denies headache and syncope. PSYCHIATRIC: Denies recent changes in mood. Denies anxiety and depression. All other ROS are negative unless [facility] Past Medical History Medical History Anxiety Bladder neck contracture COVID-19 Erectile dysfunction HLD (hyperlipidemia) HTN (hypertension) Hypertension Non-healing surgical wound Rash T2DM (type 2 diabetes mellitus) Vitamin D deficiency Surgical History History of prostate surgery Hx of removal of cyst Family History Family History Father Cancer Mother Cancer Diabetes Social History Social History Housing: Apartment Alcohol intake: former Patient Tobacco Use Status: Former Tobacco user Cigarette Packs Per Day: 1 Cigarettes Per Day: 20.0 Years Smoked: 20 Advance Directives: No Advance Directives Information Provided: Yes service: No Current occupational status: retired Physical Exam ED Vital Signs: Vital Signs - 24 hr 11/10/22 09:36 11/10/22 13:50 Temperature 97.9 F 97.8 F Pulse Rate 98 80 Respiratory Rate 16 18 Blood Pressure 140/80 H 153/82 H Pulse Oximetry 95 99 Oxygen Delivery Method Room Air Room Air BMI result Body Mass Index 28.3 GEN: Well developed, no acute distress, alert, oriented HEENT: Normocephalic, atraumatic, normal external ears, nose appears normal, no oropharyngeal edema or exudates Eyes: Normal to appearance Neck: Supple, no lymphadenopathy Respiratory: Talks in complete sentences, no respiratory distress, clear to auscultation bilaterally Cardiovascular: Regular rate and rhythm, no murmurs rubs or gallops Abdomen: Soft, nontender, nondistended, no guarding, no rebound Back: No CVA tenderness Extremities: No clubbing cyanosis or edema Neurologic: No focal neurologic deficits, cranial nerves 2-12 intact, strength is 5/5 bilaterally Skin: No rash Course Course Course Narrative: The workup is complete. Ultrasound of the lower extremity did not reveal any DVT. Pain is likely radicular versus due to varicosities. As far as his urin alisa retention goes, he was actually not retaining significant amount of urine. I will recommend for symptoms to increase his tamsulosin to 0.4 mg twice daily. For his pain I will recommend gabapentin 300 mg at night. Medical Decision Making Medical Decision Making [facility] Narrative: 66-cdpc-alnFafg presentsWith difficultyUrinating. AbdominalExam is benign. BladderScan revealedInitiallyNo urine in the bladder. PostvoidResidual [id number] mL.He appearsComfortable. Has no significant a bdominalTenderness, rebound orGuarding.Will order a urinalysis to makeSureThere is not a urinary tractInfection or evidenceOf prostatitis.Will checkRenal function to make sureThat there is no acuteRenal failure that could beCausing colic uricDysfunction. Differential Diagnosis Differential Diagnoses: The differential diagnosis associated with the presentation includes (See above) Admission/Observation Consideration of admission/observation: Escalation of care including admission/observation considered Lab Data [facility] Lab Attestation statement: I reviewed the patient's lab results. 11/10/22 11:17 11/10/22 11:17 Labs: Lab Results 11/10/22 11/10/22 11/10/22 Range/Units 11:17 11:17 13:51 WBC 8.4 (4.8-10.8) X10*3/uL RBC 4.50 L (4.60-5.80) X10*6/uL Hgb 13.9 L (14.0-18.0) g/dl Hct 39.4 L (42.0-52.0) % MCV 87.6 (80.0-98.0) fL MCH 30.9 (27.0-33.0) pg MCHC 35.3 (31.0-36.0) g/dl RDW 12.4 (11.0-16.0) % Plt Count 294 D (160-400) X10*3/uL MPV 9.2 L (9.4-12.4) fL Immature Gran % (Auto) 0.2 (0.0-0.4) % Neut % (Auto) 77.2 H (45-73) % Lymph % (Auto) 12.9 L (20-40) % [place] % (Auto) 6.8 (2-11) % Eos % (Auto) 2.5 (0-4) % Baso % (Auto) 0.4 (0-2) % Lymph # (Auto) 1.1 L (1.2-4.9) X10*3/uL [place] # (Auto) 0.6 (0.1-1.2) X10*3/uL Eos # (Auto) 0.2 (0.0-0.4) X10*3/uL Baso # (Auto) 0.0 (0.0-0.2) X10*3/uL Abs Immat Gran (auto) 0.02 (0.00-0.03) X10*3/uL Absolute Neuts (auto) 6.5 (2.0-8.3) x10*3/uL Absolute Nucleated RBC 0.000 (0.0-0.012) X10*3/uL Nucleated RBC % (auto) 0.0 (0.0-0.2) /100WBC Sodium 133 L (135-145) mmol/L Potassium 4.0 (3.3-5.1) mmol/L Chloride 103 (96-108) mmol/L Carbon Dioxide 19 L (22-29) mmol/L Anion Gap 15 (12-20) BUN 4 L (9-16) mg/dL Creatinine 0.76 (0.5-1.4) mg/dL Estim Creat Clear Calc 92.9 Estimated GFR > 60 Random Glucose 224 H (60-115) mg/dL Calcium 9.6 D (8.4-10.2) mg/dL Total Bilirubin 0.4 (0.0-1.0) mg/dL AST 21 (5-37) U/L ALT 26 (0-40) U/L Alkaline Phosphatase 63 (39-117) U/L Total Protein 7.5 (6.5-8.0) g/dL Albumin 4.6 (3.5-5.0) g/dL Urine Color Yellow Urine Appearance Clear Urine pH 7.0 (5.0-9.0) Ur Specific [place] 1.015 (1.005-1.025) Urine Protein Negative (Neg-Trace) mg/dL Urine Glucose (UA) >=1000 H (Negative) mg/dL Urine Ketones Negative (Negative) mg/dL Urine Blood Negative (Negative) Urine Nitrite Negative (Negative) Ur Leukocyte Esterase Negative (Negative) Urine RBC 0-2 (0-2) /HPF Urine WBC 0-5 (0-5) /HPF Ur Squamous Epith Cells 0-2 (0-2) /HPF Urine Bacteria None Seen (None Seen) Hyaline Casts 0-2 (0-2) /LPF Independent Interpretation I performed an independent interpretation of an: Ultrasound (Lower extremity: No acute DVT) Radiology Impression Discussion of test interpretation with radiology: I have reviewed the radiologist's reading. Radiologist Impression: US/US venous duplex LE LT IMPRESSION: No evidence for deep venous thrombosis in the visualized veins of the left lower extremity. Dictated By: Nghia Srivastava MD Signed By: <Electronically signed by Nghia Srivastava MD in OV> 11/10/22 1406 Independent Historian Clinical information obtained from an independent historian. History obtained from or confirmed by: Spouse Prescription Management I considered prescription management with: Pain Medication and Antibiotic Discharge Plan Discharge Clinical Impression: Difficulty urinating, Varicose vein of leg Patient Disposition: Still a Patient Instructions: Enlarged Prostate (BPH) (ED), Peripheral Vascular Disease (ED) Additional Instructions: I am recommending the following changes For pain: Gabapentin 300 mg at night. For urinary complaints: Increase tamsulosin 0.5 mg from once a day to twice a day for at least 1 week Prescriptions: New gabapentin 300 mg capsule 300 mg PO BEDTIME Qty: 14 0RF No Action (DME) pen needle, diabetic [BD Ultra-Fine Micro Pen Needle] 32 gauge x 1/4 needle See Rx Instructions .ROUTE .MEDSUPPLY Qty: 100 11RF Rx Instructions: once daily cholecalciferol (vitamin D3) 50 mcg (2,000 unit) capsule 50 mcg PO DAILY 30 Days Qty: 30 11RF finasteride 5 mg tablet 5 mg PO DAILY 90 Days Qty: 90 3RF (DME) FreeStyle Lite Strips Strip See Rx Instructions .ROUTE .MEDSUPPLY Qty: 100 11RF Rx Instructions: 4x daily tamsulosin [Flomax] 0.4 mg capsule 0.4 mg PO BEDTIME 90 Days Qty: 90 1RF dicyclomine 20 mg tablet 20 mg PO TID PRN (Reason: abdominal discomfort) Qty: 30 0RF miconazole nitrate 2 % ointment 1 appl topical BID 21 Days Qty: 71 0RF fluconazole [Diflucan] 150 mg tablet 150 mg PO Q3D Qty: 2 0RF Rx Instructions: Take 1 dose today if symptoms persist repeat in 2 days/72 hours. hydrocortisone 2.5 % ointment 1 appl topical BID PRN (Reason: Balanitis) Qty: 28.35 0RF amlodipine 5 mg tablet 5 mg PO DAILY aspirin 81 mg tablet,delayed release (DR/EC) 81 mg PO DAILY losartan 100 mg tablet 100 mg PO DAILY ibuprofen 600 mg tablet 600 mg PO TID PRN (Reason: moderate pain) atorvastatin 40 mg tablet 40 mg PO DAILY metformin 500 mg tablet 1,000 mg PO BID trazodone 50 mg tablet 50 mg PO BEDTIME Januvia 100 mg tablet 100 mg PO DAILY 30 Days Qty: 30 11RF docusate sodium 100 mg capsule 100 mg PO BEDTIME PRN (Reason: constipation) (DME) lancets 28 gauge misc See Rx Instructions topical DAILY Qty: 100 Rx Instructions: As directed loratadine 10 mg tablet 10 mg PO DAILY sertraline 25 mg tablet 25 mg PO DAILY Lantus Solostar U-100 Insulin 100 unit/mL (3 mL) insulin pen 6 unit subcut QPM 30 Days Qty: 1.8 11RF (DME) pen needle, diabetic [BD Ultra-Fine Micro Pen Needle] 32 gauge x 1/4 needle See Rx Instructions .ROUTE .MEDSUPPLY Qty: 100 11RF Rx Instructions: As directed metformin 1,000 mg tablet 1,000 mg PO DAILY Referrals: Dereje Ivey MD [Physician] - 1 week
[2022-11-10 13:50] VITALS: BP 153/82; PULSE 80; RESP 18; TEMP 36.6; O2SAT 99
[2022-11-10 14:15] LABS: Appearance Urine Clear; Color Urine Yellow; Glucose Urine UA >=1000 mg/dL (Negative); Leukocyte Esterase Urine Negative (Negative); Nitrite Urine Negative (Negative); Specific Gravity - Urine 1.015 (1.005-1.025); UMIC TRIGGER UACC YES; Urine Blood Negative (Negative); Urine Ketones Negative (Negative); Urine Protein Negative (Neg-Trace)
[2022-11-10 14:21] LABS: Bacteria Urine None Seen (None Seen); Hyaline Casts Urine 0-2 /LPF (0-2); RBC Urine 0-2 /HPF (0-2); Squamous Epithelial Cell Urine 0-2 /HPF (0-2); WBC Urine 0-5 /HPF (0-5)
[2022-11-10 15:09] LABS: Alanine Aminotransferase 26 U/L (0-40); Albumin Level 4.6 g/dL (3.5-5.0); Alkaline Phosphatase 63 U/L (39-117); Anion Gap 15 (12-20); Aspartate Amino Transferase 21 U/L (5-37); Bilirubin Total 0.4 mg/dL (0.0-1.0); Blood Urea Nitrogen 4 mg/dL (9-16); Calcium 9.6 mg/dL (8.4-10.2); Carbon Dioxide 19 mmol/L (22-29); Chloride 103 mmol/L (96-108); Creatinine Clr Calc Pharmacy 92.9; Estimated Glomerular Filt Rate > 60; Glucose Random 224 mg/dL (60-115); Sodium 133 mmol/L (135-145); Total Protein 7.5 g/dL (6.5-8.0)
== END 2022-11-10 16:31 | disposition still patient (30) ==
PROVIDERS: Emergency Provider Emergency Medicine
DX: R33.9 Retention of urine, unspecified (principal); I87.8 Other specified disorders of veins; M79.605 Pain in left leg; E11.9 Type 2 diabetes mellitus without complications; I10 Essential (primary) hypertension; E78.5 Hyperlipidemia, unspecified; Z79.82 Long term (current) use of aspirin; Z79.899 Other long term (current) drug therapy; Z79.84 Long term (current) use of oral hypoglycemic drugs; Z87.891 Personal history of nicotine dependence
CPT/HCPCS: 36415; 51798; 80053; 81001; 85025; 93971; 99284

== ENCOUNTER → 2022-12-14 11:18 | Outpatient (REF) | payer OTHER, SELFPAY ==
--- NOTE | 2022-12-14 | CA_ITS ---
Acquisition Time: 2022-12-14 11:38:19 Total Exercise Time: 00:00:22 Test Indications: R07.89 CHEST TIGHTNESS ATYPIC Medications: Protocol: LOR Max HR: 090 BPM 60% of Pred: 148 BPM Max BP: 118/062 mmHG Max Work Load: 1.6 METS Exercise stress test exericse 22 sec and having to stop due to safety. No chest discomfort or arrhythmias notedf. Treadmill stopped. MSG sent to provider Shelley Renteria that if needed Pharm test. Referred By: Shelley Renteria Overread By: PAT SANTOYO
== END ==
LOC: HO.CARD 11:18
PROVIDERS: PCP Nurse Practitioner Primary Care; Visit Provider Nurse Practitioner Primary Care
DX: R07.89 Other chest pain (principal); I10 Essential (primary) hypertension
CPT/HCPCS: 93017

== ENCOUNTER → 2022-12-14 11:38 | Outpatient (BNV) | payer OTHER, SELFPAY | PROVIDERS: PCP Nurse Practitioner Primary Care; Visit Provider Internal Medicine | DX: R07.89 Other chest pain (principal) | CPT/HCPCS: 93016; 93018 ==

== ENCOUNTER 2022-12-27 11:04 | Emergency (ER) | payer OTHER, SELFPAY ==
--- NOTE | ~2022-12-27 | XR_ITS ---
EXAMINATION: XR LUMBOSACRAL SPINE CLINICAL INFORMATION: Pain for 6 months COMPARISON: CT abdomen pelvis 05/14/2020 TECHNIQUE: Three views of the lumbosacral spine. FINDINGS: 5 nonrib-bearing lumbar vertebral bodies noted. There is mild levoscoliosis of the lumbar spine. Alignment is otherwise unremarkable. Lumbar vertebral body heights are maintained. There is moderate narrowing of the L4/L5 disc space height with mild to moderate narrowing of the L3/L4 and L5/S1 disc space heights. Small osteophytes are scattered throughout the lumbar spine. There are degenerative changes of the posterior elements of the lower lumbar spine. Small pelvic calcifications are likely vascular in nature. XR/XR lumbar spine 2-3V IMPRESSION: Moderate degenerative changes of the lower lumbar spine. No compression deformity.
[2022-12-27 11:14] VITALS: BP 143/89; PULSE 85; RESP 19; TEMP 36.6; O2SAT 98; BMI 28.0
--- NOTE | 2022-12-27 11:15 | ED_ITS ---
HPI - General Adult General Chief complaint: Back Pain/Injury Stated complaint: back pain Time Seen by Provider: 12/27/22 12:36 Source: patient Mode of arrival: ambulatory Limitations: no limitations History of Present Illness HPI narrative: 72 yo male Related Data Home Medications Medication Instructions Recorded Confirmed amlodipine 5 mg tablet 5 mg PO DAILY 02/19/20 10/20/20 aspirin 81 mg tablet,delayed 81 mg PO DAILY 02/19/20 10/20/20 release atorvastatin 40 mg tablet 40 mg PO DAILY 02/19/20 10/20/20 ibuprofen 600 mg tablet 600 mg PO TID PRN moderate pain 02/19/20 10/20/20 losartan 100 mg tablet 100 mg PO DAILY 02/19/20 10/20/20 metformin 500 mg tablet 1,000 mg PO BID 04/08/20 10/20/20 trazodone 50 mg tablet 50 mg PO BEDTIME 05/19/20 10/20/20 docusate sodium 100 mg capsule 100 mg PO BEDTIME PRN constipation 05/28/20 10/20/20 lancets 28 gauge #100 ea 07/21/20 10/20/20 loratadine 10 mg tablet 10 mg PO DAILY 07/21/20 10/20/20 sertraline 25 mg tablet 25 mg PO DAILY 07/21/20 10/20/20 metformin 1,000 mg tablet 1,000 mg PO DAILY 05/31/21 Previous Rx's Medication Instructions Recorded fluconazole 150 mg tablet 150 mg PO Q3D balanitis 2 doses #2 03/21/20 (Diflucan) tabs hydrocortisone 2.5 % topical 1 appl topical BID PRN Balanitis 03/21/20 ointment #28.35 grams miconazole nitrate 2 % topical 1 appl topical BID Balanitis 21 03/21/20 ointment days #71 grams dicyclomine 20 mg tablet 20 mg PO TID PRN abdominal 03/28/20 discomfort #30 tabs sitagliptin phosphate 100 mg 100 mg PO DAILY 30 days #30 tabs 05/19/20 tablet (Januvia) insulin glargine 100 unit/mL (3 6 unit (0.06 mL) subcut QPM 30 07/21/20 mL) subcutaneous pen (Lantus days #1.8 mL Solostar U-100 Insulin) pen needle, diabetic 32 gauge x #100 ea 07/21/2004/12 (BD Ultra-Fine Micro Pen Needle) pen needle, diabetic 32 gauge x #100 ea 07/22/2004/12 (BD Ultra-Fine Micro Pen Needle) cholecalciferol (vitamin D3) 50 50 mcg PO DAILY 30 days #30 caps 10/04/20 mcg (2,000 unit) capsule blood sugar diagnostic (FreeStyle #100 ea 02/09/22 Lite Strips) tamsulosin 0.4 mg capsule (Flomax) 0.4 mg PO BEDTIME 90 days #90 caps 11/02/22 gabapentin 300 mg capsule 300 mg PO BEDTIME #14 caps 11/10/22 finasteride 5 mg tablet 5 mg PO DAILY 90 days #90 tabs 12/06/22 Allergies Allergy/AdvReac Type Severity Reaction Status Date / Time Penicillins Allergy Mild RASH Verified 12/27/22 11:14 acetaminophen [From Percocet] Allergy Unknown Anxiety Verified 12/27/22 11:14 oxycodone [From Percocet] Allergy Unknown Anxiety Verified 12/27/22 11:14 penicillin V Allergy Unknown rash Verified 12/27/22 11:14 Review of Systems Review of Systems: Constitutional: No fever, No chills, No fatigue, No malaise ENT/Mouth: No ear pain, No hearing loss, No nasal congestion, No sinus pain, No rhinorrhea, No sore throat Eyes: No eye pain, No swelling, No redness, No vision changes, No foreign body, No discharge Cardio: No chest pain, No palpitations, No dyspnea on exertion, No orthopnea, No edema Respiratory: No SOB, No cough, No sputum, No wheezing, No dyspnea, No hemoptysis GI: No nausea, No vomiting, No hematemesis, No abdominal pain, No diarrhea, No constipation, No hematochezia, No melena : No irregular bleeding, No dysuria, No frequency, No urgency, No hesitancy, No hematuria, No flank pain, No urinary flow changes, No urinary incontinence or retention MSK: No back pain, No neck pain, No joint pain, No myalgias Skin: No skin lesions, No rashes Neuro: No weakness, No numbness, No paresthesias, No LOC, No dizziness, No headache All other systems reviewed and are negative. [facility] Past Medical History Medical History Erectile dysfunction Bladder neck contracture Non-healing surgical wound Rash Vitamin D deficiency Anxiety COVID-19 HLD (hyperlipidemia) HTN (hypertension) T2DM (type 2 diabetes mellitus) Hypertension Surgical History Hx of removal of cyst History of prostate surgery Family History Family History Father Cancer Mother Cancer Diabetes Social History Social History Housing: Apartment Alcohol intake: former Patient Tobacco Use Status: Former Tobacco user Cigarette Packs Per Day: 1 Cigarettes Per Day: 20.0 Years Smoked: 20 Advance Directives: No Advance Directives Information Provided: Yes service: No Current occupational status: retired Physical Exam ED Vital Signs: Vital Signs - 24 hr 12/27/22 11:14 Temperature 98 F Pulse Rate 85 Respiratory Rate 19 Blood Pressure 143/89 H Pulse Oximetry 98 Oxygen Delivery Method Room Air BMI result Body Mass Index 28.0 Course Course Course Narrative: This is a rapid medical exam: Additional HPI, ROS, PE not included below will be deferred to primary provider. Patient is a 72-year-old Serbian-speaking male with history of prostate surgery around 5 years ago presenting to the emergency department with complaint of lower back pain for over 6 months. Was seen at [facility] and given injection which he states did not help. States pain increases with urination, especially when straining. Denies any falls or other injury. Denies saddle anesthesia or bowel or bladder incontinence. Denies recent imaging. Denies fevers. Plan: lumbar x-ray, UA Medical Decision Making Differential Diagnosis Differential Diagnoses: The differential diagnosis associated with the presentation includes Admission/Observation Not indicated. Independent Interpretation I performed an independent interpretation of an: Plain X-Ray Interpretation: X-ray lumbar spine without acute fracture, showing degenerative changes, agree with radiologist's interpretation. Radiology Impression Discussion of test interpretation with radiology: I have reviewed the radiologist's reading. 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 No compression deformity. External Record Review External record reviewed: Inpatient record Prescription Management I considered prescription management with: Pain Medication Discharge Plan Discharge Clinical Impression: Lumbar back pain Patient Disposition: Still a Patient Instructions: Chronic Back Pain (DC) Additional Instructions: Your pain is likely musculoskeletal. Avoid bending, lifting, or twisting. Use ice several times per day for 20 minutes at a time for the next 48 hours and then change to heat. Flexeril is a muscle relaxer. Take this at night as it makes you drowsy. Do not drive, drink alcohol, or operate machinery while taking it. Toradol is an anti-inflammatory / pain medication. Take with food. Lidoderm patches are numbing patches. Apply to painful areas. In addition you may take Tylenol at home. He has been provided a referral for pain management and Orthopedics. Call them to make an appointment. They will not call you. Follow up with your primary care provider as needed If your pain worsens, if you develop new numbness, tingling, weakness, loss of bowel or bladder function call 911 or return to the ER immediately for evaluation. Es probable que fuentes dolor sea musculoesquel?libby. Evite doblarse, levantarse o torcerse. Use hielo varias veces al d?a rojelio 20 minutos a la vez rojelio las siguientes 48 horas y luego c?mbielo a calor. Flexeril es un relajante muscular. T?wilcox por la noche ya que le produce cinda?o. No conduzca, deborah alcohol ni opere maquinaria mientras lo est? tomando. Toradol es un medicamento antiinflamatorio/analg?sico. Roslyn con la comida. Los parches de Lidoderm son parches adormecedores. Aplicar en las zonas dolorosas. Adem?s puede roslyn Tylenol en casa. Se le mcgovern proporcionado eri derivaci?n para el tratamiento del dolor y la ortopedia. Ll?melos para concertar eri ingris. No te llamar?n. Supa un seguimiento con fuentes proveedor de atenci?n primaria seg?n sea necesario Si fuentes dolor empeora, si desarrolla nuevo entumecimiento, hormigueo, debilidad, p?rdida de la funci?n intestinal o vesical, llame al 911 o regrese a la agustin de emergencias de inmediato para eri evaluaci?n. Prescriptions: No Action (DME) pen needle, diabetic [BD Ultra-Fine Micro Pen Needle] 32 gauge x 1/4 needle See Rx Instructions .ROUTE .MEDSUPPLY Qty: 100 11RF Rx Instructions: once daily cholecalciferol (vitamin D3) 50 mcg (2,000 unit) capsule 50 mcg PO DAILY 30 Days Qty: 30 11RF (DME) FreeStyle Lite Strips Strip See Rx Instructions .ROUTE .MEDSUPPLY Qty: 100 11RF Rx Instructions: 4x daily tamsulosin [Flomax] 0.4 mg capsule 0.4 mg PO BEDTIME 90 Days Qty: 90 1RF finasteride 5 mg tablet 5 mg PO DAILY 90 Days Qty: 90 0RF dicyclomine 20 mg tablet 20 mg PO TID PRN (Reason: abdominal discomfort) Qty: 30 0RF miconazole nitrate 2 % ointment 1 appl topical BID 21 Days Qty: 71 0RF fluconazole [Diflucan] 150 mg tablet 150 mg PO Q3D Qty: 2 0RF Rx Instructions: Take 1 dose today if symptoms persist repeat in 2 days/72 hours. hydrocortisone 2.5 % ointment 1 appl topical BID PRN (Reason: Balanitis) Qty: 28.35 0RF gabapentin 300 mg capsule 300 mg PO BEDTIME Qty: 14 0RF amlodipine 5 mg tablet 5 mg PO DAILY aspirin 81 mg tablet,delayed release (DR/EC) 81 mg PO DAILY losartan 100 mg tablet 100 mg PO DAILY ibuprofen 600 mg tablet 600 mg PO TID PRN (Reason: moderate pain) atorvastatin 40 mg tablet 40 mg PO DAILY metformin 500 mg tablet 1,000 mg PO BID trazodone 50 mg tablet 50 mg PO BEDTIME Januvia 100 mg tablet 100 mg PO DAILY 30 Days Qty: 30 11RF docusate sodium 100 mg capsule 100 mg PO BEDTIME PRN (Reason: constipation) (DME) lancets 28 gauge misc See Rx Instructions topical DAILY Qty: 100 Rx Instructions: As directed loratadine 10 mg tablet 10 mg PO DAILY sertraline 25 mg tablet 25 mg PO DAILY Lantus Solostar U-100 Insulin 100 unit/mL (3 mL) insulin pen 6 unit subcut QPM 30 Days Qty: 1.8 11RF (DME) pen needle, diabetic [BD Ultra-Fine Micro Pen Needle] 32 gauge x 1/4 needle See Rx Instructions .ROUTE .MEDSUPPLY Qty: 100 11RF Rx Instructions: As directed metformin 1,000 mg tablet 1,000 mg PO DAILY [place]: [facility] [place] Group] [facility] [[place] Group] Print Language: Serbian
--- NOTE | 2022-12-27 12:37 | ED_ITS ---
HPI - Back Pain/Injury General Chief Complaint: Back Pain/Injury Stated Complaint: back pain Time Seen by Provider: 12/27/22 12:36 Source: patient and science interpreter Mode of arrival: ambulatory Limitations: no limitations History of Present Illness HPI Narrative: 72 yo male with PMHx of HTN, HDL, T2DM, BPH s/p surgery, UTI, and anxiety presents to the ED today with chronic low back pain x6 months, worsening over the last week. Pain is located to the lower back bilaterally. No radiation. Reports he was evaluated at [facility] yesterday and given a shot of Toradol without resolution of symptoms. Additionally [facility] provided him with an order for outpatient MRI that he has not completed. Denies trauma or injury. Regularly follows with Dr. Ivey for PSA checks for BPH. Denies fever, chills, neck pain/ stiffness, N/V, abdominal pain, flank pain, penile discharge, dysuria, hematuria, saddle anesthesia, bowel or bladder incontinence or retention, LE tingling/weakness/numbness. Denies IVDU. Related Data Home Medications Medication Instructions Recorded Confirmed amlodipine 5 mg tablet 5 mg PO DAILY 02/19/20 10/20/20 aspirin 81 mg tablet,delayed 81 mg PO DAILY 02/19/20 10/20/20 release atorvastatin 40 mg tablet 40 mg PO DAILY 02/19/20 10/20/20 ibuprofen 600 mg tablet 600 mg PO TID PRN moderate pain 02/19/20 10/20/20 losartan 100 mg tablet 100 mg PO DAILY 02/19/20 10/20/20 metformin 500 mg tablet 1,000 mg PO BID 04/08/20 10/20/20 trazodone 50 mg tablet 50 mg PO BEDTIME 05/19/20 10/20/20 docusate sodium 100 mg capsule 100 mg PO BEDTIME PRN constipation 05/28/20 10/20/20 lancets 28 gauge #100 ea 07/21/20 10/20/20 loratadine 10 mg tablet 10 mg PO DAILY 07/21/20 10/20/20 sertraline 25 mg tablet 25 mg PO DAILY 07/21/20 10/20/20 metformin 1,000 mg tablet 1,000 mg PO DAILY 05/31/21 Previous Rx's Medication Instructions Recorded fluconazole 150 mg tablet 150 mg PO Q3D balanitis 2 doses #2 03/21/20 (Diflucan) tabs hydrocortisone 2.5 % topical 1 appl topical BID PRN Balanitis 03/21/20 ointment #28.35 grams miconazole nitrate 2 % topical 1 appl topical BID Balanitis 21 03/21/20 ointment days #71 grams dicyclomine 20 mg tablet 20 mg PO TID PRN abdominal 03/28/20 discomfort #30 tabs sitagliptin phosphate 100 mg 100 mg PO DAILY 30 days #30 tabs 05/19/20 tablet (Januvia) insulin glargine 100 unit/mL (3 6 unit (0.06 mL) subcut QPM 30 07/21/20 mL) subcutaneous pen (Lantus days #1.8 mL Solostar U-100 Insulin) pen needle, diabetic 32 gauge x #100 ea 07/21/20 1 (BD Ultra-Fine Micro Pen Needle) pen needle, diabetic 32 gauge x #100 ea 07/22/20 1 (BD Ultra-Fine Micro Pen Needle) cholecalciferol (vitamin D3) 50 50 mcg PO DAILY 30 days #30 caps 10/04/20 mcg (2,000 unit) capsule blood sugar diagnostic (FreeStyle #100 ea 02/09/22 Lite Strips) tamsulosin 0.4 mg capsule (Flomax) 0.4 mg PO BEDTIME 90 days #90 caps 11/02/22 gabapentin 300 mg capsule 300 mg PO BEDTIME #14 caps 11/10/22 finasteride 5 mg tablet 5 mg PO DAILY 90 days #90 tabs 12/06/22 cyclobenzaprine 10 mg tablet 10 mg PO BEDTIME #14 tabs 12/27/22 lidocaine 5 % topical patch 1 patch topical DAILY #15 ea 12/27/22 (Lidoderm) naproxen 500 mg tablet (Naprosyn) 500 mg PO BID PRN pain (scale 12/27/22 score 4-6) #10 tabs Allergies Allergy/AdvReac Type Severity Reaction Status Date / Time Penicillins Allergy Mild RASH Verified 12/27/22 11:14 acetaminophen [From Percocet] Allergy Unknown Anxiety Verified 12/27/22 11:14 oxycodone [From Percocet] Allergy Unknown Anxiety Verified 12/27/22 11:14 penicillin V Allergy Unknown rash Verified 12/27/22 11:14 Review of Systems Review of Systems: Constitutional: No fever, No chills, No fatigue, No malaise ENT/Mouth: No ear pain, No hearing loss, No nasal congestion, No sinus pain, No rhinorrhea, No sore throat Eyes: No eye pain, No swelling, No redness, No vision changes, No foreign body, No discharge Cardio: No chest pain, No palpitations, No dyspnea on exertion, No orthopnea, No edema Respiratory: No SOB, No cough, No sputum, No wheezing, No dyspnea, No hemoptysis GI: No nausea, No vomiting, No hematemesis, No abdominal pain, No diarrhea, No constipation, No hematochezia, No melena : No irregular bleeding, No dysuria, No frequency, No urgency, No hesitancy, No hematuria, No flank pain, No urinary flow changes, No urinary incontinence or retention MSK: + back pain, No neck pain, No joint pain, No myalgias Skin: No skin lesions, No rashes Neuro: No weakness, No numbness, No paresthesias, No LOC, No dizziness, No headache All other systems reviewed and are negative. [facility] Past Medical History Attestation statement: The following information was validated with the patient. Source: old records reviewed and nursing notes reviewed Medical History Erectile dysfunction Bladder neck contracture Non-healing surgical wound Rash Vitamin D deficiency Anxiety COVID-19 HLD (hyperlipidemia) HTN (hypertension) T2DM (type 2 diabetes mellitus) Hypertension Surgical History Hx of removal of cyst History of prostate surgery Family History Family History Father Cancer Mother Cancer Diabetes Social History Social History Housing: Apartment Alcohol intake: former Patient Tobacco Use Status: Former Tobacco user Cigarette Packs Per Day: 1 Cigarettes Per Day: 20.0 Years Smoked: 20 Advance Directives: No Advance Directives Information Provided: Yes service: No Current occupational status: retired Physical Exam Vital Signs: Vital Signs: Last Vital Signs Temp 97.9 F 12/27/22 14:48 Pulse 81 12/27/22 14:48 Resp 18 12/27/22 14:48 BP 138/83 12/27/22 14:48 Pulse Ox 99 12/27/22 14:48 O2 Del Method Room Air 12/27/22 14:48 BMI result Body Mass Index 28.0 Vital signs stable General: Nontoxic appearing. NAD Skin: Warm and dry. No rashes or lesions. Head: Normocephalic, atraumatic. EENT: PERRLA. EOM intact. Neck: Supple without LAD. Normal ROM. Trachea midline. Cardiac: Chest wall symmetric. RRR. S1 and S1 appreciated. Lungs: CTA bilaterally. No rales, rhonchi, or wheezes. Normal respiratory effort without accessory muscle use. Abdomen: No visible lesions or scars. Soft, NT/ND. No rebound tenderness or guarding. Normoactive BS x4. No CVAT b/l. Spine: No midline spinous tenderness. Tender to palpation of the lumbar paraspinal muscles b/l. No deformity or step off. Ext: UE/LE atraumatic. Full ROM throughout. Capillary refill <2 seconds in all extremities. Pulses 2+ equal b/l. No edema, cyanosis, or clubbing. Neuro: AOx3. Normal speech. CN 2-12 grossly intact. Strength 5/5 intact throughout. Sensation intact to light touch. NV intact distally. Reflexes 2+ bilaterally. Ambulating with steady gait. Psych: Appropriate mood and affect. Responds appropriately to questions. Course Course Course Narrative: 2096-- x-ray lumbar spine showing degenerative changes, no acute fracture > clinical suspicion for MSK sprain/strain. UA negative -- > on re-evaluation, patient reports pain improvement with flexeril, toradol, and lidoderm patch. Ambulating with steady gait > symptoms are consistent with msk sprain/ strain > will send patient home with scrips and referral to orthopedist. Educated patient on return precautions. All questions answered. Patient agreeable with plan. Stable for discharge. Medications Administered Discontinued Medications Generic Name Dose Route Start Last Admin Trade Name Freq PRN Reason Stop Dose Admin Cyclobenzaprine HCl 10 mg 12/27/22 13:20 12/27/22 13:40 Cyclobenzaprine Hcl 10 Mg Tablet PO 12/27/22 13:21 10 mg ONCE ONE Administration Ketorolac Tromethamine 30 mg 12/27/22 13:20 12/27/22 13:42 Ketorolac Tromethamine 30 Mg/Ml Vial IM 12/27/22 13:21 30 mg ONCE ONE Administration Lidocaine 1 patch 12/27/22 13:20 12/27/22 13:38 Lidocaine 4 % Patch Adh..Patch TRANSDERMA 12/27/22 13:21 1 patch ONCE ONE Administration Protocol Medical Decision Making Medical Decision Making [facility] Narrative: 72 yo male with PMHx of HTN, HDL, T2DM, BPH s/p surgery, UTI, and anxiety presents to the ED today with chronic low back pain x6 months, worsening over the last week. VSS, afebrile, nontoxic appearing. Exam without midline spinous tenderness, tenderness to palpation of the lumbar paraspinal muscles b/l without deformity or step off. No CVAT b/l. NV intact distally. Sensation intact to light touch. Strength 5/5 throughout. Ambulating with steady gait. Clinical concern for MSK sprain/strain vs UTI vs BPH. Low suspicion for nephrolithiasis, pyelonephritis. No evidence to suggest cauda equina, cord compression, epidural abscess. Differential Diagnosis Differential Diagnoses: The differential diagnosis associated with the presentation includes Clinical concern for MSK sprain/strain vs UTI vs BPH. Low suspicion for nephrolithiasis, pyelonephritis. No evidence to suggest cauda equina, cord compression, epidural abscess. Admission/Observation Not indicated. Lab Data [facility] Lab Attestation statement: I reviewed the patient's lab results. See above course narrative. Labs: Lab Results 12/27/22 Range/Units 13:09 Urine Color Yellow Urine Appearance Clear Urine pH 7.0 (5.0-9.0) Ur Specific [place] 1.010 (1.005-1.025) Urine Protein Negative (Neg-Trace) mg/dL Urine Glucose (UA) 250 H (Negative) mg/dL Urine Ketones Negative (Negative) mg/dL Urine Blood Negative (Negative) Urine Nitrite Negative (Negative) Ur Leukocyte Esterase Negative (Negative) Independent Interpretation I performed an independent interpretation of an: Plain X-Ray Interpretation: X-ray lumbar spine without acute fracture, positive for degenerative changes, agree with radiologist's interpretation. Radiology Impression Discussion of test interpretation with radiology: I have reviewed the radiologist's reading. 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 No compression deformity. Independent Historian Clinical information obtained from an independent historian. History obtained from or confirmed by: Spouse External Record Review External record reviewed: Inpatient record Prescription Management I considered prescription management with: Pain Medication and Other (muscle relaxer) Chronic Conditions Patient?s care impacted by: Diabetes and Hypertension Critical Care Time Critical Care Time Critical Care Time: No Discharge Plan Discharge Clinical Impression: Lumbar back pain Patient Disposition: Home, Self-Care Instructions: Chronic Back Pain (DC) Additional Instructions: Your urine did not show infection. The x-ray of your back did not show any acute fracture. It did show degenerative changes to the spine which can happen with age. Your pain is likely musculoskeletal. Avoid bending, lifting, or twisting. Use ice several times per day for 20 minutes at a time for the next 48 hours and then change to heat. Flexeril is a muscle relaxer. Take this at night as it makes you drowsy. Do not drive, drink alcohol, or operate machinery while taking it. Toradol is an anti-inflammatory / pain medication. Take with food. Do not take this medication with ibuprofen as these are in the same medication class. Lidoderm patches are numbing patches. Apply to painful areas. In addition you may take Tylenol at home. You informed me that you have an order for an MRI of the back. Call to schedule this appointment. This imaging will be helpful to further evaluate your back pain. You have been provided a referral for pain management and Orthopedics. Call them to make an appointment. They will not call you. Follow up with your primary care provider as needed If your pain worsens, if you develop new numbness, tingling, weakness, loss of bowel or bladder function call 911 or return to the ER immediately for evaluation. Jameson orina no mostr? infecci?n. La radiograf?a de jameson espalda no mostr? ninguna fractura aguda. Mostr? cambios degenerativos en la columna que pueden ocurrir con la edad. Es probable que jameson dolor sea musculoesquel?libby. Evite doblarse, levantarse o torcerse. Use hielo varias veces al d?a rojelio 20 minutos a la vez rojelio las siguientes 48 horas y luego c?mbielo a calor. Flexeril es un relajante muscular. T?wilcox por la noche ya que le produce cinda?o. No conduzca, deborah alcohol ni opere maquinaria mientras lo est? tomando. Toradol es un medicamento antiinflamatorio/analg?sico. Roslyn con la comida. No tome dustin medicamento con ibuprofeno ya que pertenecen a la misma clase de medicamentos. Los parches de Lidoderm son parches adormecedores. Aplicar en las zonas dolorosas. Adem?s puede roslyn Tylenol en casa. Me inform? que tiene eri orden para eri resonancia magn?nishi de la espalda. Llame para programar esta ingris. Esta imagen ser? ?til para evaluar m?s a fondo jameson dolor de espalda. Se le mcgovern proporcionado eri derivaci?n para el tratamiento del dolor y la ortopedia. Ll?melos para concertar eri ingris. No te llamar?n. Supa un seguimiento con jameson proveedor de atenci?n primaria seg?n sea necesario Si jameson dolor empeora, si desarrolla nuevo entumecimiento, hormigueo, debilidad, p?rdida de la funci?n intestinal o vesical, llame al 911 o regrese a la agustin de emergencias de inmediato para eri evaluaci?n. Prescriptions: New cyclobenzaprine 10 mg tablet 10 mg PO BEDTIME Qty: 14 0RF lidocaine [Lidoderm] 5 % adhesive patch,medicated 1 patch topical DAILY Qty: 15 0RF Rx Instructions: leave on most painful area for up to 12 hrs naproxen [Naprosyn] 500 mg tablet 500 mg PO BID PRN (Reason: pain (scale score 4-6)) Qty: 10 0RF No Action (DME) pen needle, diabetic [BD Ultra-Fine Micro Pen Needle] 32 gauge x 1/4 needle See Rx Instructions .ROUTE .MEDSUPPLY Qty: 100 11RF Rx Instructions: once daily cholecalciferol (vitamin D3) 50 mcg (2,000 unit) capsule 50 mcg PO DAILY 30 Days Qty: 30 11RF (DME) FreeStyle Lite Strips Strip See Rx Instructions .ROUTE .MEDSUPPLY Qty: 100 11RF Rx Instructions: 4x daily tamsulosin [Flomax] 0.4 mg capsule 0.4 mg PO BEDTIME 90 Days Qty: 90 1RF finasteride 5 mg tablet 5 mg PO DAILY 90 Days Qty: 90 0RF dicyclomine 20 mg tablet 20 mg PO TID PRN (Reason: abdominal discomfort) Qty: 30 0RF miconazole nitrate 2 % ointment 1 appl topical BID 21 Days Qty: 71 0RF fluconazole [Diflucan] 150 mg tablet 150 mg PO Q3D Qty: 2 0RF Rx Instructions: Take 1 dose today if symptoms persist repeat in 2 days/72 hours. hydrocortisone 2.5 % ointment 1 appl topical BID PRN (Reason: Balanitis) Qty: 28.35 0RF gabapentin 300 mg capsule 300 mg PO BEDTIME Qty: 14 0RF amlodipine 5 mg tablet 5 mg PO DAILY aspirin 81 mg tablet,delayed release (DR/EC) 81 mg PO DAILY losartan 100 mg tablet 100 mg PO DAILY ibuprofen 600 mg tablet 600 mg PO TID PRN (Reason: moderate pain) atorvastatin 40 mg tablet 40 mg PO DAILY metformin 500 mg tablet 1,000 mg PO BID trazodone 50 mg tablet 50 mg PO BEDTIME Januvia 100 mg tablet 100 mg PO DAILY 30 Days Qty: 30 11RF docusate sodium 100 mg capsule 100 mg PO BEDTIME PRN (Reason: constipation) (DME) lancets 28 gauge misc See Rx Instructions topical DAILY Qty: 100 Rx Instructions: As directed loratadine 10 mg tablet 10 mg PO DAILY sertraline 25 mg tablet 25 mg PO DAILY Lantus Solostar U-100 Insulin 100 unit/mL (3 mL) insulin pen 6 unit subcut QPM 30 Days Qty: 1.8 11RF (DME) pen needle, diabetic [BD Ultra-Fine Micro Pen Needle] 32 gauge x 1/4 needle See Rx Instructions .ROUTE .MEDSUPPLY Qty: 100 11RF Rx Instructions: As directed metformin 1,000 mg tablet 1,000 mg PO DAILY Referrals: [facility] Orthopedic Surgeons [Provider Group] [facility] Pain Management [Provider Group] Interventions: ED Discharge Assessment Last Done: 12/27/22 14:52 Discharge Date/Time: 12/27/22 14:53 Print Language: Belarusian
--- OUTSIDE RECORDS SUMMARY | 2022-12-27 12:49 | XMS_ITS | Patient Health Record ---
Author Name Unknown Organization [facility] Address [address] [place] [address] Care Team Providers Care Miner Placer Name Role Phone Lidia Mendoza MD Primary Care Provider Clifford Correia Unavailable [phone] ALLERGIES Allergen (clinical drug ingredient) Drug/Non Drug Allergy documented on EMR Reaction Allergy Type Onset Date Status Penicillin Unknown Drug Allergy Active acetaminophen / oxycodone Percocet Unknown Drug Allergy Active RESULTS Component Value Reference Range Notes Pathology (Not yet reviewed by provider) Interpretation: Performing Lab:[facility], [address] [place] [id number] Notes/Report: Glucose, Whole Blood Reviewed date:05/17/2022 03:15:45 PM Interpretation: Performing Lab:[facility], [address] [place] [id number] Notes/Report: Glucose, Whole Blood 153 60-115 mg/dL METER # : [id number] REASON FOR REFERRAL No Information MEDICATIONS Medication SIG (Take, Route, Frequency, Duration) Notes Start Date End Date Status Potassium Chloride A ctive Finasteride 5 MG Oral for 90 A ctive Ibuprofen 800 MG TAKE 1 TABLET BY DAKOTA TWICE A DAY WITH FOOD NEEDED Oral for 15 Active Senna Lax 8.6 MG 2 tablets at bedtime as needed Orally Once a day for 30 day(s) Active Colace 100 MG 1 capsule as needed Orally Once a day for 30 day(s) Active metFORMIN HCl 1000 MG Oral for 90 Active Flonase Allergy Relief 50 MCG/ACT 1 spray in each nostril Nasally Once a day for 30 day(s) Active Januvia 100 MG TOME NORMAN TABLETA TOD OS LOS D Oral for 90 Active Loratadine 10 MG Orally Once a day Active Losartan Potassium 100 MG 1 tablet Orall y Once a day Active Atorvastatin Calcium 40 MG TOME NORMAN TABL ETA POR V?A ORAL TODOS LOS D? AL ACOSTARSE Oral for 90 Active amLODIPine Besylate 5 MG 1 tablet Orally Once a day Active Dulcolax (colon prep) 5 MG take at 3:00 p.m and 7:00p.m. Orally two tablets twice a day for one day for 1 day 03/21/2022 Active Tamsulosin HCl 0.4 MG TAKE 1 CAPSULE BY MOUTH EVERYDAY AT BEDTIME Oral for 90 Active MiraLax (colon prep) 17 GM/SCOOP One 238 Gm bottle mixed with Gatorade or Crystal Light Orally begin at 5:00 p.m. the day before the procedure for 1 day 03/21/2022 Active traZODone HCl 50 MG Oral for 90 Active IMMUNIZATIONS Vaccine Route Administration Date Status Comme nts Influenza Unknown 12/08/2016 Administered Influenza Unknown 12/08/2021 Administered SOCIAL HISTORY Tobacco Use: Social History Observation Description Date Details (start date - stop date) Former Smoker NA - NA Sex Assigned At : Social History Observation Description Sex Assigned At Unknown Tobacco Use/Smoking Question Answer Notes Patient is a former smoker How long has it been since you last smoked? > 10 years Alcohol Screen Question Answer Notes Did you have a drink containing alcohol in the p ast year? No Points 0 Interpretation Negative PROBLEMS Problem Type ICD Code Onset Dates Problem Status W/U Status Risk SNOMED Code Notes Problem Encounter for screening for malignant neoplasm of colon (Z12.11) Active confirmed 759880562 Problem Aspirin long-term use (Z79.82) Active confirmed 363419996 Problem Heme + stool (R19.5) Active confirmed Abnormal feces (631800209) Problem Diverticulosis of large intestine without perforation or abscess without bleeding (K57.30) Active confirmed Diverticul ar disease of colon (631883374) Encounters Encounter Location Date Provider Diagnosis [facility] [address] [place] [phone] 05/17/2022 Clifford Medina Colon polyps K63.5 ; Angiodysplasia K55.20 ; Internal hemorrhoids K64.8 ; Diverticulosis of large intestine without perforation or abscess without bleeding K57.30 and Heme positive stool R19.5 [facility] [address] [place] [address] 03/21/2022 Clifford Medina Heme + stool R19.5 [facility] [address] [place] [address] 03/21/2022 Clifford Medina ASSESSMENTS Encounter Date Diagnosis Assessment Notes Treatment Notes Treatment Clinical Notes 05/17/2022 Colon polyps (ICD-10 - K63.5) 05/17/2022 Angiodysplasia (ICD-10 - K55.20) 03/21/2022 Heme + stool (ICD-10 - R19.5) Do not use the Metformin nor the Januvia the night before nor on the morning of the colonoscopy 05/17/2022 Internal hemorrhoids (ICD-10 - K64.8) 05/17/2022 Diverticulosis of large intestine without perforation or abscess without bleeding (ICD-10 - K57.30) 05/17/2022 Heme positive stool (ICD-10 - R19.5) PLAN OF TREATMENT Pending Test Test Name Order Date Pathology 05/17/2022 Future Test Test Name Order Date COLONOSCOPY 04/27/2017 COLONOSCOPY 03/21/2022 Insurance Providers Payer Name Payer Address Payer Phone Subscriber Number Group Number Insured Name Patient Relationship to Insured Coverage Start Date Coverage End Date [facility] [address] [place] [phone] [id number] MACO VALENTINE Self - patient is the insured MEDICAL (GENERAL) HISTORY Medical History History ICD Code Denies CO,CVA,Lung disease,renal disease NIDDM Hyperlipidemia Neg. screening colonoscopy i n 02/2007--inflammatory polyp, sigmoid diverticulosis, internal hemorrhoids HTN Negative colonoscopy in 05/2017 COVID 2020 Surgical History Surgery Date(Month/Year) Transurethral prostate surgery 2014 2 cysts removed from back---Dr. Henry Apr
[2022-12-27] MEDS: Lidocaine 4 % Patch ADH..PATCH 1 PATCH TRANSDERMA (13:38)
[2022-12-27 13:39] LABS: Appearance Urine Clear; Color Urine Yellow; Glucose Urine UA 250 mg/dL (Negative); Leukocyte Esterase Urine Negative (Negative); Nitrite Urine Negative (Negative); Urine Blood Negative (Negative); Urine Ketones Negative (Negative); Urine Protein Negative (Neg-Trace)
[2022-12-27] MEDS: Cyclobenzaprine HCl 10 MG TABLET PO (13:40)
[2022-12-27] MEDS: Ketorolac Tromethamine 30 MG/ML VIAL IM (13:42)
[2022-12-27 14:48] VITALS: BP 138/83; PULSE 81; RESP 18; TEMP 36.6; O2SAT 99
== END 2022-12-27 14:53 | disposition home or self-care (01) ==
PROVIDERS: Registered Nurse Emergency; Emergency Provider Emergency Medicine; PCP Family Medicine
DX: M54.50 Low back pain, unspecified (principal); Z79.899 Other long term (current) drug therapy; Z87.891 Personal history of nicotine dependence
CPT/HCPCS: 72100; 81003; 96372; 99284; J1885

== ENCOUNTER 2023-01-11 19:35 | Emergency (ER) | payer OTHER, SELFPAY ==
[2023-01-11 19:44] VITALS: BP 132/75; PULSE 84; RESP 18; TEMP 36.2; O2SAT 99; BMI 29.6
--- NOTE | 2023-01-11 19:45 | ED.GENADULT ---
HPI - General Adult General Chief complaint: General Medical Stated complaint: ? insect bite right arm,richelle,swollen Time Seen by Provider: 01/11/23 23:54 Source: patient, RN notes reviewed, old records reviewed and smel[employer] Mode of arrival: ambulatory Limitations: language barrier History of Present Illness HPI narrative: 72-year-old male past medical history significant for hypertension, type 2 diabetes, BPH, hyperlipidemia presents for evaluation of right elbow redness and mild pain. Patient believes he was bit by a bug yesterday but has also been picking at a scab to his right elbow The has some redness with very minimal discomfort to the right elbow No significant swelling Denies any fevers, chills, denies any trauma to the right elbow He is able to flex and extend the right elbow without any difficulty Related Data Home Medications Medication Instructions Recorded Confirmed amlodipine 5 mg tablet 5 mg PO DAILY 02/19/20 10/20/20 aspirin 81 mg tablet,delayed 81 mg PO DAILY 02/19/20 10/20/20 release atorvastatin 40 mg tablet 40 mg PO DAILY 02/19/20 10/20/20 ibuprofen 600 mg tablet 600 mg PO TID PRN moderate pain 02/19/20 10/20/20 losartan 100 mg tablet 100 mg PO DAILY 02/19/20 10/20/20 metformin 500 mg tablet 1,000 mg PO BID 04/08/20 10/20/20 trazodone 50 mg tablet 50 mg PO BEDTIME 05/19/20 10/20/20 docusate sodium 100 mg capsule 100 mg PO BEDTIME PRN constipation 05/28/20 10/20/20 lancets 28 gauge #100 ea 07/21/20 10/20/20 loratadine 10 mg tablet 10 mg PO DAILY 07/21/20 10/20/20 sertraline 25 mg tablet 25 mg PO DAILY 07/21/20 10/20/20 metformin 1,000 mg tablet 1,000 mg PO DAILY 05/31/21 Previous Rx's Medication Instructions Recorded fluconazole 150 mg tablet 150 mg PO Q3D balanitis 2 doses #2 03/21/20 (Diflucan) tabs hydrocortisone 2.5 % topical 1 appl topical BID PRN Balanitis 03/21/20 ointment #28.35 grams miconazole nitrate 2 % topical 1 appl topical BID Balanitis 21 12/13/20 ointment days #71 grams dicyclomine 20 mg tablet 20 mg PO TID PRN abdominal 03/28/20 discomfort #30 tabs sitagliptin phosphate 100 mg 100 mg PO DAILY 30 days #30 tabs 05/19/20 tablet (Januvia) insulin glargine 100 unit/mL (3 6 unit (0.06 mL) subcut QPM 30 07/21/20 mL) subcutaneous pen (Lantus days #1.8 mL Solostar U-100 Insulin) pen needle, diabetic 32 gauge x #100 ea 07/21/20 1 (BD Ultra-Fine Micro Pen Needle) pen needle, diabetic 32 gauge x #100 ea 07/22/20 1 (BD Ultra-Fine Micro Pen Needle) cholecalciferol (vitamin D3) 50 50 mcg PO DAILY 30 days #30 caps 10/04/20 mcg (2,000 unit) capsule blood sugar diagnostic (FreeStyle #100 ea 02/09/22 Lite Strips) tamsulosin 0.4 mg capsule (Flomax) 0.4 mg PO BEDTIME 90 days #90 caps 11/02/22 gabapentin 300 mg capsule 300 mg PO BEDTIME #14 caps 11/10/22 finasteride 5 mg tablet 5 mg PO DAILY 90 days #90 tabs 12/06/22 cyclobenzaprine 10 mg tablet 10 mg PO BEDTIME #14 tabs 12/27/22 lidocaine 5 % topical patch 1 patch topical DAILY #15 ea 12/27/22 (Lidoderm) naproxen 500 mg tablet (Naprosyn) 500 mg PO BID PRN pain (scale 12/27/22 score 4-6) #10 tabs cephalexin 500 mg capsule 500 mg PO QID #27 caps 01/12/23 Allergies Allergy/AdvReac Type Severity Reaction Status Date / Time Penicillins Allergy Mild RASH Verified 12/27/22 11:14 acetaminophen [From Percocet] Allergy Unknown Anxiety Verified 12/27/22 11:14 oxycodone [From Percocet] Allergy Unknown Anxiety Verified 12/27/22 11:14 penicillin V Allergy Unknown rash Verified 12/27/22 11:14 Review of Systems Constitutional: Constitutional: Denies chills and Denies fever(s) Eyes: Eyes: Denies blurry vision ENT: Denies sore throat Cardiovascular: Cardiovascular: Denies chest pain and Denies dyspnea Respiratory: Respiratory: Denies cough and Denies dyspnea Gastrointestinal: Gastrointestinal: Denies abdominal pain, Denies nausea and Denies vomiting Musculoskeletal: Musculoskeletal: Reports arthralgias, Denies joint swelling and Reports limited range of motion Integumentary/Breasts: Skin/Breast: Reports erythema PMFSH Past Medical History Medical History Erectile dysfunction Bladder neck contracture Non-healing surgical wound Rash Vitamin D deficiency Anxiety COVID-19 HLD (hyperlipidemia) HTN (hypertension) T2DM (type 2 diabetes mellitus) Hypertension Surgical History Hx of removal of cyst History of prostate surgery Family History Family History Father Cancer Mother Cancer Diabetes Social History Social History Housing: Apartment Alcohol intake: current Alcohol intake frequency: does not drink Patient Tobacco Use Status: Former Tobacco user Cigarette Packs Per Day: 1 Cigarettes Per Day: 20.0 Years Smoked: 20 Smoked in Last 30 Days: No Use of substances other than those prescribed or required for medical reasons: No Advance Directives: No Advance Directives Information Provided: No service: No Current occupational status: retired Physical Exam ED Vital Signs: Vital Signs - 24 hr 01/11/23 19:44 Temperature 97.2 F Pulse Rate 84 Respiratory Rate 18 Blood Pressure 132/75 Pulse Oximetry 99 Oxygen Delivery Method Room Air BMI result Body Mass Index 29.6 Const General: healthy appearing, comfortable, no acute distress, alert and awake Nutritional Appearance: well nourished Orientation/consciousness: patient oriented x3 HENMT Head: Yes normocephalic and Yes atraumatic Eyes Eyelids: Yes eyelids normal Conjunctivae: conjunctivae normal Sclerae: sclerae normal Corneas: corneas normal Pupils: Equal, round and reactive pupils present EOM: EOMs intact bilaterally Neck Neck: Yes full ROM Resp Effort & Inspection: normal respiratory effort, able to speak in complete sentences and not labored Skin Other: Patient has a 7 cm area of erythema centered around the right elbow. There is no significant joint effusion. No open wounds, no fluctuance or induration, no drainage General skin exam: elasticity normal Neuro General: patient oriented x3 Cranial nerves: Yes Equal, round and reactive pupils present and Yes Bilaterally intact EOM present Cognition (Neuro): normal cognition Extrem Other: Full range of motion with flexion and extension as well as pronation supination of the right upper extremity/elbow Course Course Course Narrative: This is a rapid medical exam: Additional HPI, ROS, PE not included below will be deferred to primary provider. Patient is a 72-year-old Portuguese-speaking male with history of T2DM, HTN, BPH presenting to the emergency department with swelling, erythema, and pain to right elbow since yesterday[place] is unsure if he was bit by a bug. Patient has small scab to olecranon, no drainage. Denies fevers. Full ROM to elbow. Plan: labs including tick panel, x-ray Medical Decision Making Medical Decision Making MDM Narrative: 72-year-old male presents for evaluation of redness to the right elbow. Denies any trauma. X-ray does not show any evidence of fracture. On exam he does have some redness with increased warmth, no open wounds, no areas of fluctuance. Patient has very good range of motion which septic joint much less likely. He likely has a mild cellulitis of the right elbow, no significant edema to suggest bursitis. Will treat with cephalexin Differential Diagnosis Differential Diagnoses: The differential diagnosis associated with the presentation includes Cellulitis Bursitis Septic joint Abscess Lab Data [facility] Lab Attestation statement: I reviewed the patient's lab results. No leukocytosis. The patient has a mild anemia consistent his baseline. He has chronic hyponatremia and his sodium is just above baseline at 1:34 a.m.. A normal potassium. No other significant electrolyte abnormalities. Normal renal function. Patient's glucose 223 with no evidence of DKA 01/11/23 20:03 01/11/23 20:03 Labs: Lab Results 01/11/23 Range/Units 20:03 WBC 10.2 (4.8-10.8) X10*3/uL RBC 4.48 L (4.60-5.80) X10*6/uL Hgb 13.8 L (14.0-18.0) g/dl Hct 39.4 L (42.0-52.0) % MCV 87.9 (80.0-98.0) fL MCH 30.8 (27.0-33.0) pg MCHC 35.0 (31.0-36.0) g/dl RDW 12.2 (11.0-16.0) % Plt Count 239 (160-400) X10*3/uL MPV 9.5 (9.4-12.4) fL Immature Gran % (Auto) 0.4 (0.0-0.4) % Neut % (Auto) 72.5 (45-73) % Lymph % (Auto) 14.7 L (20-40) % [place] % (Auto) 9.5 (2-11) % Eos % (Auto) 2.5 (0-4) % Baso % (Auto) 0.4 (0-2) % Lymph # (Auto) 1.5 (1.2-4.9) X10*3/uL [place] # (Auto) 1.0 (0.1-1.2) X10*3/uL Eos # (Auto) 0.3 (0.0-0.4) X10*3/uL Baso # (Auto) 0.0 (0.0-0.2) X10*3/uL Abs Immat Gran (auto) 0.04 H (0.00-0.03) X10*3/uL Absolute Neuts (auto) 7.4 (2.0-8.3) x10*3/uL Absolute Nucleated RBC 0.000 (0.0-0.012) X10*3/uL Nucleated RBC % (auto) 0.0 (0.0-0.2) /100WBC Sodium 134 L (135-145) mmol/L Potassium 3.9 (3.3-5.1) mmol/L Chloride 102 (96-108) mmol/L Carbon Dioxide 21 L (22-29) mmol/L Anion Gap 15 (12-20) BUN 9 (9-16) mg/dL Creatinine 0.83 (0.5-1.4) mg/dL Estim Creat Clear Calc 84.1 Estimated GFR > 60 Random Glucose 223 H (60-115) mg/dL Calcium 9.5 (8.4-10.2) mg/dL Total Bilirubin 0.3 (0.0-1.0) mg/dL AST 14 (5-37) U/L ALT 15 (0-40) U/L Alkaline Phosphatase 65 (39-117) U/L Total Protein 7.1 (6.5-8.0) g/dL Albumin 4.2 (3.5-5.0) g/dL Independent Interpretation I performed an independent interpretation of an: Plain X-Ray (No obvious fracture.) Radiology Impression Discussion of test interpretation with radiology: I have reviewed the radiologist's reading. Radiologist Impression: Normal right elbow Discharge Plan Discharge Clinical Impression: Cellulitis of right elbow Patient Disposition: Home, Self-Care Instructions: Cellulitis (ED) Additional Instructions: Use the cephalexin 4 times daily for the next 7 days You should also apply warm compresses to the swollen area Return for new or worsening symptoms, especially if he develops fevers or if the redness is spreading well outside of the marked areas Prescriptions: New cephalexin 500 mg capsule 500 mg PO QID Qty: 27 0RF No Action (DME) pen needle, diabetic [BD Ultra-Fine Micro Pen Needle] 32 gauge x 1/4 needle See Rx Instructions .ROUTE .MEDSUPPLY Qty: 100 11RF Rx Instructions: once daily cholecalciferol (vitamin D3) 50 mcg (2,000 unit) capsule 50 mcg PO DAILY 30 Days Qty: 30 11RF (DME) FreeStyle Lite Strips Strip See Rx Instructions .ROUTE .MEDSUPPLY Qty: 100 11RF Rx Instructions: 4x daily tamsulosin [Flomax] 0.4 mg capsule 0.4 mg PO BEDTIME 90 Days Qty: 90 1RF finasteride 5 mg tablet 5 mg PO DAILY 90 Days Qty: 90 0RF dicyclomine 20 mg tablet 20 mg PO TID PRN (Reason: abdominal discomfort) Qty: 30 0RF miconazole nitrate 2 % ointment 1 appl topical BID 21 Days Qty: 71 0RF fluconazole [Diflucan] 150 mg tablet 150 mg PO Q3D Qty: 2 0RF Rx Instructions: Take 1 dose today if symptoms persist repeat in 2 days/72 hours. hydrocortisone 2.5 % ointment 1 appl topical BID PRN (Reason: Balanitis) Qty: 28.35 0RF gabapentin 300 mg capsule 300 mg PO BEDTIME Qty: 14 0RF cyclobenzaprine 10 mg tablet 10 mg PO BEDTIME Qty: 14 0RF lidocaine [Lidoderm] 5 % adhesive patch,medicated 1 patch topical DAILY Qty: 15 0RF Rx Instructions: leave on most painful area for up to 12 hrs naproxen [Naprosyn] 500 mg tablet 500 mg PO BID PRN (Reason: pain (scale score 4-6)) Qty: 10 0RF amlodipine 5 mg tablet 5 mg PO DAILY aspirin 81 mg tablet,delayed release (DR/EC) 81 mg PO DAILY losartan 100 mg tablet 100 mg PO DAILY ibuprofen 600 mg tablet 600 mg PO TID PRN (Reason: moderate pain) atorvastatin 40 mg tablet 40 mg PO DAILY metformin 500 mg tablet 1,000 mg PO BID trazodone 50 mg tablet 50 mg PO BEDTIME Januvia 100 mg tablet 100 mg PO DAILY 30 Days Qty: 30 11RF docusate sodium 100 mg capsule 100 mg PO BEDTIME PRN (Reason: constipation) (DME) lancets 28 gauge misc See Rx Instructions topical DAILY Qty: 100 Rx Instructions: As directed loratadine 10 mg tablet 10 mg PO DAILY sertraline 25 mg tablet 25 mg PO DAILY Lantus Solostar U-100 Insulin 100 unit/mL (3 mL) insulin pen 6 unit subcut QPM 30 Days Qty: 1.8 11RF (DME) pen needle, diabetic [BD Ultra-Fine Micro Pen Needle] 32 gauge x 1/4 needle See Rx Instructions .ROUTE .MEDSUPPLY Qty: 100 11RF Rx Instructions: As directed metformin 1,000 mg tablet 1,000 mg PO DAILY
--- NOTE | 2023-01-12 00:09 | ED.GENADULT ---
HPI - General Adult General Chief complaint: General Medical Stated complaint: ? insect bite right arm,richelle,swollen Time Seen by Provider: 01/11/23 23:54 Related Data Home Medications Medication Instructions Recorded Confirmed amlodipine 5 mg tablet 5 mg PO DAILY 02/19/20 10/20/20 aspirin 81 mg tablet,delayed 81 mg PO DAILY 02/19/20 10/20/20 release atorvastatin 40 mg tablet 40 mg PO DAILY 02/19/20 10/20/20 ibuprofen 600 mg tablet 600 mg PO TID PRN moderate pain 02/19/20 10/20/20 losartan 100 mg tablet 100 mg PO DAILY 02/19/20 10/20/20 metformin 500 mg tablet 1,000 mg PO BID 04/08/20 10/20/20 trazodone 50 mg tablet 50 mg PO BEDTIME 05/19/20 10/20/20 docusate sodium 100 mg capsule 100 mg PO BEDTIME PRN constipation 05/28/20 10/20/20 lancets 28 gauge #100 ea 07/21/20 10/20/20 loratadine 10 mg tablet 10 mg PO DAILY 07/21/20 10/20/20 sertraline 25 mg tablet 25 mg PO DAILY 07/21/20 10/20/20 metformin 1,000 mg tablet 1,000 mg PO DAILY 05/31/21 Previous Rx's Medication Instructions Recorded fluconazole 150 mg tablet 150 mg PO Q3D balanitis 2 doses #2 03/21/20 (Diflucan) tabs hydrocortisone 2.5 % topical 1 appl topical BID PRN Balanitis 03/21/20 ointment #28.35 grams miconazole nitrate 2 % topical 1 appl topical BID Balanitis 21 03/21/20 ointment days #71 grams dicyclomine 20 mg tablet 20 mg PO TID PRN abdominal 03/28/20 discomfort #30 tabs sitagliptin phosphate 100 mg 100 mg PO DAILY 30 days #30 tabs 05/19/20 tablet (Januvia) insulin glargine 100 unit/mL (3 6 unit (0.06 mL) subcut QPM 30 07/21/20 mL) subcutaneous pen (Lantus days #1.8 mL Solostar U-100 Insulin) pen needle, diabetic 32 gauge x #100 ea 07/21/2004/12 (BD Ultra-Fine Micro Pen Needle) pen needle, diabetic 32 gauge x #100 ea 07/22/20/ (BD Ultra-Fine Micro Pen Needle) cholecalciferol (vitamin D3) 50 50 mcg PO DAILY 30 days #30 caps 10/04/20 mcg (2,000 unit) capsule blood sugar diagnostic (FreeStyle #100 ea 02/09/22 Lite Strips) tamsulosin 0.4 mg capsule (Flomax) 0.4 mg PO BEDTIME 90 days #90 caps 11/02/22 gabapentin 300 mg capsule 300 mg PO BEDTIME #14 caps 11/10/22 finasteride 5 mg tablet 5 mg PO DAILY 90 days #90 tabs 12/06/22 cyclobenzaprine 10 mg tablet 10 mg PO BEDTIME #14 tabs 12/27/22 lidocaine 5 % topical patch 1 patch topical DAILY #15 ea 12/27/22 (Lidoderm) naproxen 500 mg tablet (Naprosyn) 500 mg PO BID PRN pain (scale 12/27/22 score 4-6) #10 tabs cephalexin 500 mg capsule 500 mg PO QID #27 caps 01/12/23 Allergies Allergy/AdvReac Type Severity Reaction Status Date / Time Penicillins Allergy Mild RASH Verified 12/27/22 11:14 acetaminophen [From Percocet] Allergy Unknown Anxiety Verified 12/27/22 11:14 oxycodone [From Percocet] Allergy Unknown Anxiety Verified 12/27/22 11:14 penicillin V Allergy Unknown rash Verified 12/27/22 11:14 [facility] Past Medical History Medical History Erectile dysfunction Bladder neck contracture Non-healing surgical wound Rash Vitamin D deficiency Anxiety COVID-19 HLD (hyperlipidemia) HTN (hypertension) T2DM (type 2 diabetes mellitus) Hypertension Surgical History Hx of removal of cyst History of prostate surgery Family History Family History Father Cancer Mother Cancer Diabetes Social History Social History Housing: Apartment Alcohol intake: current Alcohol intake frequency: does not drink Patient Tobacco Use Status: Former Tobacco user Cigarette Packs Per Day: 1 Cigarettes Per Day: 20.0 Years Smoked: 20 Smoked in Last 30 Days: No Use of substances other than those prescribed or required for medical reasons: No Advance Directives: No Advance Directives Information Provided: No service: No Current occupational status: retired Physical Exam ED Vital Signs: Vital Signs - 24 hr 01/11/23 19:44 Temperature 97.2 F Pulse Rate 84 Respiratory Rate 18 Blood Pressure 132/75 Pulse Oximetry 99 Oxygen Delivery Method Room Air BMI result Body Mass Index 29.6 Medical Decision Making Lab Data 01/11/23 20:03 01/11/23 20:03 Labs: Lab Results 01/11/23 Range/Units 20:03 WBC 10.2 (4.8-10.8) X10*3/uL RBC 4.48 L (4.60-5.80) X10*6/uL Hgb 13.8 L (14.0-18.0) g/dl Hct 39.4 L (42.0-52.0) % MCV 87.9 (80.0-98.0) fL MCH 30.8 (27.0-33.0) pg MCHC 35.0 (31.0-36.0) g/dl RDW 12.2 (11.0-16.0) % Plt Count 239 (160-400) X10*3/uL MPV 9.5 (9.4-12.4) fL Immature Gran % (Auto) 0.4 (0.0-0.4) % Neut % (Auto) 72.5 (45-73) % Lymph % (Auto) 14.7 L (20-40) % [place] % (Auto) 9.5 (2-11) % Eos % (Auto) 2.5 (0-4) % Baso % (Auto) 0.4 (0-2) % Lymph # (Auto) 1.5 (1.2-4.9) X10*3/uL [place] # (Auto) 1.0 (0.1-1.2) X10*3/uL Eos # (Auto) 0.3 (0.0-0.4) X10*3/uL Baso # (Auto) 0.0 (0.0-0.2) X10*3/uL Abs Immat Gran (auto) 0.04 H (0.00-0.03) X10*3/uL Absolute Neuts (auto) 7.4 (2.0-8.3) x10*3/uL Absolute Nucleated RBC 0.000 (0.0-0.012) X10*3/uL Nucleated RBC % (auto) 0.0 (0.0-0.2) /100WBC Sodium 134 L (135-145) mmol/L Potassium 3.9 (3.3-5.1) mmol/L Chloride 102 (96-108) mmol/L Carbon Dioxide 21 L (22-29) mmol/L Anion Gap 15 (12-20) BUN 9 (9-16) mg/dL Creatinine 0.83 (0.5-1.4) mg/dL Estim Creat Clear Calc 84.1 Estimated GFR > 60 Random Glucose 223 H (60-115) mg/dL Calcium 9.5 (8.4-10.2) mg/dL Total Bilirubin 0.3 (0.0-1.0) mg/dL AST 14 (5-37) U/L ALT 15 (0-40) U/L Alkaline Phosphatase 65 (39-117) U/L Total Protein 7.1 (6.5-8.0) g/dL Albumin 4.2 (3.5-5.0) g/dL Discharge Plan Discharge Clinical Impression: Cellulitis of right elbow Patient Disposition: Home, Self-Care Instructions: Cellulitis (ED) Additional Instructions: Use the cephalexin 4 times daily for the next 7 days You should also apply warm compresses to the swollen area Return for new or worsening symptoms, especially if he develops fevers or if the redness is spreading well outside of the marked areas Prescriptions: New cephalexin 500 mg capsule 500 mg PO QID Qty: 27 0RF No Action (DME) pen needle, diabetic [BD Ultra-Fine Micro Pen Needle] 32 gauge x 1/4 needle See Rx Instructions .ROUTE .MEDSUPPLY Qty: 100 11RF Rx Instructions: once daily cholecalciferol (vitamin D3) 50 mcg (2,000 unit) capsule 50 mcg PO DAILY 30 Days Qty: 30 11RF (DME) FreeStyle Lite Strips Strip See Rx Instructions .ROUTE .MEDSUPPLY Qty: 100 11RF Rx Instructions: 4x daily tamsulosin [Flomax] 0.4 mg capsule 0.4 mg PO BEDTIME 90 Days Qty: 90 1RF finasteride 5 mg tablet 5 mg PO DAILY 90 Days Qty: 90 0RF dicyclomine 20 mg tablet 20 mg PO TID PRN (Reason: abdominal discomfort) Qty: 30 0RF miconazole nitrate 2 % ointment 1 appl topical BID 21 Days Qty: 71 0RF fluconazole [Diflucan] 150 mg tablet 150 mg PO Q3D Qty: 2 0RF Rx Instructions: Take 1 dose today if symptoms persist repeat in 2 days/72 hours. hydrocortisone 2.5 % ointment 1 appl topical BID PRN (Reason: Balanitis) Qty: 28.35 0RF gabapentin 300 mg capsule 300 mg PO BEDTIME Qty: 14 0RF cyclobenzaprine 10 mg tablet 10 mg PO BEDTIME Qty: 14 0RF lidocaine [Lidoderm] 5 % adhesive patch,medicated 1 patch topical DAILY Qty: 15 0RF Rx Instructions: leave on most painful area for up to 12 hrs naproxen [Naprosyn] 500 mg tablet 500 mg PO BID PRN (Reason: pain (scale score 4-6)) Qty: 10 0RF amlodipine 5 mg tablet 5 mg PO DAILY aspirin 81 mg tablet,delayed release (DR/EC) 81 mg PO DAILY losartan 100 mg tablet 100 mg PO DAILY ibuprofen 600 mg tablet 600 mg PO TID PRN (Reason: moderate pain) atorvastatin 40 mg tablet 40 mg PO DAILY metformin 500 mg tablet 1,000 mg PO BID trazodone 50 mg tablet 50 mg PO BEDTIME Januvia 100 mg tablet 100 mg PO DAILY 30 Days Qty: 30 11RF docusate sodium 100 mg capsule 100 mg PO BEDTIME PRN (Reason: constipation) (DME) lancets 28 gauge misc See Rx Instructions topical DAILY Qty: 100 Rx Instructions: As directed loratadine 10 mg tablet 10 mg PO DAILY sertraline 25 mg tablet 25 mg PO DAILY Lantus Solostar U-100 Insulin 100 unit/mL (3 mL) insulin pen 6 unit subcut QPM 30 Days Qty: 1.8 11RF (DME) pen needle, diabetic [BD Ultra-Fine Micro Pen Needle] 32 gauge x 1/4 needle See Rx Instructions .ROUTE .MEDSUPPLY Qty: 100 11RF Rx Instructions: As directed metformin 1,000 mg tablet 1,000 mg PO DAILY
== END 2023-01-12 00:43 | disposition home or self-care (01) ==
PROVIDERS: Emergency Provider Emergency Medicine; PCP Family Medicine
DX: L03.113 Cellulitis of right upper limb (principal); S40.861A Insect bite (nonvenomous) of right upper arm, initial encounter; W57.XXXA Bitten or stung by nonvenomous insect and other nonvenomous arthropods, initial encounter; E11.9 Type 2 diabetes mellitus without complications; I10 Essential (primary) hypertension; E78.5 Hyperlipidemia, unspecified; Z79.82 Long term (current) use of aspirin; Z79.899 Other long term (current) drug therapy; Z79.4 Long term (current) use of insulin; Z87.891 Personal history of nicotine dependence; Y93.9 Activity, unspecified; Y92.9 Unspecified place or not applicable; Y99.9 Unspecified external cause status
CPT/HCPCS: 36415; 73070; 80053; 85025; 87468; 87469; 87478; 87484; 87798; 99283; 99284

== ENCOUNTER 2023-02-04 11:29 | Emergency (ER) | payer OTHER, SELFPAY ==
--- NOTE | ~2023-02-04 | XR_ITS ---
EXAMINATION: XR CHEST CLINICAL INFORMATION: Chest pain COMPARISON: Chest radiograph from 10/18/2022 TECHNIQUE: Frontal view of the chest was obtained. FINDINGS: No focal consolidation. No pneumothorax. Trachea is midline. Cardiomediastinal silhouette is not enlarged. No large pleural effusion. Osseous structures are intact. Soft tissues are unremarkable. XR/XR chest 1V IMPRESSION: No acute cardiopulmonary process.
[2023-02-04 11:32] VITALS: BP 150/77; PULSE 93; RESP 18; TEMP 36.6; O2SAT 98; BMI 27.2
--- NOTE | 2023-02-04 11:34 | ECG_ITS ---
Test Reason : CP Blood Pressure : / mmHG Vent. Rate : 089 BPM Atrial Rate : 089 BPM P-R Int : 150 ms QRS Dur : 078 ms QT Int : 336 ms P-R-T Axes : 010 -20 002 degrees QTc Int : 408 ms Normal sinus rhythm Minimal voltage criteria for LVH, may be normal variant ( R in aVL ) Borderline ECG No significant changes seen Referred By: Vick Plaza Electronically Signed By:ADDIS MADRIGAL MD
--- NOTE | 2023-02-04 11:40 | ED.PSYCH ---
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 The why states that her has been having difficulty with sleeping and that they went to the primary care provider and got a prescription for zolpidem because the trazodone was not working. The then states that her showed up [facility] and she became very concerned because because he then said that he had climbed up onto a building and was looking down and had considered jumping. On asking the patient he says yes that he continues to have intermittent thoughts of hurting himself. Related Data Home Medications Medication Instructions Recorded Confirmed amlodipine 5 mg tablet 10 mg PO DAILY 02/19/20 02/04/23 atorvastatin 40 mg tablet 40 mg PO DAILY 02/19/20 02/04/23 losartan 100 mg tablet 100 mg PO DAILY 02/19/20 02/04/23 metformin 500 mg tablet 1,000 mg PO BID 04/08/20 02/04/23 lancets 28 gauge #100 ea 07/21/20 10/20/20 loratadine 10 mg tablet 10 mg PO DAILY 07/21/20 02/04/23 sertraline 25 mg tablet 50 mg PO DAILY 07/21/20 02/04/23 insulin glargine 100 unit/mL (3 14 unit subcut QPM 02/04/23 02/04/23 mL) subcutaneous pen (Lantus Solostar U-100 Insulin) metoprolol succinate 25 mg 25 mg PO DAILY 02/04/23 02/04/23 tablet,extended release 24 hr Previous Rx's Medication Instructions Recorded sitagliptin phosphate 100 mg 100 mg PO DAILY 30 days #30 tabs 05/19/20 tablet (Januvia) pen needle, diabetic 32 gauge x #100 ea 07/21/20 14 (BD Ultra-Fine Micro Pen Needle) pen needle, diabetic 32 gauge x #100 ea 07/22/20 14 (BD Ultra-Fine Micro Pen Needle) blood sugar diagnostic (FreeStyle #100 ea 02/09/22 Lite Strips) tamsulosin 0.4 mg capsule (Flomax) 0.4 mg PO BEDTIME 90 days #90 caps 11/02/22 finasteride 5 mg tablet 5 mg PO DAILY 90 days #90 tabs 12/06/22 lidocaine 5 % topical patch 1 patch topical DAILY #15 ea 12/27/22 (Lidoderm) Allergies Allergy/AdvReac Type Severity Reaction Status Date / Time Penicillins Allergy Mild RASH Verified 12/27/22 11:14 acetaminophen [From Percocet] Allergy Unknown Anxiety Verified 12/27/22 11:14 oxycodone [From Percocet] Allergy Unknown Anxiety Verified 12/27/22 11:14 penicillin V Allergy Unknown rash Verified 12/27/22 11:14 Review of Systems Review of Systems: Pertinent positives and negatives as stated in HPI [facility] Past Medical History Source: nursing notes reviewed Medical History Erectile dysfunction Bladder neck contracture Non-healing surgical wound Rash Vitamin D deficiency Anxiety COVID-19 HLD (hyperlipidemia) HTN (hypertension) T2DM (type 2 diabetes mellitus) Hypertension Surgical History Hx of removal of cyst History of prostate surgery Family History Family History Father Cancer Mother Cancer Diabetes Social History Social History Housing: Apartment Alcohol intake: never Patient Tobacco Use Status: Former Tobacco user Cigarette Packs Per Day: 1 Cigarettes Per Day: 20.0 Years Smoked: 20 Smoked in Last 30 Days: No Advance Directives: No Advance Directives Information Provided: Yes Healthcare Proxy: No Guardian: No service: No Current occupational status: retired Physical Exam Vital Signs: Vital Signs: Last Vital Signs Temp 97.9 F 02/05/23 05:35 Pulse 89 02/05/23 14:10 Resp 16 02/05/23 14:10 BP 145/75 H 02/05/23 09:05 Pulse Ox 97 02/05/23 14:10 O2 Del Method Room Air 02/05/23 14:10 BMI result Body Mass Index 27.2 VITAL SIGNS: Reviewed. GENERAL: Well developed, well nourished, in no acute distress. HEAD: Normocephalic/atraumatic EYES: PERRLA, EOMI EARS: Ext canals without abnormality NOSE: Nares patent bilateral OROPHARYNX: no oral lesions noted, posterior pharynx clear NECK: Supple, no adenopathy LUNGS: Normal breath sounds. No adventitious sounds or accessory muscle use. SpO2<98> CARDIOVASCULAR: Regular rate and rhythm without noted murmurs ABDOMEN: Soft, non-tender, non-distended with bowel sounds. MUSCULOSKELETAL: No tenderness, deformities, or effusions noted on gross inspection. EXTREMITIES: No cyanosis, clubbing or edema. SKIN: Inspection of the skin reveals no rashes NEUROLOGIC: Alert and oriented x 2. Strength and sensation to light touch were grossly intact x 4, cranial nerves 2-12 are grossly intact. Course Course Course Narrative: This is an RME: Additional HPI, ROS, PE not included below will be deferred to primary provider. 72-year-old male history of hypertension, diabetes, hyperlipidemia recently started on zolpidem presenting to the emergency department with suicidal ideation, according to family member who is here with patient he went to a building and wanted to jump off, he has been feeling depressed he feels like he can not think straight he thinks he is forgetting things. Denies drugs and alcohol. Reporting some substernal chest pressure started this morning, no shortness of breath. Plan labs, imaging Medications Administered Generic Name Dose Route Start Last Admin Trade Name Freq PRN Reason Stop Dose Admin Amlodipine Besylate 10 mg 02/05/23 09:00 02/05/23 09:04 Amlodipine Besylate 10 Mg Tablet PO 10 mg DAILY ALONZO Administration Protocol Atorvastatin Calcium 40 mg 02/05/23 09:00 02/05/23 09:04 Atorvastatin Calcium 40 Mg Tablet PO 40 mg DAILY ALONZO Administration Finasteride 5 mg 02/05/23 09:00 02/05/23 09:03 Finasteride 5 Mg Tablet PO 5 mg DAILY ALONZO Administration Insulin Glargine 14 unit 02/04/23 21:00 02/04/23 21:12 Insulin Glargine,Hum.Rec.Anlog 100 Unit/Ml 10 Ml Vial SUBCUT 14 unit BEDTIME ALONZO Administration Lidocaine 1 patch 02/05/23 09:00 02/05/23 09:03 Lidocaine 4 % Patch Adh..Patch TRANSDERMA 1 patch DAILY ALONZO Administration Loratadine 10 mg 02/05/23 09:00 02/05/23 09:04 Loratadine 10 Mg Tablet PO 10 mg DAILY ALONZO Administration Losartan Potassium 100 mg 02/05/23 09:00 02/05/23 09:04 Losartan Potassium 50 Mg Tablet PO 100 mg DAILY ALONZO Administration Protocol Metformin HCl 1,000 mg 02/04/23 21:00 02/05/23 09:06 Metformin Hcl 1,000 Mg Tablet PO 1,000 mg BID ALONZO Administration Metoprolol Succinate 25 mg 02/05/23 09:00 02/05/23 09:04 Metoprolol Succinate Er 25 Mg Tab.Er.24h PO 25 mg DAILY ALONZO Administration Protocol Sertraline HCl 50 mg 02/05/23 09:00 02/05/23 09:04 Sertraline Hcl 50 Mg Tablet PO 50 mg DAILY ALONZO Administration Sitagliptin Phosphate 100 mg 02/05/23 09:00 02/05/23 11:05 Sitagliptin Phosphate 100 Mg Tablet PO 100 mg DAILY ALONZO Administration Tamsulosin HCl 0.4 mg 02/04/23 21:00 02/04/23 21:12 Tamsulosin Hcl 0.4 Mg Capsule PO 0.4 mg BEDTIME ALONZO Administration Discontinued Medications Generic Name Dose Route Start Last Admin Trade Name Freq PRN Reason Stop Dose Admin Diphenhydramine HCl 25 mg 02/04/23 20:09 02/04/23 21:17 Diphenhydramine Hcl 25 Mg Capsule PO 02/04/23 20:10 25 mg ONCE ONE Administration Lorazepam 0.5 mg 02/04/23 20:09 02/04/23 21:12 Lorazepam 0.5 Mg Tablet PO 02/04/23 20:10 0.5 mg ONCE ONE Administration Medical Decision Making Medical Decision Making [facility] Narrative: 72-year-old male with history and clinical presentation chronic diabetes and hypertension as well as anxiety and currently on medications for the anxiety who presents now with recurring thoughts of harming himself since being placed on a course of zolpidem for sleep. The medication has since been stopped and I do suspect a component of memory dysfunction in this patient. Initial lab work and toxicology have been ordered. I reviewed all investigations and hematologic indices are negative for leukocytosis there is a chronic left shift, stable normocytic anemia and no thrombocytopenia. Chemistry indices are negative for evidence to suggest RINA and chronically stable pseudo hyponatremia secondary to mild hyperglycemia without evidence of DKA or HHS. Electrolytes and liver enzymes are within normal limits and high sensitivity troponin is undetectable. Urinalysis is negative for UTI or hematuria and UDS/salicylate/acetaminophen/alcohol are negative. Chest x-ray negative for infiltrate and otherwise my interpretation is in agreement with radiology's impression. EKG without acute findings. My interpretation is that patient may have a component memory loss and in addition has clearly endorsed thoughts of wanting to harm himself which may or may not be related to recent medication change. After extensive conversation with the and the patient he is otherwise medically cleared for further evaluation by the care team. 1756: Patient placed in physician observation because the patient needed more time for care team evaluation. At the time observation was started the patient's vital signs were stable, patient is alert and oriented , neuro: Nonfocal, CV RRR, lungs clear 02/05/23--641--physician observation continued. Vital signs stable. Labs reviewed. Pending CARE team evaluation - patient was cleared by CARE team and evaluated by psychiatric assistant who recommended some medication adjustments. Recommended discontinuing Ambien and starting trazodone 50 mg p.o. q.h.s. Can follow-up with [facility] Differential Diagnosis Differential Diagnoses: The differential diagnosis associated with the presentation includes Please see the discussion above Admission/Observation Consideration of admission/observation: Escalation of care including admission/observation considered Please see the discussion above Consult Healthcare Provider Management of the patient was discussed with: Produce Production Team Member Please see the discussion above Lab Data MDM Lab Attestation statement: I reviewed the patient's lab results. Please see the discussion above 02/04/23 11:55 02/04/23 11:55 Labs: Lab Results 02/04/23 02/04/23 02/05/23 Range/Units 11:55 12:37 08:19 WBC 8.8 (4.8-10.8) X10*3/uL RBC 4.50 L (4.60-5.80) X10*6/uL Hgb 13.7 L (14.0-18.0) g/dl Hct 38.4 L (42.0-52.0) % MCV 85.3 (80.0-98.0) fL MCH 30.4 (27.0-33.0) pg MCHC 35.7 (31.0-36.0) g/dl RDW 12.0 (11.0-16.0) % Plt Count 256 (160-400) X10*3/uL MPV 9.2 L (9.4-12.4) fL Immature Gran % (Auto) 0.2 (0.0-0.4) % Neut % (Auto) 81.4 H (45-73) % Lymph % (Auto) 10.9 L (20-40) % [place] % (Auto) 5.9 (2-11) % Eos % (Auto) 1.3 (0-4) % Baso % (Auto) 0.3 (0-2) % Lymph # (Auto) 1.0 L (1.2-4.9) X10*3/uL [place] # (Auto) 0.5 (0.1-1.2) X10*3/uL Eos # (Auto) 0.1 (0.0-0.4) X10*3/uL Baso # (Auto) 0.0 (0.0-0.2) X10*3/uL Abs Immat Gran (auto) 0.02 (0.00-0.03) X10*3/uL Absolute Neuts (auto) 7.2 (2.0-8.3) x10*3/uL Absolute Nucleated RBC 0.000 (0.0-0.012) X10*3/uL Nucleated RBC % (auto) 0.0 (0.0-0.2) /100WBC Sodium 130 L (135-145) mmol/L Potassium 4.0 (3.3-5.1) mmol/L Chloride 99 (96-108) mmol/L Carbon Dioxide 20 L (22-29) mmol/L Anion Gap 15 (12-20) BUN 7 L (9-16) mg/dL Creatinine 0.82 (0.5-1.4) mg/dL Estim Creat Clear Calc 76.1 Estimated GFR > 60 POC Glucose 113 (60-115) mg/dL Random Glucose 251 H (60-115) mg/dL Calcium 9.6 (8.4-10.2) mg/dL Magnesium 1.9 (1.6-2.6) mg/dL Total Bilirubin 0.5 (0.0-1.0) mg/dL AST 34 (5-37) U/L ALT 31 (0-40) U/L Alkaline Phosphatase 77 (39-117) U/L Troponin I High Sens < 2.7 (<3.5-35.0) ng/L B-Natriuretic Peptide 30 (<100) pg/mL Total Protein 7.6 (6.5-8.0) g/dL Albumin 4.5 (3.5-5.0) g/dL Urine Color Yellow Urine Appearance Clear Urine pH 7.5 (5.0-9.0) Ur Specific [place] 1.020 (1.005-1.025) Urine Protein Negative (Neg-Trace) mg/dL Urine Glucose (UA) >=1000 H (Negative) mg/dL Urine Ketones Negative (Negative) mg/dL Urine Blood Negative (Negative) Urine Nitrite Negative (Negative) Ur Leukocyte Esterase Negative (Negative) Urine RBC 0-2 (0-2) /HPF Urine WBC 0-5 (0-5) /HPF Ur Squamous Epith Cells 0-2 (0-2) /HPF Urine Bacteria None Seen (None Seen) Hyaline Casts 0-2 (0-2) /LPF Salicylates < 5.0 L (15-30) mg/dL Urine Opiates Screen Not Detected (Not Detect) Urine Fentanyl Screen Not Detected (Not Detect) Acetaminophen < 17 (<30) mcg/mL Ur Barbiturates Screen Not Detected (Not Detect) Ur Phencyclidine Scrn Not Detected (Not Detect) Ur Amphetamines Screen Not Detected (Not Detect) U Benzodiazepines Scrn Not Detected (Not Detect) Urine Cocaine Screen Not Detected (Not Detect) U Marijuana (THC) Screen Not Detected (Not Detect) Ethyl Alcohol < 10 mg/dL Independent Interpretation I performed an independent interpretation of an: EKG Interpretation: Normal sinus rhythm, HR-89, no STEMI, ID/QRS/QTC is within normal limits. Radiology Impression Discussion of test interpretation with radiology: I have reviewed the radiologist's reading. Radiologist Impression: Please see the discussion above Independent Historian Clinical information obtained from an independent historian. History obtained from or confirmed by: Spouse External Record Review External record reviewed: Outpatient record, Prior outpatient labs and Prior outpatient radiology Chronic Conditions Patient?s care impacted by: Diabetes and Hypertension Critical Care Time Critical Care Time Critical Care Time: Yes Total Critical Care Time: 30 Attestation: I personally attest to this time spent taking care of the patient. Discharge Plan Discharge Clinical Impression: Suicidal ideation, Anxiety Patient Disposition: Still a Patient Prescriptions: No Action (DME) pen needle, diabetic [BD Ultra-Fine Micro Pen Needle] 32 gauge x 1/4 needle See Rx Instructions .ROUTE .MEDSUPPLY Qty: 100 11RF Rx Instructions: once daily (DME) FreeStyle Lite Strips Strip See Rx Instructions .ROUTE .MEDSUPPLY Qty: 100 11RF Rx Instructions: 4x daily tamsulosin [Flomax] 0.4 mg capsule 0.4 mg PO BEDTIME 90 Days Qty: 90 1RF finasteride 5 mg tablet 5 mg PO DAILY 90 Days Qty: 90 0RF lidocaine [Lidoderm] 5 % adhesive patch,medicated 1 patch topical DAILY Qty: 15 0RF Rx Instructions: leave on most painful area for up to 12 hrs insulin glargine [Lantus Solostar U-100 Insulin] 100 unit/mL (3 mL) insulin pen 14 unit subcut QPM metoprolol succinate 25 mg tablet extended release 24 hr 25 mg PO DAILY amlodipine 5 mg tablet 10 mg PO DAILY losartan 100 mg tablet 100 mg PO DAILY atorvastatin 40 mg tablet 40 mg PO DAILY metformin 500 mg tablet 1,000 mg PO BID Januvia 100 mg tablet 100 mg PO DAILY 30 Days Qty: 30 11RF (DME) lancets 28 gauge misc See Rx Instructions topical DAILY Qty: 100 Rx Instructions: As directed loratadine 10 mg tablet 10 mg PO DAILY sertraline 25 mg tablet 50 mg PO DAILY (DME) pen needle, diabetic [BD Ultra-Fine Micro Pen Needle] 32 gauge x 1/4 needle See Rx Instructions .ROUTE .MEDSUPPLY Qty: 100 11RF Rx Instructions: As directed Interventions: [place]-Suicide Risk Severity Scale Last Done: 02/05/23 14:10
[2023-02-04 12:02] LABS: MANUAL DIFF FLAG NO
[2023-02-04 12:04] LABS: Basophils Percent Auto 0.3 % (0-2); Eosinophils Absolute Auto 0.1 X10*3/uL (0.0-0.4); Eosinophils Percent Auto 1.3 % (0-4); Hematocrit 38.4 % (42.0-52.0); Hemoglobin 13.7 g/dl (14.0-18.0); Imm Gran Abs Auto 0.02 X10*3/uL (0.00-0.03); Imm Gran Pct Auto 0.2 % (0.0-0.4); Lymphocytes Percent Auto 10.9 % (20-40); Mean Corpuscular HGB Conc 35.7 g/dl (31.0-36.0); Mean Corpuscular Hemoglobin 30.4 pg (27.0-33.0); Mean Corpuscular Volume 85.3 fL (80.0-98.0); Mean Platelet Volume 9.2 fL (9.4-12.4); Monocytes Absolute Auto 0.5 X10*3/uL (0.1-1.2); Monocytes Percent Auto 5.9 % (2-11); Neutrophils Absolute Auto 7.2 x10*3/uL (2.0-8.3); Neutrophils Percent Auto 81.4 % (45-73); Platelet Count 256 X10*3/uL (160-400); White Blood Count 8.8 X10*3/uL (4.8-10.8)
[2023-02-04 12:19] LABS: Acetaminophen LAB < 17 mcg/mL (<30); Alanine Aminotransferase 31 U/L (0-40); Albumin Level 4.5 g/dL (3.5-5.0); Alkaline Phosphatase 77 U/L (39-117); Anion Gap 15 (12-20); Aspartate Amino Transferase 34 U/L (5-37); Bilirubin Total 0.5 mg/dL (0.0-1.0); Blood Urea Nitrogen 7 mg/dL (9-16); Calcium 9.6 mg/dL (8.4-10.2); Carbon Dioxide 20 mmol/L (22-29); Chloride 99 mmol/L (96-108); Creatinine Clr Calc Pharmacy 76.1; Estimated Glomerular Filt Rate > 60; Ethanol < 10 mg/dL; Glucose Random 251 mg/dL (60-115); Magnesium 1.9 mg/dL (1.6-2.6); Salicylate < 5.0 mg/dL (15-30); Sodium 130 mmol/L (135-145); Total Protein 7.6 g/dL (6.5-8.0)
[2023-02-04 12:23] LABS: B Type Natriuretic Peptide 30 pg/mL (<100)
[2023-02-04 12:27] LABS: Troponin-I High Sensitivity < 2.7 ng/L (<3.5-35.0)
[2023-02-04 12:57] LABS: Appearance Urine Clear; Color Urine Yellow; Glucose Urine UA >=1000 mg/dL (Negative); Leukocyte Esterase Urine Negative (Negative); Nitrite Urine Negative (Negative); PH 7.5 (5.0-9.0); UMIC TRIGGER UACC YES; Urine Blood Negative (Negative); Urine Ketones Negative (Negative); Urine Protein Negative (Neg-Trace)
[2023-02-04 13:03] LABS: Amphetamine Screen Urine Not Detected (Not Detect); Barbiturates, Urine Not Detected (Not Detect); Benzodiazepines Screen Urine Not Detected (Not Detect); Cannabinoid Screen Urine Not Detected (Not Detect); Cocaine Screen Urine Not Detected (Not Detect); Fentanyl, urine Not Detected (Not Detect); Opiate Screen Urine Not Detected (Not Detect); Phencyclidine Screen Urine Not Detected (Not Detect)
[2023-02-04 13:05] LABS: Bacteria Urine None Seen (None Seen); Hyaline Casts Urine 0-2 /LPF (0-2); RBC Urine 0-2 /HPF (0-2); Squamous Epithelial Cell Urine 0-2 /HPF (0-2); WBC Urine 0-5 /HPF (0-5)
--- NOTE | 2023-02-04 17:09 | PC.NURSE ---
pt resting quietly on stretcher but appears anxious. evaluated by Dr. Zayas and aware of plan of care. pt at bedside with pt. pt sts he doesn't know if he is SI. pt sts his behavior started after starting a new medication for sleeping. pt awaiting care team consult. 1:1 sitter at bedside for pt safety. plan of care ongoing.
--- NOTE | 2023-02-04 19:27 | PC.NURSE ---
assumed care of pt at this time. at bedside stating concerns about pt not being seen by careteam; explained to pt/ I will give them a call to see when the pt will be seen. became aggressive to this RN stating she will take and leave if pt not seen by 1200. Isai ESCALERA to bedside.
--- NOTE | 2023-02-04 20:59 | PC.NURSE ---
assumed care of pt
[2023-02-04 21:06] VITALS: BP 174/98; PULSE 82; RESP 16; TEMP 36.6; O2SAT 99
[2023-02-04] MEDS: metFORMIN HCl 1,000 MG TABLET 1000 MG PO (21:12)
[2023-02-04] MEDS: LORazepam 0.5 MG TABLET PO (21:12)
[2023-02-04] MEDS: Tamsulosin HCL 0.4 MG CAPSULE PO (21:12)
[2023-02-04] MEDS: Insulin Glargine,Hum.rec.anlog 100 UNIT/ML 10 ML VIAL 14 UNIT SUBCUT (21:12)
[2023-02-04] MEDS: diphenhydrAMINE HCL 25 MG CAPSULE PO (21:17)
[2023-02-05 05:35] VITALS: BP 107/65; PULSE 78; RESP 16; TEMP 36.6; O2SAT 100
[2023-02-05 08:23] LABS: Glucose, Whole Blood 113 mg/dL (60-115)
[2023-02-05] MEDS: Lidocaine 4 % Patch ADH..PATCH 1 PATCH TRANSDERMA (09:03)
[2023-02-05] MEDS: Finasteride 5 MG TABLET PO (09:03)
[2023-02-05] MEDS: Losartan Potassium 50 MG TABLET 100 MG PO (09:04)
[2023-02-05] MEDS: Atorvastatin Calcium 40 MG TABLET PO (09:04)
[2023-02-05] MEDS: Sertraline HCL 50 MG TABLET PO (09:04)
[2023-02-05] MEDS: Loratadine 10 MG TABLET PO (09:04)
[2023-02-05] MEDS: amLODIPine Besylate 10 MG TABLET PO (09:04)
[2023-02-05] MEDS: Metoprolol Succinate ER 25 MG TAB.ER.24H PO (09:04)
[2023-02-05 09:05] VITALS: BP 145/75; PULSE 83
[2023-02-05] MEDS: metFORMIN HCl 1,000 MG TABLET 1000 MG PO (09:06)
[2023-02-05] MEDS: SITagliptin Phosphate 100 MG TABLET PO (11:05)
--- NOTE | 2023-02-05 12:46 | P.CNPS_ITS ---
History of Present Illness Date of Service: 02/05/2023 Chief Complaint: si with medication Requesting physician: Alisha Albright Discussed with referring provider: Yes Sources of Information: patient interviewed, chart reviewed and crisis/core team assessment reviewed HPI Narrative: Mr. Soto is a 72 year-old male who was brought via due to pt presenting with acute anxious mood and suicidal ideation which is not common for him after taking ambien for the first time. Pt has been struggling with sleep- iniitally PCP had prescribed trazodone 25mg po qhs. PCP had concern about increasing trazodone to 50mg po qhs and referred pt to their psych provider who then recommended ambien. Pt seen with by his side. Pt reports he is feeling much better. He reports he was able to sleep last night. He received ativan 0.5mg po qhs and benadryl 25mg po qhs. Pt and denied symptoms of depression prior to that one time at night after taking ambien. He denies SI/HI. No signs of parasomnia with ambien. No hx of SI or suicide attempts. Pt has been on sertraline 50mg po daily for anxiety/depression but has been stable. [facility] Medical History Erectile dysfunction Bladder neck contracture Non-healing surgical wound Rash Vitamin D deficiency Anxiety COVID-19 HLD (hyperlipidemia) HTN (hypertension) T2DM (type 2 diabetes mellitus) Hypertension Surgical History Hx of removal of cyst History of prostate surgery Diagnostics Vital Signs (24Hr): Vital Signs - 24 hr 02/04/23 21:06 02/05/23 05:35 02/05/23 09:05 Temperature 97.9 F 97.9 F Pulse Rate 82 78 83 Respiratory Rate 16 16 Blood Pressure 174/98 H 107/65 145/75 H Pulse Oximetry 99 100 Oxygen Delivery Method Room Air Room Air BMI result Body Mass Index 27.2 Labs 02/04/23 11:55 02/04/23 11:55 Labs: Laboratory Results - last 48 hr 02/04/23 02/04/23 02/05/23 11:55 12:37 08:19 WBC 8.8 RBC 4.50 L Hgb 13.7 L Hct 38.4 L MCV 85.3 MCH 30.4 MCHC 35.7 RDW 12.0 Plt Count 256 MPV 9.2 L Immature Gran % (Auto) 0.2 Neut % (Auto) 81.4 H Lymph % (Auto) 10.9 L [place] % (Auto) 5.9 Eos % (Auto) 1.3 Baso % (Auto) 0.3 Lymph # (Auto) 1.0 L [place] # (Auto) 0.5 Eos # (Auto) 0.1 Baso # (Auto) 0.0 Abs Immat Gran (auto) 0.02 Absolute Neuts (auto) 7.2 Absolute Nucleated RBC 0.000 Nucleated RBC % (auto) 0.0 Sodium 130 L Potassium 4.0 Chloride 99 Carbon Dioxide 20 L Anion Gap 15 BUN 7 L Creatinine 0.82 Estim Creat Clear Calc 76.1 Estimated GFR > 60 POC Glucose 113 Random Glucose 251 H Calcium 9.6 Magnesium 1.9 Total Bilirubin 0.5 AST 34 ALT 31 Alkaline Phosphatase 77 Troponin I High Sens < 2.7 B-Natriuretic Peptide 30 Total Protein 7.6 Albumin 4.5 Urine Color Yellow Urine Appearance Clear Urine pH 7.5 Ur Specific [place] 1.020 Urine Protein Negative Urine Glucose (UA) >=1000 H Urine Ketones Negative Urine Blood Negative Urine Nitrite Negative Ur Leukocyte Esterase Negative Urine RBC 0-2 Urine WBC 0-5 Ur Squamous Epith Cells 0-2 Urine Bacteria None Seen Hyaline Casts 0-2 Salicylates < 5.0 L Urine Opiates Screen Not Detected Urine Fentanyl Screen Not Detected Acetaminophen < 17 Ur Barbiturates Screen Not Detected Ur Phencyclidine Scrn Not Detected Ur Amphetamines Screen Not Detected U Benzodiazepines Scrn Not Detected Urine Cocaine Screen Not Detected U Marijuana (THC) Screen Not Detected Ethyl Alcohol < 10 Imaging Radiology Impressions: ITS Impressions Chest X-Ray 02/04/23 12:09 IMPRESSION: No acute cardiopulmonary process. Mental Status Exam Mental Status Exam Narrative: Appearance: wearing hospital gown, good hygiene, in NAD Behavior: cooperative and friendly Psychomotor: no agitation or retardation noted Speech: clear, normal rate/rhythm/volume, spontaneous TP: linear TC: feeling better, rested, less anxious. Mood: good Affect: congruent SI: denies HI: denies VH/AH: none Delusions: none Insight/judgment: fair x 2. Memory/cog: alert, oriented x 3. grossly intact to conversational testing but not formally tested. Medications Medications Current Medications Amlodipine Besylate (Amlodipine Besylate 10 Mg Tablet) 10 mg PO DAILY [facility]; Protocol Last Admin: 02/05/23 09:04 Dose: 10 mg Atorvastatin Calcium (Atorvastatin Calcium 40 Mg Tablet) 40 mg PO DAILY [facility] Last Admin: 02/05/23 09:04 Dose: 40 mg Finasteride (Finasteride 5 Mg Tablet) 5 mg PO DAILY ALONZO Last Admin: 02/05/23 09:03 Dose: 5 mg Insulin Glargine (Insulin Glargine,Hum.Rec.Anlog 100 Unit/Ml 10 Ml Vial) 14 unit SUBCUT BEDTIME [facility] Last Admin: 02/04/23 21:12 Dose: 14 unit Lidocaine (Lidocaine 4 % Patch Adh..Patch) 1 patch TRANSDERMA DAILY [facility] Last Admin: 02/05/23 09:03 Dose: 1 patch Loratadine (Loratadine 10 Mg Tablet) 10 mg PO DAILY ALONZO Last Admin: 02/05/23 09:04 Dose: 10 mg Losartan Potassium (Losartan Potassium 50 Mg Tablet) 100 mg PO DAILY [facility]; Protocol Last Admin: 02/05/23 09:04 Dose: 100 mg Metformin HCl (Metformin Hcl 1,000 Mg Tablet) 1,000 mg PO BID [facility] Last Admin: 02/05/23 09:06 Dose: 1,000 mg Metoprolol Succinate (Metoprolol Succinate Er 25 Mg Tab.Er.24h) 25 mg PO DAILY [facility]; Protocol Last Admin: 02/05/23 09:04 Dose: 25 mg Sertraline HCl (Sertraline Hcl 50 Mg Tablet) 50 mg PO DAILY [facility]ONZO Last Admin: 02/05/23 09:04 Dose: 50 mg Sitagliptin Phosphate (Sitagliptin Phosphate 100 Mg Tablet) 100 mg PO DAILY [facility] Last Admin: 02/05/23 11:05 Dose: 100 mg Tamsulosin HCl (Tamsulosin Hcl 0.4 Mg Capsule) 0.4 mg PO BEDTIME ALONZO Last Admin: 02/04/23 21:12 Dose: 0.4 mg Allergies Allergies Allergy/AdvReac Type Severity Reaction Status Date / Time Penicillins Allergy Mild RASH Verified 12/27/22 11:14 acetaminophen [From Percocet] Allergy Unknown Anxiety Verified 12/27/22 11:14 oxycodone [From Percocet] Allergy Unknown Anxiety Verified 12/27/22 11:14 penicillin V Allergy Unknown rash Verified 12/27/22 11:14 Assessment & Plan Assessment & Plan (1) MDD (major depressive disorder), recurrent episode, moderate: Status: Acute Code(s): F33.1 - Major depressive disorder, recurrent, moderate Plan Mr. Soto is a 72 year-old male with hx of anxiety, depression stable on sertraline. He experienced an acute change in mood after taking ambien. He had passive SI, which and pt reports is uncharacteristic of him. He reports difficulty sleeping for few month. He has tried low dose trazodone 25mg po qhs. He was then prescribed ambien 5mg po qhs as PCP was concern that trazodone 50mg po qhs was too high for him- according to his . We discussed risks, benefits and alternative treatment options. I would recommend trying higher dose of trazodone 50mg po qhs- main side effects include day time grogginess, dry mouth. We discussed higher risk for fall with medications like ambien or benzodiazepines and over sedation but if need to pick would recommend low dose ativan 0.5mg po qhs which he received last night with good effect. PLAN 1. No imminent safety concern in terms of SI/HI or gravely disable due to psychiatric symptoms. Pt can be discharged home with . It does appear that acute change in mood could related to ambien- which can cause confusion, parasomnia. 2. d/c ambien 3. Start trazodone 50mg po qhs. 4. Follow up with PCP- tried calling [facility] for update but unable to leave message after 20 minute wait. Total time managing care of this patient today ____ minutes.
--- NOTE | 2023-02-05 13:33 | PC.NURSE ---
per LINDA Logan no need to continue 1:1 sitter
[2023-02-05 14:10] VITALS: PULSE 89; RESP 16; O2SAT 97
--- NOTE | 2023-02-05 14:44 | PC.NURSE ---
patient continues to rest comfortably, respirations even and unlabored, skin pwd, no apparent distress, denies SI/HI at this time
== END 2023-02-05 15:08 | disposition home or self-care (01) ==
PROVIDERS: Physician Assistant; Emergency Provider Student in an Organized Health Care Education/Training Program; PCP Family Medicine
DX: F33.1 Major depressive disorder, recurrent, moderate (principal); R45.851 Suicidal ideations; R07.89 Other chest pain; R06.02 Shortness of breath; F41.1 Generalized anxiety disorder; F43.0 Acute stress reaction; Z79.899 Other long term (current) drug therapy; Z87.891 Personal history of nicotine dependence
CPT/HCPCS: 36415; 71045; 80053; 80143; 80179; 80307; 81001; 81003; 82947; 83735; 83880; 84484; 85025; 93005; 96372; 99285; S9485

== ENCOUNTER → 2023-02-04 12:00 | Outpatient (BNV) | payer OTHER, SELFPAY | PROVIDERS: Emergency Provider Student in an Organized Health Care Education/Training Program; PCP Family Medicine; Visit Provider Social Worker | DX: F33.1 Major depressive disorder, recurrent, moderate (principal) | CPT/HCPCS: 99285 ==

== ENCOUNTER 2023-02-16 10:20 | Outpatient (REF) | payer OTHER, SELFPAY ==
[2023-02-16 11:46] LABS: Prostate Specific Antigen 0.51 ng/mL (<0.05-4.0)
== END 2023-02-16 10:21 | disposition home or self-care (01) ==
LOC: HO.LAB 10:20
PROVIDERS: PCP Family Medicine; Visit Provider Urology
DX: N40.1 Benign prostatic hyperplasia with lower urinary tract symptoms (principal); R35.1 Nocturia; Z12.5 Encounter for screening for malignant neoplasm of prostate
CPT/HCPCS: 36415; 84153

== ENCOUNTER 2023-02-21 08:18 | Outpatient (REF) | payer OTHER, SELFPAY ==
[2023-02-21 11:08] LABS: MANUAL DIFF FLAG NO
[2023-02-21 11:44] LABS: Basophils Percent Auto 0.4 % (0-2); Eosinophils Absolute Auto 0.2 X10*3/uL (0.0-0.4); Eosinophils Percent Auto 1.4 % (0-4); Hematocrit 40.3 % (42.0-52.0); Hemoglobin 13.9 g/dl (14.0-18.0); Imm Gran Abs Auto 0.04 X10*3/uL (0.00-0.03); Imm Gran Pct Auto 0.4 % (0.0-0.4); Lymphocytes Absolute Auto 1.3 X10*3/uL (1.2-4.9); Lymphocytes Percent Auto 11.5 % (20-40); Mean Corpuscular HGB Conc 34.5 g/dl (31.0-36.0); Mean Corpuscular Hemoglobin 30.3 pg (27.0-33.0); Mean Corpuscular Volume 87.8 fL (80.0-98.0); Mean Platelet Volume 9.8 fL (9.4-12.4); Monocytes Absolute Auto 0.9 X10*3/uL (0.1-1.2); Monocytes Percent Auto 7.7 % (2-11); Neutrophils Absolute Auto 8.8 x10*3/uL (2.0-8.3); Neutrophils Percent Auto 78.6 % (45-73); Platelet Count 347 X10*3/uL (160-400); Red Blood Count 4.59 X10*6/uL (4.60-5.80); Red Cell Distribution Width 12.1 % (11.0-16.0); White Blood Count 11.2 X10*3/uL (4.8-10.8)
[2023-02-21 11:51] LABS: Cholesterol 102 mg/dL (<200); HDL Cholesterol 41 mg/dL (>40); Iron 65 mcg/dL (45-160); LDL Cholesterol Calculated 45 mg/dL (<100); Percent Iron Saturation 21 % (15-50); Total Iron Binding Capacity 309 mcg/dL (228-428); Triglycerides 84 mg/dL (<150); Unsaturated Iron Binding 244 ug/dL
[2023-02-21 12:09] LABS: Vitamin B12 262 pg/mL (200-900)
[2023-02-21 12:11] LABS: Ferritin 28 ng/mL (20-250); TSH reflex Free T4 1.46 uIU/mL (0.32-4.0)
[2023-02-21 12:19] LABS: Creatinine Urine 153.74 mg/dL; Microalbum/Creatinine Ratio Ur 14.3 ug/mg cr (<30)
== END 2023-02-21 08:19 | disposition home or self-care (01) ==
LOC: HO.HHCL 08:18
PROVIDERS: Visit Provider Family Medicine
DX: D64.9 Anemia, unspecified (principal); E78.5 Hyperlipidemia, unspecified; E11.9 Type 2 diabetes mellitus without complications; R63.4 Abnormal weight loss; Z79.4 Long term (current) use of insulin
CPT/HCPCS: 36415; 80061; 82043; 82570; 82607; 82728; 83540; 84443; 85025

== ENCOUNTER 2023-02-21 15:11 | Outpatient (AMB) | payer OTHER, SELFPAY ==
--- NOTE | 2023-02-21 15:12 | MHC.OFFVIS ---
Intake Intake Visit Reasons: 1Y PSA(set) Intake Note: Patient is present for tele visit follow up PSA (psa 0.54) Urology Medications: Finasteride, Terazosin Blood Thinner: none Coal Pulverizing Operator Required: Yes Allergies Penicillins Allergy (Mild, Verified 02/21/23 15:32) RASH acetaminophen [From Percocet] Allergy (Unknown, Verified 02/21/23 15:32) Anxiety oxycodone [From Percocet] Allergy (Unknown, Verified 02/21/23 15:32) Anxiety penicillin V Allergy (Unknown, Verified 02/21/23 15:32) rash Medication List - Last Reconciled 02/21/23 by IRMA Pastrana- amlodipine 10 mg PO DAILY atorvastatin 40 mg PO DAILY blood sugar diagnostic (FreeStyle Lite Strips) 4x daily finasteride 5 mg PO DAILY 90 days insulin glargine (Lantus Solostar U-100 Insulin) 14 units subcut QPM lancets As directed lidocaine 5% (Lidoderm) 1 patch topical DAILY loratadine 10 mg PO DAILY losartan 100 mg PO DAILY metformin 1,000 mg PO BID metoprolol succinate ER 25 mg PO DAILY pen needle, diabetic (BD Ultra-Fine Micro Pen Needle) As directed pen needle, diabetic (BD Ultra-Fine Micro Pen Needle) once daily sertraline 50 mg PO DAILY sitagliptin phosphate (Januvia) 100 mg PO DAILY 30 days tamsulosin (Flomax) 0.4 mg PO BEDTIME 90 days trazodone 50 mg PO BEDTIME HPI HPI Comments History of Present Illness Details Abdirizak de santiago is a pleasant 72-year-old Trinidadian-speaking male patient of Dr. Mendoza. He has a past medical history of ED, bladder neck contracture, vitamin-D deficiency, anxiety, hyperlipidemia, hypertension, and diabetes. He is being follow-up on today via telehealth for his incomplete bladder emptying and urinary tract infections. In discussion with the patient today he reports to be doing and feeling well. He denies any bothersome urinary issues or concerns at this time. He denies having had or experienced any UTI like symptoms since his last office visit here approximately 1 year ago. He reports compliance with Flomax and finasteride as prescribed. Recent PSA results reviewed with the patient today as noted below. When asked he denies urinary urgency, urinary frequency, incontinence, nocturia, hematuria, dysuria, foul smelling urine, changes to urinary stream, flank pain, fever, and or chills. He is happy with his current voiding parameters on finasteride and Flomax daily. He otherwise denies any other issues or concerns at this time. PSAs are as follows 01/25 1.4, 11/28 0.5, 03/01 0.5 PFSH Medical History Erectile dysfunction Bladder neck contracture Non-healing surgical wound Rash Vitamin D deficiency Anxiety COVID-19 HLD (hyperlipidemia) HTN (hypertension) T2DM (type 2 diabetes mellitus) Hypertension Surgical History Hx of removal of cyst History of prostate surgery Family History Father Cancer Mother Cancer Diabetes Social History Housing: Apartment Alcohol intake: never Patient Tobacco Use Status: Former Tobacco user Cigarette Packs Per Day: 1 Cigarettes Per Day: 20.0 Years Smoked: 20 service: No Current occupational status: retired Review of Systems Eyes Reports no additional complaints ENT Reports no additional complaints Card Reports as per HPI Resp Reports no additional complaints GI Reports no additional complaints Reports as per HPI Musc Reports no additional complaints Neuro Reports no additional complaints Psych Reports no additional complaints Endo Reports as per HPI Graham/Lymph Reports no additional complaints Aller/Immun Reports no additional complaints Physical Exam Const General: cooperative Orientation/consciousness: patient oriented x3 Resp Effort & Inspection: able to speak in complete sentences Neuro General: patient oriented x3 Psych Speech and movement: Clear speech present Attitude: cooperative Thought content: Normal thought content present Insight: Fair insight present (Psych) Judgement: Fair judgement present (Psych) Assessment & Plan Assessment & Plan (1) BPH associated with nocturia: Code(s): N40.1 - Benign prostatic hyperplasia with lower urinary tract symptoms; R35.1 - Nocturia (2) Urinary retention with incomplete bladder emptying: Code(s): R33.9 - Retention of urine, unspecified Plan Recent PSA results reviewed with the patient today; as noted above. Patient denies any bothersome urinary issues or concerns at this time. Continue Flomax and finasteride as prescribed. Patient reports be happy with current voiding parameters. Will obtain PSA in 1 year. Follow-up in 1 year with [facility] and lab to be completed prior; or sooner with any issues, concerns, and or questions. Orders: Orders Prostate Specific Antigen 364 Days N40.1 - Benign prostatic hyperplasia with lower urinary tract symptoms, R35.1 - [facility]ct[facility] Specific Antigen 02/16/23 N40.1 - Benign prostatic hyperplasia with lower urinary tract symptoms, R35.1 - Nocturia Dereje Ivey MD Patient Instructions: The patient had an opportunity to ask questions regarding the treatment plan. All questions were answered. Physical exam, labs, and imaging were discussed and reviewed in detail. As well as risks, benefits, and discussion of treatment choices. No major barriers to understanding were identified. The patient expressed understanding and agreement with the above treatment plan. The patient was made aware they should contact our office by phone for worsening of their current condition, the appearance of new symptoms, or with any questions or concerns. Compliance is encouraged with any medications and follow up testing that is ordered. It is a privilege to be allowed the opportunity to participate in? your urological care.? Again, if you have any questions or concerns If you have any questions or concerns please do not hesitate to contact me. The office is [phone]. This note is constructed using voice recognition software. While every effort has been made to ensure accuracy avionics test technician errors may have been included. Yours sincerely, [facility] Tele[facility] Telehealth Location of provider rendering services: practice address Location of patient: address on file Patient Identification confirmed using: Name, : Yes Telehealth method: voice only Patient verbally consented to treatment: Yes Patient verbally consented to billing insurance company: Yes Patient informed of any privacy concerns related to visit: Yes Minutes spent on Phone/Video with Pt.: 15 Coding Level of Care Code Tele Est Pt Level 3 (82140) Diagnoses BPH associated with nocturia N40.1; R35.1 Urinary retention with incomplete bladder emptying R33.9
== END 2023-02-21 15:56 | disposition home or self-care (01) ==
LOC: HO.HUSH 15:11
PROVIDERS: PCP Family Medicine; Visit Provider Nurse Practitioner Family
DX: N40.1 Benign prostatic hyperplasia with lower urinary tract symptoms (principal); R35.1 Nocturia; R33.9 Retention of urine, unspecified
CPT/HCPCS: 99442

== ENCOUNTER 2023-03-04 11:36 | Emergency (ER) | payer OTHER, SELFPAY ==
--- NOTE | ~2023-03-04 | XR_ITS ---
EXAMINATION: XR CHEST CLINICAL INFORMATION: SOB/chest pain. COMPARISON: None available. TECHNIQUE: 2 views of the chest were obtained. FINDINGS: No significant abnormality is noted involving the heart, lungs, mediastinum, bony thorax or soft tissues. XR/XR chest 2V IMPRESSION: Unremarkable chest examination.
[2023-03-04 12:01] VITALS: BP 144/73; PULSE 79; RESP 16; TEMP 36.5; O2SAT 99; BMI 27.2
--- NOTE | 2023-03-04 12:01 | ED_ITS ---
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 Denies fevers, cough, leg edema. He is not the best historian. MD complaint: dyspnea, ear pain, chest tightness Onset (ago): day(s) (few) Location: head and chest Radiation: non-radiation Severity: moderate Quality: other Relieving factors: none Exacerbating factors: none Associated symptoms: other (ear ache, chest tightness) Treatments prior to arrival: none Related Data Home Medications Medication Instructions Recorded Confirmed amlodipine 5 mg tablet 10 mg PO DAILY 02/19/20 02/04/23 atorvastatin 40 mg tablet 40 mg PO DAILY 02/19/20 02/04/23 losartan 100 mg tablet 100 mg PO DAILY 02/19/20 02/04/23 metformin 500 mg tablet 1,000 mg PO BID 04/08/20 02/04/23 lancets 28 gauge #100 ea 07/21/20 10/20/20 loratadine 10 mg tablet 10 mg PO DAILY 07/21/20 02/04/23 sertraline 25 mg tablet 50 mg PO DAILY 07/21/20 02/04/23 insulin glargine 100 unit/mL (3 14 unit subcut QPM 02/04/23 02/04/23 mL) subcutaneous pen (Lantus Solostar U-100 Insulin) metoprolol succinate 25 mg 25 mg PO DAILY 02/04/23 02/04/23 tablet,extended release 24 hr Previous Rx's Medication Instructions Recorded sitagliptin phosphate 100 mg 100 mg PO DAILY 30 days #30 tabs 05/19/20 tablet (Januvia) pen needle, diabetic 32 gauge x #100 ea 07/21/20 14 (BD Ultra-Fine Micro Pen Needle) pen needle, diabetic 32 gauge x #100 ea 07/22/20 14 (BD Ultra-Fine Micro Pen Needle) blood sugar diagnostic (FreeStyle #100 ea 11/03/22 Lite Strips) tamsulosin 0.4 mg capsule (Flomax) 0.4 mg PO BEDTIME 90 days #90 caps 11/02/22 finasteride 5 mg tablet 5 mg PO DAILY 90 days #90 tabs 12/06/22 lidocaine 5 % topical patch 1 patch topical DAILY #15 ea 12/27/22 (Lidoderm) trazodone 50 mg tablet 50 mg PO BEDTIME #30 tabs 02/05/23 ofloxacin 0.3 % ear drops 10 drp otic (ears) DAILY 7 days #5 03/04/23 mL Allergies Allergy/AdvReac Type Severity Reaction Status Date / Time Penicillins Allergy Mild RASH Verified 03/04/23 12:05 acetaminophen [From Percocet] Allergy Unknown Anxiety Verified 03/04/23 12:05 oxycodone [From Percocet] Allergy Unknown Anxiety Verified 03/04/23 12:05 penicillin V Allergy Unknown rash Verified 03/04/23 12:05 zolpidem [From Ambien] AdvReac Unknown Verified 03/04/23 12:05 Review of Systems 2 Review of Systems: Constitutional : No Fever, No Chills ENT/Mouth : No sore throat, No Rhinorrhea, No Swallowing Difficulty, pos ear pain Eyes: No Eye Pain, No Swelling, No Redness Cardiovascular : No Chest Pain, positive SOB, No Orthopnea, no Edema Respiratory : No Cough, No Sputum, No Wheezing, positive dyspnea Gastrointestinal : No Nausea, No Vomiting, No Diarrhea, No abdominal Pain, No Hematochezia, No Melena Genitourinary : No Dysuria, No Urinary Frequency, No Hematuria Musculoskeletal : No joint pain, No Myalgias Skin : No Skin Lesions, No rash Neuro : No Weakness, No Numbness, No Dizziness, No Headache Psych : No Anxiety/Panic, No Depression All other systems reviewed and are negative PMFSH Past Medical History Attestation statement: The following information was validated with the patient. Source: old records reviewed Medical History Erectile dysfunction Bladder neck contracture Non-healing surgical wound Rash Vitamin D deficiency Anxiety COVID-19 HLD (hyperlipidemia) HTN (hypertension) T2DM (type 2 diabetes mellitus) Hypertension Surgical History Hx of removal of cyst History of prostate surgery Family History Family History Father Cancer Mother Cancer Diabetes Social History Housing: Apartment Alcohol intake: never Patient Tobacco Use Status: Former Tobacco user Cigarette Packs Per Day: 1 Cigarettes Per Day: 20.0 Years Smoked: 20 Advance Directives: Yes Advance Directives on File: Yes Advance Directives Date on File: 03/04/23 service: No Current occupational status: retired Physical Exam ED Vital Signs: Vital Signs - 24 hr 03/04/23 12:01 03/04/23 14:44 Temperature 97.7 F 98.2 F Pulse Rate 79 73 Respiratory Rate 16 18 Blood Pressure 144/73 H 139/76 Pulse Oximetry 99 98 Oxygen Delivery Method Room Air Room Air BMI result Body Mass Index 27.2 Appearance: Alert. Oriented X3. No acute distress. Eyes: Pupils equal, round and reactive to light. ENT: Pharynx normal. R TM normal L TM normal R ext canal pos erythema and mild swelling Neck: Normal inspection. Neck supple. CVS: Normal heart rate and rhythm. Pulses normal. Respiratory: No respiratory distress. Breath sounds normal. Abdomen: Soft and nontender. Skin: Skin warm and dry. Normal skin color. Normal skin turgor. Extremities: No lower extremity edema. No calf ttp Neuro: Oriented X 3. No motor deficit. No sensory deficit. Course Course Course Narrative: RME: 72yo M wPMHx HTN, DM, BPH, HLD, c/o chest tightness, congestion, right ear pain, dry cough x 3 days. Also reports exertional SOB. denies sick contacts EKG, viral testing, strep, CXR ordered Full HPI, ROS and PE to be performed by primary ED provider. Medical Decision Making Medical Decision Making MDM Narrative: 72 yo male with PMH of depression, HTN, DM, BPH, HLD, here with very vague symptoms 1. R ear pain has mild external otitis no signs of malignant external otitis, 2. has chest tightness and feeling dyspnea no edema, cough, fevers atypical for ACS - happens at night could be post nasal drip will obtain CXR, trop and EKG - is having PACs will monitor and obtain troponin and lytes. Differential Diagnosis Differential Diagnoses: The differential diagnosis associated with the presentation includes AOM, otitis externa, lyte derangement Admission/Observation Consideration of admission/observation: Escalation of care including admission/observation considered work up negative with a few days of symptoms no hypoxia no swelling no signs of DVT doubt VTE stable for DC Lab Data [facility] Lab Attestation statement: I reviewed the patient's lab results. 03/04/23 14:14 03/04/23 14:14 Labs: Lab Results 03/04/23 03/04/23 03/04/23 Range/Units 13:00 13:01 14:14 WBC 8.6 (4.8-10.8) X10*3/uL RBC 4.43 L (4.60-5.80) X10*6/uL Hgb 13.5 L (14.0-18.0) g/dl Hct 38.7 L (42.0-52.0) % MCV 87.4 (80.0-98.0) fL MCH 30.5 (27.0-33.0) pg MCHC 34.9 (31.0-36.0) g/dl RDW 12.2 (11.0-16.0) % Plt Count 253 D (160-400) X10*3/uL MPV 9.2 L (9.4-12.4) fL Immature Gran % (Auto) 0.4 (0.0-0.4) % Neut % (Auto) 81.7 H (45-73) % Lymph % (Auto) 9.9 L (20-40) % Carson % (Auto) 6.3 (2-11) % Eos % (Auto) 1.5 (0-4) % Baso % (Auto) 0.2 (0-2) % Lymph # (Auto) 0.9 L (1.2-4.9) X10*3/uL Carson # (Auto) 0.5 (0.1-1.2) X10*3/uL Eos # (Auto) 0.1 (0.0-0.4) X10*3/uL Baso # (Auto) 0.0 (0.0-0.2) X10*3/uL Abs Immat Gran (auto) 0.03 (0.00-0.03) X10*3/uL Absolute Neuts (auto) 7.0 (2.0-8.3) x10*3/uL Absolute Nucleated RBC 0.000 (0.0-0.012) X10*3/uL Nucleated RBC % (auto) 0.0 (0.0-0.2) /100WBC Sodium 132 L (135-145) mmol/L Potassium 4.0 (3.3-5.1) mmol/L Chloride 100 (96-108) mmol/L Carbon Dioxide 22 (22-29) mmol/L Anion Gap 14 (12-20) BUN 7 L (9-16) mg/dL Creatinine 0.79 (0.5-1.4) mg/dL Estim Creat Clear Calc 79.0 Estimated GFR > 60 Random Glucose 242 H (60-115) mg/dL Calcium 9.3 (8.4-10.2) mg/dL Magnesium 1.8 (1.6-2.6) mg/dL Total Bilirubin 0.3 (0.0-1.0) mg/dL Direct Bilirubin 0.1 (0.0-0.5) mg/dL AST 17 (5-37) U/L ALT 23 (0-40) U/L Alkaline Phosphatase 68 (39-117) U/L Troponin I High Sens < 2.7 (<3.5-35.0) ng/L B-Natriuretic Peptide 23 (<100) pg/mL Total Protein 7.0 (6.5-8.0) g/dL Albumin 4.2 (3.5-5.0) g/dL COVID-19 (SASCHA) Negative (Negative) COVID-19 Clin Com See Note Influenza Type A ([facility]) Negative (Negative) Influenza Type B ([facility]) Negative (Negative) Influenza A & B Note See Note S. pyogenes GrpA SHELTNO Negative (Negative) Independent Interpretation I performed an independent interpretation of an: EKG and Plain X-Ray (normal ) Interpretation: Rate: 86 Rhythm: NSR with PACs with bigeminy [place]: left Normal P waves. Normal SOU[place]. Normal QRS complex. ST T wave : no VASYL qTC: normal prior studies: no acute ischemia The study has been interpreted contemporaneously by me. . Radiology Impression Discussion of test interpretation with radiology: I have reviewed the radiologist's reading. Independent Historian Clinical information obtained from an independent historian. History obtained from or confirmed by: Other (family) External Record Review External record reviewed: Inpatient record Prescription Management I considered prescription management with: Antibiotic Discharge Plan Discharge Clinical Impression: Atypical chest pain Otitis externa Qualifiers: Otitis externa type: diffuse Chronicity: acute Laterality: right Qualified Code(s): H60.311 - Diffuse otitis externa, right ear Patient Disposition: Home, Self-Care Instructions: Chest Pain (ED), Otitis Externa (ED) Additional Instructions: normal xray, no covid, normal tests for the heart, blood counts, no CHF, return for worsening symptoms, pain, fevers, or any other concerns. radiograf?a normal, sin covid, pruebas normales del coraz?n, recuentos sangu?neos, sin insuficiencia card?claudia congestiva, regreso por empeoramiento de los s?ntomas, dolor, fiebre o cualquier otra inquietud. Prescriptions: New ofloxacin 0.3 % drops 10 drp otic (ears) DAILY 7 Days Qty: 5 0RF No Action (DME) pen needle, diabetic [BD Ultra-Fine Micro Pen Needle] 32 gauge x 1/4 needle See Rx Instructions .ROUTE .MEDSUPPLY Qty: 100 11RF Rx Instructions: once daily (DME) FreeStyle Lite Strips Strip See Rx Instructions .ROUTE .MEDSUPPLY Qty: 100 11RF Rx Instructions: 4x daily tamsulosin [Flomax] 0.4 mg capsule 0.4 mg PO BEDTIME 90 Days Qty: 90 1RF finasteride 5 mg tablet 5 mg PO DAILY 90 Days Qty: 90 0RF lidocaine [Lidoderm] 5 % adhesive patch,medicated 1 patch topical DAILY Qty: 15 0RF Rx Instructions: leave on most painful area for up to 12 hrs insulin glargine [Lantus Solostar U-100 Insulin] 100 unit/mL (3 mL) insulin pen 14 unit subcut QPM metoprolol succinate 25 mg tablet extended release 24 hr 25 mg PO DAILY trazodone 50 mg tablet 50 mg PO BEDTIME Qty: 30 0RF amlodipine 5 mg tablet 10 mg PO DAILY losartan 100 mg tablet 100 mg PO DAILY atorvastatin 40 mg tablet 40 mg PO DAILY metformin 500 mg tablet 1,000 mg PO BID Januvia 100 mg tablet 100 mg PO DAILY 30 Days Qty: 30 11RF (DME) lancets 28 gauge misc See Rx Instructions topical DAILY Qty: 100 Rx Instructions: As directed loratadine 10 mg tablet 10 mg PO DAILY sertraline 25 mg tablet 50 mg PO DAILY (DME) pen needle, diabetic [BD Ultra-Fine Micro Pen Needle] 32 gauge x 1/4 needle See Rx Instructions .ROUTE .MEDSUPPLY Qty: 100 11RF Rx Instructions: As directed
--- NOTE | 2023-03-04 12:03 | ECG_ITS ---
Test Reason : CHEST TIGHTNESS Blood Pressure : / mmHG Vent. Rate : 086 BPM Atrial Rate : 086 BPM P-R Int : 158 ms QRS Dur : 080 ms QT Int : 348 ms P-R-T Axes : 036 -02 044 degrees QTc Int : 416 ms Sinus rhythm with Premature atrial complexes in a pattern of bigeminy Minimal voltage criteria for LVH, may be normal variant ( R in aVL ) Abnormal ECG When compared with ECG of 04-FEB-2023 11:42, Premature atrial complexes are now Present Referred By: Alisha Albright Electronically Signed By:ADDIS MADRIGAL MD
[2023-03-04 13:24] LABS: COVID-19 Test Negative (Negative)
[2023-03-04 13:26] LABS: IDNOW Serial# BCCEAD1C
[2023-03-04 13:27] LABS: IDNOW Serial# 08D9AD1C; Strep A Nucleic Acid Negative (Negative)
[2023-03-04 13:29] LABS: IDNOW Serial# 9DB6401D; Influenza A Negative (Negative); Influenza B2 Negative (Negative)
[2023-03-04 14:18] LABS: MANUAL DIFF FLAG NO
[2023-03-04 14:22] LABS: Basophils Percent Auto 0.2 % (0-2); Eosinophils Absolute Auto 0.1 X10*3/uL (0.0-0.4); Eosinophils Percent Auto 1.5 % (0-4); Hematocrit 38.7 % (42.0-52.0); Hemoglobin 13.5 g/dl (14.0-18.0); Imm Gran Abs Auto 0.03 X10*3/uL (0.00-0.03); Imm Gran Pct Auto 0.4 % (0.0-0.4); Lymphocytes Absolute Auto 0.9 X10*3/uL (1.2-4.9); Lymphocytes Percent Auto 9.9 % (20-40); Mean Corpuscular HGB Conc 34.9 g/dl (31.0-36.0); Mean Corpuscular Hemoglobin 30.5 pg (27.0-33.0); Mean Corpuscular Volume 87.4 fL (80.0-98.0); Mean Platelet Volume 9.2 fL (9.4-12.4); Monocytes Absolute Auto 0.5 X10*3/uL (0.1-1.2); Monocytes Percent Auto 6.3 % (2-11); Neutrophils Percent Auto 81.7 % (45-73); Platelet Count 253 X10*3/uL (160-400); Red Blood Count 4.43 X10*6/uL (4.60-5.80); Red Cell Distribution Width 12.2 % (11.0-16.0); White Blood Count 8.6 X10*3/uL (4.8-10.8)
[2023-03-04 14:36] LABS: Alanine Aminotransferase 23 U/L (0-40); Albumin Level 4.2 g/dL (3.5-5.0); Alkaline Phosphatase 68 U/L (39-117); Anion Gap 14 (12-20); Aspartate Amino Transferase 17 U/L (5-37); Bilirubin Direct 0.1 mg/dL (0.0-0.5); Bilirubin Total 0.3 mg/dL (0.0-1.0); Blood Urea Nitrogen 7 mg/dL (9-16); Calcium 9.3 mg/dL (8.4-10.2); Carbon Dioxide 22 mmol/L (22-29); Chloride 100 mmol/L (96-108); Estimated Glomerular Filt Rate > 60; Glucose Random 242 mg/dL (60-115); Magnesium 1.8 mg/dL (1.6-2.6); Sodium 132 mmol/L (135-145)
[2023-03-04 14:41] LABS: B Type Natriuretic Peptide 23 pg/mL (<100)
[2023-03-04 14:44] VITALS: BP 139/76; PULSE 73; RESP 18; TEMP 36.8; O2SAT 98
[2023-03-04 14:44] LABS: Troponin-I High Sensitivity < 2.7 ng/L (<3.5-35.0)
== END 2023-03-04 15:00 | disposition home or self-care (01) ==
PROVIDERS: Physician Assistant; Emergency Provider Emergency Medicine; PCP Family Medicine
DX: R07.89 Other chest pain (principal); H92.03 Otalgia, bilateral; R06.02 Shortness of breath; I10 Essential (primary) hypertension; Z11.52 Encounter for screening for COVID-19; Z20.822 Contact with and (suspected) exposure to COVID-19; Z79.899 Other long term (current) drug therapy; Z87.891 Personal history of nicotine dependence
CPT/HCPCS: 36415; 71046; 80048; 80076; 83735; 83880; 84484; 85025; 87502; 87635; 87651; 93005; 99283; 99284

== ENCOUNTER 2023-03-08 09:04 | Outpatient (AMB) | payer OTHER, SELFPAY ==
[2023-03-08 09:22] VITALS: BP 132/70; PULSE 80; BMI 27.2
--- NOTE | 2023-03-08 09:22 | MHC.OFFVIS ---
Intake Vital Signs 03/08/23 09:22 Height 5 ft 7 in Weight 173 lb 11.588 oz BMI 27.2 BP 132/70 Blood Pressure Location Lt brachial Position Sitting Pulse 80 Pulse Source Pulse Oximeter Intake Visit Reasons: CORNETIST/ [place]/ HHC/chest tightness Intake Note: NPV Supersonic Engineer Required: Yes Supersonic Engineer Name: Zofia [id number] Accompanied by: Spouse Allergies Penicillins Allergy (Mild, Verified 03/08/23 09:25) RASH acetaminophen [From Percocet] Allergy (Unknown, Verified 03/08/23 09:25) Anxiety oxycodone [From Percocet] Allergy (Unknown, Verified 03/08/23 09:25) Anxiety penicillin V Allergy (Unknown, Verified 03/08/23 09:25) rash zolpidem [From Ambien] Adverse Reaction (Verified 03/08/23 09:25) Unknown Medication List - Last Reconciled 03/08/23 by Butch Baptiste MD amlodipine 10 mg PO DAILY atorvastatin 40 mg PO DAILY blood sugar diagnostic (FreeStyle Lite Strips) 4x daily finasteride 5 mg PO DAILY 90 days insulin glargine (Lantus Solostar U-100 Insulin) 14 units subcut QPM lancets As directed lidocaine 5% (Lidoderm) 1 patch topical DAILY loratadine 10 mg PO DAILY losartan 100 mg PO DAILY melatonin 1 mg PO BEDTIME PRN metformin 1,000 mg PO BID metoprolol succinate ER 25 mg PO DAILY ofloxacin 0.3% 10 drps otic (ears) DAILY 7 days pen needle, diabetic (BD Ultra-Fine Micro Pen Needle) As directed pen needle, diabetic (BD Ultra-Fine Micro Pen Needle) once daily sertraline 50 mg PO DAILY sitagliptin phosphate (Januvia) 100 mg PO DAILY 30 days tamsulosin (Flomax) 0.4 mg PO BEDTIME 90 days HPI HPI Comments History of Present Illness Details Abdirizak is here for consultation regarding chest tightness. Difficult historian and in spite of using hunting sales leader, difficult to get a good history. is somewhat helping as she speaks little Slovak. Multiple cardiovascular risk factors including type 2 diabetes, hypertension, dyslipidemia. No documented coronary disease myocardial infarction. Apparently gets some chest tightness randomly. states whenever he is very anxious or angry he gets it but not with exertion. He came for stress test but he was able to exercise for only 22 seconds on Derek protocol. [facility] Medical History Erectile dysfunction Bladder neck contracture Non-healing surgical wound Rash Vitamin D deficiency Anxiety COVID-19 HLD (hyperlipidemia) HTN (hypertension) T2DM (type 2 diabetes mellitus) Hypertension Surgical History Hx of removal of cyst History of prostate surgery Family History Father Cancer Mother Cancer Diabetes Social History Housing: Apartment Alcohol intake: never Patient Tobacco Use Status: Former Tobacco user Cigarette Packs Per Day: 1 Cigarettes Per Day: 20.0 Years Smoked: 20 Advance Directives Date on File: 03/04/23 service: No Current occupational status: retired Review of Systems Const Denies chills, Denies daytime sleepiness, Denies fatigue, Denies fever(s), Denies frequent falls, Denies night sweats, Denies snoring, Denies weakness, Denies weight gain and Denies weight loss Eyes Denies loss of vision ENT Denies dizziness and Denies hearing loss Card Reports chest pain, Denies chest pain with activity, Denies syncope, Denies edema, Denies claudication, Denies leg edema, Denies lightheadedness, Denies palpitations, Denies dyspnea on exertion and Denies orthopnea Resp Denies cough, Denies excessive phlegm production, Denies dyspnea on exertion, Denies snoring and Denies wheezing GI Denies abdominal pain, Denies hematochezia, Denies change in bowel habits, Denies change in stool character, Denies heartburn, Denies nausea and Denies vomiting Denies hematuria, Denies dysuria and Denies urinary frequency Musc Denies arthralgias, Denies muscle weakness, Denies numbness and Denies tingling Skin/Breast Denies nail changes and Denies rash Neuro Denies Abnormal speech present, Denies dizziness, Denies syncope, Denies frequent falls, Denies loss of vision, Denies memory loss, Denies numbness, Denies tingling and Denies weakness Psych Denies depression and Denies memory loss Endo Denies fatigue and Denies palpitations Aller/Immun Denies wheezing Physical Exam Vital Signs: Last Vital Signs Pulse 80 03/08/23 09:22 BP 132/70 03/08/23 09:22 BMI result Body Mass Index 27.2 Const General: comfortable and no acute distress Orientation/consciousness: patient oriented x3 HEENT Other: Unremarkable Head: Yes normal to inspection Neck Neck: Yes normal visual inspection Chest Chest palpation & inspection: normal inspection of the chest Resp Auscultation: clear to auscultation bilaterally Cardio Palpation: normal PMI Heart sounds: S1 normal heart sound present, S2 normal heart sound present, no gallops, no murmurs and no rubs GI Palpation (GI): Soft to palpation Back/Spine/Pelvis Other: unremarkable Skin General skin exam: no rashes or lesions noted Neuro General: patient oriented x3 Speech: No Abnormal speech present Extrem General: Yes normal to inspection Psych Mental Status: mental status grossly normal Assessment & Plan Assessment & Plan (1) Precordial chest pain: Code(s): R07.2 - Precordial pain (2) T2DM (type 2 diabetes mellitus): Code(s): E11.9 - Type 2 diabetes mellitus without complications Qualifiers: Diabetes mellitus intermediate card tender insulin use: without detention use Diabetes mellitus complication status: with hyperglycemia Qualified Code(s): E11.65 - Type 2 diabetes mellitus with hyperglycemia (3) Hypertension: Code(s): I10 - Essential (primary) hypertension (4) HLD (hyperlipidemia): Code(s): E78.5 - Hyperlipidemia, unspecified Qualifiers: Hyperlipidemia type: unspecified Qualified Code(s): E78.5 - Hyperlipidemia, unspecified Plan Baseline EKG shows sinus rhythm at 86/Min; premature supraventricular complexes; minimal criteria for LVH; normal IN and corrected QT. There are numerous high sensitivity troponins in the system and they were all normal. Atypical chest pain, difficult historian, multiple cardiovascular risk factors, extremely low functional capacity on ETT. We can do an echocardiogram for cardiac function as well as pharmacological stress perfusion imaging study. Discussed with who came for appointment. Follow-up after testing. Orders: Orders CA echo transthoracic complete Today I25.10 - Atherosclerotic heart disease of [place] coronary artery without angina pectoris CA lexiscan stress w rigoberto Today I20.9 - Angina pectoris, unspecified NM cardiolite stress test Today R07.2 - Precordial pain Coding Level of Care Code New Pt Level 4 (84876) Diagnoses Precordial chest pain R07.2 Type 2 diabetes mellitus with hyperglycemia, without long-term current use of insulin E11.65 Diabetes mellitus detention insulin use: without detention use Diabetes mellitus complication status: with hyperglycemia Hypertension I10 Hyperlipidemia, unspecified hyperlipidemia type E78.5 Hyperlipidemia type: unspecified
== END 2023-03-08 09:41 | disposition home or self-care (01) ==
PROVIDERS: PCP Family Medicine; Visit Provider Internal Medicine
DX: R07.2 Precordial pain (principal); E11.65 Type 2 diabetes mellitus with hyperglycemia; I10 Essential (primary) hypertension; E78.5 Hyperlipidemia, unspecified
CPT/HCPCS: 99204

== ENCOUNTER → 2023-03-08 09:04 | Outpatient (BNVA) | payer OTHER, SELFPAY | PROVIDERS: PCP Family Medicine; Visit Provider Internal Medicine | DX: R07.2 Precordial pain (principal); E11.65 Type 2 diabetes mellitus with hyperglycemia; I10 Essential (primary) hypertension; E78.5 Hyperlipidemia, unspecified | CPT/HCPCS: 99202 ==

== ENCOUNTER 2023-03-16 09:10 | Emergency (ER) | payer OTHER, SELFPAY ==
[2023-03-16] VITALS (7 sets, daily range): BP systolic 109–138; BP diastolic 65–75; PULSE 77–90; RESP 16–19; TEMP 36.5–36.7; O2SAT 97–997; BMI 27.3
--- NOTE | 2023-03-16 09:15 | ECG_ITS ---
Test Reason : Chest Pain Blood Pressure : / mmHG Vent. Rate : 082 BPM Atrial Rate : 082 BPM P-R Int : 170 ms QRS Dur : 080 ms QT Int : 342 ms P-R-T Axes : 043 -22 008 degrees QTc Int : 399 ms Normal sinus rhythm Minimal voltage criteria for LVH, may be normal variant ( R in aVL ) Borderline ECG When compared with ECG of 04-MAR-2023 12:53, Premature atrial complexes are no longer Present Referred By: Giancarlo Rosas Electronically Signed By:PAT SANTOYO
--- NOTE | 2023-03-16 09:17 | ED.CHESTPAIN ---
HPI - Chest Pain General Chief Complaint: Chest Pain Stated Complaint: CHEST PAIN Time Seen by Provider: 03/16/23 09:13 Source: patient and EMS Mode of arrival: EMS Limitations: language barrier History of Present Illness HPI narrative: Patient has been having chest pain on and off for a few months. He is scheduled for an echo and a nuclear stress test. This morning he woke up with chest pain that woke him from sleep. It is a discomfort. He does get pain with exertion MD complaint: chest pain Onset (ago): month(s) Timing of current episode: episodic Prior episodes: Yes Onset: during rest and during exertion Pain location: substernal Related Data Home Medications Medication Instructions Recorded Confirmed amlodipine 5 mg tablet 10 mg PO DAILY 02/19/20 03/08/23 atorvastatin 40 mg tablet 40 mg PO DAILY 02/19/20 03/08/23 losartan 100 mg tablet 100 mg PO DAILY 02/19/20 03/08/23 metformin 500 mg tablet 1,000 mg PO BID 04/08/20 03/08/23 lancets 28 gauge #100 ea 07/21/20 03/08/23 loratadine 10 mg tablet 10 mg PO DAILY 07/21/20 03/08/23 sertraline 25 mg tablet 50 mg PO DAILY 07/21/20 03/08/23 insulin glargine 100 unit/mL (3 14 unit subcut QPM 02/04/23 03/08/23 mL) subcutaneous pen (Lantus Solostar U-100 Insulin) metoprolol succinate 25 mg 25 mg PO DAILY 02/04/23 03/08/23 tablet,extended release 24 hr melatonin 1 mg tablet 1 mg PO BEDTIME PRN 03/08/23 03/08/23 Previous Rx's Medication Instructions Recorded sitagliptin phosphate 100 mg 100 mg PO DAILY 30 days #30 tabs 05/19/20 tablet (Januvia) pen needle, diabetic 32 gauge x #100 ea 07/21/20 14 (BD Ultra-Fine Micro Pen Needle) pen needle, diabetic 32 gauge x #100 ea 07/22/20 14 (BD Ultra-Fine Micro Pen Needle) blood sugar diagnostic (FreeStyle #100 ea 02/09/22 Lite Strips) tamsulosin 0.4 mg capsule (Flomax) 0.4 mg PO BEDTIME 90 days #90 caps 11/02/22 lidocaine 5 % topical patch 1 patch topical DAILY #15 ea 12/27/22 (Lidoderm) ofloxacin 0.3 % ear drops 10 drp otic (ears) DAILY 7 days #5 03/04/23 mL finasteride 5 mg tablet 5 mg PO DAILY 90 days #90 tabs 03/07/23 Allergies Allergy/AdvReac Type Severity Reaction Status Date / Time Penicillins Allergy Mild RASH Verified 03/08/23 09:25 acetaminophen [From Percocet] Allergy Unknown Anxiety Verified 03/08/23 09:25 oxycodone [From Percocet] Allergy Unknown Anxiety Verified 03/08/23 09:25 penicillin V Allergy Unknown rash Verified 03/08/23 09:25 zolpidem [From Ambien] AdvReac Unknown Verified 03/08/23 09:25 Review of Systems Review of Systems: Yes all other systems are reviewed and are negative Neurologic: Denies Sensory deficit (Neuro) PMFSH Past Medical History Medical History Erectile dysfunction Bladder neck contracture Non-healing surgical wound Rash Vitamin D deficiency Anxiety COVID-19 HLD (hyperlipidemia) HTN (hypertension) T2DM (type 2 diabetes mellitus) Hypertension Surgical History Hx of removal of cyst History of prostate surgery Family History Family History Father Cancer Mother Cancer Diabetes Social History Social History Housing: Apartment Alcohol intake: former Patient Tobacco Use Status: Former Tobacco user Cigarette Packs Per Day: 1 Cigarettes Per Day: 20.0 Years Smoked: 20 Smoked in Last 30 Days: No Use of substances other than those prescribed or required for medical reasons: No Advance Directives: Yes Advance Directives on File: Yes Advance Directives Date on File: 03/04/23 service: No Current occupational status: retired Physical Exam Vital Signs: Vital Signs: Last Vital Signs Temp 98.1 F 03/16/23 10:11 Pulse 79 03/16/23 12:00 Resp 16 03/16/23 12:00 BP 109/67 03/16/23 12:00 Pulse Ox 98 03/16/23 12:00 O2 Del Method Room Air 03/16/23 12:00 BMI result Body Mass Index 27.3 Const: Other: male looking older than stated age, slow with mentation Nutritional Appearance: average body habitus Orientation/consciousness: oriented to person and patient oriented x3 Limitations: no limitations HEENT: Head: Yes normal to inspection Ears: external ears normal General nose exam: Normal external nose present Mouth: Normal oral and palatal mucosa present and oropharynx normal Throat: Yes posterior oropharynx normal Eyes: General: appearance normal, both eyes and all related structures Neck: Other: supple Neck: Yes normal visual inspection Chest: Chest palpation & inspection: normal inspection of the chest Resp: Auscultation: clear to auscultation bilaterally Cardio: Jugular venous distension: no JVD Rate: regular rate Rhythm: regular rhythm Heart sounds: S1 normal heart sound present and S2 normal heart sound present GI: Inspection: Yes normal to inspection Palpation (GI): Soft to palpation, nontender and No hepatosplenomegaly present Auscultation: normal bowel sounds : General: Yes no CVA tenderness Back/Spine/Pelvis: Back: no CVA tenderness Skin: General skin exam: no rashes or lesions noted Neuro: General: oriented to person and patient oriented x3 Cranial nerves: Yes CN's II-XII intact bilaterally Motor exam (neuro): 5/5 motor strength present throughout Sensory Exam: No Sensory deficit (Neuro) Extrem: General: Yes normal to inspection Psych: Other: flat affect slow mentation Course Reevaluation(s) Reevaluation #1: EKG and serial troponins negative can discharge home Time: 14:02 Medications Administered Generic Name Dose Route Start Last Admin Trade Name Freq PRN Reason Stop Dose Admin Nitroglycerin 0.4 mg 03/16/23 09:14 03/16/23 09:36 Nitroglycerin 0.4 Mg Tab.Subl SUBLINGUAL 0.4 mg [id number] PRN Administration Chest Pain Discontinued Medications Generic Name Dose Route Start Last Admin Trade Name Freq PRN Reason Stop Dose Admin Nitroglycerin 1 inch 03/16/23 10:05 03/16/23 10:21 Nitroglycerin 2 % Oint 1 Gm Packet TRANSDERMA 03/16/23 10:06 1 inch ONCE ONE Administration Medical Decision Making Differential Diagnosis Differential Diagnoses: The differential diagnosis associated with the presentation includes (STEMI, cardiac ischemia, non cardiac chest pain was all considered) Admission/Observation Consideration of admission/observation: Escalation of care including admission/observation considered (upon arrival patient was considered for admission) Lab Data 03/16/23 10:18 03/16/23 11:59 Labs: Lab Results 03/16/23 03/16/23 Range/Units 10:18 11:59 WBC 6.4 (4.8-10.8) X10*3/uL RBC 4.40 L (4.60-5.80) X10*6/uL Hgb 13.3 L (14.0-18.0) g/dl Hct 38.4 L (42.0-52.0) % MCV 87.3 (80.0-98.0) fL MCH 30.2 (27.0-33.0) pg MCHC 34.6 (31.0-36.0) g/dl RDW 12.6 (11.0-16.0) % Plt Count 224 (160-400) X10*3/uL MPV 9.4 (9.4-12.4) fL Immature Gran % (Auto) 0.3 (0.0-0.4) % Neut % (Auto) 70.5 (45-73) % Lymph % (Auto) 17.5 L (20-40) % [place] % (Auto) 8.5 (2-11) % Eos % (Auto) 2.7 (0-4) % Baso % (Auto) 0.5 (0-2) % Lymph # (Auto) 1.1 L (1.2-4.9) X10*3/uL [place] # (Auto) 0.5 (0.1-1.2) X10*3/uL Eos # (Auto) 0.2 (0.0-0.4) X10*3/uL Baso # (Auto) 0.0 (0.0-0.2) X10*3/uL Abs Immat Gran (auto) 0.02 (0.00-0.03) X10*3/uL Absolute Neuts (auto) 4.5 (2.0-8.3) x10*3/uL Absolute Nucleated RBC 0.000 (0.0-0.012) X10*3/uL Nucleated RBC % (auto) 0.0 (0.0-0.2) /100WBC Sodium 134 L 133 L (135-145) mmol/L Potassium 4.0 4.0 (3.3-5.1) mmol/L Chloride 102 103 (96-108) mmol/L Carbon Dioxide 24 24 (22-29) mmol/L Anion Gap 12 10 L (12-20) BUN 6 L 6 L (9-16) mg/dL Creatinine 0.76 0.74 (0.5-1.4) mg/dL Estim Creat Clear Calc 85.7 88.0 Estimated GFR > 60 > 60 Random Glucose 189 H 146 H (60-115) mg/dL Calcium 9.2 9.1 (8.4-10.2) mg/dL Troponin I High Sens < 2.7 < 2.7 (<3.5-35.0) ng/L Independent Interpretation I performed an independent interpretation of an: EKG (sinus [address] or twave changes) Independent Historian Clinical information obtained from an independent historian. History obtained from or confirmed by: Spouse External Record Review External record reviewed: Outpatient record Chronic Conditions Patient?s care impacted by: Diabetes and Hypertension Social Determinants Patient?s care significantly limited by Social Determinants of Health including: Low income Discharge Plan Discharge Clinical Impression: Chest pain Patient Disposition: Home, Self-Care Instructions: Chest Pain (ED) Prescriptions: No Action (DME) pen needle, diabetic [BD Ultra-Fine Micro Pen Needle] 32 gauge x 1/4 needle See Rx Instructions .ROUTE .MEDSUPPLY Qty: 100 11RF Rx Instructions: once daily (DME) FreeStyle Lite Strips Strip See Rx Instructions .ROUTE .MEDSUPPLY Qty: 100 11RF Rx Instructions: 4x daily tamsulosin [Flomax] 0.4 mg capsule 0.4 mg PO BEDTIME 90 Days Qty: 90 1RF finasteride 5 mg tablet 5 mg PO DAILY 90 Days Qty: 90 1RF lidocaine [Lidoderm] 5 % adhesive patch,medicated 1 patch topical DAILY Qty: 15 0RF Rx Instructions: leave on most painful area for up to 12 hrs ofloxacin 0.3 % drops 10 drp otic (ears) DAILY 7 Days Qty: 5 0RF insulin glargine [Lantus Solostar U-100 Insulin] 100 unit/mL (3 mL) insulin pen 14 unit subcut QPM metoprolol succinate 25 mg tablet extended release 24 hr 25 mg PO DAILY amlodipine 5 mg tablet 10 mg PO DAILY losartan 100 mg tablet 100 mg PO DAILY atorvastatin 40 mg tablet 40 mg PO DAILY metformin 500 mg tablet 1,000 mg PO BID Januvia 100 mg tablet 100 mg PO DAILY 30 Days Qty: 30 11RF (DME) lancets 28 gauge misc See Rx Instructions topical DAILY Qty: 100 Rx Instructions: As directed loratadine 10 mg tablet 10 mg PO DAILY sertraline 25 mg tablet 50 mg PO DAILY (DME) pen needle, diabetic [BD Ultra-Fine Micro Pen Needle] 32 gauge x 1/4 needle See Rx Instructions .ROUTE .MEDSUPPLY Qty: 100 11RF Rx Instructions: As directed melatonin 1 mg tablet 1 mg PO BEDTIME PRN Referrals: Lidia Mendoza MD [Primary Care Provider] - 3 days
[2023-03-16] MEDS: Nitroglycerin 0.4 MG TAB.SUBL SUBLINGUAL (09:36)
[2023-03-16] MEDS: Nitroglycerin 2 % Oint 1 GM Packet 1 INCH TRANSDERMA (10:21)
[2023-03-16 10:49] LABS: Basophils Percent Auto 0.5 % (0-2); Eosinophils Absolute Auto 0.2 X10*3/uL (0.0-0.4); Eosinophils Percent Auto 2.7 % (0-4); Hematocrit 38.4 % (42.0-52.0); Hemoglobin 13.3 g/dl (14.0-18.0); Imm Gran Abs Auto 0.02 X10*3/uL (0.00-0.03); Imm Gran Pct Auto 0.3 % (0.0-0.4); Lymphocytes Absolute Auto 1.1 X10*3/uL (1.2-4.9); Lymphocytes Percent Auto 17.5 % (20-40); MANUAL DIFF FLAG NO; Mean Corpuscular HGB Conc 34.6 g/dl (31.0-36.0); Mean Corpuscular Hemoglobin 30.2 pg (27.0-33.0); Mean Corpuscular Volume 87.3 fL (80.0-98.0); Mean Platelet Volume 9.4 fL (9.4-12.4); Monocytes Absolute Auto 0.5 X10*3/uL (0.1-1.2); Monocytes Percent Auto 8.5 % (2-11); Neutrophils Absolute Auto 4.5 x10*3/uL (2.0-8.3); Neutrophils Percent Auto 70.5 % (45-73); Platelet Count 224 X10*3/uL (160-400); Red Cell Distribution Width 12.6 % (11.0-16.0); White Blood Count 6.4 X10*3/uL (4.8-10.8)
[2023-03-16 11:41] LABS: Anion Gap 12 (12-20); Blood Urea Nitrogen 6 mg/dL (9-16); Calcium 9.2 mg/dL (8.4-10.2); Carbon Dioxide 24 mmol/L (22-29); Chloride 102 mmol/L (96-108); Creatinine Clr Calc Pharmacy 85.7; Estimated Glomerular Filt Rate > 60; Glucose Random 189 mg/dL (60-115); Sodium 134 mmol/L (135-145)
[2023-03-16 11:50] LABS: Troponin-I High Sensitivity < 2.7 ng/L (<3.5-35.0)
[2023-03-16 12:24] LABS: Anion Gap 10 (12-20); Blood Urea Nitrogen 6 mg/dL (9-16); Calcium 9.1 mg/dL (8.4-10.2); Carbon Dioxide 24 mmol/L (22-29); Chloride 103 mmol/L (96-108); Estimated Glomerular Filt Rate > 60; Glucose Random 146 mg/dL (60-115); Sodium 133 mmol/L (135-145)
[2023-03-16 12:56] LABS: Troponin-I High Sensitivity < 2.7 ng/L (<3.5-35.0)
== END 2023-03-16 14:41 | disposition home or self-care (01) ==
PROVIDERS: Emergency Provider Emergency Medicine; PCP Family Medicine
DX: R07.89 Other chest pain (principal); E11.9 Type 2 diabetes mellitus without complications; I10 Essential (primary) hypertension; Z87.891 Personal history of nicotine dependence; Z79.4 Long term (current) use of insulin; Z79.899 Other long term (current) drug therapy
CPT/HCPCS: 36415; 80048; 84484; 85025; 93005; 99283; 99285

== ENCOUNTER → 2023-03-16 09:15 | Outpatient (BNV) | payer OTHER, SELFPAY | PROVIDERS: Emergency Provider Emergency Medicine; PCP Family Medicine; Visit Provider Internal Medicine | DX: R07.9 Chest pain, unspecified (principal) | CPT/HCPCS: 93010 ==

== ENCOUNTER → 2023-03-30 10:39 | Outpatient (REF) | payer OTHER, SELFPAY ==
--- NOTE | 2023-03-30 10:42 | CA_ITS ---
Transthoracic Echocardiogram Patient (Last, First, Middle): Abdirizak Black M Gender: Male Date of : 1950 Age: 72 Procedure Date: 03/30/2023 Procedure Type: Transthoracic Echocardiogram Location: OP Height: 170.18 cm Weight: 78.93 kg BSA: 1.91 m2 Heart Rate: 76 bpm BP: 110 / 75 mmHg Packaging Designer: JANICE Mcdonald MD: Butch Baptiste MD Bullet Slug Casting Machine Operator: Aj Adam MD Symptoms: I25.10 - Atherosclerotic heart disease of [place] coronary artery without... Study Quality: Fair ECG Rhythm: Sinus Conclusions: - 1. Normal LV ejection fraction 55-60% with impaired relaxation filling pattern 2. Calcific changes in the aortic and mitral valve with normal cardiac valvular Doppler 3. Ascending aorta one 1 view is measured to be mildly dilated at 3.7 cm 4. Normal RV systolic pressure 5. No gross pericardial effusion Findings Left Ventricle Normal left ventricular size, thickness, and systolic function. The visually estimated ejection fraction is between 55-60%. Spectral Doppler is indicative of an impaired relaxation filling pattern. E/E prime ratio is between 8 and 15 consistent with indeterminate filling pressures. Peak GLS is -16.4%, which is mildly reduced. Right Ventricle Normal right ventricular cavity size and systolic function. Atria The left atrium is likely dilated. Interatrial shunt cannot be excluded. The right atrium is normal in size. Aortic Valve There is mild calcification of the aortic valve. There is no aortic valve stenosis. There is no aortic valve regurgitation. Mitral Valve There is mild anterior and posterior mitral leaflet thickening. There is mild anterior and mild posterior mitral annular calcification. There is trace mitral valve regurgitation. There is no mitral valve stenosis. Pulmonic Valve The pulmonic valve was not well visualized. Tricuspid Valve Likely normal tricuspid valve structure and function. There is trace tricuspid valve regurgitation. The right ventricular systolic pressure is normal. The right ventricular systolic pressure is 14 mmHg. Normal right atrial pressure. There is no evidence of pulmonary hypertension. Great Vessels The pulmonary artery was not well visualized. Venous The inferior vena cava is normal in size and collapses greater than 50% with inspiration. Pericardium/Pleural There is no evidence of pericardial effusion. Prior Study Comparison No prior study available for comparison. Measurements 2D Linear Measurements IVSd: 0.89 0.6-0.9/0.6-1.0 cm LVIDd: 4.56 3.9-5.3/4.2-5.9 cm LVIDd Index: 2.39 2.4-3.2/2.2-3.1 cm/m2 LVIDs: 3.07 2.0-3.6 cm LVPWd: 1.00 0.7-1.1 cm LA Diam: 3.90 2.7-3.8/3.0-4.0 cm LAIDs Index: 2.04 1.5-2.3 cm/m2 LV Mass: 180.33 67-162/88-224 g LV Mass Index: 94.41 43-95/49-115 g/m2 LVOT Diam: 2.10 3.0+(-)1.3 cm 2D Systolic Function EF 4C: 51.40 >55% EF 2C: 61.90 >55% EF BiP: 56.90 >55% Mitral Valve MV Pk E: 0.92 MV PK A: 1.19 MV Decel Time: 238.00 E/A: 0.80 E'Lateral: 7.40 E'Medial: 6.42 E/E' Med: 14.40 E/E' Lat: 12.50 PHT: 70.00 MVA PHT: 3.14 Decel [place]: 3.88 Aortic Valve AoV Pk Jason: 1.73 AoV Mn Jason: 1.20 AoV VTI: 0.37 AoV Pk Grad: 12.00 Aov Mn Grad: 6.00 BARBI Cont.VTI: 2.52 LVOT LVOT Pk Jason: 1.39 LVOT Mn Jason: 0.90 LVOT VTI: 0.27 LVOT Pk Grad: 8.00 LVOT Mn Grad: 4.00 LVOT Diam: 2.10 LVOT Area: 3.46 Diastolic Function MV Pk E: 0.92 MV Pk A: 1.19 E/A: 0.80 E'Medial: 6.42 E/E' Med: 14.40 E' Laterial: 7.40 E/E' Lat: 12.50 Right Ventricle TAPSE (mm): 30.00 TVS' Jason: 12.40 Tricuspid Valve TR Pk Jason: 1.64 TR Pk Grad: 11.00 RA Press: 3.00 RVSP: 14.00 Great Vessels Aorta Sinus of Valsalva: 3.50 2.0-3.5 cm Ao Asc: 3.70 2.1-3.4 cm Pulmonary Valve PV Pk Ajson: 0.91 Peak PV Grad: 3.00 Updated in Other Vendor System with Status of Final Aj Adam MD electronically signed on 03/31/2023 11:17:19 AM with status of Final
== END ==
LOC: HO.CARD 10:39
PROVIDERS: PCP Family Medicine; Visit Provider Internal Medicine
DX: I25.10 Atherosclerotic heart disease of native coronary artery without angina pectoris (principal)
CPT/HCPCS: 93306; 93356

== ENCOUNTER → 2023-03-30 10:42 | Outpatient (BNV) | payer OTHER, SELFPAY | PROVIDERS: PCP Family Medicine; Visit Provider Internal Medicine Cardiovascular Disease | DX: I25.10 Atherosclerotic heart disease of native coronary artery without angina pectoris (principal) | CPT/HCPCS: 93306 ==

== ENCOUNTER 2023-03-30 16:25 | Outpatient (REF) | payer OTHER, SELFPAY ==
[2023-03-30 18:05] LABS: MANUAL DIFF FLAG NO
[2023-03-30 18:07] LABS: Basophils Percent Auto 0.6 % (0-2); Eosinophils Absolute Auto 0.2 X10*3/uL (0.0-0.4); Eosinophils Percent Auto 2.9 % (0-4); Hematocrit 42.1 % (42.0-52.0); Hemoglobin 13.8 g/dl (14.0-18.0); Imm Gran Abs Auto 0.01 X10*3/uL (0.00-0.03); Imm Gran Pct Auto 0.1 % (0.0-0.4); Lymphocytes Absolute Auto 1.1 X10*3/uL (1.2-4.9); Lymphocytes Percent Auto 15.6 % (20-40); Mean Corpuscular HGB Conc 32.8 g/dl (31.0-36.0); Mean Corpuscular Hemoglobin 30.5 pg (27.0-33.0); Mean Corpuscular Volume 93.1 fL (80.0-98.0); Mean Platelet Volume 9.8 fL (9.4-12.4); Monocytes Absolute Auto 0.5 X10*3/uL (0.1-1.2); Neutrophils Absolute Auto 5.3 x10*3/uL (2.0-8.3); Neutrophils Percent Auto 73.8 % (45-73); Platelet Count 208 X10*3/uL (160-400); Red Blood Count 4.52 X10*6/uL (4.60-5.80); White Blood Count 7.2 X10*3/uL (4.8-10.8)
[2023-03-30 18:10] LABS: Appearance Urine Clear; Color Urine Yellow; Glucose Urine UA 100 mg/dL (Negative); Leukocyte Esterase Urine Negative (Negative); Nitrite Urine Negative (Negative); Urine Blood Negative (Negative); Urine Ketones Negative (Negative); Urine Protein Negative (Neg-Trace)
[2023-03-30 18:13] LABS: Bacteria Urine None Seen (None Seen); Hyaline Casts Urine 0-2 /LPF (0-2); RBC Urine 0-2 /HPF (0-2); Squamous Epithelial Cell Urine 0-2 /HPF (0-2); WBC Urine 0-5 /HPF (0-5)
[2023-03-30 18:36] LABS: Alanine Aminotransferase 22 U/L (0-40); Albumin Level 4.3 g/dL (3.5-5.0); Alkaline Phosphatase 63 U/L (39-117); Anion Gap 11 (12-20); Aspartate Amino Transferase 19 U/L (5-37); Bilirubin Total 0.3 mg/dL (0.0-1.0); Blood Urea Nitrogen 10 mg/dL (9-16); Calcium 9.3 mg/dL (8.4-10.2); Carbon Dioxide 22 mmol/L (22-29); Chloride 105 mmol/L (96-108); Estimated Glomerular Filt Rate > 60; Glucose Random 153 mg/dL (60-115); Lactate Dehydrogenase 227 U/L (118-273); Potassium 4.2 mmol/L (3.3-5.1); Sodium 134 mmol/L (135-145); Total Protein 7.3 g/dL (6.5-8.0)
[2023-03-30 19:15] LABS: Osmolality, Serum 285 mosm/kg (281-305)
== END 2023-03-30 16:26 | disposition home or self-care (01) ==
LOC: HO.HHCL 16:25
PROVIDERS: Visit Provider Student in an Organized Health Care Education/Training Program
DX: R35.1 Nocturia (principal)
CPT/HCPCS: 36415; 80053; 81001; 83615; 83930; 85025

== ENCOUNTER 2023-04-02 | Outpatient (REF) | payer OTHER, SELFPAY ==
[2023-04-03 14:34] LABS: OBS Int Ctl Valid YES; OBS1 NEGATIVE (NEGATIVE); OBS2 NEGATIVE (NEGATIVE); OBS3 NEGATIVE (NEGATIVE)
== END 2023-04-02 00:01 | disposition home or self-care (01) ==
LOC: HO.HHCLNP
PROVIDERS: Visit Provider Student in an Organized Health Care Education/Training Program
DX: R63.4 Abnormal weight loss (principal); D64.9 Anemia, unspecified; R53.1 Weakness
CPT/HCPCS: 82270

== ENCOUNTER 2023-04-03 10:51 | Outpatient (REF) | payer OTHER, SELFPAY ==
[2023-04-06 07:18] LABS: TS Negative Control Passed; TS Panel A 15; TS Panel B 15; TS Positive Control Passed; TSpotTB Positive (Negative)
[2023-04-06 09:23] LABS: PEU-Protein Creat Ratio Rand 0.114 (0.025-0.148); PEU-Rand. Prot/Creat Ratio 114 mg/g creat (25-148); PEU-Random Ur. Gamma Globulin 0 %; PEU-Random Urine A1 Globulin 0 %; PEU-Random Urine A2 Globulin 0 %; PEU-Random Urine Albumin 100 %; PEU-Random Urine Beta Globulin 0 %; PEU-Random Urine Creatinine 35 mg/dL (20-320); PEU-Random Urine Protein 4 mg/dL (5-25)
[2023-04-06 14:34] LABS: IgA 269 mg/dL (70-320); IgG 960 mg/dL (600-1540); IgM 51 mg/dL (50-300)
== END 2023-04-03 10:52 | disposition home or self-care (01) ==
LOC: HO.HHCL 10:51
PROVIDERS: Visit Provider Student in an Organized Health Care Education/Training Program
DX: R53.1 Weakness (principal)
CPT/HCPCS: 36415; 82570; 82784; 84156; 84166; 86334; 86481

== ENCOUNTER 2023-04-03 11:50 | Outpatient (REF) | payer OTHER, SELFPAY | END 2023-04-03 11:51 | disposition home or self-care (01) | LOC: HO.XRAY 11:50 | PROVIDERS: PCP Family Medicine; Visit Provider Student in an Organized Health Care Education/Training Program | DX: R59.0 Localized enlarged lymph nodes (principal) | CPT/HCPCS: 71046 ==

== ENCOUNTER → 2023-04-26 09:25 | Outpatient (REF) | payer OTHER, SELFPAY ==
--- NOTE | ~2023-04-26 | NM_ITS ---
Lexiscan Myocardial perfusion study Indication: Chest pain, assess for coronary disease and ischemia Technique: The patient was brought in for a Lexiscan perfusion study on 04/26/2023 and was injected 0.4 mg of Lexiscan intravenously. Within a minute of this injection 25 mCi of sestamibi was given intravenously. Images were obtained using the SPECT gamma camera interlaced with the gating device. Images were obtained in supine position. Resting perfusion study was performed on 04/27/2023. Patient was administered 25 mCi of sestamibi intravenously at rest. Images were then obtained in supine position. Images were processed with the software and compared side to side in short axis, horizontal long axis and vertical long axis views. Total DLP 140mGy-cm. Findings: Raw acquisition reviewed. Arms by the patient's side. The stress perfusion study showed diminished tracer uptake in the septum. There is good improvement with CT attenuation correction and hence this could all be artifactual. The gated study shows normal LV systolic function with calculated LVEF of 67%. LV cavity is normal in size. The gated study shows normal wall thickening and contraction of segments. Resting study shows no significant perfusion abnormality. Gating at rest reveals normal wall motion with ejection fraction at 62%. The findings are consistent with reversible septal defect probably artifactual. NM/NM cardiolite stress test Impression: 1. Myocardial perfusion imaging study shows no clear evidence of any ischemia or infarction. Reversible septal defect noted, probably artifactual. 2. Gated LVEF is 67% during stress and 72% during rest. 3. Transient ischemic dilatation not present. EKG component of the test reported separately.
--- NOTE | 2023-04-26 09:29 | CA_ITS ---
Acquisition Time: 2023-04-26 09:41:12 Total Exercise Time: 00:02:00 Test Indications: CHEST PAIN Medications: SEE H Protocol: LEXISCAN Max HR: 093 BPM 62% of Pred: 148 BPM Max BP: 122/064 mmHG Max Work Load: 1.0 METS Pharmacological stress test with Lexiscan injection while sitting and marching in place, without anginal symptoms, with isolated PVCs, with normotensive response to injection, with nondiagnoisitic EKGs / scoopuing lead 2, aVF, V6. Nuclear images pending. Test reviewed with Dr. Baptiste. Referred By: Butch Baptiste Overread By: Enedelia Olivares
== END ==
LOC: HO.CARD 09:25
PROVIDERS: PCP Family Medicine; Visit Provider Internal Medicine
DX: R07.2 Precordial pain (principal); I20.9 Angina pectoris, unspecified
CPT/HCPCS: 78452; 93017; A9500; J0280; J2785

== ENCOUNTER → 2023-04-26 09:29 | Outpatient (BNV) | payer OTHER, SELFPAY | PROVIDERS: PCP Family Medicine; Visit Provider Nurse Practitioner | DX: R07.2 Precordial pain (principal) | CPT/HCPCS: 78452; 93016; 93018 ==

== ENCOUNTER 2023-05-01 13:01 | Outpatient (REF) | payer OTHER, SELFPAY ==
--- NOTE | ~2023-05-01 | US_ITS ---
EXAMINATION: US SOFT TISSUE HEAD/NECK CLINICAL INFORMATION: 1.5 cm right cervical lymph node. Patient reports weakness, weight loss. COMPARISON: None available. TECHNIQUE: Linear transducer nova-scale and color Doppler examination of the right submandibular neck with left side for comparison. FINDINGS: In the area of right submandibular palpable abnormality, unremarkable appearing lymph nodes are seen, largest measures 1.9 x 0.7 x 1.2 cm. Left neck was scanned for comparison revealing no abnormality. US/US soft tiss head and/or neck IMPRESSION: Unremarkable appearing lymph nodes corresponding to right submandibular palpable abnormality, largest measuring 1.9 cm.
== END 2023-05-01 13:02 | disposition home or self-care (01) ==
LOC: HO.US 13:01
PROVIDERS: PCP Family Medicine; Visit Provider Student in an Organized Health Care Education/Training Program
DX: R59.1 Generalized enlarged lymph nodes (principal)
CPT/HCPCS: 76536

== ENCOUNTER 2023-07-11 12:29 | Outpatient (AMB) | payer OTHER, SELFPAY ==
--- NOTE | 2023-07-11 12:41 | MHC.OFFVIS ---
Intake Vital Signs 07/11/23 12:44 Height 5 ft 6 in Weight 182 lb 15.739 oz BMI 29.5 BP 114/62 Blood Pressure Location Lt brachial Position Sitting Pulse 75 Intake Visit Reasons: follow up testing Intake Note: follow up testing Mortgage Protection Sales Required: No Accompanied by: Spouse Allergies Penicillins Allergy (Mild, Verified 07/11/23 12:45) RASH acetaminophen [From Percocet] Allergy (Unknown, Verified 07/11/23 12:45) Anxiety oxycodone [From Percocet] Allergy (Unknown, Verified 07/11/23 12:45) Anxiety penicillin V Allergy (Unknown, Verified 07/11/23 12:45) rash zolpidem [From Ambien] Adverse Reaction (Verified 07/11/23 12:45) Unknown Medication List - Last Reconciled 07/11/23 by Butch Baptiste MD amlodipine 10 mg PO DAILY atorvastatin 40 mg PO DAILY blood sugar diagnostic (FreeStyle Lite Strips) 4x daily finasteride 5 mg PO DAILY 90 days insulin glargine (Lantus Solostar U-100 Insulin) 14 units subcut QPM lancets As directed lidocaine 5% (Lidoderm) 1 patch topical DAILY loratadine 10 mg PO DAILY losartan 100 mg PO DAILY melatonin 1 mg PO BEDTIME PRN metformin 1,000 mg PO BID metoprolol succinate ER 25 mg PO DAILY ofloxacin 0.3% 10 drps otic (ears) DAILY 7 days pen needle, diabetic (BD Ultra-Fine Micro Pen Needle) As directed pen needle, diabetic (BD Ultra-Fine Micro Pen Needle) once daily sertraline 50 mg PO DAILY sitagliptin phosphate (Januvia) 100 mg PO DAILY 30 days tamsulosin (Flomax) 0.4 mg PO BEDTIME 90 days HPI HPI Comments History of Present Illness Details Abdirizak returns for follow-up. Recently seen in consultation regarding chest tightness. Multiple cardiovascular risk factors including type 2 diabetes, hypertension, dyslipidemia. No documented coronary disease, myocardial infarction. Apparently gets some chest tightness randomly. states whenever he is very anxious or angry he gets it but not with exertion. He came for stress test but he was able to exercise for only 22 seconds on Derek protocol. Subsequently, completed pharmacological stress test with Lexiscan. No clear-cut findings. Overall, feeling good. No specific complaints at this time. He states he no longer gets the chest tightness. [facility] Medical History Erectile dysfunction Bladder neck contracture Non-healing surgical wound Rash Vitamin D deficiency Anxiety COVID-19 HLD (hyperlipidemia) HTN (hypertension) T2DM (type 2 diabetes mellitus) Hypertension Surgical History Hx of removal of cyst History of prostate surgery Family History Father Cancer Mother Cancer Diabetes Social History Housing: Apartment Alcohol intake: former Patient Tobacco Use Status: Former Tobacco user Cigarette Packs Per Day: 1 Cigarettes Per Day: 20.0 Years Smoked: 20 Advance Directives Date on File: 03/04/23 service: No Current occupational status: retired Review of Systems Const Denies weakness ENT Denies dizziness Card Denies chest pain, Denies chest pain with activity, Denies syncope, Denies rapid heart rate, Denies pedal edema, Denies edema, Denies leg edema, Denies lightheadedness, Denies palpitations, Denies dyspnea, Denies dyspnea on exertion and Denies orthopnea Resp Denies cough, Denies dyspnea and Denies dyspnea on exertion GI Denies hematochezia and Denies change in stool character Musc Denies abnormal gait, Denies muscle cramps, Denies muscle weakness, Denies numbness, Denies radiating pain into limb and Denies tingling Neuro Denies Abnormal speech present, Denies abnormal gait, Denies dizziness, Denies syncope, Denies numbness, Denies tingling and Denies weakness Endo Denies palpitations Physical Exam Vital Signs: Last Vital Signs Pulse 75 07/11/23 12:44 BP 114/62 07/11/23 12:44 BMI result Body Mass Index 29.5 Const General: comfortable and no acute distress Orientation/consciousness: patient oriented x3 HEENT Other: Unremarkable Head: Yes normal to inspection Neck Neck: Yes normal visual inspection Chest Chest palpation & inspection: normal inspection of the chest Resp Auscultation: clear to auscultation bilaterally Cardio Palpation: normal PMI Heart sounds: S1 normal heart sound present, S2 normal heart sound present, no gallops, no murmurs and no rubs GI Palpation (GI): Soft to palpation Back/Spine/Pelvis Other: unremarkable Skin General skin exam: no rashes or lesions noted Neuro General: patient oriented x3 Speech: No Abnormal speech present Extrem General: Yes normal to inspection Psych Mental Status: mental status grossly normal Assessment & Plan Assessment & Plan (1) Precordial chest pain: Code(s): R07.2 - Precordial pain (2) T2DM (type 2 diabetes mellitus): Code(s): E11.9 - Type 2 diabetes mellitus without complications Qualifiers: Diabetes mellitus complication status: with hyperglycemia Diabetes mellitus longterm insulin use: without adjunct faculty for medical terminology use Qualified Code(s): E11.65 - Type 2 diabetes mellitus with hyperglycemia (3) Hypertension: Code(s): I10 - Essential (primary) hypertension (4) HLD (hyperlipidemia): Code(s): E78.5 - Hyperlipidemia, unspecified Qualifiers: Hyperlipidemia type: unspecified Qualified Code(s): E78.5 - Hyperlipidemia, unspecified Plan Baseline EKG shows sinus rhythm at 86/Min; premature supraventricular complexes; minimal criteria for LVH; normal [place] and corrected QT. There are numerous high sensitivity troponins in the system and they were all normal. In the ETT, he walked only 22 seconds but was stopped due to safety issues. Subsequently, pharmacological stress test shows no clear evidence of any ischemia or infarction. 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 Overall, multiple cardiovascular risk factors, chest tightness that is since resolved, no overt findings of testing apart from poor functional capacity. As he no longer has any symptoms, we will continue to monitor. Advised him to contact us in case of any recurrent chest pain extra. Will follow-up in 6 months. Discussed with . Total time spent including review of data, counseling, documentation, coordination of care - 31 minutes. Coding Level of Care Code Est Pt Level 4 (35300) Diagnoses Precordial chest pain R07.2 Type 2 diabetes mellitus with hyperglycemia, without long-term current use of insulin E11.65 Diabetes mellitus complication status: with hyperglycemia Diabetes mellitus adjunct faculty for medical terminology insulin use: without adjunct faculty for medical terminology use Hypertension I10 Hyperlipidemia, unspecified hyperlipidemia type E78.5 Hyperlipidemia type: unspecified
[2023-07-11 12:44] VITALS: BP 114/62; PULSE 75; BMI 29.5
== END 2023-07-11 12:56 | disposition home or self-care (01) ==
PROVIDERS: PCP Family Medicine; Visit Provider Internal Medicine
DX: R07.2 Precordial pain (principal); E11.65 Type 2 diabetes mellitus with hyperglycemia; I10 Essential (primary) hypertension; E78.5 Hyperlipidemia, unspecified
CPT/HCPCS: 99214

== ENCOUNTER → 2023-07-11 12:29 | Outpatient (BNVA) | payer OTHER, SELFPAY | PROVIDERS: PCP Family Medicine; Visit Provider Internal Medicine | DX: R07.89 Other chest pain (principal); E11.65 Type 2 diabetes mellitus with hyperglycemia; I10 Essential (primary) hypertension; E78.5 Hyperlipidemia, unspecified; R07.2 Precordial pain | CPT/HCPCS: 99212 ==

== ENCOUNTER 2024-04-22 14:49 | Outpatient (AMB) | payer OTHER, SELFPAY ==
--- NOTE | 2024-04-22 14:49 | MHC.OFFVIS ---
Vital Signs 04/22/24 14:50 Height 5 ft 6 in Weight 189 lb 9.561 oz BMI 30.6 BP 122/70 Blood Pressure Location Lt brachial Position Sitting Pulse 64 Pulse Source Monitor Intake Visit Reasons: 6 month follow up Facilities Specialist Required: Yes Facilities Specialist Services: Facilities Specialist Offered & Declined Accompanied by: Spouse Allergies Penicillins Allergy (Mild, Verified 07/11/23 12:45) RASH acetaminophen [From Percocet] Allergy (Unknown, Verified 07/11/23 12:45) Anxiety oxycodone [From Percocet] Allergy (Unknown, Verified 07/11/23 12:45) Anxiety penicillin V Allergy (Unknown, Verified 07/11/23 12:45) rash zolpidem [From Ambien] Adverse Reaction (Verified 07/11/23 12:45) Unknown Medication List - Last Reconciled 04/22/24 by Butch Baptiste MD amlodipine 5 mg PO DAILY atorvastatin 40 mg PO DAILY blood sugar diagnostic (FreeStyle Lite Strips) 4x daily finasteride 5 mg PO DAILY 90 days lancets As directed lidocaine 5% (Lidoderm) 1 patch topical DAILY loratadine 10 mg PO DAILY losartan 100 mg PO DAILY melatonin 1 mg PO BEDTIME PRN metformin 1,000 mg PO BID metoprolol succinate ER 25 mg PO DAILY pen needle, diabetic (BD Ultra-Fine Micro Pen Needle) As directed pen needle, diabetic (BD Ultra-Fine Micro Pen Needle) once daily sertraline 50 mg PO DAILY sitagliptin phosphate (Januvia) 100 mg PO DAILY 30 days tamsulosin (Flomax) 0.4 mg PO BEDTIME 90 days HPI Comments Details: Abdirizak returns for follow-up. Originally seen in consultation regarding chest tightness. Multiple cardiovascular risk factors including type 2 diabetes, hypertension, dyslipidemia, smoking history. No documented coronary disease, myocardial infarction. He was describing chest tightness in the past but not recently. In fact he states he just had a vacation [place] and was fine. He did stress test but he was able to exercise for only 22 seconds on Derek protocol. Subsequently, completed pharmacological stress test with Lexiscan. No clear-cut findings. Since last seen, he states he feels okay. [facility] Medical History Erectile dysfunction Bladder neck contracture Non-healing surgical wound Rash Vitamin D deficiency Anxiety COVID-19 HLD (hyperlipidemia) HTN (hypertension) T2DM (type 2 diabetes mellitus) Hypertension Surgical History Hx of removal of cyst History of prostate surgery Family History Father Cancer Mother Cancer Diabetes Social History Housing: Apartment Alcohol intake: former Patient Tobacco Use Status: Former Tobacco user Cigarette Packs Per Day: 1 Cigarettes Per Day: 20.0 Years Smoked: 20 Advance Directives Date on File: 03/04/23 service: No Current occupational status: retired Review of Systems Const Denies weakness ENT Denies dizziness Card Denies chest pain, Denies chest pain with activity, Denies syncope, Denies rapid heart rate, Denies pedal edema, Denies edema, Denies leg edema, Denies lightheadedness, Denies palpitations, Denies dyspnea, Denies dyspnea on exertion and Denies orthopnea Resp Denies cough, Denies dyspnea and Denies dyspnea on exertion GI Denies hematochezia and Denies change in stool character Musc Denies abnormal gait, Denies muscle cramps, Denies muscle weakness, Denies numbness, Denies radiating pain into limb and Denies tingling Neuro Denies abnormal gait, Denies dizziness, Denies syncope, Denies numbness, Denies tingling and Denies weakness Endo Denies palpitations Physical Exam Vital Signs: Last Vital Signs Pulse 64 04/22/24 14:50 BP 122/70 04/22/24 14:50 BMI result Body Mass Index 30.6 Const General: comfortable and no acute distress Orientation/consciousness: patient oriented x3 HEENT Other: Unremarkable Head: Yes normal to inspection Neck Neck: Yes normal visual inspection Chest Chest palpation & inspection: normal inspection of the chest Resp Auscultation: clear to auscultation bilaterally Cardio Palpation: normal PMI Heart sounds: S1 normal heart sound present, S2 normal heart sound present, no gallops, no murmurs and no rubs GI Palpation (GI): Soft to palpation Back/Spine/Pelvis Other: unremarkable Skin General skin exam: no rashes or lesions noted Neuro General: patient oriented x3 Extrem General: Yes normal to inspection Psych Mental Status: mental status grossly normal Office Procedures EKG Details: EKG with underlying sinus rhythm at 64/Min; moderate criteria for LVH; nonspecific ST-T changes; [place] [id number], Complete Assessment & Plan Assessment & Plan (1) Precordial chest pain: Code(s): R07.2 - Precordial pain Category: Medical (2) T2DM (type 2 diabetes mellitus): Code(s): E11.9 - Type 2 diabetes mellitus without complications Category: Medical Qualifiers: Diabetes mellitus complication status: with hyperglycemia Diabetes mellitus terminal system operator insulin use: without terminal system operator use Qualified Code(s): E11.65 - Type 2 diabetes mellitus with hyperglycemia (3) Hypertension: Code(s): I10 - Essential (primary) hypertension Category: Medical (4) HLD (hyperlipidemia): Code(s): E78.5 - Hyperlipidemia, unspecified Category: Medical Qualifiers: Hyperlipidemia type: unspecified Qualified Code(s): E78.5 - Hyperlipidemia, unspecified Plan Cardiac studies reviewed. There are numerous high sensitivity troponins in the system and they were all normal. In the ETT, he walked only 22 seconds but was stopped due to safety issues. Subsequently, pharmacological stress test shows no clear evidence of any ischemia or infarction. 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 Overall, multiple cardiovascular risk factors, previous complaints of chest tightness but not anymore, poor functional capacity no overt findings on perfusion imaging. We will obtain a coronary CTA for further evaluation. Discussed with who also access aging department supervisor. They agree. Follow-up after the above. Coding Level of Care Code Est Pt Level 4 (64480) Diagnoses Precordial chest pain R07.2 Type 2 diabetes mellitus with hyperglycemia, without long-term current use of insulin E11.65 Diabetes mellitus complication status: with hyperglycemia Diabetes mellitus terminal system operator insulin use: without fci use Hypertension I10 Hyperlipidemia, unspecified hyperlipidemia type E78.5 Hyperlipidemia type: unspecified CPT Codes EKG - CPT: 11382-[id number], Complete ([id number])
[2024-04-22 14:50] VITALS: BP 122/70; PULSE 64; BMI 30.6
== END 2024-04-22 15:38 | disposition home or self-care (01) ==
PROVIDERS: PCP Family Medicine; Visit Provider Internal Medicine
DX: R07.2 Precordial pain (principal); E11.65 Type 2 diabetes mellitus with hyperglycemia; I10 Essential (primary) hypertension; E78.5 Hyperlipidemia, unspecified
CPT/HCPCS: 93010; 99214

== ENCOUNTER → 2024-04-22 14:49 | Outpatient (BNVA) | payer OTHER, SELFPAY | PROVIDERS: PCP Family Medicine; Visit Provider Internal Medicine | DX: E11.65 Type 2 diabetes mellitus with hyperglycemia (principal); I10 Essential (primary) hypertension; E78.5 Hyperlipidemia, unspecified; R07.2 Precordial pain | CPT/HCPCS: 93005; 99212 ==

== ENCOUNTER 2024-08-11 08:50 | Outpatient (REF) | payer OTHER, SELFPAY ==
--- OUTSIDE RECORDS SUMMARY | 2024-08-11 09:16 | XMS_ITS | Encounter Summary ---
Author Organization [employer] [facility] Address [address] [place] [address] Care Team Providers Care Crop Quantitative Geneticist Name Role Phone Lidia Mendoza MD Primary Care Provider + [phone] Chana Mercado PharmD Unavailable Butch Baptiste MD Unavailable [phone] Valeria Moreau OD Unavailable [phone] Dereje Ivey MD Unavailable [phone] Reason for Visit * Reason Comments Med Refill Encounter Details Date Type Department Care Team (Late st Contact Info) Description 10/17/2023 Refill [facility]INE [address] [place], [place] [phone] Lidia Mendoza MD [address] [place], [place] [phone] Primary hypertension Social History Tobacco Use Types Packs/Day Years Used Date Smoking Tobacco: Former Cigarettes Passive Smoke Exposure: Past Smokeless Tobacco: Never Alcohol Use Standard Drinks/Week Comments Not Currently 0 (1 standard drink = 0.6 oz pur e alcohol) Depression Answer Date Recorded Patient Health Questionnaire-9 Score 0 07/18/2023 Patient Health Questionnaire-9 Score 0 07/18/2023 Last PHQ-9: Questionnaire Data Not on file 0 07/18/2023 Housing Stability Answer Date Recorded What is your housing situation today? I have guera condon 07/18/[address] you li ve. Do you have problems with any of the following? None of the above 07/18/2023 Food Insecurity Answer Date Recorded Within the past 12 months, y ou worried that your food would run out before you got money to buy more: Never True 07/18/2023 Within the past 12 months,th e food you bought just didn't last and you didn't have enough money to get more: Never True 01/2024 Transportation Answer Date Recorded In the past 12 months, has l ack of transportation kept you from medical appts, meetings, work or from getting things needed for daily living? No 07/18/2023 Utilities Answer Date Recorded In the past 12 months, has t he [employer], gas, oil or water company threatened to shut off services in your home? No 07/18/2023 Depression Answer Date Recorded Patient Health Questionnaire-2 Score 0 07/18/2023 Sex and Gender Information Value Date Recorded Sex Assigned at Male 02/06/2022 10:19 AM EDT Legal Sex Male 10:19 AM EDT Gender Identity Male 02/06/2022 10:19 AM EDT Sexual Orientation Straight 02/06/2022 10 :19 AM EDT documented as of this encounter Plan of Treatment Upcoming Encounters Date Type Department Care Team (Late st Contact Info) Description 08/15/2024 2:00 PM EDT Medication Management [facility] [address] [place] [address] Chana Mercado PharmD [address] [place] [address] documented as of this encounter Goals Goal Patient Goal Type Associated Problems Recent Progress Patient-Stated? Author Blood Pressure < 140/90 Blood Pressure 150/80(2024 2:50 PM EDT) No Piers-Colinl alexys, Chana, PharmD Hemoglobin A1c < 7 Result Component 7.1( 3:13 PM EDT) No Yousufs-Gambl alexys, Chana, PharmD documented as of this encounter Visit Diagnoses Diagnosis Primary hypertension Unspecified essential hypertension documented in this encounter Additional Health Concerns Assessment Noted Time PHQ-9 Depression Total Score: 0 07/18/19 24 2:04 PM EDT documented as of this encounter Care Teams Crop Quantitative Geneticist Relationship Specialty Start Date End Date Lidia Mendoza MD [address] [place] [address] PCP - General Family Medicine 04/09/18 Chana Mercado, Jesusita [address] [place] [address] Pharmacist Internal Medicine 09/05/22 Butch Baptiste MD [address] [place] [address] Cardiology 04/22/24 Valeria Moreau OD [address] [place] [address] Optometry 07/30/24 Dereje Ivey MD [address] [place] [address] Urology 08/06/24 documented as of this encounter
--- OUTSIDE RECORDS SUMMARY | 2024-08-11 09:16 | XMS_ITS | Encounter Summary ---
Author Organization [facility] Address [address] [place] [address] Care Team Providers Care Floral Arranger Name Role Phone Lidia Mendoza MD Primary Care Provider + [phone] Chana Mercado PharmD Unavailable Butch Baptiste MD Unavailable [phone] Valeria Moreau OD Unavailable [phone] Dereje Ivey MD Unavailable [phone] Reason for Visit * Reason Comments Med Refill Encounter Details Date Type Department Care Team (Late st Contact Info) Description 07/20/[address] [facility] [address] [place], [place] [phone] Lidia Mendoza MD [address] [place], [place] [phone] Primary hypertension Social History Tobacco Use Types [...] the past 12 months, has t he [employer], gas, oil or water company threatened to [...] Description 08/15/2024 2:[address] Medication Management [facility] [address] [place] [address] Chana Mercado PharmD [address] [place] [address] documented as of this encounter Goals Goal [...] documented as of this encounter Care Teams Floral Arranger Relationship Specialty Start Date End Date Lidia Mendoza MD [address] [place] [address] PCP - General Family Medicine 04/09/18 Chana Mercado, Jesusita [address] [place] [address] Pharmacist Internal Medicine 09/05/22 Butch Baptiste MD [address] [place] [address] Cardiology 04/22/24 Valeria Moreau OD [address] [place] [address] Optometry 07/30/24 Dereje Ivey MD [address] [place] [address] Urology 08/06/24 documented as of this encounter
--- OUTSIDE RECORDS SUMMARY | 2024-08-11 09:16 | XMS_ITS | Encounter Summary ---
Author Organization [facility] Address [address] [place] [address] Care Team Providers Care Facialist Name Role Phone Lidia Mendoza MD Primary Care Provider Chana Mercado PharmD Unavailable Butch Baptiste MD Unavailable [phone] Valeria Moreau OD Unavailable [phone] Dereje Ivey MD Unavailable [phone] Encounter Details Date Type Department Care Team (Late st Contact Info) Description 10/03/2022 Abstract [facility] [address] [place], [place] [phone] Lidia Mendoza MD [address] [place] [address] Social History Tobacco Use Types Packs/Day Years Used Date Smoking Tobacco: Never Assessed Depression Answer Date Recorded Patient Health Questionnaire-9 Score 0 06/05/2022 Depression Answer Date Recorded Patient Health Questionnaire-2 Score 0 06/05/2022 Sex and Gender Information Value Date Recorded Sex Assigned at Male 02/06/2022 10:19 AM EDT Legal Sex Male 10:19 AM EDT Gender Identity Male 02/06/2022 10:19 AM EDT Sexual Orientation Straight 02/06/2022 10 :19 AM EDT COVID-19 Exposure Response Date Recorded In the last 10 days, have yo u been in contact with someone who was confirmed or suspected to have Coronavirus/COVID-19? No / Unsure 10/04/2022 9:54 AM EDT documented as of this encounter Plan of Treatment Upcoming Encounters Date Type Department Care Team (Late st Contact Info) Description 08/15/2024 2:00 PM EDT Medication Management [facility] [address] [place] [address] Chana Mercado PharmD [address] [place] [address] documented as of this encounter Goals Goal Patient Goal Type Associated Problems Recent Progress Patient-Stated? Author Blood Pressure < 140/90 Blood Pressure 150/80(2024 2:50 PM EDT) No Chana Moncada PharmD Hemoglobin A1c < 7 Result Component 7.1( 3:13 PM EDT) No Chana Moncada PharmD documented as of this encounter Visit Diagnoses Not on filedocumented in this encounter Additional Health Concerns Assessment Noted Time PHQ-9 Depression Total Score: 0 06/05/19 23 9:07 AM EST documented as of this encounter Care Teams Facialist Relationship Specialty Start Date End Date Lidia Mendoza MD [address] [place] [address] PCP - General Family Medicine 04/09/18 Chana Mercado, AngelicD [address] [place] [address] Pharmacist Internal Medicine 09/05/22 Butch Baptiste MD [address] [place] [address] Cardiology 04/22/24 Valeria Moreau OD [address] [place] [address] Optometry 07/30/24 Dereje Ivey MD [address] [place] [address] Urology 08/06/24 documented as of this encounter
--- OUTSIDE RECORDS SUMMARY | 2024-08-11 09:16 | XMS_ITS | Clinical Summary ---
Author Organization [facility] Address [address] [place] [address] Care Team Providers Care Cyber Defense Incident Responder Name Role Phone Unavailable Primary Care Provider Unavailabl e Social History Tobacco Use Types Packs/Day Years Used Date Smoking Tobacco: Never Assessed Sex and Gender Information Value Date Recorded Sex Assigned at Not on file Legal Sex Male 5:08 AM EST Gender Identity Not on file Sexual Orientation Not on file Plan of Treatment Health Maintenance Due Date Last Done Comments DTaP,Tdap,and Td Vaccines (1 - Tdap) 1969 Pneumococcal Vaccine: 50+ Ye ars (1 of 1 - PCV) 2000 Zoster Vaccines (1 of 2) 2000 COVID-19 Vaccine ( - 2023-2 5 season) 2023 Influenza Vaccine (Season Ended) 2024 RSV Immunization Adult Patie nts (1 - 1-dose 75+ series) 2025 HIB Vaccines Aged Out No longer eligi ble based on patient's age to complete this topic HPV Vaccines Aged Out No longer eligi ble based on patient's age to complete this topic Hepatitis A Vaccines Aged Out No long er eligible based on patient's age to complete this topic Hepatitis B Vaccines Aged Out No long er eligible based on patient's age to complete this topic IPV Vaccines Aged Out No longer eligi ble based on patient's age to complete this topic MMR Vaccines Aged Out No longer eligi ble based on patient's age to complete this topic Meningococcal ACWY Vaccine Aged Out N o longer eligible based on patient's age to complete this topic Meningococcal B Vaccine Aged Out No l onger eligible based on patient's age to complete this topic RSV Immunization Patients Un doreen 20 months Aged Out No longer eligible b ased on patient's age to complete this topic Varicella Vaccines Aged Out No longer eligible based on patient's age to complete this topic
--- OUTSIDE RECORDS SUMMARY | 2024-08-11 09:16 | XMS_ITS | Encounter Summary ---
Author Organization [facility] [facility] Address [address] [facility] 7t [place] [address] Care Team Providers Care Crankshaft Balancer Name Role Phone Lidia Mendoza MD Primary Care Provider + [phone] Chana Mercado PharmD Unavailable Butch Baptiste MD Unavailable [phone] Valeria Moreau OD Unavailable [phone] Dereje Ivey MD Unavailable [phone] Reason for Visit * Reason Comments Med Refill Encounter Details Date Type Department Care Team (Late st Contact Info) Description 08/14/2023 Refill [facility] MEDICINE [address] [place], [place] [phone] Lidia Mendoza MD [address] [place], [place] [phone] Primary hypertension Social History Tobacco Use Types [...] the past 12 months, has t he [employer], gas, oil or water company threatened to [...] Description 08/15/2024 2:00 PM EDT Medication Management [facility] MEDICINE [address] [place] [address] Chana Mercado PharmD [address] [place] [address] documented as of this encounter Goals Goal [...] documented as of this encounter Care Teams Crankshaft Balancer Relationship Specialty Start Date End Date Lidia Mendoza MD [address] [place] [address] PCP - General Family Medicine 04/09/18 Chana Mercado, Jesusita [address] [place] [address] Pharmacist Internal Medicine 09/05/22 Butch Baptiste MD [address] 3rd [place] [address] Cardiology 04/22/24 Valeria Moreau OD [address] [place] [address] Optometry 07/30/24 Dereje Ivey MD [address] [place] [address] Urology 08/06/24 documented as of this encounter
--- OUTSIDE RECORDS SUMMARY | 2024-08-11 09:16 | XMS_ITS | Encounter Summary ---
Author Organization [employer] Address [address] [facility] 7t [place] [address] Care Team Providers Care Category Planner Name Role Phone Lidia Mendoza MD Primary Care Provider + [phone] Chana Mercado PharmD Unavailable Butch Baptiste MD Unavailable [phone] Valeria Moreau OD Unavailable [phone] Dereje Ivey MD Unavailable [phone] Reason for Visit * Reason Comments Med Refill Encounter Details Date Type Department Care Team (Late st Contact Info) Description 06/23/2023 Refill [facility] MEDICINE [address] [place], [place] [phone] Lidia Mendoza MD [address] [place], [place] [phone] Primary hypertension Social History Tobacco Use Types Packs/Day Years Used Date Smoking Tobacco: Former Cigarettes Passive Smoke Exposure: Past Smokeless Tobacco: Never Alcohol Use Standard Drinks/Week Comments Not Currently 0 (1 standard drink = 0.6 oz pur e alcohol) Depression Answer Date Recorded Patient Health Questionnaire-9 Score 0 06/05/2022 Housing Stability Answer Date Recorded What is your housing situation today? I have guera condon 01/21/[address] you li ve. Do you have problems with any of the following? None of the above 01/21/2023 Food Insecurity Answer Date Recorded Within the past 12 months, y ou worried that your food would run out before you got money to buy more: Never True 01/21/2023 Within the past 12 months,th e food you bought just didn't last and you didn't have enough money to get more: Never True Transportation Answer Date Recorded In the past 12 months, has l ack of transportation kept you from medical appts, meetings, work or from getting things needed for daily living? No 01/21/2023 Utilities Answer Date Recorded In the past 12 months, has t he electric, gas, oil or water company threatened to shut off services in your home? No 01/21/2023 Depression Answer Date Recorded Patient Health Questionnaire-2 [...] Description 08/15/2024 2:00 PM EDT Medication Management [facility] [address] [place] [address] YousufsAriadna Chensa, PharmD [address] [place] [address] documented as of this encounter Goals Goal Patient Goal Type Associated Problems Recent Progress Patient-Stated? Author Blood Pressure < 140/90 Blood Pressure 150/80(2024 2:50 PM EDT) No Piers-Gambl e, Chana, PharmD Hemoglobin A1c < 7 Result Component 7.1( 3:13 PM EDT) No Piers-Gambl e, Chana, PharmD documented as of this encounter Visit Diagnoses Diagnosis Primary hypertension Unspecified essential hypertension documented in this encounter Additional Health Concerns Assessment Noted Time PHQ-9 Depression Total Score: 0 06/05/19 23 9:07 AM EST documented as of this encounter Care Teams Category Planner Relationship Specialty Start Date End Date Lidia Mendoza MD [address] [place] [address] PCP - General Family Medicine 04/09/18 Chana Mercado, AngelicD [address] [place] [address] Pharmacist Internal Medicine 09/05/22 Butch Baptiste MD [address] 3rd [place] [address] Cardiology 04/22/24 Valeria Moreau OD [address] [place] [address] Optometry 07/30/24 Dereje Ivey MD [address] [place] [address] Urology 08/06/24 documented as of this encounter
--- OUTSIDE RECORDS SUMMARY | 2024-08-11 09:16 | XMS_ITS | Encounter Summary ---
Author Organization [facility] [facility] Address [address] [facility] 7t [place] [address] Care Team Providers Care Dentist Attendant Name Role Phone Lidia Mendoza MD Primary Care Provider + [phone] Chana Mrecado PharmD Unavailable Butch Baptiste MD Unavailable [phone] Valeria Moreau OD Unavailable [phone] Dereje Ivey MD Unavailable [phone] Reason for Visit * Reason Comments Med Refill Encounter Details Date Type Department Care Team (Late st Contact Info) Description 08/14/2022 Refill [facility] MEDICINE [address] [place], [place] [phone] Lidia Mendoza MD [address] [place], [place] [phone] Social History Tobacco Use Types Packs/Day Years [...] suspected to have Coronavirus/COVID-19? No / Unsure 07/18/2022 2:11 PM EDT documented as of this encounter Plan of Treatment Upcoming Encounters Date Type Department Care Team (Late st Contact Info) Description 08/15/2024 2:00 PM EDT Medication Management [facility] MEDICINE [address] [place] [address] Chana Mercado PharmD [address] [place] [address] documented as of this encounter Goals Goal [...] documented as of this encounter Care Teams Dentist Attendant Relationship Specialty Start Date End Date Lidia Mendoza MD [address] [place] [address] PCP - General Family Medicine 04/09/18 Chana Mercado, PharmD [address] [place] [address] Pharmacist Internal Medicine 09/05/22 Butch Baptiste MD [address] 3rd [place] [address] Cardiology 04/22/24 Valeria Moreau OD [address] [place] [address] Optometry 07/30/24 Dereje Ivey MD [address] [place] [address] Urology 08/06/24 documented as of this encounter
--- OUTSIDE RECORDS SUMMARY | 2024-08-11 09:16 | XMS_ITS | Encounter Summary ---
Author Organization [facility] Address [address] [facility] 7t [place] [address] Care Team Providers Care Alarm Signal Operator Name Role Phone Lidia Mendoza MD Primary Care Provider + [phone] Chana Mercado PharmD Unavailable Butch Baptiste MD Unavailable [phone] Valeria Moreau OD Unavailable [phone] Dereje Ivey MD Unavailable [phone] Reason for Referral * Consultation (Routine) - Authorized Specialty Diagnoses / Procedures Referred By Contac t Referred To Contact Pharmacy Diagnoses Primary hypertension Lidia Mendoza MD [address] [place] [address] Phone: tel: fax: Referral ID Status Reason Start Date Expiration Date Visits Requested Visits Authorized [id number] Authorized Consult and Treat 08/06/2024 08/06/2025 6 6 Scheduling Instructions He was out of amlodipine 10 for a month but has now Reason for Visit * Reason Comments Follow-up A1C Encounter Details Date Type Department Care Team (Late st Contact Info) Description 08/06/2024 3:15 PM EDT Office Visit [facility] [address] [place] [phone] Lidia Mendoza MD [address] [place] [phone] Type 2 diabetes mellitus without complication, without long-term current use of insulin ([facility]) (Primary Dx); Primary hypertension; Class 1 obesity due to excess calories with serious comorbidity and body mass index (BMI) of 30.0 to 30.9 in adult; Dietary counseling; Exercise counseling; Dyslipidemia; Generalized anxiety disorder; Insomnia, unspecified type Social History Tobacco Use Types Packs/Day Years Used Date Smoking Tobacco: Former Cigarettes Q uit: 08/06/2006 Passive Smoke Exposure: Past Smokeless Tobacco: Never Tobacco Cessation:Counseling Given: Not Answered Alcohol Use Standard Drinks/Week Comments Not Currently 0 (1 standard drink = 0.6 oz pur e alcohol) Alcohol Answer Date Recorded Frequency of Alcohol Consumption Not on file 01/23/2024 Average Number of Drinks Not on file 024 Frequency of Binge Drinking Not on file 01/07 Score 0 01/23/2024 Depression Answer Date Recorded Patient Health Questionnaire-9 Score 0 08/06/2024 Patient Health Questionnaire-9 Score 0 08/06/2024 Last PHQ-9: Questionnaire Data Not on file 0 08/06/2024 Housing Stability Answer Date Recorded What is your housing situation today? I have guera condon 08/06/[address] you li ve. Do you have problems with any of the following? None of the above 08/06/2024 Food Insecurity Answer Date Recorded Within the past 12 months, y ou worried that your food would run out before you got money to buy more: Never True 08/06/2024 Within the past 12 months,th e food you bought just didn't last and you didn't have enough money to get more: Never True Transportation Answer Date Recorded In the past 12 months, has l ack of transportation kept you from medical appts, meetings, work or from getting things needed for daily living? No 08/06/2024 Utilities Answer Date Recorded In the past 12 months, has t he electric, gas, oil or water company threatened to shut off services in your home? No 08/06/2024 Depression Answer Date Recorded Patient Health Questionnaire-2 Score 0 08/06/2024 Internet Access Answer Date Recorded Internet Access Q1 I am not sure 08/06/2024 Internet Access Q2 Not on file 08/06/2024 Sex and Gender Information Value Date Recorded Sex Assigned at Male 02/06/2022 10:19 AM EDT Legal Sex Male 10:19 AM EDT Gender Identity Male 02/06/2022 10:19 AM EDT Sexual Orientation Straight 02/06/2022 10 :19 AM EDT documented as of this encounter Last Filed Vital Signs Vital Sign Reading Time Taken Comments Blood Pressure 150/80 08/06/2024 2:50 PM EDT Pulse 80 08/06/2024 2:50 PM EDT Temperature 36 ??C (96.8 ??F) 08/06/2024 2:50 PM EDT Respiratory Rate 20 08/06/2024 2:50 PM EDT Oxygen Saturation 99% 08/06/2024 2:50 PM EDT Inhaled Oxygen Concentration - - Weight 87.5 kg (192 lb 12.8 oz) 08/06/2024 2:50 PM EDT Height 167.6 cm (5' 6 ) 08/06/2024 2:50 PM EDT Body Mass Index 31.12 08/06/2024 2:50 PM EDT documented in this encounter Progress Notes * Lidia Mendoza MD - 08/06/2024 3:15 PM EDT Subjective Patient ID: Abdirizak Camp is a 74 y.o. male with past medical history of hypertension, type 2 diabetes, dyslipidemia, and depression who presents for Follow-up (A1C). BP is elevated in clinic today. Pt reports his BP has been controlled at home. Building Operator with him reports he has been out of his Amlodipine. She also reports he is scheduled for eye surgery on 07/23/24. Review of Systems Constitutional: Negative for fever and unexpected weight change. Respiratory: Negative for shortness of breath. Cardiovascular: Negative for chest pain. Gastrointestinal: Negative for abdominal pain. Genitourinary: Negative for difficulty urinating. Objective Visit Vitals BP (!) 150/80 (BP Location: Left arm, Patient Position: Sitting, BP Cuff Size: Adult) Pulse 80 Temp 96.8 ??F (36 ??C) (Oral) Resp 20 Ht 5' 6 (1.676 m) Wt 192 lb 12.8 oz (87.5 kg) SpO2 99% BMI 31.12 kg/m?? Smoking Status Former BSA 2.02 m?? Physical Exam Constitutional: Appearance: Normal appearance. Cardiovascular: Rate and Rhythm: Normal rate and regular rhythm. Heart sounds: Normal heart sounds. Pulmonary: Effort: Pulmonary effort is normal. Breath sounds: Normal breath sounds. Musculoskeletal: Cervical back: Normal range of motion and neck supple. Lymphadenopathy: Cervical: No cervical adenopathy. Neurological: Mental Status: He is alert. Mental status is at baseline. Psychiatric: Behavior: Behavior normal. Office Visit on 08/06/2024 Component Date Value Glucose Blood, POC 08/06/2024 161 QC Media Lot # 08/06/2024 [id number] Lot# Expiration Date 08/06/2024 [id number] Hemoglobin A1C 08/06/2024 7.1 (A) QC Media Lot # 08/06/2024 [id number] Lot# Expiration Date 08/06/2024 [id number] Problem List Items Addressed This Visit Type 2 diabetes mellitus ([facility]) - Primary Diabetes is controlled. Lab Results Component Value Date HGBA1C 7.1 (A) 08/06/2024 HGBA1C 7.4 (A) 01/23/2024 HGBA1C 7.5 (A) 07/18/2023 Lab Results Component Value Date MICROALBUR 22.0 02/21/2023 CREATININE 0.87 03/30/2023 -Changes: none -Logan/Arb: losartan 100mg daily -Statin therapy: atorvastatin 40mg daily -Diabetic eye exam: Follows with [facility]. Seen 07/29/24 -Diabetic foot exam: done 01/23/24 -Continue lifestyle modifications -Continue current medications Metformin 500mg daily and Januvia 100mg daily -Self discontinued Lantus on 07/10/2023. Relevant Medications metFORMIN XR (Glucophage-XR) 500 MG 24 hr tablet Other Relevant Orders POCT Glucose (Completed) POCT HGB A1C (Completed) Hypertension -discontinue HCTZ due to persistent low sodium and potassium (03/22/2020) -Amlodipine increased to 5mg daily on 10/18/2022. -continue losartan 100mg daily -continue Metoprolol XL 25 mg daily Stress test 04/26/[address] Butch Baptiste of [facility] Impression: 1. Myocardial perfusion imaging study shows no clear evidence of any ischemia or infarction. Reversible septal defect noted, probably artifactual. 2. Gated LVEF is 67% during stress and 72% during rest. 3. Transient ischemic dilatation not present. -EKG component of the test reported separately. -Followed by Dr. Butch Baptiste of [facility] saw eva 06/09/2023. -Blood pressure is elevated 08/06/24, suspect due to not taking medication, pt reported beng out of Amlodipine. -Continue lifestyle modifications -Continue current medications -Refilled Amlodipine increased to 10 mg daily -referred back to Collaborative Drug Therapy Managment Program with our PharmDKEILY 08/06/24 Relevant Medications amLODIPine (Norvasc) 10 MG tablet losartan (Cozaar) 100 MG tablet metoprolol succinate XL (Toprol-XL) 25 MG 24 hr tablet Other Relevant Orders Referral to Pharmacy CDTM Class 1 obesity due to excess calories with serious comorbidity and body mass index (BMI) of 30.0 to 30.9 in adult Discussed weight, diet, exercise with patient in relation to health conditions. Used motivational interviewing to illicit change talk and established initial goals with patient. Dietary counseling Dietary Recommendations: Fruits, vegetables, whole grains, protein foods, and fat-free or low-fat dairy products are healthychoices. Eat different types of protein foods in your diet. This can include seafood, lean meats, poultry, beans, peas, lentils, nuts, seeds, soy products, and eggs. Limit foods and beverages higher in added sugars, saturated fat, and sodium. Exercise counseling Exercise Recommendations: At least 150 minutes of moderate-intensity physical activity per week, or an equivalent combinationof moderate- and vigorous-intensity activity. Dyslipidemia Lab Results Component Value Date CHOL 102 02/21/2023 TRIG 84 02/21/2023 TRIG 134 06/13/2022 HDL 41 02/21/2023 LDLCHOLCAL 45 02/21/2023 -continue lifestyle modification -Continue atorvastatin 40mg qhs -Importance of low fat, low cholesterol diet and regular moderate physical activity discussed. -rechecking lipid panel 01/23/24 - did not get labs done -re-ordered today 08/06/24 Relevant Medications atorvastatin (Lipitor) 40 MG tablet Generalized anxiety disorder Relevant Medications sertraline (Zoloft) 50 MG tablet Insomnia Relevant Medications melatonin tablet No follow-ups on file. I, Annise Rayshawn, am serving as a scribe to document services personally performed by Dr. Meehan, based on the patient's response to questions by provider and providers statements to me. documented in this encounter Miscellaneous Notes * Assessment & Plan Note - Aisha Tabares - 08/06/2024 3:21 PM EDTAssociated Problem(s): Dyslipidemia Lab Results Component Value Date CHOL 102 02/21/2023 TRIG 84 02/21/2023 TRIG 134 06/13/2022 HDL 41 02/21/2023 LDLCHOLCAL 45 02/21/2023 -continue lifestyle modification -Continue atorvastatin 40mg qhs -Importance of low fat, low cholesterol diet and regular moderate physical activity discussed. -rechecking lipid panel 01/23/24 - did not get labs done -re-ordered today 08/06/24 * Assessment & Plan Note - Aisha Tabares - 08/06/2024 3:20 PM EDTAssociated Problem(s): Dietary counseling Dietary Recommendations: Fruits, vegetables, whole grains, protein foods, and fat-free or low-fat dairy products are healthychoices. Eat different types of protein foods in your diet. This can include seafood, lean meats, poultry, beans, peas, lentils, nuts, seeds, soy products, and eggs. Limit foods and beverages higher in added sugars, saturated fat, and sodium. * Assessment & Plan Note - Aisha Tabares - 08/06/2024 3:20 PM EDTAssociated Problem(s): Exercise counseling Exercise Recommendations: At least 150 minutes of moderate-intensity physical activity per week, or an equivalent combinationof moderate- and vigorous-intensity activity. * Assessment & Plan Note - Aisha Tabares - 08/06/2024 3:20 PM EDTAssociated Problem(s): Class 1 obesity due to excess calories with serious comorbidity and body mass index (BMI) of 30.0 to 30.9 in adult Discussed weight, diet, exercise with patient in relation to health conditions. Used motivational interviewing to illicit change talk and established initial goals with patient. * Assessment & Plan Note - Aisha Tabares - 08/06/2024 3:20 PM EDTAssociated Problem(s): Type 2 diabetes mellitus ([facility]) Diabetes is controlled. Lab Results Component Value Date HGBA1C 7.1 (A) 08/06/2024 HGBA1C 7.4 (A) 01/23/2024 HGBA1C 7.5 (A) 07/18/2023 Lab Results Component Value Date MICROALBUR 22.0 02/21/2023 CREATININE 0.87 03/30/2023 -Changes: none -Logan/Arb: losartan 100mg daily -Statin therapy: atorvastatin 40mg daily -Diabetic eye exam: Follows with [facility]. Seen 07/29/24 -Diabetic foot exam: done 01/23/24 -Continue lifestyle modifications -Continue current medications Metformin 500mg daily and Januvia 100mg daily -Self discontinued Lantus on 07/10/2023. * Assessment & Plan Note - Aisha Tabares - 08/06/2024 3:19 PM EDTAssociated Problem(s): Hypertension -discontinue HCTZ due to persistent low sodium and potassium (03/22/2020) -Amlodipine increased to 5mg daily on 10/18/2022. -continue losartan 100mg daily -continue Metoprolol XL 25 mg daily Stress test 04/26/[address] Butch Baptiste of [facility] Impression: 1. Myocardial perfusion imaging study shows no clear evidence of any ischemia or infarction. Reversible septal defect noted, probably artifactual. 2. Gated LVEF is 67% during stress and 72% during rest. 3. Transient ischemic dilatation not present. -EKG component of the test reported separately. -Followed by Dr. Butch Baptiste of [facility] saw eva 06/09/2023. -Blood pressure is elevated 08/06/24, suspect due to not taking medication, pt reported beng out of Amlodipine. -Continue lifestyle modifications -Continue current medications -Refilled Amlodipine increased to 10 mg daily -referred back to Collaborative Drug Therapy Managment Program with our PharmD, KEILY 08/06/24 documented in this encounter Plan of Treatment Upcoming Encounters Date Type Department Care Team (Late st Contact Info) Description 08/15/2024 2:00 PM EDT Medication Management [facility] [address] [place] [address] Chana Mercado PharmD [address] [place] [address] Scheduled Referrals Name Type Priority Associated Diagnoses Orde r Schedule Referral to Pharmacy CDTM Outpatient Referral Routine Primary hypertension Ordered: 08/06/2024 documented as of this encounter Goals Goal Patient Goal Type Associated Problems Recent Progress Patient-Stated? Author Blood Pressure < 140/90 Blood Pressure 150/80(2024 2:50 PM EDT) No Chana Moncada PharmD Hemoglobin A1c < 7 Result Component 7.1( 3:13 PM EDT) No Chana Moncada PharmD documented as of this encounter Procedures Procedure Name Priority Date/Time Associated Diagnosis Comments POCT GLYCATED HEMOGLOBIN, TOTAL Routine 08/06/2024 3:13 PM EDT Type 2 diabetes mellitus without complication, without long-term current use of insulin ([facility]) POCT GLUCOSE Routine 08/06/2024 3:05 PM EDT Type 2 diabetes mellitus without complication, without long-term current use of insulin ([facility]) documented in this encounter Results * (ABNORMAL) POCT HGB A1C (08/06/2024 3:13 PM EDT) Hemoglobin A1C 7.1(A) 4.0 - 6.0 % QC Media Lot # [id number] Lot# Expiration Date ,026 Blood 08/06/2024 3:13 PM EDT Lidia Mendoza MD POINT OF CARE TEST ENTER/E DIT ORDERABLES Final Result * POCT Glucose (08/06/2024 3:05 PM EDT) Glucose Blood, POC 161 60 - 200 mg/dL QC Media Lot # [id number] Lot# Expiration Date Blood Capillary blood specimen / Unknown 08/06/2024 3:05 PM EDT Lidia Mendoza MD POINT OF CARE TEST ENTER/E DIT ORDERABLES Final Result documented in this encounter Visit Diagnoses Diagnosis Type 2 diabetes mellitus without complication, without long-term current use of insulin ([facility])- Primary Primary hypertension Unspecified essential hypertension Class 1 obesity due to excess calories with serious comorbidity and body mass index (BMI) of 30.0 to 30.9 in adult Dietary counseling Dietary surveillance and counseling Exercise counseling Dyslipidemia Other and unspecified hyperlipidemia Generalized anxiety disorder Insomnia, unspecified type documented in this encounter Additional Health Concerns Assessment Noted Time PHQ-9 Depression Total Score: 0 08/07/19 25 2:56 PM EDT documented as of this encounter Care Teams Alarm Signal Operator Relationship Specialty Start Date End Date Lidia Mendoza MD [address] [place] [address] PCP - General Family Medicine 04/09/18 Chana Mercado, Jesusita [address] [place] [address] Pharmacist Internal Medicine 09/05/22 Butch Baptiste MD [address] [place] [address] Cardiology 04/22/24 Valeria Moreau OD [address] [place] [address] Optometry 07/30/24 Dereje Ivey MD [address] [place] [address] Urology 08/06/24 documented as of this encounter
--- OUTSIDE RECORDS SUMMARY | 2024-08-11 09:16 | XMS_ITS | Encounter Summary ---
Author Organization [employer] Address [address] [facility] 7t [place] [address] Care Team Providers Care Investigative Agent Name Role Phone Lidia Mendoza MD Primary Care Provider + [phone] Chana Mercado PharmD Unavailable Butch Baptiste MD Unavailable [phone] Valeria Moreau OD Unavailable [phone] Dereje Ivey MD Unavailable [phone] Reason for Visit * Reason Onset Date Comments MR1 results 01/29/2023 Encounter Details Date Type Department Care Team (Late st Contact Info) Description 01/29/2023 Telephone [facility] [address] [place], [place] [phone] Lidia Mendoza MD [address] [place], [place] [phone] MR1 results Social History Tobacco Use Types Packs/Day Years Used Date Smoking Tobacco: Never Smokeless Tobacco: Never Alcohol Use Standard Drinks/Week [...] AM EDT documented as of this encounter Miscellaneous Notes * Telephone Encounter - GUMARO Anton - 01/30/2023 4:37 PM EDT Images from the original note were not included. 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 It also showed that one of your nerves ( L5 ) is getting pushed on or compressed due to some narrowing of a hole in one of your vertebra. In the picture below, the spinal nerve roots exit the spine through holes called foramen or foramina , and when a foramen gets smaller, it can press on the nerve root as it exits the spine. This is consistent with the pain that you have. Treatment recommendation would be for physical therapy and pain management consultation. We referred you for PT at our visit, and the [facility] referred you to Pain Management from your visit there on 12/27/22. Please call Pain Management as they directed. Please also call your Dr. Ivey's office if you are continuing to have urinary symptoms. Please do not hesitate to call our office with any questions. Take care, Shelley Renteria CEMENT SIDE LASTER * Telephone Encounter - Malinda Lugo RN - 01/30/2023 9:52 AM EDT MRI scanned into chart, please review and advise. Patient is active on MyChart. * Telephone Encounter - Teresa Nicolas - 01/29/2023 3:25 PM EDT Tc from pt spouse requesting a call from a nurse in regards to some MR1 results pt had done not so long ago. Please contact Spouse at [phone] documented in this encounter Plan of Treatment Upcoming Encounters Date Type Department Care Team (Late st Contact Info) Description 08/15/2024 2:00 PM EDT Medication Management [facility] [address] [place] [address] Chana Mercado PharmD [address] [place] [address] documented as of this encounter Goals Goal Patient Goal Type Associated Problems Recent Progress Patient-Stated? Author Blood Pressure < 140/90 Blood Pressure 150/80(2024 2:50 PM EDT) No Yousufs-Colinl alexys, Chana, PharmD Hemoglobin A1c < 7 Result Component 7.1( 3:13 PM EDT) No Yousufs-Chana Soni, PharmD documented as of this encounter Visit Diagnoses Not on filedocumented in this encounter Additional Health Concerns Assessment Noted Time PHQ-9 Depression Total Score: 0 06/05/19 23 9:07 AM EST documented as of this encounter Care Teams Investigative Agent Relationship Specialty Start Date End Date Lidia Mendoza MD [address] [place] [address] [phone] PCP - General Family Medicine 04/09/18 Chana Mercado, PharmD [address] [place] [address] [phone] Pharmacist Internal Medicine 09/05/22 Butch Baptiste MD [address] 3rd Floor [place] [address] Cardiology 04/22/24 Valeria Moreau OD [address] [place], [place] [address] [address] Optometry 07/30/24 Dereje Ivey MD [address] [place] [address] Urology 08/06/24 documented as of this encounter
--- OUTSIDE RECORDS SUMMARY | 2024-08-11 09:16 | XMS_ITS | Encounter Summary ---
Author Organization [employer] Address [address] [facility] 7t [place] [address] Care Team Providers Care Asset Management Analyst Name Role Phone Lidia Mendoza MD Primary Care Provider + [phone] Chana Mercado PharmD Unavailable Butch Baptiste MD Unavailable [phone] Valeria Moreau OD Unavailable [phone] Dereje Ivey MD Unavailable [phone] Reason for Visit * Reason Onset Date Comments Pre-op Visit 08/08/2024 Encounter Details Date Type Department Care Team (Late st Contact Info) Description 08/08/2024 Telephone [facility] [address] [place], [place] [phone] Lidia Mendoza MD [address] [place], [place] [phone] Pre-op Visit Social History Tobacco Use Types Packs/Day Years [...] encounter Miscellaneous Notes * Telephone Encounter - Harshad Garduno - 08/08/2024 11:50 AM EDT Date of Surgery: 08/22/24 Surgical procedure being done: Cataract Surgery Left eye Type of anesthesia: MAC Lab needed: No EKG: No Surgeon's name: Dr. Simms Facility [facility] Surgeon's office number: [phone] Surgeon's office fax number: [phone] Contact name (person you spoke with): Lisset Last office note from surgeon requested: Yes Send Message to Brianna Gibbs and Matt Hodgson Contact Lisset at [phone] documented in this encounter Plan of Treatment Upcoming Encounters Date Type Department Care Team (Late st Contact Info) Description 08/15/2024 2:00 PM EDT Medication Management [facility] [address] [place] [address] Chana Mercado PharmD [address] [place] [address] documented as of this encounter Goals Goal [...] Time PHQ-9 Depression Total Score: 0 08/07/19 2:56 PM EDT documented as of this encounter Care Teams Asset Management Analyst Relationship Specialty Start Date End Date Lidia Mendoza MD [address] [place] [address] PCP - General Family Medicine 04/09/18 Chana Mercado, PharmD [address] [place] [address] Pharmacist Internal Medicine 09/05/22 Butch Baptiste MD [address] [place] [address] Cardiology 04/22/24 Valeria Moreau OD [address] [place] [address] Optometry 07/30/24 Dereje Ivey MD [address] [place] [address] Urology 08/06/24 documented as of this encounter
--- OUTSIDE RECORDS SUMMARY | 2024-08-11 09:16 | XMS_ITS | Encounter Summary ---
Author Organization [employer] [facility] Address [address] [facility] 7t [place] [address] Care Team Providers Care Senior Cytogenetic Technologist Name Role Phone Lidia Mendoza MD Primary Care Provider + [phone] Cahna Mercado PharmD Unavailable Butch Baptiste MD Unavailable [phone] Valeria Moreau OD Unavailable [phone] Dereje Ivey MD Unavailable [phone] Reason for Visit * Reason Comments Med Refill Encounter Details Date Type Department Care Team (Late st Contact Info) Description 08/05/2024 Refill [facility] [address] [place], [place] [phone] Lidia Mendoza MD [address] [place], [place] [phone] Type 2 diabetes mellitus without complication, without long-term current use of insulin ([facility]); Left-sided back pain, unspecified back location, unspecified chronicity; Primary hypertension; Dyslipidemia Social History Tobacco Use Types Packs/Day Years [...] 08/15/2024 2:00 PM EDT Medication Management [facility] [address] [place] [address] Chana Mercado PharmD [address] [place] [address] documented as of this encounter Goals Goal Patient Goal Type Associated Problems Recent Progress Patient-Stated? Author Blood Pressure < 140/90 Blood Pressure 150/80(2024 2:50 PM EDT) No Chana Moncada PharmD Hemoglobin A1c < 7 Result Component 7.1( 5 3:13 PM EDT) No Chana Moncada PharmD documented as of this encounter Visit Diagnoses Diagnosis Type 2 diabetes mellitus without complication, without long-term current use of insulin ([facility]) Left-sided back pain, unspecified back location, unspecified chronicity Primary hypertension Unspecified essential hypertension Dyslipidemia Other and unspecified hyperlipidemia documented in this encounter Additional Health Concerns Assessment Noted Time PHQ-9 Depression Total Score: 0 07/18/19 24 2:04 PM EDT documented as of this encounter Care Teams Senior Cytogenetic Technologist Relationship Specialty Start Date End Date Lidia Mendoza MD [address] [place] [address] PCP - General Family Medicine 04/09/18 Chana Mercado PharmD [address] [place] [address] Pharmacist Internal Medicine 09/05/22 Butch Baptiste MD [address] [place] [address] Cardiology 04/22/24 Valeria Moreau OD [address] [place] [address] Optometry 07/30/24 Dereje Ivey MD [address] [place] [address] Urology 08/06/24 documented as of this encounter
--- OUTSIDE RECORDS SUMMARY | 2024-08-11 09:16 | XMS_ITS | Encounter Summary ---
Author Organization [employer] Address [address] [facility] 7t [place] [address] Care Team Providers Care Solder Making Laborer Name Role Phone Lidia Mendoza MD Primary Care Provider + [phone] Chana Mercado PharmD Unavailable [phone] Butch Baptiste MD Unavailable [phone] Valeria Moreau OD Unavailable [phone] Dereje Ivey MD Unavailable [phone] Reason for Visit * Reason Comments Med Refill Encounter Details Date Type Department Care Team (Late st Contact Info) Description 01/30/2023 Refill [facility] [address] [place], [place] [phone] Lidia Mendoza MD [address] [place], [place] [phone] Primary hypertension; Elevated blood sugar Social History Tobacco Use Types Packs/Day Years [...] encounter Miscellaneous Notes * Telephone Encounter - Socorro Adair RN - 02/01/2023 12:05 PM EDT Spoke to cardiology office, Pt has new pt apt with Dr. Baptiste 03/08/2023 @930am. They are ableto see that he had a stress test done 12/14/2022 on his admission, cards will fax over note, it lookslike it lasted about 22seconds and they stopped test due to safety . * Telephone Encounter - Socorro Adair RN - 02/01/2023 10:52 AM EDT Spoke with Patients regarding below message, she states he has an apt with cardiology coming up on 02/11 and that he has in the past tried to have stress test done but was unable to do it becausethe treadmill kept pushing patient back and they were worried he would fall. Per pt needs a referral for a nuclear test. Also Pt was prescribed Doxepin 6mg tab and it is not covered by insurance, Pharmacy is requesting an alternate medication. * Telephone Encounter - Lidia Mendoza MD - 01/31/2023 12:31 PM EDT Please let know I am having trouble with the referral for stress test. Does he have alarm investigator? If not let me know and I will make a referral . Thank you. documented in this encounter Plan of Treatment Upcoming Encounters Date Type Department Care Team (Late st Contact Info) Description 08/15/2024 2:00 PM EDT Medication Management [facility] [address] [place] [address] Chana Mercado PharmD [address] [place] [address] documented as of this encounter Goals Goal Patient Goal Type Associated Problems Recent Progress Patient-Stated? Author Blood Pressure < 140/90 Blood Pressure 150/80(2024 2:50 PM EDT) No Chana Moncada, PharmD Hemoglobin A1c < 7 Result Component 7.1( 3:13 PM EDT) No Chana Moncada PharmD documented as of this encounter Visit Diagnoses Diagnosis Primary hypertension Unspecified essential hypertension Elevated blood sugar Other abnormal glucose documented in this encounter Additional Health Concerns Assessment Noted Time PHQ-9 Depression Total Score: 0 06/05/19 23 9:07 AM EST documented as of this encounter Care Teams Solder Making Laborer Relationship Specialty Start Date End Date Lidia Mendoza MD [address] [place] [address] PCP - General Family Medicine 04/09/18 Chana Mercado PharmD [address] [place] [address] [phone] Pharmacist Internal Medicine 09/05/22 Butch Baptiste MD [address] [place] [address] 3rd [address] [place], [place] [phone] Cardiology 04/22/24 Valeria Moreau OD [address] [place] [address] Optometry 07/30/24 Dereje Ivey MD [address] [place] [address] Drive [address] [place] [address] Urology 08/06/24 documented as of this encounter
--- OUTSIDE RECORDS SUMMARY | 2024-08-11 09:16 | XMS_ITS | Clinical Summary ---
Author Organization [facility] Address [address] [place] [address] Care Team Providers Care Cashier Manager Name Role Phone Lidia Mendoza MD Primary Care Provider + [phone] Chana Mercado PharmD Unavailable Butch Baptiste MD Unavailable [phone] Valeria Joseph OD Unavailable [phone] Dereje Ivey MD Unavailable [phone] Allergies Active Allergy Reactions Criticality Noted Date Comments Acetaminophen 02/05/2020 Other reaction(s): Chest pain Oxycodone 02/05/2020 Other reaction(s): Chest pain Penicillin G 10/30/2011 Zolpidem Other 08/06/2024 Suicide Ideation Medications * This document contains information received from the source organization and may not represent a complete record from that organization. finasteride (Proscar) 5 MG tabletIndicatio ns:bph Take 5 mg by mouth in the morning. 023 Active tamsulosin (Flomax) 0.4 MG 24 hr capsuleIndicati ons:Benign Prostatic Hypertrophy 023 Active Alcohol Swabs 70 % padsIndications :Type 2 diabetes mellitus without complication, without long-term current use of insulin (CMS/[facility]) Use as directed 100 each 023 Active glucose 4 g chewable tabletIndicatio ns:Type 2 diabetes mellitus without complication, without long-term current use of insulin (CMS/[facility]) Use as directed for low blood sugar 50 tablet 11 023 Active Lancets 28G miscIndications :Type 2 diabetes mellitus without complication, without long-term current use of insulin ([facility]) TEST BLOOD SUGAR TWICE DAILY 100 each 11 Active docusate sodium (Colace) 100 MG capsuleIndicati ons:Constipatio n, unspecified constipation type TAKE 1 CAPSULE BY MOUTH TWICE A DAY NEEDED CONSTIPATION 60 capsule 1 024 Active traZODone (Desyrel) 50 MG tabletIndicatio ns:Insomnia, unspecified type TAKE 1 TABLET BY MOUTH EVERYDAY AT BEDTIME 90 tablet 3 024 Active Januvia 100 MG tabletIndicatio ns:Type 2 diabetes mellitus without complication, without long-term current use of insulin ([facility]) TAKE 1 TABLET BY MOUTH EVERY DAY IN THE MORNING 90 tablet 1 Active lidocaine (Lidoderm) 5 % patchIndication s:Left-sided back pain, unspecified back location, unspecified chronicity APPLY 1 PATCH IN THE MORNING REMOVE AND DISARD PATCH WITHIN 12 HOURS OR DIRECTED 30 patch Active FREESTYLE LITE test stripIndication s:Type 2 diabetes mellitus without complication, without long-term current use of insulin ([facility]) TEST BLOOD SUGAR TWICE DAILY 100 strip 5 025 Active atorvastatin (Lipitor) 40 MG tabletIndicatio ns:Dyslipidemia Take 1 tablet (40 mg) by mouth at bedtime. 90 tablet 025 Active sertraline (Zoloft) 50 MG tabletIndicatio ns:Generalized anxiety disorder Take 1 tablet (50 mg) by mouth in the morning. 90 tablet 025 Active amLODIPine (Norvasc) 10 MG tabletIndicatio ns:Primary hypertension Take 1 tablet (10 mg) by mouth Once per day. 90 tablet 025 Active losartan (Cozaar) 100 MG tabletIndicatio ns:Primary hypertension Take 1 tablet (100 mg) by mouth Once per day. 90 tablet 025 Active metoprolol succinate XL (Toprol-XL) 25 MG 24 hr tabletIndicatio ns:Primary hypertension TAKE 1 TABLET BY MOUTH ONCE DAILY. Do not crush or chew. 90 tablet 3 025 Active metFORMIN XR (Glucophage-XR) 500 MG 24 hr tabletIndicatio ns:Type 2 diabetes mellitus without complication, without long-term current use of insulin (CMS/HCC) TAKE 1 TABLET BY MOUTH TWICE DAILY WITH FOOD. Do not crush, chew, or split. 180 tablet 3 Active melatonin tabletIndicatio ns:Insomnia, unspecified type Take 1 tablet (1 mg) by mouth if needed at bedtime for sleep. 90 tablet 3 Active SITagliptin (Januvia) 100 MG tabletIndicatio ns:Type 2 diabetes mellitus without complication, without long-term current use of insulin (CMS/HCC) Take 1 tablet (100 mg) by mouth in the morning. 90 tablet 3 2024 Discontinued atorvastatin (Lipitor) 40 MG tabletIndicatio ns:Dyslipidemia Take 1 tablet (40 mg) by mouth at bedtime. 90 tablet 3 2024 Discontinued FREESTYLE LITE test stripIndication s:Type 2 diabetes mellitus without complication, without long-term current use of insulin (CMS/HCC) TEST BLOOD SUGAR TWICE DAILY 100 each 11 2024 lidocaine (Lidoderm) 5 % patchIndication s:Left-sided back pain, unspecified back location, unspecified chronicity APPLY 1 PATCH IN THE MORNING REMOVE AND DISARD PATCH WITHIN 12 HOURS OR DIRECTED 30 patch 2024 Discontinued losartan (Cozaar) 100 MG tabletIndicatio ns:Primary hypertension Take 1 tablet by mouth every day 90 tablet 3 2024 Discontinued amLODIPine (Norvasc) 10 MG tabletIndicatio ns:Primary hypertension TAKE 1 TABLET BY MOUTH ONCE DAILY 90 tablet 3 2024 Discontinued melatonin tabletIndicatio ns:Insomnia, unspecified type TAKE 1 TABLET (1 MG) BY MOUTH IF NEEDED AT BEDTIME FOR SLEEP. 90 tablet 3 2024 Discontinued(R eorder (will not trigger notification to Pharmacy)) metFORMIN XR (Glucophage-XR) 500 MG 24 hr tabletIndicatio ns:Type 2 diabetes mellitus without complication, without long-term current use of insulin (CMS/HCC) TAKE 1 TABLET BY MOUTH TWICE DAILY WITH FOOD. DO NOT CRUSH, CHEW, OR SPLIT. 180 tablet 2 024 2024 Discontinued metoprolol succinate XL (Toprol-XL) 25 MG 24 hr tabletIndicatio ns:Primary hypertension TAKE 1 TABLET BY MOUTH ONCE DAILY. Do not crush or chew. 90 tablet 3 024 2024 Discontinued(R eorder (will not trigger notification to Pharmacy)) terbinafine (LamISIL AT) 1 % creamIndication s:Tinea pedis of both feet Apply topically 2 times daily. 15 g 3 024 2024 Discontinued(M ed list cleanup (will not trigger notification to Pharmacy)) sertraline (Zoloft) 50 MG tabletIndicatio ns:Generalized anxiety disorder TAKE 1 TABLET BY MOUTH EVERY DAY IN THE MORNING 90 tablet 3 024 2024 Discontinued(R eorder (will not trigger notification to Pharmacy)) amLODIPine (Norvasc) 10 MG tabletIndicatio ns:Primary hypertension TAKE 1 TABLET BY MOUTH EVERY DAY 90 tablet 1 025 2024 Discontinued(R eorder (will not trigger notification to Pharmacy)) losartan (Cozaar) 100 MG tabletIndicatio ns:Primary hypertension TAKE 1 TABLET BY MOUTH EVERY DAY 90 tablet 1 025 2024 Discontinued(R eorder (will not trigger notification to Pharmacy)) metFORMIN XR (Glucophage-XR) 500 MG 24 hr tabletIndicatio ns:Type 2 diabetes mellitus without complication, without long-term current use of insulin (CMS/HCC) TAKE 1 TABLET BY MOUTH TWICE DAILY WITH FOOD. DO NOT CRUSH, CHEW, OR SPLIT. 180 tablet 1 025 2024 Discontinued(R eorder (will not trigger notification to Pharmacy)) atorvastatin (Lipitor) 40 MG tabletIndicatio ns:Dyslipidemia TAKE 1 TABLET BY MOUTH AT BEDTIME 90 tablet 1 025 2024 Discontinued(R eorder (will not trigger notification to Pharmacy)) Active Problems Patient Care Coordination No te Formatting of this note migh t be different from the original. Enrolled in [facility] DM and [facility] HTN clinic with Chana Mercado PharmD, [facility] Hospice Case Manager [employer] Cashier[employer] [facility] member services number [phone] Problem Noted Date Diagnosed Date Class 1 obesity due to exces s calories with serious comorbidity and body mass index (BMI) of 30.0 to 30.9 in adult 08/06/2024 Overview (08/06/2024): Discussed weight, diet, exercise with patient in relation to health conditions. Used motivational interviewing to illicit change talk and established initial goals with patient. Assessment & Plan (08/06/2024 3:20 PM EDT): Discussed weight, diet, exercise with patient in relation to health conditions. Used motivational interviewing to illicit change talk and established initial goals with patient. Dietary counseling 08/06/2024 Assessment & Plan (08/06/2024 3:20 PM EDT): Dietary Recommendations: Fruits, vegetables, whole grains, protein foods, and fat-free or low-fat dairy products are healthy choices. Eat different types of protein foods in your diet. This can include seafood, lean meats, poultry, beans, peas, lentils, nuts, seeds, soy products, and eggs. Limit foods and beverages higher in added sugars, saturated fat, and sodium. Exercise counseling 08/06/2024 Assessment & Plan (08/06/2024 3:20 PM EDT): Exercise Recommendations: At least 150 minutes of moderate-intensity physical activity per week, or an equivalent combination of moderate- and vigorous-intensity activity. 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 Repeat quanterferon ordered and consider ation for therapy after results Assessment & Plan (04/25/2023 11:33 AM EST): -T spot positive 03/31 -referred to Tb clinic 04/10/23 chest xray negative done on 03/30/23 Depression 02/19/2023 Overview (02/19/2023): -Has therapist, encourage to call psychiatrist for follow up. Assessment & Plan (01/23/2024 10:38 AM EDT): -Has therapist, encourage to call psychiatrist for follow up. Assessment & Plan (07/18/2023 2:32 PM EDT): -Has therapist, encourage to call psychiatrist for follow up. Assessment & Plan (04/25/2023 11:36 AM EST): -Has therapist, encourage to call psychiatrist for follow up Assessment & Plan (02/19/2023 10:54 AM EST): -Has therapist, encourage to call psychiatrist for follow up. Generalized anxiety disorder 10/30/2022 Assessment & Plan (01/30/2023 11:21 AM EDT): We talked about non-medication interventions for anxiety including exercise, meditation, counseling, mindfulness practices I increase his zoloft to 50mg daily F/u with therapist and PCP Assessment & Plan (10/30/2022 1:46 PM EDT): Assessment: ?? Patient with increased anxiety and sleep disturbance in the context of nephew passing away and both of his brother's poor health. Patient is connected with a therapist (Linus Ivy) thru [facility] whom he talks to on alternating Wednesdays. He is currently on the wait list there for psychiatry. A SUMAN was obtained for [facility]. ?? At this time Abdirizak Camp meets criteria for Visit Diagnoses: Problem List Items Addressed This Visit ? Other ?? Other specified anxiety disorders ?? Patient ready to address current needs Yes ?? Strengths include openness to try techniques ?? PLAN: 1. Follow up with [facility] [place]: Not recommended for follow-up 2. Patient goal is decrease anxiety and improve sleep 3. Behavioral Recommendations a. Patient will comply with medication b. Patient will continue attending therapy c. Patient will practice techniques provided d. Patient may request to speak with an [facility] during next visit, if needed Left-sided back pain 10/19/2022 Overview (04/25/2023): Likely musculoskeletal. Non-focal, normal motor exam without neurological deficits. No back pain red-flags: bowel/bladder incontinence, IVDU, urinary retention, saddle anesthesia, and significant motor deficits. -Referral done to PT on 12/27/2022, Pt given number to call and schedule appointment. -Lidocaine patches given. -Lifting precaution sand stretching reviewed. -ER precaution discussed. -Had lumbar spine [place] 02/15/2023 [place] , that showes diffused osteophyte changes with severve left neural foraminal stenosis with compression of exiting left L5 nerve root -Will continue PT Assessment & Plan (07/18/2023 2:31 PM EDT): Likely musculoskeletal. Non-focal, normal motor exam without neurological deficits. No back pain red-flags: bowel/bladder incontinence, IVDU, urinary retention, saddle anesthesia, and significant motor deficits. -Referral done to PT on 12/27/2022, Pt given number to call and schedule appointment. -Lidocaine patches given. -Lifting precaution sand stretching reviewed. -ER precaution discussed. -Had lumbar spine MRI 02/15/2023 [place] , that showes diffused osteophyte changes with severve left neural foraminal stenosis with compression of exiting left L5 nerve root -Will continue PT Assessment & Plan (04/25/2023 11:49 AM EST): Likely musculoskeletal. Non-focal, normal motor exam without neurological deficits. No back pain red-flags: bowel/bladder incontinence, IVDU, urinary retention, saddle anesthesia, and significant motor deficits. -Referral done to PT on 12/27/2022, Pt given number to call and schedule appointment. -Lidocaine patches given. -Lifting precaution sand stretching reviewed. -ER precaution discussed. -Had lumbar spine MRI 02/15/2023 [place] , that showes diffused osteophyte changes with severve left neural foraminal stenosis with compression of exiting left L5 nerve root -Will continue PT Assessment & Plan (02/19/2023 10:52 AM EST): Likely musculoskeletal. Non-focal, normal motor exam without neurological deficits. No back pain red-flags: bowel/bladder incontinence, IVDU, urinary retention, saddle anesthesia, and significant motor deficits. -Pt will call to schedule MRI. -Referral done to PT on 12/27/2022, Pt given number to call and schedule appointment. -Lidocaine patches given. -Lifting precaution sand stretching reviewed. -ER precaution discussed -Had lumbar spine MRI 02/15/2023 [place] , that showes diffused osteophyte changes with severve left neural foraminal stenosis with compression of exiting left L5 nerve root -Will continue PT Assessment & Plan (12/29/2022 11:23 AM EDT): Likely musculoskeletal. Non-focal, normal motor exam without neurological deficits. No back pain red-flags: bowel/bladder incontinence, IVDU, urinary retention, saddle anesthesia, and significant motor deficits. -Pt will call to schedule MRI. -Referral done to PT on 12/27/2022, Pt given number to call and schedule appointment. -Lidocaine patches given. -Lifting precaution sand stretching reviewed. -ER precaution discussed. Assessment & Plan (10/19/2022 11:54 AM EDT): Likely musculoskeletal. Non-focal, normal motor exam without neurological deficits. No back pain red-flags: bowel/bladder incontinence, IVDU, urinary retention, saddle anesthesia, and significant motor deficits. -Lidocaine patches given. -Lifting precaution sand stretching reviewed. -ER precaution discussed. Other specified health status 10/04/2022 Overview (07/30/2024): -next physical exam due after 01/22/25 -eye care facilitated by [facility] -dental home is none, pt edentulous with dentures -health care proxy filed 01/23/24 Assessment & Plan (01/23/2024 10:39 AM EDT): -next physical exam due after 01/22/25 -eye care facilitated by [facility] next due 10/17/[address] joseph -dental home is none, pt edentulous with dentures -health care proxy filed 01/23/24 Assessment & Plan (07/18/2023 2:31 PM EDT): -next physical exam due after 10/05/2023. -eye care facilitated by [facility] next due 10/17/[address] joseph -dental gerlach is none, pt edentulous with dentures Assessment & Plan (04/25/2023 11:37 AM EST): -next physical exam due after 10/05/2023. -eye care facilitated by [facility] next due 10/17/[address] joseph -dental gerlach is none, pt edentulous with dentures Assessment & Plan (10/04/2022 10:14 AM EDT): -next physical exam due after 10/04/2022. -eye care facilitated by [facility] next due 10/16/[address] joseph dental gerlach is Benign prostatic hyperplasia 06/14/2021 Overview (01/23/2024): -followed by urology -continue tamsulosin 0.4mg daily Assessment & Plan (01/23/2024 10:50 AM EDT): -followed by urology -continue tamsulosin 0.4mg daily Assessment & Plan (07/18/2023 2:30 PM EDT): -followed by urology -continue tamsulosin 0.4mg daily Assessment & Plan (04/25/2023 9:57 AM EST): -followed by urology -continue tamsulosin 0.4mg daily Assessment & Plan (02/19/2023 9:18 AM EST): -followed by urology -continue tamsulosin 0.4mg daily Assessment & Plan (10/04/2022 10:51 AM EDT): -followed by urology -continue tamsulosin 0.4mg daily Assessment & Plan (06/05/2022 9:38 AM EST): -followed by urology Lung nodule 06/14/2021 Overview (06/05/2022): -Incidentally noted 5mm right middle lobe pulmonary nodule first seen in September 2008 with stable repeat in September 2009 and February 2011. Assessment & Plan (07/18/2023 2:30 PM EDT): -Incidentally noted 5mm right middle lobe pulmonary nodule first seen in September 2008 with stable repeat in September 2009 and February 2011. Assessment & Plan (04/25/2023 11:40 AM EST): -Incidentally noted 5mm right middle lobe pulmonary nodule first seen in September 2008 with stable repeat in September 2009 and February 2011. Assessment & Plan (02/19/2023 9:19 AM EST): -Incidentally noted 5mm right middle lobe pulmonary nodule first seen in September 2008 with stable repeat in September 2009 and February 2011. Assessment & Plan (10/04/2022 8:57 AM EDT): -Incidentally noted 5mm right middle lobe pulmonary nodule first seen in September 2008 with stable repeat in September 2009 and February 2011. Assessment & Plan (06/05/2022 9:36 AM EST): -Incidentally noted 5mm right middle lobe pulmonary nodule first seen in September 2008 with stable repeat in September 2009 and February 2011. Vitamin B12 deficiency (non anemic) 06/14/2021 Overview (07/18/2023): Lab Results Component Value Date VITB12 262 02/21/2023 VITB12 237 06/13/2022 At goal. Assessment & Plan (07/18/2023 2:31 PM EDT): Lab Results Component Value Date VITB12 262 02/21/2023 VITB12 237 06/13/2022 At goal. Assessment & Plan (10/04/2022 10:52 AM EDT): Lab Results Component Value Date VITB12 237 06/13/2022 At goal. Assessment & Plan (06/05/2022 9:05 AM EST): At goal. Dyslipidemia 03/11/2012 Overview (08/06/2024): Lab Results Component Value Date CHOL 102 02/21/2023 TRIG 84 02/21/2023 TRIG 134 06/13/2022 HDL 41 02/21/2023 LDLCHOLCAL 45 02/21/2023 -continue lifestyle modification -Continue atorvastatin 40mg qhs -Importance of low fat, low cholesterol diet and regular moderate physical activity discussed. -rechecking lipid panel 01/23/24 - did not get labs done -re-ordered today 08/06/24 Assessment & Plan (08/06/2024 3:21 PM EDT): Lab Results Component Value Date CHOL 102 02/21/2023 TRIG 84 02/21/2023 TRIG 134 06/13/2022 HDL 41 02/21/2023 LDLCHOLCAL 45 02/21/2023 -continue lifestyle modification -Continue atorvastatin 40mg qhs -Importance of low fat, low cholesterol diet and regular moderate physical activity discussed. -rechecking lipid panel 01/23/24 - did not get labs done -re-ordered today 08/06/24 Assessment & Plan (01/23/2024 10:41 AM EDT): Lab Results Component Value Date CHOLESTEROL 110 06/13/2022 HDLCHOL 32 (L) 06/13/2022 TRIG 84 02/21/2023 TRIG 134 06/13/2022 LDLCHOL 56 06/13/2022 CHOLHDLRAT 3.4 06/13/2022 NONHDLCHOL 78 06/13/2022 -Continue atorvastatin 40mg qhs -Importance of low fat, low cholesterol diet and regular moderate physical activity discussed. -rechecking lipid panel 01/23/24 Assessment & Plan (07/18/2023 2:31 PM EDT): Lab Results Component Value Date CHOLESTEROL 110 06/13/2022 HDLCHOL 32 (L) 06/13/2022 TRIG 84 02/21/2023 TRIG 134 06/13/2022 LDLCHOL 56 06/13/2022 CHOLHDLRAT 3.4 06/13/2022 NONHDLCHOL 78 06/13/2022 -Continue atorvastatin 40mg qhs -Importance of low fat, low cholesterol diet and regular moderate physical activity discussed. Assessment & Plan (04/25/2023 11:47 AM EST): Lab Results Component Value Date CHOLESTEROL 110 06/13/2022 HDLCHOL 32 (L) 06/13/2022 TRIG 84 02/21/2023 TRIG 134 06/13/2022 LDLCHOL 56 06/13/2022 CHOLHDLRAT 3.4 06/13/2022 NONHDLCHOL 78 06/13/2022 -Continue atorvastatin 40mg qhs -Importance of low fat, low cholesterol diet and regular moderate physical activity discussed. Assessment & Plan (02/19/2023 9:18 AM EST): -Cholesterol profile at goal 07/06/2020 -Continue atorvastatin 40mg qhs -Importance of low fat, low cholesterol diet and regular moderate physical activity discussed. Assessment & Plan (10/04/2022 8:57 AM EDT): -Cholesterol profile at goal 07/06/2020 -Continue atorvastatin 40mg qhs -Importance of low fat, low cholesterol diet and regular moderate physical activity discussed. Assessment & Plan (06/05/2022 9:05 AM EST): -Cholesterol profile at goal 07/06/2020 -Continue atorvastatin 40mg qhs -Importance of low fat, low cholesterol diet and regular moderate physical activity discussed. Hypertension 03/11/2012 Overview (08/06/2024): -discontinue HCTZ due to persistent low sodium and potassium (03/22/2020) -Amlodipine increased to 5mg daily on 10/18/2022. -continue losartan 100mg daily -continue Metoprolol XL 25 mg daily Stress test 04/26/[address] Butch Baptiste of [facility] Impression: 1. Myocardial perfusion imaging study shows no clear evidence of any ischemia or infarction. Reversible septal defect noted, probably artifactual. 2. Gated LVEF is 67% during stress and 72% during rest. 3. Transient ischemic dilatation not present. -EKG component of the test reported separately. -Followed by Dr. Butch Baptiste of [facility] saw him on 06/09/2023. -Blood pressure is elevated 08/06/24, suspect due to not taking medication, pt reported beng out of Amlodipine. -Continue lifestyle modifications -Continue current medications -Refilled Amlodipine increased to 10 mg daily -referred back to [facility]agment Program with our [facility] 08/06/24 Assessment & Plan (08/06/2024 3:23 PM EDT): -discontinue HCTZ due to persistent low sodium and potassium (03/22/2020) -Amlodipine increased to 5mg daily on 10/18/2022. -continue losartan 100mg daily -continue Metoprolol XL 25 mg daily Stress test 04/26/[address] Butch Baptiste of [facility] Impression: 1. Myocardial perfusion imaging study shows no clear evidence of any ischemia or infarction. Reversible septal defect noted, probably artifactual. 2. Gated LVEF is 67% during stress and 72% during rest. 3. Transient ischemic dilatation not present. -EKG component of the test reported separately. -Followed by Dr. Butch Baptiste of [facility] saw him on 06/09/2023. -Blood pressure is elevated 08/06/24, suspect due to not taking medication, pt reported beng out of Amlodipine. -Continue lifestyle modifications -Continue current medications -Refilled Amlodipine increased to 10 mg daily -referred back to Collaborative Drug Therapy Managment Program with our [facility] 08/06/24 Assessment & Plan (01/23/2024 10:36 AM EDT): -discontinue HCTZ due to persistent low sodium and potassium (03/22/2020) -Amlodipine increased to 5mg daily on 10/18/2022. -continue losartan 100mg daily -continue Metoprolol XL 25 mg daily Stress test 04/26/[address] Butch Baptiste of [facility] Impression: 1. Myocardial perfusion imaging study shows no clear evidence of any ischemia or infarction. Reversible septal defect noted, probably artifactual. 2. Gated LVEF is 67% during stress and 72% during rest. 3. Transient ischemic dilatation not present. -EKG component of the test reported separately. -Followed by Dr. Butch Baptiste of [facility] saw him on 06/09/2023. -Blood pressure is at goal 01/23/24 -Continue lifestyle modifications -Continue current medications Assessment & Plan (07/18/2023 2:27 PM EDT): -discontinue HCTZ due to persistent low sodium and potassium (03/22/2020) -Amlodipine increased to 5mg daily on 10/18/2022. -continue losartan 100mg daily -continue Metoprolol XL 25 mg daily Stress test 04/26/[address] Butch Baptiste of [facility] Impression: 1. Myocardial perfusion imaging study shows no clear evidence of any ischemia or infarction. Reversible septal defect noted, probably artifactual. 2. Gated LVEF is 67% during stress and 72% during rest. 3. Transient ischemic dilatation not present. -EKG component of the test reported separately. -Followed by Dr. Butch Baptiste of [facility] saw him on 06/09/2023. Will follow up in 6 months. Assessment & Plan (04/25/2023 11:40 AM EST): -discontinue HCTZ due to persistent low sodium and potassium (03/22/2020) -Amlodipine increased to 5mg daily on 10/18/2022. -continue losartan 100mg daily -continue Metoprolol XL 25 mg daily Assessment & Plan (02/19/2023 12:04 PM EST): -discontinue HCTZ due to persistent low sodium and potassium (03/22/2020) -Amlodipine increased to 5mg daily on 10/18/2022. -continue losartan 100mg daily -continue Metoprolol XL 25 mg daily Assessment & Plan (10/19/2022 11:47 AM EDT): -discontinue HCTZ due to persistent low sodium and potassium (03/22/2020) -Amlodipine increased to 5mg daily on 10/18/2022. -continue losartan 100mg daily -continue Metoprolol XL 25 mg daily Assessment & Plan (10/04/2022 10:50 AM EDT): -discontinue HCTZ due to persistent low sodium and potassium (03/22/2020) -continue amlodipine 2.5mg daily -continue losartan 100mg daily -continue Metoprolol XL 25 mg daily Assessment & Plan (06/05/2022 9:37 AM EST): -Blood pressures are well controlled at home -discontinue HCTZ due to persistent low sodium and potassium (03/22/2020) -continue amlodipine 5mg -continue losartan 100mg daily -referred to CD[facility] 06/05/2022 to check BP are controlled at home Insomnia 03/11/2012 Overview (02/19/2023): -Well controlled on prn Trazodone he rarely takes -tazadone increased during hospitalization Assessment & Plan (07/18/2023 2:30 PM EDT): -Well controlled on prn Trazodone he rarely takes -tazadone increased during hospitalization Assessment & Plan (04/25/2023 11:40 AM EST): -Well controlled on prn Trazodone he rarely takes -tazadone increased during hospitalization Assessment & Plan (02/19/2023 10:56 AM EST): -Well controlled on prn Trazodone he rarely takes -tazadone increased during hospitalization Assessment & Plan (02/09/2023 12:35 PM EDT): Assessment: Patient was recently seen at the ED for SI. believes it may have been a side effect to Ambien. Patient is currently no risk for self-harm, SI, and HI. Patient's main concern is insomnia. Information for [facility] ad WIC was provided. Patient has a f/u with PCP. At this time Abdirizak Camp meets criteria for Visit Diagnoses: Problem List Items Addressed This Visit Nervous Insomnia Other Generalized anxiety disorder Patient ready to address current needs Yes Strengths include his family, engagement in therapy, and God. PLAN: 1. Follow up with [facility] [place]: Not recommended 2. Patient goal is to improve sleep and decrease anxiety 3. Behavioral Recommendations a. Attend PCP ED f/u appointment on 02/19 b. Continue to comply with medication as recommended c. Attend therapy appointment on 02/16 d. Utilize WIC and/or [facility], if symptoms worsen e. Reach out to [facility] [place] for additional support Assessment & Plan (01/30/2023 11:20 AM EDT): Sleep hygiene counseling done I discontinue his trazodone and start him on doxepin 6mg Assessment & Plan (10/04/2022 10:51 AM EDT): -Well controlled on prn Trazodone he rarely takes Assessment & Plan (06/05/2022 9:36 AM EST): -Well controlled on prn Trazodone Type 2 diabetes mellitus 03/11/2012 Overview (08/06/2024): Diabetes is controlled. Lab Results Component Value Date HGBA1C 7.1 (A) 08/06/2024 HGBA1C 7.4 (A) 01/23/2024 HGBA1C 7.5 (A) 07/18/2023 Lab Results Component Value Date MICROALBUR 22.0 02/21/2023 CREATININE 0.87 03/30/2023 -Changes: none -Logan/Arb: losartan 100mg daily -Statin therapy: atorvastatin 40mg daily -Diabetic eye exam: Follows with [facility]. Seen 07/29/24 -Diabetic foot exam: done 01/23/24 -Continue lifestyle modifications -Continue current medications Metformin 500mg daily and Januvia 100mg daily -Self discontinued Lantus on 07/10/2023. Assessment & Plan (08/06/2024 3:20 PM EDT): Diabetes is controlled. Lab Results Component Value Date HGBA1C 7.1 (A) 08/06/2024 HGBA1C 7.4 (A) 01/23/2024 HGBA1C 7.5 (A) 07/18/2023 Lab Results Component Value Date MICROALBUR 22.0 02/21/2023 CREATININE 0.87 03/30/2023 -Changes: none -Logan/Arb: losartan 100mg daily -Statin therapy: atorvastatin 40mg daily -Diabetic eye exam: Follows with [facility]. Seen 07/29/24 -Diabetic foot exam: done 01/23/24 -Continue lifestyle modifications -Continue current medications Metformin 500mg daily and Januvia 100mg daily -Self discontinued Lantus on 07/10/2023. Assessment & Plan (01/23/2024 10:45 AM EDT): Diabetes is controlled. - Lab Results Component Value Date HGBA1C 7.4 (A) 01/23/2024 HGBA1C 7.5 (A) 07/18/2023 HGBA1C 8.5 (A) 02/19/2023 - Lab Results Component Value Date MICROALBUR 22.0 02/21/2023 CREATININE 0.87 03/30/2023 -Changes: none -Logan/Arb: losartan 100mg daily -Statin therapy: atorvastatin 40mg daily -Diabetic eye exam: Follows with [facility], but has not had an appt./follow up in months. Re-referred 01/23/24 -Diabetic foot exam: done 01/23/24 -Continue lifestyle modifications -Continue current medications Metformin 500mg daily and Januvia 100mg daily -Self discontinued Lantus on 07/10/2023. Assessment & Plan (07/18/2023 2:22 PM EDT): Diabetes is controlled. - Lab Results Component Value Date HGBA1C 8.5 (A) 02/19/2023 HGBA1C 8.4 (A) 12/08/2022 HGBA1C 6.9 (H) 09/05/2022 - Lab Results Component Value Date MICROALBUR 22.0 02/21/2023 CREATININE 0.87 03/30/2023 -Changes: none -Logan/Arb: losartan 100mg daily -Statin therapy: atorvastatin 40mg daily -Diabetic eye exam: -Diabetic foot exam: 04/25/23 -Continue lifestyle modifications -Continue current medications Metformin 500mg daily and Januvia 100mg daily -Self discontinued Lantus on 07/10/2023. Assessment & Plan (04/25/2023 11:39 AM EST): Diabetes is controlled. - Lab Results Component Value Date HGBA1C 8.5 (A) 02/19/2023 HGBA1C 8.4 (A) 12/08/2022 HGBA1C 6.9 (H) 09/05/2022 -No results found for: POCA1C - Lab Results Component Value Date MICROALBUR 22.0 02/21/2023 CREATININE 0.87 03/30/2023 -Changes: none -Logan/Arb: losartan 100mg daily -Statin therapy: atorvastatin 40mg daily -Diabetic eye exam: -Diabetic foot exam: 04/25/23 -Continue lifestyle modifications -Continue current medications Metformin 500mg daily and Januvia 100mg daily Assessment & Plan (02/19/2023 9:23 AM EST): Diabetes is controlled. - Lab Results Component Value Date HGBA1C 8.4 (A) 12/08/2022 HGBA1C 6.9 (H) 09/05/2022 HGBA1C 7.6 (A) 06/05/2022 -No results found for: POCA1C - Lab Results Component Value Date MICROALBUR 0.4 07/06/2020 CREATININE 0.82 02/04/2023 -Changes: none -Logan/Arb: losartan 100mg daily -Statin therapy: atorvastatin 40mg daily -Diabetic eye exam: -Diabetic foot exam: 10/02/2022 -Continue lifestyle modifications -Continue current medications Metformin 500mg daily and Januvia 100mg daily Assessment & Plan (10/04/2022 10:51 AM EDT): Diabetes is controlled. - Lab Results Component Value Date HGBA1C 6.9 (H) 09/05/2022 HGBA1C 7.6 (A) 06/05/2022 HGBA1C 7.0 (H) 06/27/2021 - Lab Results Component Value Date MICROALBUR 0.4 07/06/2020 CREATININE 0.87 06/13/2022 -Changes: none -Logan/Arb: losartan 100mg daily -Statin therapy: atorvastatin 40mg daily -Diabetic eye exam: -Diabetic foot exam: 10/02/2022 -Continue lifestyle modifications -Continue current medications Metformin 500mg daily and Januvia 100mg daily Assessment & Plan (06/05/2022 9:42 AM EST): Diabetes is: controlled - Lab Results Component Value Date HGBA1C 7.6 (A) 06/05/2022 -No results found for: GLUF, MICROALBUR, LDLCALC, CREATININE -Changes: none - Diabetic eye exam: - Diabetic foot exam: - Continue lifestyle modifications - Continue current medications - Follow up: 6 months Resolved Problems Problem Noted Date Diagnosed Date Resolved Date Weakness 04/01/2023 04/25/2023 Assessment & Plan (04/01/2023 10:19 AM EST): Pt w non specific symptoms but states feeling some weakness ,fatigue and reports constipation. Noted 10 pound weight loss that appears intentional ,per pt doing diet. Denies alarming symptoms . Pt seems poor historian. Follows w cardiology currently for CHAIREZ From exam noted right cervical enlarged LDN but no other lymphadenopathies. No hx of lymphoma in fx reported but states Brother cancer throat, sister breat ca and other sibling uterine ca -will further shellie mild anemia w FOBT ,SPEP ,UPEP ,UA, immunofixation,also to check osmolality for noted ongoing mild hyponatremia , with noted LDN to do LDH and T- spot -neck US -CXR -CT abd/pelvis w reported ongoing constipation -px meds for constipation -alarm signs and symptoms discussed -f up w PCP in 4 weeks to monitor labs ,images and symptoms -requested [place] for colonoscopy record Constipation 04/01/2023 04/25/2023 Cervical lymphadenopathy 04/01/2023 Lumbago 02/19/2023 02/19/2023 Overview (02/19/2023): -Had lumbar spine MRI 02/15/2023 [place] , that showes diffused osteophyte changes with severve left neural foraminal stenosis with compression of exiting left L5 nerve root -referral done to neurosurgeon 02/19/23 Assessment & Plan (02/19/2023 10:37 AM EST): -Had lumbar spine MRI 02/15/2023 [place] , that showes diffused osteophyte changes with severve left neural foraminal stenosis with compression of exiting left L5 nerve root -referral done to neurosurgeon 02/19/23 History of severe acute resp iratory syndrome coronavirus 2 (SARS-CoV-2) disease 03/08/202002/19 Encounters Date Type Department Care Team Description 08/08/2024 Telephone [facility] [address] [place] [address] Lidia Mendoza MD Pre-op Visit 08/06/2024 3:15 PM EDT Office Visit [facility] [address] [place] [address] Lidia Mendoza MD Type 2 diabetes mellitus without complication, without long-term current use of insulin ([facility]) (Primary Dx); Primary hypertension; Class 1 obesity due to excess calories with serious comorbidity and body mass index (BMI) of 30.0 to 30.9 in adult; Dietary counseling; Exercise counseling; Dyslipidemia; Generalized anxiety disorder; Insomnia, unspecified type 08/06/2024 Travel 08/05/2024 Refill [facility] [address] [place] [address] Lidia Mendoza MD Type 2 diabetes mellitus without complication, without long-term current use of insulin ([facility]); Left-sided back pain, unspecified back location, unspecified chronicity; Primary hypertension; Dyslipidemia 07/31/2024 Telephone [facility] [address] [place] [address] Lidia Mendoza MD Chart[employer] 07/11/2024 Telephone [facility] [address] [place] [address] Valeria Joseph, OD 07/10/2024 2:00 PM EDT Office Visit [facility] [address] [place] [address] Valeria Joseph, OD Type 2 diabetes mellitus without ophthalmic manifestations ([facility]) (Primary Dx); Posterior subcapsular age-related cataract, right eye; Combined forms of age-related cataract of both eyes; Hyperopia of both eyes with astigmatism and presbyopia 07/10/2024 Travel 05/26/2024 Refill [facility] [address] [place], [place] [id number] Lidia Mendoza MD Primary hypertension from Last 3 Months Immunizations Name Administration Dates Next Due Hep B, adult 01/03/2017,12/02/2015,01/26/2014 Influenza Quadrivalent Adjuvanted 01/20/2021 Influenza injectable quadriv alent IIV4 with preservative 03/01/2015 Influenza injectable quadriv alent preservative free 12/29/2022,06/05/2022,05/13/2020 Influenza, High Dose Seasona l, Preservative Free 01/17/2018,01/03/2017,12/15/2015 Influenza, IIV3, injectable 01/26/2014, 1 Influenza, Split (incl. pablo fied surface antigen) 03/11/2012 Moderna Covid-19 Vaccine 12+ 03/09/2021,07/07/19 21,06/08/2020 Pneumococcal Conjugate PCV 13 12/15/2015, 016 Pneumococcal Conjugate PCV 20 06/05/2022 Pneumococcal Polysaccharide PPSV23 01/26/2014, RSV Bivalent 04/25/2023 TD (adult), 2 Lf tetanus tox oid, preservative free, adsorbed 06/15/2008 Td (adult), 5 Lf tetanus tox oid, preservative free, adsorbed 02/08/2013 Tdap 02/19/2023,10/30/2011 Zoster, Recombinant 11/21/2021,09/12/2021 Zoster, live 01/29/2014 Family History Medical History Relation Name Comments Cancer Brother Cancer Daughter Diabetes Mother Relation Name Status Comments Brother Daughter Mother Social History Tobacco Use Types Packs/Day Years [...] Orientation Straight 02/06/2022 10 :19 AM EDT Last Filed Vital Signs Vital Sign Reading [...] Mass Index 31.12 08/06/2024 2:50 PM EDT Plan of Treatment Upcoming Encounters Date Type Department Care Team (Late st Contact Info) Description 08/15/2024 2:00 PM EDT Medication Management [facility] [address] [place] [address] Chana Mercado, PharmD [address] [place] [address] Health Maintenance Due Date Last Done Comments CT Colonography 1950 FIT DNA/Cologuard 1950 FIT 1950 FOBT 1950 Sigmoidoscopy 1950 Diabetes: Urine Protein Screening 02/22/2024 02/21/2023, 07/06/2020, 05/18/2020, Additional history exists Lipid Panel 02/22/2024 02/21/2023, 03/0 10/2022, 06/27/2021 Influenza Vaccine (#1) 2024 , 06/05/2022, 01/20/2021, Additional history exists Postponed from 12/09/2023 (Patient Refused) Diabetes: Hemoglobin A1C 11/05/2024 025, 01/23/2024, 07/18/2023, Additional history exists COVID-19 Vaccine ( season) 2025 03/09/2021, 07/06/2020, 06/08/2020 Postponed from 12/09/2023 (Patient Refused) Diabetes: Foot Exam 01/22/2025 01/23/2024, 01/23/2024, 01/23/2024, Additional history exists Alcohol/Substance Use Screening 08/06/2025 08/06/2024 Depression Screening 08/06/2025 08/06/2024, 08/07/19 SDOH Screening 08/06/2025 08/06/2024 Tobacco Screening 08/06/2025 08/06/2024 Eye Exam 07/29/2026 07/29/2024, 04/0 06/2024, 07/10/2024, Additional history exists Colonoscopy 05/17/2032 05/17/2022, 05/15/2017 Colorectal Cancer Screening 05/17/2032 DTaP/Tdap/Td Vaccines (4 - Td or Tdap) 02/19/2033 02/19/2023, 02/08/2013, 10/30/2011, Additional history exists Hepatitis B Vaccines Completed 01/03/2017, 12/02/2015, 01/26/2014 Zoster Vaccines Completed 11/21/2021, 06/0 09/2021, 01/29/2014 Pneumococcal Vaccine: 50+ Years Completed 06/05/2022, 12/15/2015, 12/02/2015, Additional history exists Hepatitis C Screening Completed 06/13/2022 RSV Patients and Patients Aged 60 years or older Completed 04/25/2023 HIB Vaccines Aged Out No longer eligi [...] patient's age to complete this topic Meningococcal Vaccine Aged Out No jana dee dee eligible based on patient's age to complete this topic RSV under 20 months Aged Out No longe r eligible based on patient's age to complete this topic Rotavirus Vaccines Aged Out No longer eligible based on patient's age to complete this topic Goals Goal Patient Goal Type Associated Problems Recent Progress Patient-Stated? Author Blood Pressure < 140/90 Blood Pressure 150/80(2024 2:50 PM EDT) No Chana Moncada PharmD Hemoglobin A1c < 7 Result Component 7.1( 3:13 PM EDT) No Chana Moncada PharmD Procedures Procedure Name Priority Date/Time Associated Diagnosis Comments POCT GLYCATED HEMOGLOBIN, TOTAL Routine 08/06/2024 3:13 PM EDT Type 2 diabetes mellitus without complication, without long-term current use of insulin (CMS/HCC) POCT GLUCOSE Routine 08/06/2024 3:05 PM EDT Type 2 diabetes mellitus without complication, without long-term current use of insulin (CMS/HCC) AMB REFERRAL TO OPHTHALMOLOGY Routine 07/29/2024 Posterior subcapsular age-related cataract, right eye Combined forms of age-related cataract of both eyes ALBUMIN, RANDOM URINE W/CREATININE Routine 02/21/2023 8:20 AM EST Type 2 diabetes mellitus without complication, with long-term current use of insulin (CMS/HCC) LIPID PANEL, STANDARD Routine 02/21/2023 8:20 AM EST Dyslipidemia HEPATITIS C AB W/REFL TO HCV RNA, QN, PCR Routine 06/13/2022 8:11 AM EST Routine screening for STI (sexually transmitted infection) HM COLONOSCOPY Routine 05/17/2022 from Last 3 Months or Most Recently Relevant to Health Maintenance Results * (ABNORMAL) POCT HGB A1C (08/06/2024 3:13 PM EDT) Hemoglobin A1C 7.1(A) 4.0 - 6.0 % QC Media Lot # [id number] Lot# Expiration Date Blood 08/06/2024 3:13 PM EDT Lidia Mendoza MD POINT OF CARE TEST ENTER/E DIT ORDERABLES Final Result * POCT Glucose (08/06/2024 3:05 PM EDT) Glucose Blood, POC 161 60 - 200 mg/dL QC Media Lot # [id number] Lot# Expiration Date Blood Capillary blood specimen / Unknown 08/06/2024 3:05 PM EDT Result [facility] Lidia Mendoza MD POINT OF CARE TEST ENTER/E DIT ORDERABLES Final Result * Referral to Ophthalmology (07/29/2024) Valeria Joseph OD OUTPATIENT REFERRAL ORDERABLES Final Result * Albumin, Random Urine W/Creatinine (02/21/2023 8:20 AM EST) Creatinine, Urine 153.74 mg/dL [facility] Microalbumin Urine 22.0 mg/L [facility] Microalbum Creatinine Ratio Ur 14.3 <30 ug/mg cr [facility] Comment:Albumin/Creatinine R atio Reference Ranges: Normal: < 30 ug/mg creatinine Microalbuminuria: 30 - 300 ug/mg creatinineClinical Albuminuria: > 300 ug/mg creatinine Urine 02/21/2023 8:20 AM EST 02/21/2023 11:04 AM EST Lidia Mendoza MD LAB URINE ORDERABLES Final Result [facility] [address] [place] [phone] * Lipid Panel, Standard (02/21/2023 8:20 AM EST) Triglycerides 84 <150 mg/dL [facility] Comment:Desirable Triglyceri de: less than 150 mg/dLBorderline High Triglyceride 150-199 mg/dLHigh Triglyceride: 200-499 mg/dLVery High Triglyceride: greater than or equal to 5OO mg/dL Cholesterol 102 <200 mg/dL [facility] Comment:Desirable Cholestero l: less than 200 mg/dLBorderline High Cholesterol: 200-239 mg/dLHigh Cholesterol: greater than 239 mg/dL LDL Cholesterol Calculated 45 <100 mg/dL [facility] Comment:Desirable LDL: less than 100 mg/dLNear Optimal/Above Optimal LDL: 110- 129 mg/dLBorderline High LDL: 130-159 mg/dLHigh LDL: 160-189 mg/dLVery High LDL: greater than or equal to 190 mg/dL HDL Cholesterol 41 >40 mg/dL [facility] Comment:Desirable HDL: great er than 40 mg/dL Note: This HDL assay may give artificially low results in patients with liver disease. Blood Venous blood specimen / Unknown 02/21/2023 8:20 AM EST 02/21/2023 11:04 AM EST Lidia Mendoza MD LAB BLOOD ORDERABLES Final Result [facility] [address] [place] [phone] * Hepatitis C Antibody with Reflex to HCV, RNA, Quantitative, Real-Time PCR (06/13/2022 8:11 AM EST) Hepatitis C Antibody NON-REACT LUAN NON-REACT LUAN [facility] Index 0.07 <1.00 [facility] Comment: HCV antibody was non-reactive. There is no laboratory evidence of HCV infection. In most cases, no further action is required. However, if recent HCV exposure is suspected, a test for HCV RNA (test code 58919) is suggested. For additional information please refer to http://education.Tilkee/faq/QSY87t3 (This link is being provided for informational/ educational purposes only.) Blood Venous blood specimen / Unknown 06/13/2022 8:11 AM EST 06/13/2022 8:11 AM EST Narrative [facility] - 06/13/2022 10:05 PM EST FASTING:UNKNOWN FASTING: UNKNOWN Lidia Mendoza MD LAB BLOOD ORDERABLES Final Result [facility] [address] [facility] [facility], [place] [address] [employer] [facility] [address], ([address]) [place] [address] * Colonoscopy (05/17/2022) Colonoscopy hyperplastic polyp Dr. 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
--- OUTSIDE RECORDS SUMMARY | 2024-08-11 09:16 | XMS_ITS | Encounter Summary ---
Author Organization [email or web address] Address [address] [place] [address] Care Team Providers Care Automotive Sales Specialist Name Role Phone Lidia Mendoza MD Primary Care Provider + [phone] Chana Mercado PharmD Unavailable Butch Baptiste MD Unavailable [phone] Valeria Moreau OD Unavailable [phone] Dereje Ivey MD Unavailable [phone] Reason for Referral * Imaging (Routine) - Closed Specialty Diagnoses / Procedures Referred By Contac t Referred To Contact Diagnoses Chest tightness Procedures Stress test with myocardial perfusion Lidia Mendoza MD [address] [place] [address] Phone: tel: fax: [address] Phone: tel: fax: Referral ID Status Reason Start Date Expiration Date Visits Re quested Visits Authorized [id number] Closed 01/24/2023 07/23/2023 3 3 Encounter Details Date Type Department Care Team (Late st Contact Info) Description 01/24/2023 Orders Only [facility] [address] [place] [address] Lidia Mendoza MD [address] [place], [place] [phone] Chest tightness (Primary Dx) Social History Tobacco Use Types Packs/Day Years [...] Description 08/15/2024 2:00 PM EDT Medication Management [facility] [address] [place] [address] Chana Mercado, PharmD [address] [place] [address] documented as of this encounter Goals Goal Patient Goal Type Associated Problems Recent Progress Patient-Stated? Author Blood Pressure < 140/90 Blood Pressure 150/80(2024 2:50 PM EDT) No Chana Moncada PharmD Hemoglobin A1c < 7 Result Component 7.1( 3:13 PM EDT) No Chana Moncada PharmD documented as of this encounter Visit Diagnoses Diagnosis Chest tightness- Primary Other chest pain documented in this encounter Additional Health Concerns Assessment Noted Time PHQ-9 Depression Total Score: 0 06/05/19 9:07 AM EST documented as of this encounter Care Teams Automotive Sales Specialist Relationship Specialty Start Date End Date Lidia Mendoza MD [address] [place] [address] PCP - General Family Medicine 04/09/18 Chana Mercado PharmD [address] [place] [address] Pharmacist Internal Medicine 09/05/22 Butch Baptiste MD [address] [place] [address] Cardiology 04/22/24 Valeria Moreau OD [address] [place] [address] Optometry 07/30/24 Dereje Ivey MD [address] [place] [address] Urology 08/06/24 documented as of this encounter
--- OUTSIDE RECORDS SUMMARY | 2024-08-11 09:16 | XMS_ITS | Encounter Summary ---
Author Organization [employer] Address [address] [facility] 7t [place] [address] Care Team Providers Care Assistant Store Director Name Role Phone Lidia Mendoza MD Primary Care Provider + [phone] Chana Mercado PharmD Unavailable Butch Baptiste MD Unavailable [phone] Vlaeria Moreau OD Unavailable [phone] Dereje Ivey MD Unavailable [phone] Reason for Visit * Reason Comments Med Refill Encounter Details Date Type Department Care Team (Late st Contact Info) Description 05/21/2023 Refill [facility] [address] [place], [place] [phone] Lidia Mendoza MD 230 [place], [place] [phone] Primary hypertension Social History Tobacco Use Types [...] Description 08/15/2024 2:00 PM EDT Medication Management [facility] [address] [place] [address] YousufsAriadna Chensa, PharmD [address] [place] [address] documented as of this encounter Goals Goal [...] documented as of this encounter Care Teams Assistant Store Director Relationship Specialty Start Date End Date Lidia Mendoza MD [address] [place] [address] PCP - General Family Medicine 04/09/18 Chana Mercado, AngelicD [address] [place] [address] Pharmacist Internal Medicine 09/05/22 Butch Baptiste MD [address] 3rd [place] [address] Cardiology 04/22/24 Valeria Moreau OD [address] [place] [address] Optometry 07/30/24 Dereje Ivey MD [address] [place] [address] Urology 08/06/24 documented as of this encounter
--- OUTSIDE RECORDS SUMMARY | 2024-08-11 09:16 | XMS_ITS | Encounter Summary ---
Author Organization [employer] [facility] Address 75 [facility] 7t [place] [address] Care Team Providers Care Lard Refiner Name Role Phone Lidia Mendoza MD Primary Care Provider + [phone] Chana Mercado PharmD Unavailable Butch Baptiste MD Unavailable +[phone] Valeria Moreau OD Unavailable [phone] Dereje Ivey MD Unavailable [phone] Reason for Visit * Reason Comments Med Refill Encounter Details Date Type Department Care Team ([facility] Contact Info) Description 09/15/2022 Refill [facility] 230 [place] [address] Onur Guzman FNP Primary hypertension Social History Tobacco Use Types [...] suspected to have Coronavirus/COVID-19? No / Unsure 09/05/2022 2:42 PM EDT documented as of this encounter Plan of Treatment Upcoming Encounters Date Type Department Care Team ([facility] Contact Info) Description 08/15/2024 2:00 PM EDT Medication Management [facility] [address] [place] [address] Chana Mercado PharmD [address] [place] [address] documented as of this encounter Goals Goal [...] documented as of this encounter Care Teams Lard Refiner Relationship Specialty Start Date End Date Lidia Mendoza MD [address] [place] [address] PCP - General Family Medicine 04/09/18 Chana Mercado PharmD [address] [place] [address] Pharmacist Internal Medicine 09/05/22 Butch Baptiste MD [address] 3rd [place] [address] Cardiology 04/22/24 Valeria Moreau OD [address] [place] [address] Optometry 07/30/24 Dereje Ivey MD [address] [place] [address] Urology 08/06/24 documented as of this encounter
--- OUTSIDE RECORDS SUMMARY | 2024-08-11 09:16 | XMS_ITS | Encounter Summary ---
Author Organization [employer] [facility] Address [address] [facility] 7t [place] [address] Care Team Providers Care Animal Husbandry Professor Name Role Phone Lidia Mendoza MD Primary Care Provider [phone] Chana Mercado PharmD Unavailable Butch Baptiste MD Unavailable Valeria Moreau OD Unavailable [phone] Dereje Ivey MD Unavailable Encounter Details Date Type Department Care Team (Late st Contact Info) Description 05/18/2022 Abstract [facility] MED[facility] [address] [place], [place] [phone] Lidia Mendoza MD [address] [place] [address] Social History Tobacco Use Types Packs/Day Years [...] Description 08/15/2024 2:00 PM EDT Medication Management [facility] [address] [place] [address] Chana Mercado, PharmD [address] [place] [address] documented as of this encounter Procedures Procedure Name Priority Date/Time Associated Diagnosis Comments COLONOSCOPY Routine 05/17/2022 documented in this encounter Results * Colonoscopy (05/17/2022) Colonoscopy hyperplastic polyp Dr. Medina us Historical Provider HEALTH MAINTENANCE Final Result documented in this encounter Visit Diagnoses Not on filedocumented in this encounter Care Teams Animal Husbandry Professor Relationship Specialty Start Date End Date Lidia Mendoza MD [address] [place] [address] PCP - General Family Medicine 04/09/18 Chana Mercado, PharmD [address] [place] [address] Pharmacist Internal Medicine 09/05/22 Butch Baptiste MD [address] 3rd [place] [address] Cardiology 04/22/24 Valeria Moreau OD [address] [place] [address] Optometry 07/30/24 Dereje Ivey MD [address] [place] [address] Urology 08/06/24 documented as of this encounter
--- OUTSIDE RECORDS SUMMARY | 2024-08-11 09:16 | XMS_ITS | Encounter Summary ---
Author Organization [employer] [facility] Address 75 [facility] 7t [place] [address] Care Team Providers Care Com Writer Name Role Phone Lidia Mendoza MD Primary Care Provider Chana Mercado PharmD Unavailable Butch Baptiste MD Unavailable [phone] Valeria Moreau OD Unavailable Dereje Ivey MD Unavailable [phone] Encounter Details Date Type Department Care Team (Late st Contact Info) Description 06/06/[address] [facility] 230 [place], [place] [phone] Lidia Mendoza MD [address] [place] [address] Social History Tobacco Use Types Packs/Day Years [...] suspected to have Coronavirus/COVID-19? No / Unsure 06/05/2022 8:32 AM EST documented as of this encounter Plan of Treatment Upcoming Encounters Date Type Department Care Team (Late st Contact Info) Description 08/15/2024 2:[address] Medication Management [facility] [address] [place] [address] Chana Mercado PharmD [address] [place] [address] documented as of this encounter Procedures Procedure Name Priority Date/Time Associated Diagnosis Comments COLONOSCOPY Routine 05/15/2017 documented in this encounter Results * Hm Colonoscopy (05/15/2017) Colonoscopy normal us Historical Provider HEALTH MAINTENANCE Final Result documented in this encounter Visit Diagnoses Not on filedocumented in this encounter Additional Health Concerns Assessment Noted Time PHQ-9 Depression Total Score: 0 06/05/19 23 9:07 AM EST documented as of this encounter Care Teams Com Writer Relationship Specialty Start Date End Date Lidia Mendoza MD [address] [place] [address] PCP - General Family Medicine 04/09/18 Chana Mercado PharmD [address] [place] [address] Pharmacist Internal Medicine 09/05/22 Butch Baptiste MD [address] 3rd [place] [address] Cardiology 04/22/24 Valeria Moreau OD [address] [place] [address] Optometry 07/30/24 Dereje Ivey MD [address] [place] [address] Urology 08/06/24 documented as of this encounter
--- OUTSIDE RECORDS SUMMARY | 2024-08-11 09:16 | XMS_ITS | Encounter Summary ---
Author Organization [employer] Address [address] [facility] [address] 7t [place] [address] Care Team Providers Care Suture Polisher Name Role Phone Lidia Mendoza MD Primary Care Provider + [phone] Chana Mercado PharmD Unavailable Butch Baptiste MD Unavailable [phone] Valeria Moreau OD Unavailable [phone] Dereje Ivey MD Unavailable [phone] Encounter Details Date Type Department Care Team (Late st Contact Info) Description 07/11/2024 Telephone [facility] OPTOMETRY [address] [place], [place] [phone] Valeria Moreau, OD [address] [place] [address] Social History Tobacco Use Types Packs/Day Years [...] Description 08/15/2024 2:00 PM EDT Medication Management [facility] 230 [place] [address] Chana Mercado PharmD 230 [place] [address] documented as of this encounter Goals Goal Patient Goal Type Associated Problems Recent Progress Patient-Stated? Author Blood Pressure < 140/90 Blood Pressure 150/80(2024 2:50 PM EDT) No Yousufs-Ariadna Sonisa, PharmD Hemoglobin A1c < 7 Result Component 7.1( 3:13 PM EDT) No Yousufs-Chana Soni, PharmD documented as of this encounter Visit Diagnoses Not on filedocumented in this encounter Additional Health Concerns Assessment Noted Time PHQ-9 Depression Total Score: 0 07/18/19 24 2:04 PM EDT documented as of this encounter Care Teams Suture Polisher Relationship Specialty Start Date End Date Lidia Mendoza MD 230 [place] [address] PCP - General Family Medicine 04/09/18 Chnaa Mercado, Jesusita [address] [place] [address] Pharmacist Internal Medicine 09/05/22 Butch Baptiste MD [address] 3rd [place] [address] Cardiology 04/22/24 Valeria Moreau OD [address] [place] [address] Optometry 07/30/24 Dereje Ivey MD [address] [place] [address] Urology 08/06/24 documented as of this encounter
--- OUTSIDE RECORDS SUMMARY | 2024-08-11 09:16 | XMS_ITS | Encounter Summary ---
Author Organization [employer] Address [address] [facility] 7t [place] [address] Care Team Providers Care Cane Loader Name Role Phone Lidia Mendoza MD Primary Care Provider + [phone] Chana Mercado PharmD Unavailable [phone] Butch Baptiste MD Unavailable [phone] Valeria Moreau OD Unavailable [phone] Dereje Ivey MD Unavailable [phone] Encounter Details Date Type Department Care Team (Latest Contact Info) Description 08/06/2024 Travel Social History Tobacco Use Types Packs/Day Years [...] Description 08/15/2024 2:00 PM EDT Medication Management [facility] [address] [place] [address] Yousufs-Chana Holland, PharmD [address] [place] [address] documented as of this encounter Goals Goal [...] documented as of this encounter Care Teams Cane Loader Relationship Specialty Start Date End Date Lidia Mendoza MD [address] [place] [address] PCP - General Family Medicine 04/09/18 Chana Mercado, AngelicD [address] [place] [address] Pharmacist Internal Medicine 09/05/22 Butch Baptiste MD [address] 3rd [place] [address] Cardiology 04/22/24 Valeria Moreau OD [address] [place] [address] Optometry 07/30/24 Dereje Ivey MD [address] [place] [address] Urology 08/06/24 documented as of this encounter
--- OUTSIDE RECORDS SUMMARY | 2024-08-11 09:16 | XMS_ITS | Encounter Summary ---
Author Organization [employer] [facility] Address [address] [facility] 7t [place] [address] Care Team Providers Care Flexible Babysitter Name Role Phone Lidia Mendoza MD Primary Care Provider + [phone] Chana Mercado PharmD Unavailable Butch Baptiste MD Unavailable [phone] Valeria Moreau OD Unavailable [phone] Dereje Ivey MD Unavailable [phone] Reason for Visit * Reason Comments Med Refill Encounter Details Date Type Department Care Team (Late st Contact Info) Description 05/26/2024 Refill [facility] MEDICINE 230 [place], [place] [phone] Lidia Mendoza MD [address] [place], [place] [phone] Primary hypertension Social History Tobacco Use Types [...] your housing situation today? I have guera sing 07/18/[address] you li [...] Description 08/15/2024 2:00 PM EDT Medication Management [facility] MED[facility]INE 230 [place] [address] Chana Mercado PharmD [address] [place] [address] documented as of this encounter Goals Goal Patient Goal Type Associated Problems Recent Progress Patient-Stated? Author Blood Pressure < 140/90 Blood Pressure 150/80(2024 2:50 PM EDT) No Yousufs-Ariadna Sonisa, PharmD Hemoglobin A1c < 7 Result Component 7.1( 3:13 PM EDT) No YousufsAriadna Martinosa, PharmD documented as of this encounter Visit Diagnoses Diagnosis Primary hypertension Unspecified essential hypertension documented in this encounter Additional Health Concerns Assessment Noted Time PHQ-9 Depression Total Score: 0 07/18/19 24 2:04 PM EDT documented as of this encounter Care Teams Flexible Babysitter Relationship Specialty Start Date End Date Lidia Mendoza MD [address] [place] [address] PCP - General Family Medicine 04/09/18 Chana Mercado, AngelicD [address] [place] [address] Pharmacist Internal Medicine 09/05/22 Butch Baptiste MD [address] 3rd [place] [address] Cardiology 04/22/24 Valeria Moreau OD [address] [place] [address] Optometry 07/30/24 Dereje Ivey MD [address] [place] [address] Urology 08/06/24 documented as of this encounter
--- OUTSIDE RECORDS SUMMARY | 2024-08-11 09:16 | XMS_ITS | Encounter Summary ---
Author Organization [employer] Address [address] [facility] 7t [place] [address] Care Team Providers Care Admitting Counselor Name Role Phone Lidia Mendoza MD Primary Care Provider + [phone] Chana Mercado PharmD Unavailable [phone] Butch Baptiste MD Unavailable [phone] Valeria Moreau OD Unavailable [phone] Dereje Ivey MD Unavailable [phone] Reason for Visit * Reason Comments Med Refill Encounter Details Date Type Department Care Team (Late st Contact Info) Description 04/28/2023 Refill [facility] 230 [place], [place] [phone] Lidia Mendoza MD [address] [place], [place] [phone] Primary hypertension Social History Tobacco Use Types [...] Description 08/15/2024 2:00 PM EDT Medication Management [facility] [address] [place] [address] YousufsAriadna Chensa, PharmD [address] [place] [address] documented as of this encounter Goals Goal [...] documented as of this encounter Care Teams Admitting Counselor Relationship Specialty Start Date End Date Lidia Mendoza MD 230 [place] [address] PCP - General Family Medicine 04/09/18 Chana Mercado, AngelicD [address] [place] [address] Pharmacist Internal Medicine 09/05/22 Butch Baptiste MD [address] 3rd [place] [address] Cardiology 04/22/24 Valeria Moreau OD [address] [place] [address] Optometry 07/30/24 Dereje Ivey MD [address] [place] [address] Urology 08/06/24 documented as of this encounter
--- OUTSIDE RECORDS SUMMARY | 2024-08-11 09:16 | XMS_ITS | Encounter Summary ---
Author Organization [employer] [facility] Address [address] [place] [address] 7t [place] [address] Care Team Providers Care Enrollment Advisor Name Role Phone Lidia Mendoza MD Primary Care Provider [phone] Chana Mercado PharmD Unavailable Butch Baptiste MD Unavailable [phone] Valeria Moreau OD Unavailable [phone] Dereje Ivey MD Unavailable [phone] Encounter Details Date Type Department Care Team (Late st Contact Info) Description 05/01/2022 Orders Only [facility] MEDICINE 230 [place], [place] [phone] Criselda Pizano LPN Social History Tobacco Use Types Packs/Day Years [...] Description 08/15/2024 2:00 PM EDT Medication Management [facility] MEDICINE 230 [place], [place] [phone] Chana Mercado, PharmD 230 [place] [address] documented as of this encounter Procedures Procedure Name Priority Date/Time Associated Diagnosis Comments HIGH SENSITIVITY TROPONIN I Routine 10/18/2022 1:03 PM EDT CBC WITH AUTO DIFFERENTIAL Routine 10/18/2022 1:03 PM EDT HEMATOXYLIN AND EOSIN STAIN Routine 05/17/2022 11:19 AM EST GLUCOSE, WHOLE BLOOD Routine 05/17/2022 9:04 AM EST documented in this encounter Results * High Sensitivity Troponin I (10/18/2022 1:03 PM EDT) [facility] TROPONIN I HIGH SENSITIVITY <2.7 <3.5 - 35.0 ng/L [facility] Comment:The [place] high sens itivity Troponin-I results should beused in conjunction with other diagnostic information suchas ECG, clinical observations and information, and patientsymptoms to aid in the diagnosis of [place]. 10/18/2022 1:03 PM EDT 10/18/2022 1:07 PM EDT [facility] External Provider LAB BLO OD ORDERABLES Final Result Performing Organization Address City/State/[facility] Co de Phone Number [facility] [address] [place] [phone] * (ABNORMAL) CBC auto differential (10/18/2022 1:03 PM EDT) [facility] White Blood Count 9.3 4.8 - 10.8 X10*3/uL [facility] Red Blood Count 4.80 4.60 - 5.80 X10*6/uL [facility] Hemoglobin 14.5 14.0 - 18.0 g/dl [facility] Hematocrit 40.8(L) 42.0 - 52.0 % [facility] Mean Corpuscular Volume 85.0 80.0 - 98.0 fL [facility] Mean Corpuscular Hemoglobin 30.2 27.0 - 33.0 pg [facility] Mean Corpuscular HGB Conc 35.5 31.0 - 36.0 g/dl [facility] Red Cell Distribution Width 12.4 11.0 - 16.0 % [facility] Platelet Count 230 160 - 400 X10*3/uL [facility] Mean Platelet Volume 9.7 9.4 - 12.4 fL [facility] Neutrophils Percent Auto 78.5(H) 45 - 73 % [facility] Imm Gran Pct Auto 0.2 0.0 - 0.4 % [facility] Lymphocytes Percent Auto 12.8(L) 20 - 40 % [facility] Monocytes Percent Auto 6.2 2 - 11 % [facility] Eosinophils Percent Auto 1.9 0 - 4 % [facility] Basophils Percent Auto 0.4 0 - 2 % [facility] NRBC Pct Auto 0.0 0.0 - 0.2 /100WBC [facility] Neutrophils Absolute Auto 7.3 2.0 - 8.3 x10*3/uL [facility] Imm Gran Abs Auto 0.02 0.00 - 0.03 X10*3/uL [facility] Lymphocytes Absolute Auto 1.2 1.2 - 4.9 X10*3/uL [facility] Monocytes Absolute Auto 0.6 0.1 - 1.2 X10*3/uL [facility] Eosinophils Absolute Auto 0.2 0.0 - 0.4 X10*3/uL [facility] Basophils Absolute Auto 0.0 0.0 - 0.2 X10*3/uL [facility] NRBC Abs Auto 0.000 0.0 - 0.012 X10*3/uL [facility] 10/18/2022 1:03 PM EDT 10/18/2022 1:07 PM EDT us [facility] External Provider LAB BLO OD ORDERABLES Final Result [facility] [address] [place] [address] [phone] * Hematoxylin and Eosin Stain (05/17/2022 11:19 AM EST) 05/17/2022 11:1 9 AM EST 05/17/2022 12:11 PM EST Narrative [facility] - 05/18/2022 1:31 PM EST ----- ------- Name: Abdirizak Soto ? Age/Sex: 71/M ? : 1950 Unit#: [id number] ?? Attend Dr: Clifford Medina ?Re05/17/22 ?Status: DEP SDC ? Location: HO.SSS ?Disch: ? ----- ------- SPEC : [id number] ?RECD: 05/17/22-1210 ? STATUS: ??SOUT ? REQ NUM: [id number] ? DAPHNE: 05/17/22-1119 ? SUBM DR: Clifford Medina ? ENTERED: ??05/17/226 ?SP TYPE: Surgical ? OTHR DR: Lidia Mendoza MD ? ORDERED: ??HE Stain/3, Gross Micro L4 ? COMMENTS: One of the tissue fragments is extremely tiny and may be ?difficult to identify during processing and may fail to ?survive processing. ? Diagnosis ?? Colon, transverse, polypectomy: ??Hyperplastic mucosal polyp. ?Clinical History Pre-Op Dx: ??Heme positive stool Post-Op Dx: Polyp, diverticulosis, hemorrhoids ?Microscopic Description Microscopic sections reviewed. ? Material Received ?? Transverse colon polyp ? Gross Description Received in formalin labeled Transverse colon polyp are two glistening, semitranslucent, landrum and landrum-pink, irregular and papular tissue fragments, measuring less than 0.1 and 0.3 cm. in greatest dimension, which are submitted in toto in a single cassette labeled A. CEDS Copies To: ?? Lidia Mendoza MD ?? [address] ?? [place] [address] ? Clifford Medina ?? [address] [place] [address] [address] ?? [place] [address] ?? [phone] ----- ------- Signed (signature on file) Obi English MD 05/18/22 1331 ? ----- ------- ? END OF REPORT ? [facility] External Provider LAB BLO OD ORDERABLES Final Result Performing Organization Address [facility] de Phone Number [facility] [address] [place], [place] [phone] * (ABNORMAL) GLUCOSE, WHOLE BLOOD (05/17/2022 9:04 AM EST) Glucose, Whole Blood 153(H) 60 - 115 mg/dL [facility] Comment:METER #: [id number] 05/17/2022 9:04 AM EST 05/17/2022 9:12 AM EST [facility] External Provider LAB BLO OD ORDERABLES Final Result Performing Organization Address [facility] de Phone Number [facility] [address] [place] [address] [phone] documented in this encounter Visit Diagnoses Not on filedocumented in this encounter Care Teams Enrollment Advisor Relationship Specialty Start Date End Date Lidia Mendoza MD [address] [place] [address] PCP - General Family Medicine 04/09/18 Chana Mercado, AngelicD [address] [place] [address] Pharmacist Internal Medicine 09/05/22 Butch Baptiste MD [address] 3rd [place] [address] Cardiology 04/22/24 Valeria Moreau OD [address] [place] [address] Optometry 07/30/24 Dereje Ivey MD [address] [place] [address] Urology 08/06/24 documented as of this encounter
--- OUTSIDE RECORDS SUMMARY | 2024-08-11 09:16 | XMS_ITS | Encounter Summary ---
Author Organization [employer] [facility] Address [address] [facility] 7t [place] [address] Care Team Providers Care Quarantine Inspector Name Role Phone Lidia Mendoza MD Primary Care Provider + [phone] Chana Mercado PharmD Unavailable [phone] Butch Baptiste MD Unavailable [phone] Valeria Moreau OD Unavailable [phone] Dereje Ivey MD Unavailable [phone] Reason for Visit * Reason Onset Date Comments MRI 12/29/2022 Encounter Details Date Type Department Care Team (Late st Contact Info) Description 12/29/2022 Telephone [facility] [address] [place], [place] [phone] Lidia Mendoza MD [address] [place], [place] [phone] MRI Social History Tobacco Use Types Packs/Day Years [...] encounter Miscellaneous Notes * Telephone Encounter - Nasrin Gonzalez - 01/02/2023 1:07 PM EDT Tc from pt requesting a call back regarding status on MRI order . * Telephone Encounter - Brianna Gibbs - 12/29/2022 4:06 PM EDT Tc from Ashley stating she will be off Sunday and Sunday. Same contact number just ask for Vanessa Lieberman. * Telephone Encounter - Francy Montana - 12/29/2022 1:49 PM EDT Tc from Ashley at [facility] requesting for MRI urgent order being processed [place] [facility] Any further questions please call her at [phone]. documented in this encounter Plan of Treatment Upcoming Encounters Date Type Department Care Team (Late st Contact Info) Description 08/15/2024 2:00 PM EDT Medication Management [facility] [address] [place] [address] YousufsChana Chen, PharmD [address] [place] [address] documented as of this encounter Goals Goal [...] documented as of this encounter Care Teams Quarantine Inspector Relationship Specialty Start Date End Date Lidia Mendoza MD [address] [place] [address] PCP - General Family Medicine 04/09/18 Chana Mercado, AngelicD [address] [place] [address] Pharmacist Internal Medicine 09/05/22 Butch Baptiste MD [address]rd [place] [address] Cardiology 04/22/24 Valeria Moreau OD [address] [place] [address] Optometry 07/30/24 Dereje Ivey MD [address] [place] [address] Urology 08/06/24 documented as of this encounter
--- OUTSIDE RECORDS SUMMARY | 2024-08-11 09:16 | XMS_ITS | Encounter Summary ---
Author Organization [employer] Address 75 [facility] 7t [place] [address] Care Team Providers Care Academic Support Center Director Name Role Phone Lidia Mendoza MD Primary Care Provider + [phone] Chana Mercado PharmD Unavailable Butch Baptiste MD Unavailable +[phone] Valeria Moreau OD Unavailable [phone] Dereje Ivey MD Unavailable [phone] Reason for Visit * Reason Comments Med Refill Encounter Details Date Type Department Care Team (Late st Contact Info) Description 05/10/2023 Refill [facility] [address] [place], [place] [phone] Katya Barnes MD [address] [place], [place] [phone] Social History Tobacco Use Types Packs/Day Years [...] Description 08/15/2024 2:00 PM EDT Medication Management [facility] [address] [place] [address] YousufsAriadna Chensa, PharmD [address] [place] [address] documented as of this encounter Goals Goal [...] documented as of this encounter Care Teams Academic Support Center Director Relationship Specialty Start Date End Date Lidia Mendoza MD [address] [place] [address] PCP - General Family Medicine 04/09/18 Chana Mercado, AngelicD [address] [place] [address] Pharmacist Internal Medicine 09/05/22 Butch Baptiste MD [address] 3rd [place] [address] Cardiology 04/22/24 Valeria Moreau OD [address] [place] [address] Optometry 07/30/24 Dereje Ivey MD [address] [place] [address] Urology 08/06/24 documented as of this encounter
--- OUTSIDE RECORDS SUMMARY | 2024-08-11 09:17 | XMS_ITS | Encounter Summary ---
Author Organization [employer] [facility] Address 75 [facility] 7t [place] [address] Care Team Providers Care Hydro Excavation Operator Name Role Phone Lidia Mendoza MD Primary Care Provider + [phone] Chana Mercado PharmD Unavailable [phone] Butch Baptiste MD Unavailable [phone] Valeria Moreau OD Unavailable [phone] Dereje Ivey MD Unavailable [phone] Reason for Visit * Reason Comments Med Refill Encounter Details Date Type Department Care Team (Late st Contact Info) Description 12/05/2022 Refill [facility] [address] [place] [address] Shelley Renteria, ANP [address] [place] [address] Social History Tobacco Use Types Packs/Day Years [...] Description 08/15/2024 2:00 PM EDT Medication Management [facility] [address] [place] [address] Chana Mercado PharmD [address] [place] [address] documented as of this encounter Goals Goal Patient Goal Type Associated Problems Recent Progress Patient-Stated? Author Blood Pressure < 140/90 Blood Pressure 150/80(2024 2:50 PM EDT) No Chana Moncada PharmCarlos Hemoglobin A1c < 7 Result Component 7.1( 3:13 PM EDT) No Chana Moncada PharmD documented as of this encounter Visit Diagnoses Not on filedocumented in this encounter Additional Health Concerns Assessment Noted Time PHQ-9 Depression Total Score: 0 06/05/19 9:07 AM EST documented as of this encounter Care Teams Hydro Excavation Operator Relationship Specialty Start Date End Date Lidia Mendoza MD [address] [place] [address] PCP - General Family Medicine 04/09/18 Chana Mercado PharmD [address] [place] [address] Pharmacist Internal Medicine 09/05/22 Butch Baptiste MD [address]rd [place] [address] Cardiology 04/22/24 Valeria Moreau OD [address] [place] [address] Optometry 07/30/24 Dereje Ivey MD [address] [place] [address] Urology 08/06/24 documented as of this encounter
--- OUTSIDE RECORDS SUMMARY | 2024-08-11 09:17 | XMS_ITS | Encounter Summary ---
Author Organization [employer] Address 75 [facility] 7t [place] [address] Care Team Providers Care Reeling Machine Operator Name Role Phone Lidia Mendoza MD Primary Care Provider + [phone] Chana Mercado PharmD Unavailable Butch Baptiste MD Unavailable [phone] Valeria Moreau OD Unavailable Dereje Ivey MD Unavailable [phone] Reason for Visit * Reason Comments Med Refill Encounter Details Date Type Department Care Team (Late st Contact Info) Description 03/27/2023 Refill [facility] 230 [place], [place] [phone] Lidia Mendoza MD [address] [place], [place] [phone] Social History Tobacco Use Types Packs/Day Years [...] 08/15/2024 2:00 PM EDT Medication Management [facility] [address] [place] [address] YousufsChana Chen, PharmD [address] [place] [address] documented as of this encounter Goals Goal [...] documented as of this encounter Care Teams Reeling Machine Operator Relationship Specialty Start Date End Date Lidia Mendoza MD [address] [place] [address] PCP - General Family Medicine 04/09/18 YousufsChana Chen, PharmD [address] [place] [address] Pharmacist Internal Medicine 09/05/22 Butch Baptiste MD [address] 3rd [place] [address] Cardiology 04/22/24 Valeria Moreau OD [address] [place] [address] Optometry 07/30/24 Dereje Ivey MD [address] [place] [address] Urology 08/06/24 documented as of this encounter
--- OUTSIDE RECORDS SUMMARY | 2024-08-11 09:17 | XMS_ITS | Encounter Summary ---
Author Organization [employer] [facility] Address 75 [facility] 7t [place] [address] Care Team Providers Care Machine Heddle Cleaner Name Role Phone Lidia Mendoza MD Primary Care Provider Chana Mercado PharmD Unavailable [phone] Butch Baptiste MD Unavailable Valeria Moreau OD Unavailable [phone] Dereje Ivey MD Unavailable [phone] Reason for Visit * Reason Comments Med Refill Encounter Details Date Type Department Care Team (Late st Contact Info) Description 12/25/2022 Refill [facility] [address] [place], [place] [phone] Lidia Mendoza MD [address] [place] [address] Primary hypertension Social History Tobacco Use Types [...] [facility] [address] [place] [address] Chana Mercado PharmD [address] [place] [address] documented as of this encounter Goals Goal [...] documented as of this encounter Care Teams Machine Heddle Cleaner Relationship Specialty Start Date End Date Lidia Mendoza MD [address] [place] [address] PCP - General Family Medicine 04/09/18 Chana Mercado PharmD [address] [place] [address] Pharmacist Internal Medicine 09/05/22 Butch Baptiste MD [address] 3rd [place] [address] Cardiology 04/22/24 Valeria Moreau OD [address] [place] [address] Optometry 07/30/24 Dereje Ivey MD [address] [place] [address] Urology 08/06/24 documented as of this encounter
--- OUTSIDE RECORDS SUMMARY | 2024-08-11 09:17 | XMS_ITS | Encounter Summary ---
Author Organization [employer] Address 75 [facility] 7t [place] [address] Care Team Providers Care Clamp Truck Driver Name Role Phone Lidia Mendoza MD Primary Care Provider + [phone] Chana Mercado PharmD Unavailable Butch Baptiste MD Unavailable [phone] Valeria Moreau OD Unavailable [phone] Dereje Ivey MD Unavailable [phone] Encounter Details Date Type Department Care Team (Late st Contact Info) Description 04/10/2023 Orders Only [facility] [address] [place], [place] [phone] Lidia Mendoza MD 230 [place], [place] [phone] Positive TB test Social History Tobacco Use Types Packs/Day Years [...] Description 08/15/2024 2:00 PM EDT Medication Management [facility] [address] [place] [address] YousufsChana Chen, PharmD 230 [place] [address] documented as of this encounter Goals Goal Patient Goal Type Associated Problems Recent Progress Patient-Stated? Author Blood Pressure < 140/90 Blood Pressure 150/80(2024 2:50 PM EDT) No Piers-Gambl e, Chana, PharmD Hemoglobin A1c < 7 Result Component 7.1( 3:13 PM EDT) No Piers-Gambl e, Chana, PharmD documented as of this encounter Visit Diagnoses Diagnosis Positive TB test documented in this encounter Additional Health Concerns Assessment Noted Time PHQ-9 Depression Total Score: 0 06/05/19 23 9:07 AM EST documented as of this encounter Care Teams Clamp Truck Driver Relationship Specialty Start Date End Date Lidia Mendoza MD [address] [place] [address] PCP - General Family Medicine 04/09/18 Yousufs-Chana Holland, PharmD [address] [place] [address] Pharmacist Internal Medicine 09/05/22 Butch Baptiste MD [address]rd [place] [address] Cardiology 04/22/24 Valeria Moreau OD [address] [place] [address] Optometry 07/30/24 Dereje Ivey MD [address] [place] [address] Urology 08/06/24 documented as of this encounter
--- OUTSIDE RECORDS SUMMARY | 2024-08-11 09:17 | XMS_ITS | Encounter Summary ---
Author Organization [employer] [facility] Address 75 [facility] 7t [place] [address] Care Team Providers Care Client Administrator Name Role Phone Lidia Mendoza MD Primary Care Provider + [phone] Chana Mercado PharmD Unavailable Butch Baptiste MD Unavailable [phone] Valeria Moreau OD Unavailable [phone] Dereje Ivey MD Unavailable [phone] Reason for Visit * Reason Comments Med Change Request Encounter Details Date Type Department Care Team (Late st Contact Info) Description 03/20/2023 Refill [facility] [address] [place], [place] [phone] Lidia Mendoza MD [address] [place], [place] [phone] Generalized anxiety disorder Social History Tobacco Use Types Packs/Day Years [...] Description 08/15/2024 2:00 PM EDT Medication Management [facility] [address] [place] [address] YousufsChana Chen, PharmD [address] [place] [address] documented as of this encounter Goals Goal Patient Goal Type Associated Problems Recent Progress Patient-Stated? Author Blood Pressure < 140/90 Blood Pressure 150/80(2024 2:50 PM EDT) No Piers-Gambl e, Chana, PharmD Hemoglobin A1c < 7 Result Component 7.1( 3:13 PM EDT) No Piers-Gambl e, Chana, PharmD documented as of this encounter Visit Diagnoses Diagnosis Generalized anxiety disorder documented in this encounter Additional Health Concerns Assessment Noted Time PHQ-9 Depression Total Score: 0 06/05/19 23 9:07 AM EST documented as of this encounter Care Teams Client Administrator Relationship Specialty Start Date End Date Lidia Mendoza MD [address] [place] [address] PCP - General Family Medicine 04/09/18 Chana Mercado, PharmD [address] [place] [address] Pharmacist Internal Medicine 09/05/22 Butch Baptiste MD [address] 3rd [place] [address] Cardiology 04/22/24 Valeria Moreau OD [address] [place] [address] Optometry 07/30/24 Dereje Ivey MD [address] [place] [address] Urology 08/06/24 documented as of this encounter
--- OUTSIDE RECORDS SUMMARY | 2024-08-11 09:17 | XMS_ITS | Encounter Summary ---
Author Organization [employer] [facility] Address [address] [facility] 7t [place] [address] Care Team Providers Care Charging Car Operator Name Role Phone Lidia Mendoza MD Primary Care Provider + [phone] Chana Mercado PharmD Unavailable Butch Baptiste MD Unavailable [phone] Valeria Moreau OD Unavailable [phone] Dereje Ivey MD Unavailable [phone] Reason for Visit * Reason Comments Med Refill Encounter Details Date Type Department Care Team (Late st Contact Info) Description 12/05/2022 Refill [facility] [address] [place], [place] [phone] Lidia Mendoza MD 230 [place], [place] [phone] Social History Tobacco Use Types Packs/Day Years [...] Description 08/15/2024 2:00 PM EDT Medication Management [facility] [address] [place] [address] Chana Mercado PharmD [address] [place] [address] documented as of this encounter Goals Goal [...] documented as of this encounter Care Teams Charging Car Operator Relationship Specialty Start Date End Date Lidia Mendoza MD [address] [place] [address] PCP - General Family Medicine 04/09/18 Chana Mercado PharmD 230 [place] [address] Pharmacist Internal Medicine 09/05/22 Butch Baptiste MD [address]rd [place] [address] Cardiology 04/22/24 Valeria Moreau OD [address] [place] [address] Optometry 07/30/24 Dereje Ivey MD [address] [place] [address] Urology 08/06/24 documented as of this encounter
--- OUTSIDE RECORDS SUMMARY | 2024-08-11 09:17 | XMS_ITS | Encounter Summary ---
Author Organization [employer] [facility] Address 75 [facility] 7t [place] [address] Care Team Providers Care Correctional Classification Counselor Name Role Phone Lidia Mendoza MD Primary Care Provider + [phone] Chana Mercado PharmD Unavailable Butch Baptiste MD Unavailable [phone] Valeria Moreau OD Unavailable Dereje Ivey MD Unavailable [phone] Reason for Visit * Reason Comments Med Refill Encounter Details Date Type Department Care Team (Late st Contact Info) Description 12/07/2022 Refill [facility] [address] [place] [address] Shelley Renteria, ANP [address] [place] [address] Social History Tobacco Use Types Packs/Day Years [...] Description 08/15/2024 2:00 PM EDT Medication Management [facility] [address] [place] [address] Chana Mercado PharmD [address] [place] [address] documented as of this encounter Goals Goal [...] documented as of this encounter Care Teams Correctional Classification Counselor Relationship Specialty Start Date End Date Lidia Mendoza MD [address] [place] [address] PCP - General Family Medicine 04/09/18 Chana Mercado PharmD [address] [place] [address] Pharmacist Internal Medicine 09/05/22 Butch Baptiste MD [address]rd [place] [address] Cardiology 04/22/24 Valeria Moreau OD [address] [place] [address] Optometry 07/30/24 Dereje Ivey MD [address] [place] [address] Urology 08/06/24 documented as of this encounter
--- OUTSIDE RECORDS SUMMARY | 2024-08-11 09:17 | XMS_ITS | Encounter Summary ---
Author Organization [employer] [facility] Address [address] [facility] 7t [place] [address] Care Team Providers Care Photographic Equipment Inspector Name Role Phone Lidia Mendoza MD Primary Care Provider + [phone] Chana Mercado PharmD Unavailable [phone] Butch Baptiste MD Unavailable [phone] Valeria Moreau OD Unavailable [phone] Dereje Ivey MD Unavailable [phone] Reason for Visit * Reason Comments Med Refill Encounter Details Date Type Department Care Team (Late st Contact Info) Description 12/25/2022 Refill [facility] [address] [place] [address] Shelley Renteria, ANP [address] [place] [address] Social History Tobacco Use Types Packs/Day Years [...] Description 08/15/2024 2:00 PM EDT Medication Management [facility] [address] [place] [address] Chana Mercado PharmD [address] [place] [address] documented as of this encounter Goals Goal [...] documented as of this encounter Care Teams Photographic Equipment Inspector Relationship Specialty Start Date End Date Lidia Mendoza MD [address] [place] [address] PCP - General Family Medicine 04/09/18 Chana Mercado PharmD [address] [place] [address] Pharmacist Internal Medicine 09/05/22 Butch Baptiste MD [address]rd [place] [address] Cardiology 04/22/24 Valeria Moreau OD [address] [place] [address] Optometry 07/30/24 Dereje Ivey MD [address] [place] [address] Urology 08/06/24 documented as of this encounter
--- OUTSIDE RECORDS SUMMARY | 2024-08-11 09:17 | XMS_ITS | Data Portability ---
Author Organization [employer] [facility] Address [address] [place] [phone] Care Team Providers Care Carpet Yarn Winder Operator Name Role Phone CCA PRIMARY CARE Referring Provider Assessment Encounter Date Assessment Date Assessment LastModified by Organization Details LastModified Time 10/11/2022 10/11/2022 I provided real -time medical direction via phone for this encounter, and was available for additional phone based assistance as needed. I have reviewed and agree with the Assessment and Plan as documented by the Carding Machine Feeder. Patient given the opportunity to ask questions. As per above, patient with low back pain which is acute on chronic today. No red flags. Patient with no incontinence, no constipation or diarrhea, no loss of bowel bladder function, no issues with ambulation. No loss of function of the lower extremities or no loss of sensation. Per well service floorperson exam is in usual state of health except for pain. Prescribed Toradol 15 mg IM x1 and will have patient follow-up with primary care provider regarding further instructions and treatment options. Red flags discussed and all questions answered. [email or web address] Not available 10/11/2022 20:26:21 10/25/2022 10/25/2022 I provided real -time medical direction via phone for this encounter, and was available for additional phone based assistance as needed. I have reviewed and agree with the Assessment and Plan as documented by the Carding Machine Feeder. Patient given the opportunity to ask questions. Advised if develops worsening CP/severe SOB/turning blue/uncontrolle d n/v/d or black/bloody emesis or stool/ AMS/ syncope/ hi fever unresponsive to APAP to call 911-patient and a cabin verbalized understanding of instructions [email or web address] Not available 10/25/2022 11:58:31 Plan of Treatment Reminders Order Date Submit Date Provider Last Modified By Organization Details Last Modified Time Details Appointments None recorded. Lab glucose, fingerstick , blood 2022 023 [email or web address] 0 [facility], [address] [place] [address], [id number] 3 11:55:00 Referral None recorded. Procedures None recorded. Surgeries None recorded. Imaging electrocard iogram 2022 023 [email or web address] 0 [facility], [address] [place] [address], [phone] 3 11:55:00 Medication Orders nystatin 100,000 unit/mL oral suspension 2022 023 [id number], [address] [place], [address], 12:02:17 ketorolac 15 mg/mL injection solution 2022 023 [email or web address] Not available 20:24:52 Patient TargetsNo targets recorded. Patient InstructionsNo instructions recorded. Reason for Referral None Reported. Results Created Date Observation Date Name Description Value Unit Range Abnormal Flag Note LastModifiedBy Organization Detail LastModifiedTime 10/26/1910/25/2022 gluco se, finge rstic k, blood Blood Glucose: mg/dl 157 Not Available [address], [address] 10/25/2022 11:33:37 10/26/19 23 10/25/2022 elect alfredo peraltagr am No observ ation record ed. [email or web address] [address], [phone] 10/25/2022 11:55:01 Result Notes None recorded. Procedures Surgical History None recorded. Imaging Results Imaging Date Name Status LastModified by Organization Details LastModified Time 10/25/2022 electrocardiogram completed [email or web address] [address], [address] 10/25/2022 11:55:01 Procedure Notes None recorded. Medical Equipment None Reported. Allergies Allergen ID Allergen Name Allergen Category Reaction Reaction Severity Criticality Documentation Date Start Date Code Code System Note Provider Name and Address Organization Details Recorded Time 2827 acetamino phen / oxycodone medicatio n Not available Not available Not available 10/25/2022 85010 3 RxNorm Whit Drew MD [address] [facility],[address], [place], [address] , [facility] - [employer], [employer] 3 11:29:14 2828 Product containin g penicilli n (product) medicatio n Not available Not available Not available 10/25/2022 29637 8001 SNOMED Not Available [facility] - production 4 03:46:19 Medications Name Sig Start Date Stop Date Status Note LastModified by Organization Details LastModified Time atorvastatin 40 mg tablet TAKE 1 TABLET BY MOUTH AT BEDTIME active Not Available Not Available No t Available metformin 500 mg tablet TAKE 1 TABLET BY MOUTH EVERY DAY active Not Available Not Available No t Available nystatin 100,000 unit/mL oral suspension SWISH AND SWALLOW 5 ML BY MOUTH 3 TIMES A DAY FOR 10 DAYS active Not Available Not Available No t Available trazodone 50 mg tablet TAKE 1 TABLET BY MOUTH EVERY DAY AT BEDTIME NEEDED active Not Available Not Available No t Available ibuprofen 800 mg tablet TAKE 1 TABLET BY MOUTH TWICE A DAY WITH FOOD NEEDED active Not Available Not Available No t Available FreeStyle Lancets 28 gauge USE TO TEST ONCE DAILY active Not Available Not Available No t Available amlodipine 2.5 mg tablet TAKE 1 TABLET BY MOUTH IN THE MORNING active Not Available Not Available No t Available amlodipine 5 mg tablet TAKE 1 TABLET BY MOUTH DAILY active Not Available Not Available No t Available tamsulosin 0.4 mg capsule TAKE 1 CAPSULE AT BEDTIME active Not Available Not Available No t Available metformin 1,000 mg tablet TAKE 1 TABLET BY MOUTH EVERY DAY active Not Available Not Available No t Available lidocaine 5 % topical patch active Not Available Not Availabl e Not Available gabapentin 300 mg capsule active Not Available Not Available Not Available sertraline 25 mg tablet TAKE 1 TABLET BY MOUTH EVERY DAY IN THE MORNING active Not Available Not Available No t Available bisacodyl 5 mg tablet,delaye d release TAKE 2 TABLETS BY MOUTH AT 3PM AND 2 TABLETS AT 7PM FOR ONE DAY active Not Available Not Available No t Available metoprolol succinate ER 25 mg tablet,extend ed release 24 hr TAKE 1 TABLET BY MOUTH ONCE DAILY. DO NOT CRUSH OR CHEW. active Not Available Not Available No t Available losartan 100 mg tablet TAKE 1 TABLET BY MOUTH EVERY DAY active Not Available Not Available No t Available finasteride 5 mg tablet TAKE 1 TABLET BY MOUTH EVERY DAY active Not Available Not Available No t Available loratadine 10 mg tablet TAKE 1 TABLET BY MOUTH EVERY DAY active Not Available Not Available No t Available Januvia 100 mg tablet TAKE 1 TABLET BY MOUTH EVERY DAY active Not Available Not Available No t Available FreeStyle Lite Strips USE 4X DAILY active Not Available Not Available No t Available FreeStyle [place] Lite kit USE DIRECTED TWICE A DAY active Not Available Not Available No t Available blood pressure test kit-large cuff USE TO CHECK BLOOD PRESSURE DIRECTED active Not Available Not Available No t Available Gavilax 17 gram/dose oral powder DRINK ENTIRE CONTAINER WITH GATORADE OR CRYSTAL LIGHT STARTING AT 5 PM THE DAY BEFORE PROCEDURE active Not Available Not Available No t Available Vitals Date Recorded Respiratory rate Oxygen saturation Oxygen saturation in Arterial blood by Pulse oximetry Body temperature Heart rate Systolic blood pressure Diastolic blood pressure Provider Name and Address Organization Details Last Updated DateTime 3 16 /min 99 % 99 % 98 [degF] 81 /min 151 mm[Hg] 93 mm[Hg] Not Available [employer] 3 20:23:42 Date Recorded Oxygen saturation Oxygen saturation in Arterial blood by Pulse oximetry Respiratory rate Body temperature Heart rate Systolic blood pressure Diastolic blood pressure Provider Name and Address Organization Details Last Updated DateTime 3 98 % 98 % 16 /min 97.5 [degF] 86 /min 140 mm[Hg] 82 mm[Hg] Not Available [employer] 3 11:28:46 Date Recorded Body weight Provider Name an d Address Organization Details Last Updated DateTime 10/25/2022 08778.96 g Jaylin Marks [address] [place] [address],[address], [place], [place], [address] [place] [address] [facility] 10/25/2022 11:51:05 Social History None recorded. Functional Status None recorded. Mental Status None recorded. Family History Nothing Reported. Medical History No medical history recorded. Past Encounters Encounter ID Performer Location Encounter Start Date Encounter Closed Date Diagnosis/Indication Diagnosis SNOMED-CT Code Diagnosis ICD10 Code Diagnosis Note [id number] April Leary MD [facility] [address] [place] [phone] 10/11/2022 20:23:39 10/12/2022 10:20:09 Chronic low back pain 181854175 M54.50 [id number] Whit Drew MD [facility] - [facility] [address] [place] [address] 10/25/2022 11:28:34 10/25/2022 23:13:23 Chest pain 80387847 R07.9 Advised the patient and his that while his EKG is non-concer juan c we cannot fully evaluate for cardiac disease in the home he was pain-free during the exam-advis ed better to evaluate an EKG while having the chest pain-he needs repeat EKG and lab work that we are unable to do and to rule out ACS he needs to go to the emergency room. He and his verbalized understand ing discussed the risk of unidentifi ed CAD and he is refusing to go to the ER. I encouraged close follow-up with his PCP tomorrow and we reviewed red flags Also advised limiting taking his blood pressure to twice a day to reduce anxiety. I suggested several hours after his morning antihypert ensive and then again at dinner Candidiasis of mouth 797 38896 B37.0 likely thrush Health Concerns Section Related Observation LastModified by Organization Detai ls LastModified Time None Recorded Concern Status LastModified by Organization Details LastModified Time None Recorded Advance Directives Directive None Recorded Payers Encounter Date Sequence Insurance Name Policy Number Policy Lee Covered Member ID Lee Member ID Guarantor Name 10/11/2022 1 [facility] - DOS ON OR AFTER 2022 - DUAL ELIGIBLE - SNF OPTIONS AND ONE CARE (MEDICARE REPLACEMENT/ADV ANTAGE - HMO) Abdirizak Camp [id number] Abdirizak Camp 10/25/2022 1 [facility] - DOS ON OR AFTER 2022 - DUAL ELIGIBLE - SNF OPTIONS AND ONE CARE (MEDICARE REPLACEMENT/ADV ANTAGE - HMO) Abdirizak Camp [id number] Abdirizak Camp Notes Date Note Type Note Provider Name and Address Organization Details Recorded Time 10/11/2022 text/html HPI: Member's , Macarena, called [facility], to report member has severe back pain. Member has chronic back pain, dating back to 2020. PCP has prescribed ibuprofen, with no effect. Member is able to walk, but with some difficulty d/t pain. Denies numbness, tingling, or dragging. Denies urinary sx's. Last dose of ibuprofen, this morning. Member is requesting home visit for evaluation and pain management. ................... ................... ................... ................... ................... ................... ................... ........ CRC Nursing Assessment: Comments: CRC RN DID NOT NEED FURTHER INFO ................... ................... ................... ................... ................... ................... ................... ........ Carding Machine Feeder Note From Lola Mcclendon: Community Carding Machine Feeder Aletha Mcclendon CCA1 dispatched to a [facility] for a 72 yom C/O back pain. Upon arrival, the pt was sitting in his living room, awake and alert, SALGUERO X4, in no apparent distress. His daughter and grandson on scene translated for him (Chinese speaking only). He stated he had chronic back pain for years, and had an x-ray 2 yrs prior showing abnormal disc spacing in his lumbar spine (degenerative/herni ated disc/arthritis-unkn own diagnosis). He stated that lately the pain had become more frequent and more intense. He stated he had occasionally been taking ibuprofen w/ little effect, and that he had an appt w/ his PCP in 10 days. He denied any recent falls/trauma, numbness/tingling, incontinence. He denied any dizziness, fever, cough, sore throat, CP, SOB, abd pain, or urinary S/S. CMS present and equal in all extremities, no pedal edema. He denied any kidney or liver dysfunction. Pt indicated pain from both SI joints bilaterally/externa lly to his hip; he denied the pain being more on his left or right side, stating that they were equally as painful. Both paraspinals were extremely rigid. No abnormalities found to spine/spinous processes. C consulted; pt was given 15 mg ketorolac IM, and general S/S mgmt was discussed at length. Pt was instructed to receive an x-ray DEMETRIUS, and to contact his PCP for a specialist referral as well. Red flags discussed. ................... ................... ................... ................... ................... ................... ................... ........ Disposition: Nicho April Leary MD [address] [place] [address],[address], [place], [phone], [employer] 10/11/2022 20:26:52 10/25/2022 text/html HPI: Member's Macarena called into [facility] stating Abdirizak has anxiety, CP, sore throat and his BP has been high and the call was transferred to [facility]. Macarena states that Abdirizak has high anxiety and he went to the ER on October 18 with CP a BP of 179/108 and they increased her Amlodipine and the cardiac work up was negative. Macarena states that Abdirizak has been on Zoloft for about a month. She states that Abdirizak is complaining of headache, sore throat, and his BP this morning about three hours after his medicine was 166/90. She states he is moaning and states his CP is 7/10. Macarena does not want to take him back to the ER. ................... ................... ................... ................... ................... ................... ................... ........ CRC Nursing Assessment: Comments: Call to /member to gain additional information, no answer- Jose Juan DESTINEE: Patient poor historian. He reports he was very anxious before going to bed last night and could not sleep then he developed chest pain. He reports the chest pain comes and goes lasting 5 to maybe 10 minutes since last night. It radiates to his left shoulder when it comes, he cannot describe the quality. The pain is slightly worse with respiration but he denies shortness of breath, sweating or abdominal pain, nausea/vomiting/branden rrhea. He reports taking a deep breath makes the pain slightly worse. He has developed a cough since the onset of chest pain which is dry but that makes his throat hurt. He denies recent antibiotic use- He is Diabetic/ also hx HTN/ HPL/ chronic LBP/ anxiety and depression. He denies family history of cardiac disease and he is a former smoker who quit 15 years ago. He was seen in the ER on 10/18 for similar chest pain. According to his they did an EKG/ cxr and lab work and told him it was nl and CP due to anxiety. Patient is taking his blood pressure multiple times a day which increases his anxiety. Patient is currently pain-free.......... ................... ................... ................... ................... ................... ................... .................. Carding Machine Feeder Note From Lola Mcclendon: [facility] Carding Machine Feeder Aletha Mcclendon CCA1 dispatched to a [facility] for a 72 yom C/O CP and cough. Upon arrival, the pt was ambulatory, SALGUERO X4, in no apparent distress. The pt's translated for him (fluent/bilingual-S panish). He stated that he had been experiencing intermittent CP recently, and was seen in the ED a week prior for the same pain. He stated his EKG, bloodwork, and x-ray were all inconclusive, and that his PCP cleared him as well. His amlodipine was increased from 2.5 mg to 5 mg daily, and it was recommended to him that he work w/ his counselor to decrease his anxiety. He stated he had been taking zoloft for about 6 weeks, but felt very anxious/ excited at that time. He denied any CP [facility]. He stated he was lying in bed the night prior because he could not sleep, and became afraid that he would have CP again, and then he had substernal CP that radiated up into his left shoulder that lasted 5-10 min. He denied any headache, dizziness, diaphoresis, palor, vision changes, SOB, abd pain, N/V/D, or urinary S/S. Lung sounds clear throughout, no pedal edema. Pt stated he had a dry cough for 24 hours (w/ no increase in phlegm/sputum), as well as a sore throat when coughing and a slight increase in CP when taking a deep breath. Flu, strep, and covid negative. [facility] consulted; [facility]. [facility] visualized pt's mouth/throat, and he was given a rx for nystatin swish and swallow. It was explained to the pt and his that [facility] is unable to rule out cardiac events in the home, and that he should seek medical attn in the ED in the event of CP. The pt and his verbalized understanding, but refused 911 at that time. They stated the pt would be seeing his counselor that day. Red flags were discussed at length. ................... ................... ................... ................... ................... ................... ................... ........ Disposition: Fulfilled Whit Drew MD [address] [facility],[address], [place], [address], [employer] [employer] [employer] 10/25/2022 12:36:14
[2024-08-11 11:39] LABS: Estimated Average Glucose 157 mg/dL; Hemoglobin A1C 198.2527 umol/L; Hemoglobin A1c % 7.1 % (<6.0); Total Hemoglobin (HGBA1C) 3664.7946 umol/L
[2024-08-11 12:07] LABS: Alanine Aminotransferase 23 U/L (0-40); Albumin Level 4.3 g/dL (3.5-5.0); Alkaline Phosphatase 74 U/L (39-117); Anion Gap 11 (12-20); Aspartate Amino Transferase 22 U/L (5-37); Bilirubin Direct 0.1 mg/dL (0.0-0.5); Bilirubin Total 0.4 mg/dL (0.0-1.0); Blood Urea Nitrogen 7 mg/dL (9-16); Calcium 9.2 mg/dL (8.4-10.2); Carbon Dioxide 24 mmol/L (22-29); Chloride 109 mmol/L (96-108); Cholesterol 107 mg/dL (<200); Estimated Glomerular Filt Rate > 60; Glucose Random 147 mg/dL (60-115); Potassium 3.9 mmol/L (3.3-5.1); Sodium 140 mmol/L (135-145); Total Protein 7.2 g/dL (6.5-8.0); Triglycerides 165 mg/dL (<150)
[2024-08-11 12:14] LABS: Prostate Specific Antigen 1.01 ng/mL (<0.05-4.0)
[2024-08-11 12:40] LABS: HDL Cholesterol 34 mg/dL (>40); LDL Cholesterol Calculated 40 mg/dL (<100)
[2024-08-11 13:00] LABS: Creatinine Urine 190.78 mg/dL
== END 2024-08-11 08:51 | disposition home or self-care (01) ==
LOC: HO.HHCL 08:50
PROVIDERS: Nurse Practitioner Family; Visit Provider Family Medicine
DX: Z12.5 Encounter for screening for malignant neoplasm of prostate (principal); E78.5 Hyperlipidemia, unspecified; E11.9 Type 2 diabetes mellitus without complications; R35.0 Frequency of micturition; N40.1 Benign prostatic hyperplasia with lower urinary tract symptoms
CPT/HCPCS: 36415; 80048; 80061; 80076; 82043; 82570; 83036; 84153

== ENCOUNTER 2024-11-13 13:46 | Outpatient (AMB) | payer OTHER, SELFPAY ==
--- NOTE | 2024-11-13 13:51 | MHC.OFFVIS ---
Intake Visit Reasons: follow up/PSA/PVR(set) Intake Note: Patient is present for PSA/PVR Urology Medication:TAMSULOSIN, FINASTERIDE Antibiotic Allergy:PENICILLINS Blood Thinner:NONE TODAY'S PVR:0ML'S Sign Carpenter Required: No Sign Carpenter Name: Juan [id number] Allergies Penicillins Allergy (Mild, Verified 11/13/24 14:23) RASH acetaminophen (From Percocet) Allergy (Unknown, Verified 11/13/24 14:23) Anxiety oxycodone (From Percocet) Allergy (Unknown, Verified 11/13/24 14:23) Anxiety penicillin V Allergy (Unknown, Verified 11/13/24 14:23) rash zolpidem (From Ambien) Adverse Reaction (Verified 11/13/24 14:23) Unknown Medication List - Last Reconciled 11/13/24 by IRMA Pastrana- amlodipine 5 mg PO DAILY atorvastatin 40 mg PO DAILY blood sugar diagnostic (FreeStyle Lite Strips) 4x daily finasteride 5 mg PO DAILY 90 days lancets As directed losartan 100 mg PO DAILY melatonin 1 mg PO BEDTIME PRN metformin 1,000 mg PO BID metoprolol succinate ER 25 mg PO DAILY sertraline 50 mg PO DAILY sitagliptin phosphate (Januvia) 100 mg PO DAILY 30 days tamsulosin (Flomax) 0.4 mg PO BEDTIME 90 days HPI Comments Details: Abdirizak de santiago is a pleasant 74-year-old Eritrean-speaking male patient of Dr. Mendoza who was accompanied by his significant other at today's office visit. He has a past medical history of ED, bladder neck contracture, vitamin-D deficiency, anxiety, hyperlipidemia, hypertension, and diabetes. He presents to the office today for follow-up of his incomplete bladder emptying and urinary tract infections. In discussion with the patient today reports to be doing and feeling well. He denies having had any bothersome urinary issues or concerns in over a year. He reports compliance with finasteride and Flomax as prescribed however has ran out of refills in his requesting refills. In office urinalysis results reviewed with the patient today. PVR 0 mL. Recent PSA results reviewed with the patient today as noted and trended below. We did discussed importance of following up as planned as patient has not been seen since 02/2023. When asked he denies urinary urgency, urinary frequency, incontinence, nocturia, hematuria, dysuria, foul smelling urine, changes to urinary stream, flank pain, fever, and or chills. He is happy with his current voiding parameters on finasteride and Flomax daily. He otherwise denies any other issues or concerns at this time. PSAs are as follows 01/25 1.4, 11/28 0.5, 03/01 0.5, 08/31 1.0 PFSH Medical History Erectile dysfunction Bladder neck contracture Non-healing surgical wound Rash Vitamin D deficiency Anxiety COVID-19 HLD (hyperlipidemia) HTN (hypertension) T2DM (type 2 diabetes mellitus) Hypertension Surgical History Hx of removal of cyst History of prostate surgery Family History Father Cancer Mother Cancer Diabetes Social History Housing: Apartment Alcohol intake: former Patient Tobacco Use Status: Former Tobacco user Cigarette Packs Per Day: 1 Cigarettes Per Day: 20.0 Years Smoked: 20 Advance Directives Date on File: 03/04/23 service: No Current occupational status: retired Review of Systems Eyes Reports no additional complaints ENT Reports no additional complaints Card Reports as per HPI Resp Reports no additional complaints GI Reports no additional complaints Reports as per HPI Musc Reports no additional complaints Neuro Reports no additional complaints Psych Reports no additional complaints Endo Reports as per HPI Graham/Lymph Reports no additional complaints Aller/Immun Reports no additional complaints Physical Exam Const General: cooperative, healthy appearing, comfortable, no acute distress, well developed, alert and awake Orientation/consciousness: patient oriented x3 Limitations: language barrier HEENT Head: Yes normal to inspection, Yes normocephalic and Yes atraumatic Ears: hearing grossly normal bilaterally Eyes General: appearance normal, both eyes and all related structures Neck Neck: Yes normal visual inspection and Yes trachea midline Chest Chest palpation & inspection: normal inspection of the chest Resp Effort & Inspection: normal respiratory effort and able to speak in complete sentences Cardio Rate: regular rate GI Inspection: Yes normal to inspection General: Yes no CVA tenderness Back/Spine/Pelvis Back: no CVA tenderness Skin General skin exam: no rashes or lesions noted Neuro General: patient oriented x3 Extrem General: Yes normal to inspection Psych Appearance: grossly normal and well kempt Mental Status: mental status grossly normal Speech and movement: Normal speech and movement present and Clear speech present Affect: normal affect Attitude: cooperative Thought process: Normal thought process present Thought content: Normal thought content present Insight: Fair insight present (Psych) Judgement: Fair judgement present (Psych) Office Procedures Post Void Residual Post Residual Void Post Void Residual (PVR): 0 15864-Dgnd Void Residual by ultrasound Results AMB Urinalysis, Automated UA Leukoctes 0 Scottie/uL Last Edit by VERONICA Gil on 11/13/24 14:25 UA Nitrite Negative Last Edit by VERONICA Gil on 11/13/24 14:25 UA Urobilinogen 0.2 mg/dL Last Edit by Huang Coyne CCM on 11/13/24 14:25 UA Protein 15 mg/dL Last Edit by Huang Coyne CCM on 11/13/24 14:25 UA pH 6.0 Last Edit by Huang Coyne [facility] on 11/13/24 14:25 UA Blood 0 Pipo/uL Last Edit by VERONICA Gil on 11/13/24 14:25 UA Specific [place] 1.015 Last Edit by Huang Coyne CCM on 11/13/24 14:25 UA Ketone Positive Last Edit by Huang Coyne CCM on 11/13/24 14:25 UA Bilirubin 1 mg/dL Last Edit by Huang Coyne CCM on 11/13/24 14:25 UA Glucose 0 mg/dL Last Edit by Huang Coyne [facility] on 11/13/24 14:25 Assessment & Plan Assessment & Plan (1) BPH associated with nocturia: Code(s): N40.1 - Benign prostatic hyperplasia with lower urinary tract symptoms; R35.1 - Nocturia Category: Medical (2) Urinary retention with incomplete bladder emptying: Code(s): R33.9 - Retention of urine, unspecified Category: Medical Plan In office urinalysis results with the patient today; as noted above. PVR 0 mL. He currently denies any bothersome urinary issues or concerns. He reports be happy with current voiding parameters. We discussed importance of follow-up as planned for continuity of care. Recent PSA results reviewed with the patient today; as noted above. Continue finasteride and Flomax as prescribed; refill provided. Follow-up in 1 year with PSA and PVR; or sooner with any issues, concerns, and or questions. Orders: Orders AMB Urinalysis Automated Today Z13.9 - Encounter for screening, unspecified Prostate Specific Antigen 1 Year N40.1 - Benign prostatic hyperplasia with lower urinary tract symptoms, R33.9 - Retention of urine, unspecified, R35.1 - Nocturia Medications: Refilled tamsulosin (Flomax) 0.4 mg PO BEDTIME 90 caps 3RF 90 days N40.1 - Benign prostatic hyperplasia with lower urinary tract symptoms, R35.1 - Nocturia finasteride 5 mg PO DAILY 90 tabs 4RF 90 days N40.1 - Benign prostatic hyperplasia with lower urinary tract symptoms, R33.9 - Retention of urine, unspecified, R35.1 - Nocturia Patient Instructions: The patient had an opportunity to ask questions regarding the treatment plan. All questions were answered. Physical exam, labs, and imaging were discussed and reviewed in detail. As well as risks, benefits, and discussion of treatment choices. No major barriers to understanding were identified. The patient expressed understanding and agreement with the above treatment plan. The patient was made aware they should contact our office by phone for worsening of their current condition, the appearance of new symptoms, or with any questions or concerns. Compliance is encouraged with any medications and follow up testing that is ordered. It is a privilege to be allowed the opportunity to participate in? your urological care.? Again, if you have any questions or concerns If you have any questions or concerns please do not hesitate to contact me. The office is [phone]. This note is constructed using voice recognition software. While every effort has been made to ensure accuracy equine science instructor errors may have been included. Yours sincerely, GANESH Pastrana Coding Level of Care Code Est Pt Level 3 (72117) Complex EM visit Add On G2211 Diagnoses BPH associated with nocturia N40.1; R35.1 Urinary retention with incomplete bladder emptying R33.9 CPT Codes Post Residual Void - PVR CPT Code: 36121-Mxci Void Residual by ultrasound ([id number])
--- OUTSIDE RECORDS SUMMARY | 2024-11-13 13:51 | XMS_ITS | Encounter Summary ---
Author Organization [employer] Address [address] [facility] [address] [place] [address] Care Team Providers Care Underwater Welder Name Role Phone Lidia Mendoza MD Primary Care Provider + [phone] Chana Mercado PharmD Unavailable [phone] Butch Baptiste MD Unavailable [phone] Valeria Moreau OD Unavailable [phone] Dereje Ivey MD Unavailable [phone] Reason for Referral * Imaging (Routine) - Closed Specialty Diagnoses / Procedures Referred By Contac t Referred To Contact Diagnoses Chest tightness Procedures Stress test with myocardial perfusion Lidia Mendoza MD [address] [place] [address] Phone: tel: fax: [address] Phone: tel: fax: Referral ID Status Reason Start Date Expiration Date Visits Re quested Visits Authorized [id number] Closed 01/24/2023 07/23/2023 3 3 Encounter Details Date Type Department Care Team (Late st Contact Info) Description 01/24/[address] [facility] [address] [place] [address] Lidia Mendoza MD [address] [place], [place] [phone] Chest tightness (Primary Dx) Social History Tobacco [...] as of this encounter Plan of Treatment Not on file documented as of this encounter Goals Goal Patient Goal Type Associated Problems Recent Progress Patient-Stated? Author Blood Pressure < 140/90 Blood Pressure 154/91(2024 9:20 AM EDT) No Piers-Gambl e, Chana, PharmD Hemoglobin A1c < 7 Result Component 7.1( 8:52 AM EDT) No Piers-Gambl e, Chana, PharmD documented as of this encounter Visit Diagnoses Diagnosis Chest tightness- Primary Other chest pain documented in this encounter Additional Health Concerns Assessment Noted Time PHQ-9 Depression Total Score: 0 06/05/19 23 9:07 AM EST documented as of this encounter Care Teams Underwater Welder Relationship Specialty Start Date End Date Lidia Mendoza MD [address] [place] [address] PCP - General Family Medicine 04/09/18 Chana Mercado, AngelicD [address] [place] [address] Pharmacist Internal Medicine 09/05/22 Butch Baptiste MD [address] [place] [address] Cardiology 04/22/24 Valeria Moreau OD [address] [place] [address] Optometry 07/30/24 Dereje Ivey MD [address] [place] [address] Urology 08/06/24 documented as of this encounter
--- OUTSIDE RECORDS SUMMARY | 2024-11-13 13:51 | XMS_ITS | Clinical Summary ---
Author Organization [facility] Address [address] [place] [address] Care Team Providers Care Surgical Asst Name Role Phone Unavailable Primary Care Provider [...] Vaccine ( - 2023-2 5 season) 2023 Depression Screening 04/09/2024 Influenza Vaccine (#1) 2024 RSV Immunization Adult Patie nts (1 [...]
== END 2024-11-13 14:27 | disposition home or self-care (01) ==
LOC: HO.HUSH 13:47
PROVIDERS: PCP Family Medicine; Visit Provider Nurse Practitioner Family
DX: N40.1 Benign prostatic hyperplasia with lower urinary tract symptoms (principal); R35.1 Nocturia; R33.9 Retention of urine, unspecified; Z13.9 Encounter for screening, unspecified
CPT/HCPCS: 99213; G2211

== ENCOUNTER → 2024-11-13 13:46 | Outpatient (BNVA) | payer OTHER, SELFPAY | PROVIDERS: PCP Family Medicine; Visit Provider Nurse Practitioner Family | DX: N40.1 Benign prostatic hyperplasia with lower urinary tract symptoms (principal); R33.9 Retention of urine, unspecified; R35.1 Nocturia | CPT/HCPCS: 51798; 81003; 99212 ==